=== PATIENT | male | born 1955 | race Caucasian/White ===

== ENCOUNTER 2016-07-03 11:56 | Outpatient (RCR) | payer MEDICARE, OTHER ==
--- OUTSIDE RECORDS SUMMARY | 2016-04-17 13:13 | XMS REPORT | Continuity of Care Document ---
Author Author [facility] Organization [facility] Address Unknown Phone Unavailable Care Team Providers Care Senior Architectural Designer Name Role Phone Tyler Mcdonald PCP [phone] Source Comments Some departments are not documenting in the electronic medical record. If you do not see the information that you expected, contact Release of Information in the Health Information Management department at [phone] for further assistance in locating additional records.[facility] Active Allergies and Adverse Reactions No Known Allergies Current Medications Prescription Sig. Disp. Refills Start End Date Status Date gabapentin (NEURONTIN) Take 800 mg by mouth Active 800 mg tablet twice daily. diazepam (VALIUM) 10 mg Take 10 mg by mouth every Active tablet 12 hours as needed. albuterol (PROVENTIL HFA) Inhale 2 Puffs by mouth Active 90 mcg/actuation inhaler into the lungs every 6 hours as needed for Wheezing or Shortness of Breath. Shake well before use. fluticasone-vilanterol Inhale 1 Puff by mouth Active (BREO ELLIPTA) 100-25 into the lungs daily. mcg/dose dsdv umeclidinium (INCRUSE Inhale 1 Puff by mouth Active ELLIPTA) 62.5 into the lungs daily. mcg/actuation dsdv oxyCODONE (ROXICODONE) 1 Take 5-10 mL by mouth 300 mL 0 04/09/20 Active mg/mL oral solution every 4 hours as needed 16 for Pain Earliest Fill Date: 04/09/16 antiseptic mucus solvent 6-12 mL by Mucous 04/09/20 Active 120 mL Membrane route every 1 16 hour as needed. Ascorbic Acid (VITAMIN C) Take by mouth. 04/02/20 Discontin 500 mg chew [address](+) Take 1 Cap by mouth 30 Cap 5 10/20/19 04/02/20 Discontin (PRILOSEC) 40 mg capsule daily. 15 16 ued levoFLOXacin (LEVAQUIN) Take 30 mL by mouth every 30 mL 0 04/09/20 04/10/20 25 mg/mL oral solution 24 hours for 1 day. 16 16 Active Problems Problem Noted Date Laryngeal mass 04/02/2016 GERD without esophagitis 10/20/2014 Itching 10/20/2014 Tobacco abuse 10/06/2013 Fatty liver 10/06/2013 Hepatitis C 03/16/2013 Anxiety 03/16/2013 Most Recent Encounters Date Type Specialty Providers Description 04/12/2016 Telephone Otolaryngology Francia Babcock MD Appointment - oncology 04/10/2016 Cancer Otolaryngology Francia Babcock MD Conference 04/05/2016 Screening Form 04/03/2016 [facility] Surgery Francia Babcock MD Laryngeal mass Encounter 04/03/2016 Surgery General Surgery Francia Babcock MD DIRECT LARYNGOSCOPY BIOPSY 04/02/2016 [facility] Francia Babcock MD Laryngeal mass - Encounter 04/10/2016 04/02/2016 Office Visit Otolaryngology Francia Babcock MD Laryngeal mass (Primary Dx); Tobacco abuse 04/02/2016 Anesthesia General Surgery Howard White SRNA Event Immunizations Name Dates Previously Given Next Due Flu Vaccine 04/07/2016 Quadrivalent=>3 Yo (Preservative Free) Social History Tobacco Use Types Packs/Day Years Used Date Current Every Day Smoker 0.5 51 Smokeless Tobacco: Never Used Tobacco Cessation: Ready to Quit: Yes Comments: 1 pack every 24hr Alcohol Use Drinks/Week oz/Week Comments No Denies ETOH use. Last Filed Vital Signs Vital Sign Reading Time Taken Blood Pressure 110/56 04/10/2016 9:20 AM CDT Pulse 80 04/10/2016 9:20 AM CDT Temperature 36.6 C (97.9 F) 04/10/2016 9:20 AM CDT Respiratory Rate 20 10/18/2014 2:25 PM CDT Height 1.854 m (6' 1") 04/05/2016 7:05 AM CDT Weight 94.802 kg (209 lb) 04/05/2016 7:05 AM CDT Body Mass Index 27.58 04/05/2016 7:05 AM CDT Oxygen Saturation 92% 04/10/2016 9:20 AM CDT Plan of Care Date Type Specialty Providers Description 04/19/2016 Appointment Otolaryngology Cash Johnson PA-C [address] [place] [address] [phone] (Fax) Health Maintenance Due Date Last Done Comments Physical (Comprehensive) 1962 Exam Pertussis Vaccine 1965 Tetanus Vaccine 11/16/1971 Colorectal Cancer 2004 Screening Shingles Vaccine 2014 Influenza Vaccine 03/08/2017 04/07/2016 Procedures from Last 3 Months Procedure Name Priority Date/Time Associated Diagnosis Comments PROCEDURES-SCAN 04/12/2016 Results for this 3:39 PM CDT procedure are in the results section. TRACHEOSTOMY-AWAKE 04/03/2016 Laryngeal mass 12:10 PM CDT Special Needs 04/02 T/W DR. MONTANEZ, CASE LENGTH 1 HOUR - BP (1020)03/09 6- added to procedure AWAKE TRACH per DR. JOSUE duvall DIRECT LARYNGOSCOPY 04/03/2016 Laryngeal mass BIOPSY 12:10 PM CDT Special Needs 04/02 T/W DR. MONTANEZ, CASE LENGTH 1 HOUR - BP (1020)03/09 6- added to procedure AWAKE TRACH per DR. JOSUE duvall Results from Last 3 Months PATHOLOGY INTEROPERATIVE REPORT SCAN (04/16/2016 10:28 AM) Narrative Ordered by an unspecified provider. PROCEDURES-SCAN (04/12/2016 3:39 PM) Narrative Ordered by an unspecified provider. CHEST SINGLE VIEW (04/10/2016 6:04 AM)Only the most recent of 7 results within the time period is included. Impressions Persistent mild subcutaneous emphysema in the low neck. Approved by Margaret Macdonald M.D. on 04/10/2016 9:01 AM By my electronic signature, I attest that I have personally reviewed the images for this examination and formulated the interpretations and opinions expressed in this report Finalized by uKrt Oglesby M.D. on 04/10/2016 10:48 AM. Dictated by Margaret Macdonald M.D. on 04/10/2016 8:23 AM. Narrative CHEST SINGLE VIEW Clinical Indication: Male, 60 years old. Crepitus Comparison: Chest radiograph from 04/09/2016 Findings: Tracheostomy tube remains in place. The heart size is normal without pulmonary vascular congestion. Calcified granuloma overlies the right lung base. There is mild left basilar atelectasis. No pneumothorax is identified. Subcutaneous emphysema is noted in the low neck. Procedure Note Interface, Radiant Results - Tue Apr 10, 2016 10:51 AM CDT CHEST SINGLE VIEW Clinical Indication: Male, 60 years old. Crepitus Comparison: Chest radiograph from 04/09/2016 Findings: Tracheostomy tube remains in place. The heart size is normal without pulmonary vascular congestion. Calcified granuloma overlies the right lung base. There is mild left basilar atelectasis. No pneumothorax is identified. Subcutaneous emphysema is noted in the low neck. IMPRESSION Persistent mild subcutaneous emphysema in the low neck. Approved by Margaret Macdonald M.D. on 04/10/2016 9:01 AM By my electronic signature, I attest that I have personally reviewed the images for this examination and formulated the interpretations and opinions expressed in this report Finalized by Kurt Oglesby M.D. on 04/10/2016 10:48 AM. Dictated by Margaret Macdonald M.D. on 04/10/2016 8:23 AM. LIVER FUNCTION PANEL (04/05/2016 2:50 PM) Component Value Range Total Bilirubin 0.7 0.3-1.2 MG/DL Bilirubin, Direct 0.2 <0.4 MG/DL Albumin 3.2 (L) 3.5-5.0 G/DL Alk Phosphatase 64 25-110 U/L AST (SGOT) 16 7-40 U/L ALT (SGPT) 10 7-56 U/L Total Protein 6.5 6.0-8.0 G/DL Specimen Blood BASIC METABOLIC PANEL (04/05/2016 2:50 PM)Only the most recent of 2 results within the time period is included. Component Value Range Sodium 138 137-147 MMOL/L Potassium 3.9 3.5-5.1 MMOL/L Chloride 106 98-110 MMOL/L CO2 27 21-30 MMOL/L Anion Gap 5 3-12 Glucose 190 (H) 70-100 MG/DL Blood Urea Nitrogen 17 7-25 MG/DL Creatinine 0.63 0.4-1.24 MG/DL Calcium 8.6 8.5-10.6 MG/DL eGFR Non >60Comment: >60 mL/min The eGFR is not validated for use in drug dosing adjustments. Continue to use estimated creatinine clearance per dosing reference text. Please contact the Clinical Pharmacist for questions. eGFR >60Comment: >60 mL/min The eGFR is not validated for use in drug dosing adjustments. Continue to use estimated creatinine clearance per dosing reference text. Please contact the Clinical Pharmacist for questions. Specimen Blood CBC AND DIFF (04/05/2016 2:50 PM) Component Value Range White Blood Cells 8.2 4.5-11.0 K/UL RBC 4.51 4.4-5.5 M/UL Hemoglobin 14.1 13.5-16.5 GM/DL Hematocrit 41.7 40-50 % MCV 92.4 80-100 FL MCH 31.2 26-34 PG MCHC 33.7 32.0-36.0 G/DL RDW 12.6 11-15 % Platelet Count 90 (L) 150-400 K/UL MPV 8.4 7-11 FL Neutrophils 90 (H) 41-77 % Lymphocytes 6 (L) 24-44 % Monocytes 4 4-12 % Eosinophils 0 0-5 % Basophils 0 0-2 % Absolute Neutrophil Count 7.40 (H) 1.8-7.0 K/UL Absolute Lymph Count 0.50 (L) 1.0-4.8 K/UL Absolute Monocyte Count 0.30 0-0.80 K/UL Absolute Eosinophil Count 0.00 0-0.45 K/UL Absolute Basophil Count 0.00 0-0.20 K/UL Specimen Blood NM PET SCAN TORSO (SKULL-THIGHS) (04/05/2016 8:05 AM) Impressions 1.Metabolically active right supraglottic mass extending inferiorly and superiorly with associated bilateral metabolically active level 2 lymph nodes, right greater left, compatible with samira metastasis. 2.No scintigraphic evidence of distant metastasis. Approved by Mihai Stephens MD on 04/05/2016 9:56 AM By my electronic signature, I attest that I have personally reviewed the images for this examination and formulated the interpretations and opinions expressed in this report Finalized by Nathan Hoang M.D. on 04/05/2016 11:38 AM. Dictated by Mihai Stephens MD on 04/05/2016 8:45 AM. Narrative PET/CT NECK, CHEST, ABDOMEN AND PELVIS HISTORY:Squamous cell carcinoma of the oropharynx RADIOPHARMACEUTICAL:16.5 mCi F-18 Fluorodeoxyglucose (FDG) IV. BLOOD GLUCOSE LEVEL AT THE TIME OF RADIOPHARMACEUTICAL ADMINISTRATION:145 mg /dl TECHNIQUE:Beginning approximately 60 minutes after tracer administration, routine whole body PET/CT imaging was performed from the level of the base of the skull to the upper thighs.PET images were reviewed in standard orthogonal projections.Low dose non-contrast CT imaging was performed for attenuation correction and localization purposes. COMPARISON: CT chest from March [address] neck from March 20, 2016; this is an outside image without report available. FINDINGS: The current mean hepatic SUV is 2.13, maximum 3.59. The current mean mediastinal blood SUV pool is 1.92, maximum 3.24. Physiologic activity is noted with the brain, heart, kidneys, bladder and bowel. Head/Neck: Supraglottic mass with extension superiorly and inferiorly involving the epiglottis, base of tongue, and right vocal cord with a maximum SUV of 11.44 (index 168). There is hypermetabolic bilateral cervical lymphadenopathy. A admitting representative right level 2 lymph node has a maximal SUV of 9.36 (index 168) . A admitting representative left level 2 lymph node has a maximum SUV of 5.51 (index 172) . A tracheostomy tube is visualized with mild increased uptake around the insertion site, likely representing postoperative inflammation with a maximum SUV of 3.73 (index to 234). Chest: A left lower lobe pulmonary opacity is noted with a maximum SUV of 3.05 ( index 436), likely representing pneumonitis. Marked emphysema with scattered scarring and bibasilar atelectasis is noted. There is subcutaneous gas seen in the lower neck and upper chest likely secondary to recent tracheostomy. Abdomen/Pelvis: No suspicious hypermetabolic lesions are identified within the abdomen or pelvis. Vicarious excretion of contrast material in the gallbladder is visualized, likely from recent prior contrast enhanced CT. Osseous Structures: No suspicious hypermetabolic osseous lesions are identified. Additional significant low dose CT findings: There is mild to moderate atherosclerotic calcification of the aortoiliac vessels. Occasional diverticula of the sigmoid colon are seen. Uncorrected PET images:The uncorrected PET images demonstrate no additional abnormality. Procedure Note Interface, Radiant Results - [place] Apr 05, 2016 11:41 AM CDT PET/CT NECK, CHEST, ABDOMEN AND PELVIS HISTORY: Squamous cell carcinoma of the oropharynx RADIOPHARMACEUTICAL: 16.5 mCi F-18 Fluorodeoxyglucose (FDG) IV. BLOOD GLUCOSE LEVEL AT THE TIME OF RADIOPHARMACEUTICAL ADMINISTRATION: 145 mg/ dl TECHNIQUE: Beginning approximately 60 minutes after tracer administration, routine whole body PET/CT imaging was performed from the level of the base of the skull to the upper thighs. PET images were reviewed in standard orthogonal projections. Low dose non-contrast CT imaging was performed for attenuation correction and localization purposes. COMPARISON: CT chest from March [address] neck from March 20, 2016; this is an outside image without report available. FINDINGS: The current mean hepatic SUV is 2.13, maximum 3.59. The current mean mediastinal blood SUV pool is 1.92, maximum 3.24. Physiologic activity is noted with the brain, heart, kidneys, bladder and bowel. Head/Neck: Supraglottic mass with extension superiorly and inferiorly involving the epiglottis, base of tongue, and right vocal cord with a maximum SUV of 11.44 (index 168). There is hypermetabolic bilateral cervical lymphadenopathy. A admitting representative right level 2 lymph node has a maximal SUV of 9.36 (index 168) . A admitting representative left level 2 lymph node has a maximum SUV of 5.51 (index 172) . A tracheostomy tube is visualized with mild increased uptake around the insertion site, likely representing postoperative inflammation with a maximum SUV of 3.73 (index to 234). Chest: A left lower lobe pulmonary opacity is noted with a maximum SUV of 3.05 ( index 436), likely representing pneumonitis. Marked emphysema with scattered scarring and bibasilar atelectasis is noted. There is subcutaneous gas seen in the lower neck and upper chest likely secondary to recent tracheostomy. Abdomen/Pelvis: No suspicious hypermetabolic lesions are identified within the abdomen or pelvis. Vicarious excretion of contrast material in the gallbladder is visualized, likely from recent prior contrast enhanced CT. Osseous Structures: No suspicious hypermetabolic osseous lesions are identified. Additional significant low dose CT findings: There is mild to moderate atherosclerotic calcification of the aortoiliac vessels. Occasional diverticula of the sigmoid colon are seen. Uncorrected PET images: The uncorrected PET images demonstrate no additional abnormality. IMPRESSION 1. Metabolically active right supraglottic mass extending inferiorly and superiorly with associated bilateral metabolically active level 2 lymph nodes, right greater left, compatible with samira metastasis. 2. No scintigraphic evidence of distant metastasis. Approved by Mihai Stephens MD on 04/05/2016 9:56 AM By my electronic signature, I attest that I have personally reviewed the images for this examination and formulated the interpretations and opinions expressed in this report Finalized by Nathan Hoang M.D. on 04/05/2016 11:38 AM. Dictated by Mihai Stephens MD on 04/05/2016 8:45 AM. POC GLUCOSE (04/05/2016 6:08 AM) Component Value Range Glucose, POC 145 (H) 70-100 MG/DL CT CHEST W CONTRAST (04/04/2016 11:59 AM) Impressions 1. Tracheostomy tube placement with extensive subcutaneous, mediastinal, and upper abdominal gas, likely secondary to airleak around the tube. No definitive site of air leak is demonstrated on this CT. 2. No evidence of thoracic lymphadenopathy or suspicious pulmonary nodule. 3. Marked emphysema and scattered areas of scarring with bibasilar atelectasis, left greater than right. 4. Cirrhosis of the liver. Finalized by Curtis Tejeda M.D. on 04/04/2016 12:43 PM. Dictated by Curtis Tejeda M.D. on 04/04/2016 12:[address] Chest Clinical Indication: Head and neck cancer. Staging. Technique: Multiple contiguous axial CT images were obtained through the chest during IV administration of 80 mL Isovue-370 IV contrast.Post processing coronal and sagittal reconstruction images were made from the axial images. Comparison: No comparison CT chest is available. Findings: Tracheostomy tube has been placed with extensive subcutaneous gas seen coursing throughout the subcutaneous tissues of the upper chest, throughout the mediastinum, and into extraperitoneal fat of the upper abdomen. The tracheostomy tube appears well positioned without a definitive air leak around the tube demonstrated. Axilla, Mediastinum and Luz Marina: No lymphadenopathy. Heart and Great Vessels: The heart size is normal. There is no pericardial effusion. There is at least mild coronary artery calcification. Lungs and Pleura: There is no pneumothorax. Extrapleural gas is seen tracking along the mediastinum. Marked emphysema and scattered areas of scarring are seen in both lungs. A calcified granuloma is noted in the right lower lobe. No discrete soft tissue pulmonary nodules are appreciated. There is mild bibasilar atelectasis, left greater than right. No pleural effusion is identified. Chest Wall and Osseous Structures: No destructive osseous lesions. Visualized Upper Abdomen: Mild nodular contour of the liver is noted compatible with cirrhosis. Procedure Note Interface, Radiant Results - SatApr 04, 2016 12:[address] Chest Clinical Indication: Head and neck cancer. Staging. Technique: Multiple contiguous axial CT images were obtained through the chest during IV administration of 80 mL Isovue-370 IV contrast. Post processing coronal and sagittal reconstruction images were made from the axial images. Comparison: No comparison CT chest is available. Findings: Tracheostomy tube has been placed with extensive subcutaneous gas seen coursing throughout the subcutaneous tissues of the upper chest, throughout the mediastinum, and into extraperitoneal fat of the upper abdomen. The tracheostomy tube appears well positioned without a definitive air leak around the tube demonstrated. Axilla, Mediastinum and Luz Marina: No lymphadenopathy. Heart and Great Vessels: The heart size is normal. There is no pericardial effusion. There is at least mild coronary artery calcification. Lungs and Pleura: There is no pneumothorax. Extrapleural gas is seen tracking along the mediastinum. Marked emphysema and scattered areas of scarring are seen in both lungs. A calcified granuloma is noted in the right lower lobe. No discrete soft tissue pulmonary nodules are appreciated. There is mild bibasilar atelectasis, left greater than right. No pleural effusion is identified. Chest Wall and Osseous Structures: No destructive osseous lesions. Visualized Upper Abdomen: Mild nodular contour of the liver is noted compatible with cirrhosis. IMPRESSION 1. Tracheostomy tube placement with extensive subcutaneous, mediastinal, and upper abdominal gas, likely secondary to airleak around the tube. No definitive site of air leak is demonstrated on this CT. 2. No evidence of thoracic lymphadenopathy or suspicious pulmonary nodule. 3. Marked emphysema and scattered areas of scarring with bibasilar atelectasis , left greater than right. 4. Cirrhosis of the liver. Finalized by Curtis Tejeda M.D. on 04/04/2016 12:43 PM. Dictated by Curtis Tejeda M.D. on 04/04/2016 12:34 PM. SURGICAL PATHOLOGY (04/03/2016 2:50 PM) Component Value Range PATHOLOGY REPORT [facility] [email or web address] Goyo Prakash MD, PhD, Director of Anatomic Pathology Department of Pathology and Laboratory Medicine [address] [place] [id number] Surgical Pathology Office: [phone] SURGICAL PATHOLOGY REPORT NAME: OBEY WASHBURN SURG PATH #: [id number] MR #: [id number] SPECIMEN CLASS: SR BILLING #: [id number] ALT ID #: LOCATION: [facility] DATE OF PROCEDURE: 04/03/2016 AGE: 60 SEX: M DATE RECEIVED: 04/03/2016 : 1955 TIME RECEIVED: 14:50 PHYSICIAN: FRANCIA BABCOCK DATE OF REPORT: 04/05/2016 COPY TO: DATE OF PRINTIN04/05/2016 ################################################## ###################### Final Diagnosis: A. Squamous mucosa, "right arytenoid", biopsy: Invasive moderately differentiated squamous cell carcinoma. B. Squamous mucosa, "right true cord", biopsy: Invasive moderately differentiated squamous cell carcinoma. C. Squamous mucosa, "right false cord", biopsy: Invasive moderately differentiated squamous cell carcinoma. D. Squamous mucosa, "midline epiglottis", biopsy:: Invasive moderately differentiated squamous cell carcinoma. E. Squamous mucosa, "additional tissue supraglottis", biopsy: Invasive moderately differentiated squamous cell carcinoma. Comment: Pursuant to the Rn Telephone Triage Program at the [facility] Pathology Department, selected slides from this case have been concurrently reviewed by the following pathologist: Dr. Gabby Pereira, who agrees with the final diagnosis. Attestation: By this signature, I attest that I have personally formulated the final interpretation expressed in this report and that the above diagnosis is based upon my examination of the slides and/or other material indicated in this report. +++Electronically Signed Out By+++ [facility]/04/04/2016 Interpreted by: Keira Xie M.D. David Trujillo M.D. Resident 04/05/2016 ################################################## ###################### Material Received: A: right arytenoid B: right true cord C: right false cord D: midline epiglottis E: additional tissue supraglottis History: 60-year-old male with a history of squamous cell carcinoma. Gross Description: A. Received fresh, labeled with the patient's name and "right arytenoid" are multiple, irregular, hanley-pink portions of soft tissue measuring in aggregate 1.9 x 1.2 x 0.3 cm. The specimen is entirely submitted for frozen and permanent sections as follows: A1FS Frozen section remnant. A2 Remaining specimen. ([facility]) B. Received in formalin labeled "right true cord" is a 0.6 x 0.5 x 0.3 cm aggregate of hanley-brown soft tissue fragments. The specimen is entirely submitted in cassette B1. ([facility]) C. Received in formalin labeled "right false cord" is a 0.9 x 0.4 x 0.3 cm aggregate of hanley-brown soft tissue fragments. The specimen is entirely submitted in cassette C1. ([facility]) D. Received in formalin labeled "midline epiglottis" is a 1.4 x 0.4 x 0.3 cm aggregate of hanley-brown soft tissue fragments. The specimen is entirely submitted in cassette D1. ([facility]) E. Received in formalin labeled "additional tissue supraglottis" is a 1.9 x 1.2 x 0.4 cm aggregate of hanley-brown soft tissue fragments. The specimen is entirely submitted in cassette E1. ([facility]) [facility]/04/03/2016 David Trujillo M.D. Resident Intraoperative Consultation: A1FS, squamous mucosa, "right arytenoid", biopsy: Invasive squamous cell carcinoma. Keira Xie M.D. CBC (04/03/2016 3:20 AM) Component Value Range White Blood Cells 5.0 4.5-11.0 K/UL RBC 4.85 4.4-5.5 M/UL Hemoglobin 15.6 13.5-16.5 GM/DL Hematocrit 44.9 40-50 % MCV 92.5 80-100 FL MCH 32.1 26-34 PG MCHC 34.7 32.0-36.0 G/DL RDW 12.6 11-15 % Platelet Count 81 (L) 150-400 K/UL MPV 8.7 7-11 FL Specimen Blood BLOOD BANK SAMPLE HOLD (04/02/2016 10:20 AM) Component Value Range BB Sample hold IN LAB
[2016-04-17 13:45] LABS: BASOPHILS % (AUTO) 1 % (0-10); EOSINOPHILS # (AUTO) 0.2 10^3/uL (0.0-0.3); EOSINOPHILS % (AUTO) 2 % (0-10); LYMPHOCYTES # (AUTO) 1.9 X 10^3 (1.0-4.0); LYMPHOCYTES % (AUTO) 22 % (12-44); MEAN CORPUSCULAR HEMOGLOBIN 32 PG (25-34); MEAN CORPUSCULAR HGB CONC 35 G/DL (32-36); MEAN CORPUSCULAR VOLUME 91 FL (80-99); MONOCYTES # (AUTO) 0.7 X 10^3 (0.0-1.0); MONOCYTES % (AUTO) 8 % (0-12); NEUTROPHILS # (AUTO) 5.7 X 10^3 (1.8-7.8); NEUTROPHILS % (AUTO) 67 % (42-75); PLATELET COUNT 127 10^3/uL (130-400); RED BLOOD COUNT 4.55 10^6/uL (4.35-5.85); RED CELL DISTRIBUTION WIDTH 13.3 % (10.0-14.5); WHITE BLOOD COUNT 8.5 10^3/uL (4.3-11.0)
[2016-04-17 14:14] LABS: ALANINE AMINOTRANSFERASE 16 U/L (0-55); ALBUMIN 3.4 G/DL (3.2-4.5); ANION GAP 12 MMOL/L (5-14); ASPARTATE AMINO TRANSFERASE 20 U/L (5-34); BILIRUBIN,TOTAL 0.8 MG/DL (0.1-1.0); BLOOD UREA NITROGEN 6 MG/DL (7-18); BUN/CREATININE RATIO 8; CARBON DIOXIDE 21 MMOL/L (21-32); CHLORIDE 108 MMOL/L (98-107); CREATININE SERUM 0.74 MG/DL (0.60-1.30); GFR ESTIMATED > 60; GLUCOSE 138 MG/DL (70-105); POTASSIUM 3.7 MMOL/L (3.6-5.0); SODIUM 141 MMOL/L (135-145)
[2016-05-02 13:05] LABS: BASOPHILS % (AUTO) 1 % (0-10); EOSINOPHILS # (AUTO) 0.2 10^3/uL (0.0-0.3); EOSINOPHILS % (AUTO) 3 % (0-10); LYMPHOCYTES # (AUTO) 1.6 X 10^3 (1.0-4.0); LYMPHOCYTES % (AUTO) 25 % (12-44); MEAN CORPUSCULAR HEMOGLOBIN 32 PG (25-34); MEAN CORPUSCULAR HGB CONC 35 G/DL (32-36); MEAN CORPUSCULAR VOLUME 93 FL (80-99); MEAN PLATELET VOLUME 9.1 FL (7.4-10.4); MONOCYTES # (AUTO) 0.7 X 10^3 (0.0-1.0); MONOCYTES % (AUTO) 12 % (0-12); NEUTROPHILS # (AUTO) 3.8 X 10^3 (1.8-7.8); NEUTROPHILS % (AUTO) 60 % (42-75); PLATELET COUNT 170 10^3/uL (130-400); RED BLOOD COUNT 4.48 10^6/uL (4.35-5.85); RED CELL DISTRIBUTION WIDTH 13.4 % (10.0-14.5); WHITE BLOOD COUNT 6.3 10^3/uL (4.3-11.0)
[2016-05-02 13:55] LABS: ALANINE AMINOTRANSFERASE 11 U/L (0-55); ALBUMIN 3.7 G/DL (3.2-4.5); ANION GAP 9 MMOL/L (5-14); ASPARTATE AMINO TRANSFERASE 15 U/L (5-34); BILIRUBIN,TOTAL 0.6 MG/DL (0.1-1.0); BLOOD UREA NITROGEN 5 MG/DL (7-18); BUN/CREATININE RATIO 7; CALCIUM 9.2 MG/DL (8.5-10.1); CARBON DIOXIDE 28 MMOL/L (21-32); CHLORIDE 107 MMOL/L (98-107); CREATININE SERUM 0.76 MG/DL (0.60-1.30); GFR ESTIMATED > 60; GLUCOSE 83 MG/DL (70-105); SODIUM 144 MMOL/L (135-145); TOTAL PROTEIN 7.4 G/DL (6.4-8.2)
[2016-05-17 13:39] LABS: BASOPHILS % (AUTO) 1 % (0-10); EOSINOPHILS # (AUTO) 0.2 10^3/uL (0.0-0.3); EOSINOPHILS % (AUTO) 3 % (0-10); LYMPHOCYTES # (AUTO) 1.3 X 10^3 (1.0-4.0); LYMPHOCYTES % (AUTO) 20 % (12-44); MEAN CORPUSCULAR HEMOGLOBIN 32 PG (25-34); MEAN CORPUSCULAR HGB CONC 35 G/DL (32-36); MEAN CORPUSCULAR VOLUME 93 FL (80-99); MEAN PLATELET VOLUME 9.5 FL (7.4-10.4); MONOCYTES # (AUTO) 0.6 X 10^3 (0.0-1.0); MONOCYTES % (AUTO) 9 % (0-12); NEUTROPHILS # (AUTO) 4.4 X 10^3 (1.8-7.8); NEUTROPHILS % (AUTO) 67 % (42-75); PLATELET COUNT 129 10^3/uL (130-400); RED BLOOD COUNT 4.38 10^6/uL (4.35-5.85); RED CELL DISTRIBUTION WIDTH 13.1 % (10.0-14.5); WHITE BLOOD COUNT 6.5 10^3/uL (4.3-11.0)
[2016-05-17 14:37] LABS: ALANINE AMINOTRANSFERASE 10 U/L (0-55); ALBUMIN 3.6 G/DL (3.2-4.5); ANION GAP 8 MMOL/L (5-14); ASPARTATE AMINO TRANSFERASE 14 U/L (5-34); BLOOD UREA NITROGEN 6 MG/DL (7-18); BUN/CREATININE RATIO 8; CALCIUM 9.2 MG/DL (8.5-10.1); CARBON DIOXIDE 29 MMOL/L (21-32); CHLORIDE 102 MMOL/L (98-107); CREATININE SERUM 0.72 MG/DL (0.60-1.30); GFR ESTIMATED > 60; GLUCOSE 117 MG/DL (70-105); POTASSIUM 4.1 MMOL/L (3.6-5.0); SODIUM 139 MMOL/L (135-145); TOTAL PROTEIN 7.2 G/DL (6.4-8.2)
[~2016-07-03] VITALS: Ht 185.4 cm; Wt 94.3 kg
[~2016-07-03 11:56] MED LIST: ACETAMINOPHEN 325 MG TAB (TYLENOL) CANCER CTR PO PRN; AZIT500T PO; BUDE90AE2 IH; CEFD300C3 PO; FLUT1AER IH; HYDR473S50 PO; METH4TAB PO; NS (IVPB) CANCER CENTER 250 ML IV SCH; PANITUMUMAB IV SCH; UMEC62.5 IH; [UNRECOGNIZED DRUG - OTHER] IV SCH; diphenhydrAMINE 25 MG TAB (BENADRYL) CANCER CENTER PO SCH
== END 2016-07-16 | disposition home or self-care (01) ==
LOC: ONC 11:56
PROVIDERS: ATTEND Internal Medicine Hematology & Oncology
DX: Z51.0 Encounter for antineoplastic radiation therapy (principal); C32.1 Malignant neoplasm of supraglottis; B18.2 Chronic viral hepatitis C; J44.9 Chronic obstructive pulmonary disease, unspecified; Z87.891 Personal history of nicotine dependence; Z79.899 Other long term (current) drug therapy
CPT/HCPCS: 36415; 77300; 77301; 77332; 77334; 77336; 77338; 77386; 77470; 80053; 85025; 99213; 99214

== ENCOUNTER 2016-07-26 05:49 | Outpatient (CLI) | payer OTHER ==
[~2016-07-26] VITALS: Ht 185.4 cm; Wt 91.2 kg
[~2016-07-26 05:49] MED LIST changes: -ACETAMINOPHEN 325 MG TAB (TYLENOL) CANCER CTR PO PRN; -NS (IVPB) CANCER CENTER 250 ML IV SCH; -PANITUMUMAB IV SCH; -[UNRECOGNIZED DRUG - OTHER] IV SCH; -diphenhydrAMINE 25 MG TAB (BENADRYL) CANCER CENTER PO SCH
--- OUTSIDE RECORDS SUMMARY | 2016-07-26 05:53 | XMS REPORT | Continuity of Care Document ---
Author Author [facility] Organization [facility] Address Unknown Phone Unavailable Care Team Providers Care Material Planning Analyst Name Role Phone Tyler Mcdonald PCP [phone] Source Comments Some departments are not documenting in the electronic medical record. If you do not see the information that you expected, contact Release of Information in the Health Information Management department at [phone] for further assistance in locating additional records.[facility] Active Allergies and Adverse Reactions No [...]
== END 2016-07-26 12:27 ==
LOC: PREOP 05:49
PROVIDERS: ATTEND Surgery
DX: Z01.818 Encounter for other preprocedural examination (principal); C32.1 Malignant neoplasm of supraglottis

== ENCOUNTER 2016-07-30 08:42 | Day surgery (SDC) | payer OTHER ==
[~2016-07-30] VITALS: Ht 185.4 cm; Wt 91.2 kg
[~2016-07-30 08:42] MED LIST changes: +NS IV 500 ML 500 ML ONE
--- OUTSIDE RECORDS SUMMARY | 2016-07-30 08:46 | XMS REPORT | Continuity of Care Document ---
Author Author [facility] Organization [facility] Address Unknown Phone Unavailable Care Team Providers Care Photo Cartographer Name Role Phone Tyler Mcdonald PCP [phone] Source Comments Some departments are not documenting in the electronic medical record. If you do not see the information that you expected, contact Release of Information in the Health Information Management department at [phone] for further assistance in locating additional records.[facility] Active Allergies and Adverse Reactions No [...] Recent Encounters Date Type Specialty Providers Description 07/27/2016 Telephone Otolaryngology Francia Mckeon MD Navigation Follow Up 06/27/2016 Telephone Otolaryngology Kathe Dunlap, Appointment - [...] of Care Date Type Specialty Providers Description 08/28/2016 Appointment Otolaryngology Francia Mckeon MD [address] [facility] [address] [place] [address] [phone] (Fax) Health Maintenance Due Date Last Done Comments Physical (Comprehensive) 1961 Exam Pertussis Vaccine 1965 Tetanus Vaccine 11/16/1971 Colorectal Cancer 2004 Screening Shingles Vaccine 2014 Influenza Vaccine 03/08/2017 04/07/2016 Results from Last 3 Months [facility] REF LAB SCAN (06/10/2016 2:32 PM) Narrative Ordered by an unspecified provider.
--- OUTSIDE RECORDS SUMMARY | 2016-07-30 08:46 | XMS REPORT | Continuity of Care Document ---
Author Author [facility] Organization [facility] Address Unknown Phone Unavailable Care Team Providers Care Hairspring Vibrator Name Role Phone Tyler Mcdonald PCP [phone] Source Comments Some departments are not documenting in the electronic medical record. If you do not see the information that you expected, contact Release of Information in the Health Information Management department at [phone] for further assistance in locating additional records.[facility] Active Allergies and Adverse Reactions No Known [...] 08/28/2016 Appointment Otolaryngology Francia Mckeon MD [address] [facility] [address] [place] [address] [phone] (Fax) Health Maintenance Due Date Last Done Comments Physical (Comprehensive) 1962 Exam Pertussis Vaccine 1965 Tetanus Vaccine 11/16/1971 Colorectal Cancer 2004 Screening Shingles Vaccine 2014 Influenza Vaccine 03/08/2017 04/07/2016 Results from Last 3 Months [facility] REF LAB SCAN (06/10/2016 2:32 PM) Narrative Ordered by an unspecified provider.
[2016-07-30 08:55] VITALS: BP 134/80
[2016-07-30] MEDS ORDERED: NS IV 500 ML 500 ML IV PRN (08:55)
[2016-07-30] MEDS ORDERED: HURRICAINE EXT TUBE (BENZOCAINE) XX PRN (09:00)
[2016-07-30] MEDS ORDERED: NALOXONE 0.4 MG/ML 1 ML (NARCAN) VIAL IVP PRN (09:00)
[2016-07-30] MEDS ORDERED: FLUMAZENIL (ROMAZICON) 0.1 MG/ML 5 ML VIAL INJ PRN (09:00)
--- NOTE | 2016-07-30 10:09 | Pre-Op Note & Conscious Sedat ---
Pre-Operative Progress Note H&P Reviewed The H&P was reviewed, patient examined and no changes noted. Date H&P Reviewed: Jul 30, 2016 Time H&P Reviewed: 10:09 Pre-Op Diagnosis: laryngeal carcinoma. Unused PEG tube Conscious Sedation Pre-Proced ASA Class: 3 Airway Mallampati Classification: ([place] appropriate class) I. II. III, IV Lungs Heart ASA score ASA 1: a normal healthy patient ASA 2: a patient with a mild systemic disease (mid diabetes, controlled hypertension, obesity ASA 3: a patient with a severe systemic disease that limits activity (angina , COPD, prior Myocardial infarction) ASA 4: a patient with an incapacitating disease that is a constant threat to life (CHF, renal failure) ASA 5: a moribund patient not expected to survive 24 hrs. (ruptured aneurysm) ASA 6: a declared brain patient whose organs are being harvested. For emergent operations, add the letter E after the classification Grade 2 Sedation Plan: Discussed options with patient/fam Note The patient is an appropriate candidate to undergo the planned procedure, sedation, and anesthesia. The patient immediately re-assessed prior to indication. CRESENCIO FELDER MD Jul 30, 2016 10:09 am
--- NOTE | 2016-07-30 10:18 | Diagnostic Imaging Report ---
PROCEDURE: CT abdomen without contrast. TECHNIQUE: Multiple contiguous axial images were obtained through the abdomen without the use of intravenous contrast. Oral contrast was administered however. INDICATION: Check PEG tube placement. FINDINGS: In the interval since the previous CT abdomen exam of 06/16/2014, a PEG tube has been inserted. The tube appears to be well-positioned with bulb in the gastric lumen. The stomach itself is partially filled with oral contrast and gas and seems to be generally unremarkable. As suggested on the prior exam, the liver is prominent and has a micronodular contour. The spleen is also slightly enlarged and similar to the prior exam. The gallbladder, pancreas, adrenals, kidneys, aorta and inferior vena cava are unremarkable for an acute abnormality. The small cyst in the inferior pole of the left kidney seen previously is again evident and not significantly changed. There is no mass or free fluid collection identified. The lung bases are generally clear. The calcified 1 cm nodule in the right lower lobe seen previously is again evident. The bone windows show no sign of an acute fracture or of a destructive lesion. There is a 30-40% compression deformity of the superior endplate of L4. This injury seems to be long-standing in nature. IMPRESSION: 1. The newly inserted PEG tube is in good position. 2. There is no acute abnormality of the abdomen. 3. There is persistent hepatosplenomegaly. These results were discussed with Dr. Orozco. Dictated by: Dictated on workstation # [id number]
[2016-07-30] MEDS ORDERED: MIDAZOLAM 2 MG/2 ML (VERSED) VIAL ONE ×3 (10:28)
[2016-07-30] MEDS ORDERED: HURRICAINE EXT TUBE (BENZOCAINE) ONE (10:28)
[2016-07-30] MEDS ORDERED: fentaNYL INJECTION 100 MCG/2 ML AMP ONE (10:28)
[2016-07-30] MEDS: fentaNYL INJECTION 100 MCG/2 ML AMP IVP PRN ×2 (10:35→10:38)
[2016-07-30] MEDS: MIDAZOLAM 2 MG/2 ML (VERSED) VIAL IVP PRN ×2 (10:36→10:39)
--- NOTE | 2016-07-30 10:54 | Progress Note-Post Operative ---
Post-Operative Progess Note Pre-Operative Diagnosis laryngeal carcinoma. Unused PEG tube Post-Operative Diagnosis same Post-Op Procedure Note Date of Procedure: Jul 30, 2016 Name of Procedure: EGD with removal of PEG tube Anesthesia Type sedation CRESENCIO FELDER MD Jul 30, 2016 10:54 am
--- NOTE | 2016-07-30 10:55 | Discharge Inst-Simple/Standard ---
Discharge Inst-Standard Discharge Medications New, Converted or Re-Newed RX: Other Patient Instructions/Follow Up Plan of Care/Instructions/FU: Razia bandage on the anterior abdominal wall until drainage ceases Activity as Tolerated: Yes Discharge Diet: No Restrictions CRESENCIO FELDER MD Jul 30, 2016 10:55 am
[2016-07-30 11:15] VITALS: BP 102/73
[2016-07-30 11:40] VITALS: BP 107/69
[2016-07-30 11:50] VITALS: BP 107/69
--- NOTE | 2016-07-30 13:03 | PROCEDURE REPORT ---
PROCEDURE PHYSICIAN: CRESENCIO FELDER DATE OF PROCEDURE: 07/30/2016 PROCEDURE: Endoscopic removal of PEG tube. SURGEON: Ernesto INDICATION FOR THE PROCEDURE: This gentleman is being treated for laryngeal carcinoma. He has resumed normal eating and therefore the PEG tube has been unused for several days. Due to unexplained pain over the anterior abdominal wall, CT scan was obtained to ensure satisfactory position of the flange of the tube within the stomach. Subsequently, it was felt reasonable to remove it endoscopically. Informed consent was obtained after reviewing the procedure in detail. DESCRIPTION OF PROCEDURE: He was placed in left lateral decubitus position and his vital signs were monitored. Conscious sedation was achieved using Versed and fentanyl. The flexible gastroscope was introduced down the esophagus into the stomach. The flange of the PEG tube was snared and the tube itself excised outside the abdominal wall. The flange was then removed uneventfully. He tolerated the procedure reasonably well. IMPRESSION: Successful endoscopic removal of unused PEG tube Job ID: [id number] Dictated Date: 07/30/2016 10:48:33 Auto Bench Mechanic Date: 07/30/2016 12:59:09 / diogenes QUEVEDO
== END 2016-07-30 11:30 | disposition home or self-care (01) ==
LOC: RAD 08:42
PROVIDERS: ATTEND Surgery
DX: C32.9 Malignant neoplasm of larynx, unspecified (principal)
CPT/HCPCS: 74150

== ENCOUNTER → 2016-08-17 | Outpatient (CLI) | payer OTHER ==
[~2016-08-17] MED LIST changes: +AC160U10 PEG; +ACET160E11 GT; +ALBU2.5V4 IH; +AMOX1TAB12 GT; +CALC200T2 PEG; +CALCITRATE 950 MG GT; +CATHETER FLUSH 10 ML SYR IV PRN; +CHLO473M PO; +CHOL10007 GT; +DIAZ10TA GT; +DOCU50LI GT; +Hydrogen Peroxide MC; +IOHEXOL 350 MG/ML 100 ML (OMNIPAQUE 350) VIAL IV ONE; +LEVO50TA6 GT; +MULT240L3 GT; +NS 100 ML (IVPB) BAG IV ONE; -NS IV 500 ML 500 ML ONE; +OLAN5TAB25 JT; +OMEP40CA36 GT; +ONDA4TAB8 PO; +OXYC5SOL19 GT; +RT-ALBUINH IH; +SULF1TAB35 PO; +TRAZ-28 GT; +[UNRECOGNIZED DRUG - OTHER] MM
--- OUTSIDE RECORDS SUMMARY | 2016-08-17 10:53 | XMS REPORT | Continuity of Care Document ---
Author Author [facility] Organization [facility] Address Unknown Phone Unavailable Care Team Providers Care Property Site Manager Name Role Phone Tyler Mcdonald PCP [phone] Source Comments Some departments are not documenting in the electronic medical record. If you do not see the information that you expected, contact Release of Information in the Health Information Management department at [phone] for further assistance in locating additional records.[facility] Active Allergies and Adverse Reactions No [...] route every 1 16 hour as needed. nystatin (MYCOSTATIN) Take 500,000 Units by Active 100,000 units/mL oral mouth four times daily. 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 Status post radiation therapy 08/14/2016 Laryngeal mass 04/02/2016 GERD without esophagitis 10/20/2014 Itching 10/20/2014 Tobacco abuse 10/06/2013 Fatty liver 10/06/2013 Hepatitis C 03/16/2013 Anxiety 03/16/2013 Most Recent Encounters Date Type Specialty Providers Description 08/15/2016 Telephone Otolaryngology Francia Mckeon MD Navigation Follow Up 08/15/2016 Orders Only Otolaryngology Francia Mckeon MD Pre- procedure lab exam (Primary Dx) 08/14/2016 Office Visit Otolaryngology Francia Mckeon MD Squamous cell carcinoma of larynx (HCC) (Primary Dx); Status post radiation therapy 07/27/2016 Telephone OtolaryngologFrancia Madrid MD Navigation Follow Up 06/27/2016 Telephone Otolaryngology Kathe Dunlap Appointment - Selin CARTY f/u Immunizations Name Dates Previously Given Next [...] Vital Sign Reading Time Taken Blood Pressure 106/78 08/14/2016 1:40 PM COCKTAIL LOUNGE MANAGER Pulse 105 08/14/2016 1:40 PM COCKTAIL LOUNGE MANAGER Temperature 36.6 C (97.9 F) 04/10/2016 9:20 AM CDT Respiratory Rate 20 10/18/2014 2:25 PM CDT Height 1.88 m (6' 2") 08/14/2016 1:40 PM COCKTAIL LOUNGE MANAGER Weight 89.994 kg (198 lb 6.4 oz) 08/14/2016 1:40 PM COCKTAIL LOUNGE MANAGER Body Mass Index 25.46 08/14/2016 1:40 PM COCKTAIL LOUNGE MANAGER Oxygen Saturation 92% 04/10/2016 9:20 AM CDT Plan of Care Date Type Specialty Providers Description 08/21/2016 Appointment Otolaryngology Kathe Dunlap PA-C [address] [place] [address] [phone] (Fax) 10/19/2016 Appointment Otolaryngology Francia Mckeon MD [address] [facility] [address] [place] [address] [phone] (Fax) Health Maintenance Due Date Last Done Comments Physical (Comprehensive) 1961 Exam Pertussis Vaccine 1965 Tetanus Vaccine 11/16/1971 Colorectal Cancer 2004 Screening Shingles Vaccine 2014 Influenza Vaccine 03/08/2017 04/07/2016 Results from Last 3 Months [facility] REF LAB SCAN (06/10/2016 2:32 PM) Narrative Ordered by an unspecified provider.
[2016-08-17 11:19] LABS: BLOOD UREA NITROGEN 8 MG/DL (7-18); BUN/CREATININE RATIO 11; CREATININE SERUM 0.74 MG/DL (0.60-1.30); GFR ESTIMATED > 60
--- NOTE | 2016-08-17 12:40 | Diagnostic Imaging Report ---
EXAMINATION: CT scan of the neck and chest performed with intravenous contrast. INDICATION: Squamous cell carcinoma of the throat. COMPARISON: Comparison CT neck of 03/20/2016, CT abdomen of 06/16/2014 and loaded images from an outside PET of 04/05/2016 were reviewed. FINDINGS: CT NECK: There is heterogeneously enhancing mass seen in the larynx supraglottic region eccentric to the left side with maximum measurements of 3 x 3.2 cm with the involved area extending about 4.3 cm craniocaudally. The area of mass and soft tissue thickening involves the glottis also but does not appear to definitely involve the vocal cords. The false vocal cords are involved. As previously described, there are areas of suspected neoplasm related erosions in the thyroid cartilage. Due to the change in appearance and irregularity of the mass, it is difficult to accurately compare the size with the previous study. However, the overall appearance is suggestive of slight decrease in the tumor size. Previously seen lymphadenopathy in the neck is resolved with subcentimeter level II lymph nodes seen bilaterally. There is interval placement of a tracheostomy tube. The parotid and the submandibular glands appear symmetric. The thyroid gland appears normal. The paranasal sinuses visualized portions appear unremarkable. The osseous structures appear grossly unremarkable. CT CHEST: Prominent emphysema changes are seen predominantly involving the upper lobes. There is no significant consolidation, mass or suspicious nodule. There is a calcified granuloma in the right lung base. The heart size is normal. There is no mediastinal mass or lymphadenopathy. No hilar lymphadenopathy. No axillary lymphadenopathy seen. The contour of the liver is nodular concerning for cirrhosis. The spleen is at the upper limits of normal in size. There are minimal upper abdominal dilated varices seen. The osseous structures demonstrate no destructive mass. IMPRESSION: CT NECK: 1. Persistent irregular mass in the glottic and supraglottic portions of the larynx with question of slight decrease in overall size. 2. Interval resolution or resection of previously seen enlarged cervical lymph nodes. CT CHEST: 1. Emphysema. 2. Liver cirrhosis. 3. No evidence of metastasis. Dictated by: Dictated on workstation # [id number]
== END ==
LOC: RAD 10:48
PROVIDERS: ATTEND Physician Assistant
DX: C32.9 Malignant neoplasm of larynx, unspecified (principal); J43.9 Emphysema, unspecified; K74.60 Unspecified cirrhosis of liver; Z92.3 Personal history of irradiation
CPT/HCPCS: 36415; 70491; 71260; 82565; 84520

== ENCOUNTER 2016-08-20 14:34 | Outpatient (RCR) | payer MEDICARE, OTHER ==
--- OUTSIDE RECORDS SUMMARY | 2016-07-23 14:47 | XMS REPORT | Continuity of Care Document ---
Author [facility] Address Unknown Phone Unavailable Care Team Providers Care Biological Science Aide Name Role Phone Tyler Mcdonald PCP [phone] Source Comments Some departments are not documenting in the electronic medical record. If you do not see the information that you expected, contact Release of Information in the Health Information Management department at [phone] for further assistance in locating additional records.[facility] Active Allergies and Adverse Reactions No [...] route every 1 16 hour as needed. Active Problems Problem Noted Date Laryngeal mass 04/02/2016 GERD without esophagitis 10/20/2014 Itching 10/20/2014 Tobacco abuse 10/06/2013 Fatty liver 10/06/2013 Hepatitis C 03/16/2013 Anxiety 03/16/2013 Most Recent Encounters Date Type Specialty Providers Description 06/27/2016 Telephone Otolaryngology Kathe Dunlap, Appointment - Regarding PA-C f/u Immunizations Name Dates Previously Given Next Due [...] 04/10/2016 9:20 AM CDT Plan of Care Health Maintenance Due Date Last Done Comments Physical (Comprehensive) 1962 Exam Pertussis Vaccine 1965 Tetanus Vaccine 11/16/1971 Colorectal Cancer 2004 Screening Shingles Vaccine 2014 Influenza Vaccine 03/08/2017 04/07/2016 Results from Last 3 Months [facility] REF LAB SCAN (06/10/2016 2:32 PM) Narrative Ordered by an unspecified provider.
[2016-07-23 15:08] LABS: BASOPHILS % (AUTO) 1 % (0-10); EOSINOPHILS # (AUTO) 0.2 10^3/uL (0.0-0.3); EOSINOPHILS % (AUTO) 4 % (0-10); LYMPHOCYTES % (AUTO) 14 % (12-44); MEAN CORPUSCULAR HEMOGLOBIN 32 PG (25-34); MEAN CORPUSCULAR HGB CONC 35 G/DL (32-36); MEAN CORPUSCULAR VOLUME 91 FL (80-99); MEAN PLATELET VOLUME 9.4 FL (7.4-10.4); MONOCYTES # (AUTO) 0.7 X 10^3 (0.0-1.0); MONOCYTES % (AUTO) 10 % (0-12); NEUTROPHILS % (AUTO) 72 % (42-75); PLATELET COUNT 110 10^3/uL (130-400); RED BLOOD COUNT 4.95 10^6/uL (4.35-5.85); RED CELL DISTRIBUTION WIDTH 13.7 % (10.0-14.5)
[2016-07-23 15:33] LABS: ALANINE AMINOTRANSFERASE 22 U/L (0-55); ANION GAP 8 MMOL/L (5-14); ASPARTATE AMINO TRANSFERASE 23 U/L (5-34); BILIRUBIN,TOTAL 0.7 MG/DL (0.1-1.0); BLOOD UREA NITROGEN 15 MG/DL (7-18); BUN/CREATININE RATIO 20; CALCIUM 9.8 MG/DL (8.5-10.1); CARBON DIOXIDE 28 MMOL/L (21-32); CHLORIDE 103 MMOL/L (98-107); CREATININE SERUM 0.76 MG/DL (0.60-1.30); GFR ESTIMATED > 60; GLUCOSE 119 MG/DL (70-105); MAGNESIUM 2.1 MG/DL (1.8-2.4); POTASSIUM 4.6 MMOL/L (3.6-5.0); SODIUM 139 MMOL/L (135-145); TOTAL PROTEIN 7.7 G/DL (6.4-8.2)
[~2016-08-20 14:34] MED LIST changes: -AC160U10 PEG; -ACET160E11 GT; -ALBU2.5V4 IH; -AMOX1TAB12 GT; -CALC200T2 PEG; -CALCITRATE 950 MG GT; -CATHETER FLUSH 10 ML SYR IV PRN; -CHLO473M PO; -CHOL10007 GT; -DIAZ10TA GT; -DOCU50LI GT; -Hydrogen Peroxide MC; -IOHEXOL 350 MG/ML 100 ML (OMNIPAQUE 350) VIAL IV ONE; -LEVO50TA6 GT; -MULT240L3 GT; -NS 100 ML (IVPB) BAG IV ONE; -OLAN5TAB25 JT; -OMEP40CA36 GT; -ONDA4TAB8 PO; -OXYC5SOL19 GT; -RT-ALBUINH IH; -SULF1TAB35 PO; -TRAZ-28 GT; -[UNRECOGNIZED DRUG - OTHER] MM
[2016-08-20 14:48] LABS: BASOPHILS # (AUTO) 0.1 10^3/uL (0.0-0.1); BASOPHILS % (AUTO) 1 % (0-10); EOSINOPHILS # (AUTO) 0.1 10^3/uL (0.0-0.3); EOSINOPHILS % (AUTO) 2 % (0-10); LYMPHOCYTES # (AUTO) 0.7 X 10^3 (1.0-4.0); LYMPHOCYTES % (AUTO) 12 % (12-44); MEAN CORPUSCULAR HEMOGLOBIN 31 PG (25-34); MEAN CORPUSCULAR HGB CONC 35 G/DL (32-36); MEAN CORPUSCULAR VOLUME 90 FL (80-99); MEAN PLATELET VOLUME 9.2 FL (7.4-10.4); MONOCYTES # (AUTO) 0.6 X 10^3 (0.0-1.0); MONOCYTES % (AUTO) 10 % (0-12); NEUTROPHILS # (AUTO) 4.4 X 10^3 (1.8-7.8); NEUTROPHILS % (AUTO) 75 % (42-75); PLATELET COUNT 147 10^3/uL (130-400); RED BLOOD COUNT 4.88 10^6/uL (4.35-5.85); RED CELL DISTRIBUTION WIDTH 13.4 % (10.0-14.5); WHITE BLOOD COUNT 5.9 10^3/uL (4.3-11.0)
[2016-08-20 15:17] LABS: ALANINE AMINOTRANSFERASE 21 U/L (0-55); ALBUMIN 4.2 G/DL (3.2-4.5); ANION GAP 11 MMOL/L (5-14); ASPARTATE AMINO TRANSFERASE 24 U/L (5-34); BILIRUBIN,TOTAL 1.6 MG/DL (0.1-1.0); BLOOD UREA NITROGEN 9 MG/DL (7-18); BUN/CREATININE RATIO 11; CALCIUM 9.8 MG/DL (8.5-10.1); CARBON DIOXIDE 26 MMOL/L (21-32); CHLORIDE 102 MMOL/L (98-107); CREATININE SERUM 0.82 MG/DL (0.60-1.30); GFR ESTIMATED > 60; GLUCOSE 133 MG/DL (70-105); SODIUM 139 MMOL/L (135-145)
[2016-09-04] MEDS ORDERED: RT-ALBUINH IH (14:30)
== END 2016-10-21 | disposition home or self-care (01) ==
LOC: ONC 14:34
PROVIDERS: ATTEND Internal Medicine Hematology & Oncology
DX: C32.1 Malignant neoplasm of supraglottis (principal); B18.2 Chronic viral hepatitis C; J44.9 Chronic obstructive pulmonary disease, unspecified; Z87.891 Personal history of nicotine dependence; Z79.899 Other long term (current) drug therapy
CPT/HCPCS: 36415; 80053; 83735; 85025; 99213

== ENCOUNTER 2016-08-24 10:00 | Emergency (ER) | payer OTHER ==
[~2016-08-24] VITALS: Ht 185.4 cm; Wt 89.8 kg
--- OUTSIDE RECORDS SUMMARY | 2016-08-24 10:08 | XMS REPORT | Continuity of Care Document ---
Author Author [facility] Organization [facility] Address Unknown Phone Unavailable Care Team Providers Care Marsh Buggy Operator Name Role Phone Tyler Mcdonald PCP [phone] Source Comments Some departments are not documenting in the electronic medical record. If you do not see the information that you expected, contact Release of Information in the Health Information Management department at [phone] for further assistance in locating additional records.[facility] Active Allergies and Adverse Reactions No [...] Recent Encounters Date Type Specialty Providers Description 08/21/2016 Office Visit Otolaryngology Kathe Dunlap, Squamous cell carcinoma PA-C of larynx (HCC) (Primary Dx); Status post radiation therapy 08/15/2016 Telephone Otolaryngology Francia Mckeon MD Navigation Follow Up 08/15/2016 Orders Only Otolaryngology Francia Mckeon MD Pre- procedure lab exam (Primary Dx) 08/14/2016 Office Visit OtolaryngologFrancia Madrid MD Squamous cell carcinoma of larynx (HCC) (Primary Dx); Status post radiation therapy 07/27/2016 Telephone Otolaryngology Francia Mckeon MD Navigation Follow Up 06/27/2016 Telephone Otolaryngology Kathe Dunlap, Appointment - Regarding PA-C f/u Immunizations Name Dates Previously Given Next Due Flu Vaccine 04/07/2016 Quadrivalent=>3 Yo (Preservative Free) Social History Tobacco Use Types Packs/Day Years Used Date Former Smoker 0.5 51 Smokeless Tobacco: Never Used Tobacco Cessation: Ready to Quit: Yes Comments: 1 pack every 24hr Alcohol Use Drinks/Week oz/Week Comments No 0 Standard 0.0 Denies ETOH use. drinks or equivalent Last Filed Vital Signs Vital Sign Reading Time Taken Blood Pressure 111/69 08/21/2016 1:26 PM CLIENT OPERATIONS MANAGER Pulse 84 08/21/2016 1:26 PM CLIENT OPERATIONS MANAGER Temperature 36.6 C (97.9 F) 04/10/2016 9:20 AM CDT Respiratory Rate 20 10/18/2014 2:25 PM CDT Height 1.88 m (6' 2") 08/21/2016 1:26 PM CLIENT OPERATIONS MANAGER Weight 87.091 kg (192 lb) 08/21/2016 1:26 PM CLIENT OPERATIONS MANAGER Body Mass Index 24.64 08/21/2016 1:26 PM CLIENT OPERATIONS MANAGER Oxygen Saturation 92% 04/10/2016 9:20 AM CDT Plan of Care Date Type Specialty Providers Description 10/19/2016 Appointment Otolaryngology Francia Mckeon MD [address] [facility] [address] [place] [address] [phone] (Fax) Health Maintenance Due Date Last Done Comments Physical (Comprehensive) 1962 Exam Pertussis Vaccine 1965 Tetanus Vaccine 11/16/1971 Colorectal Cancer 2004 Screening Shingles Vaccine 2014 Influenza Vaccine 03/08/2017 04/07/2016 Results from Last 3 Months [facility] REF LAB SCAN (06/10/2016 2:32 PM) Narrative Ordered by an unspecified provider.
--- NOTE | 2016-08-24 10:54 | ED EENT ---
History of Present Illness General Chief Complaint: Oral/Throat Problems Stated Complaint: POST OP TRACH REMOVDIFF SWALLOWING/THROAT SWOLLEN Nursing Triage Note: AMBUATED TO ROOM 08 WITH COMPLAINTS THAT HE FEELS LIKE HIS THROAT IS SWELLING AND HAVING TROUBLE SWALLOWING. STATES HIS TRACH TUBE WAS REMOVED ON SATURDAY AND IS CANCER FREE. Source: patient Exam Limitations: no limitations History of Present Illness Time seen by provider: 10:51 Initial Comments To ER with difficulty swallowing. He has been treated for laryngeal cancer and had a tracheostomy tube placed. He completed radiation in June and had a gastric tube removed at [facility] on Saturday of this week. Starting yesterday () he noted difficulty with swallowing. He reports a persistent cough that is unchanged in nature since for the trach was removed. Denies fevers or chills. States that his neck appears swollen Timing/Duration: gradual Severity: moderate Location: throat Prearrival Treatment: no prearrival treatment Associated Symptoms: denies symptoms Allergies and Home Medications Allergies Coded Allergies: No Known Drug Allergies (Unverified , 07/26/16) Home Medications No Active Prescriptions or Reported Meds Review of Systems Constitutional: see HPINo chills, No fever Eyes: No Symptoms Reported Ears: No Symptoms Reported Nose: no symptoms reported Mouth: no symptoms reported Throat: see HPI pain Respiratory: no symptoms reported Cardiovascular: no symptoms reported Musculoskeletal: no symptoms reported Past Kpqalvp-Pzduwi-Klntsx Hx Patient Social History Alcohol Use: Denies Use Recreational Drug Use: No Smoking Status: Former Smoker Type Used: Cigarettes Recent Foreign Travel: No Contact w/Someone Who Travel: No Recent Infectious Disease Expo: No Recent Hopitalizations: Yes (laryngeal cancer at in 04/03/16) Immunizations Up To Date Date of Pneumonia Vaccine: Apr 25, 2013 Date of Influenza Vaccine: Apr 10, 2016 Seasonal Allergies Seasonal Allergies: No Surgeries HX Surgeries: Yes (back sx, PEG, TEETH PULLED) Surgeries: Tracheostomy Respiratory Hx Respiratory Disorders: Yes Respiratory Disorders: COPD Cardiovascular Hx Cardiac Disorders: No Neurological Hx Neurological Disorders: No Reproductive System Hx Reproductive Disorders: No Genitourinary Hx Genitourinary Disorders: No Gastrointestinal Hx Gastrointestinal Disorders: No Gastrointestinal Disorders: Hepatitis Musculoskeletal Hx Musculoskeletal Disorders: No Musculoskeletal Disorders: Chronic Back Pain Endocrine Hx Endocrine Disorders: No HEENT HX ENT Disorders: Yes (READING GLASSES) Loss of Vision: Bilateral Hearing Impairment: Denies Cancer Hx Cancer: Yes (laryngeal) Psychosocial Hx Psychiatric Problems: No Integumentary HX Skin/Integumentary Disorder: No Blood Transfusions Hx Blood Disorders: No Adverse Reaction to a Blood Tr: No (N/A) Physical Exam Vital Signs Vital Sign - Last 12Hours 08/24/16 10:10 Temp 99.1 Pulse 72 Resp 18 B/P 143/76 Pulse Ox 93 O2 Delivery Room Air General Appearance: WD/WN no apparent distress Eyes: bilateral eye EOMI, bilateral eye PERRL, bilateral eye normal inspection Ears: bilateral ear TM normal, bilateral ear auricle normal, bilateral ear canal normal Mouth/Throat: normal mouth inspection pharynx normal Neck: non-tender full range of motionNo lymphadenopathy (R), No lymphadenopathy (L) Respiratory: normal breath sounds no respiratory distress no accessory muscle use Gastrointestinal: normal bowel sounds non tender soft Neurologic/Psychiatric: alert normal mood/affect oriented x 3 Skin: normal color warm/dry Progress/Results/Core Measures Results/Orders Lab Results Laboratory Tests Test 08/24/16 11:05 Range/Units Anion Gap 10 5-14 MMOL/L BUN/Creatinine Ratio 10 Basophils # (Auto) 0.0 0.0-0.1 10^3/uL Basophils (%) (Auto) 1 0-10 % Blood Urea Nitrogen 7 7-18 MG/DL Calcium Level 9.3 8.5-10.1 MG/DL Carbon Dioxide Level 25 21-32 MMOL/L Chloride Level 102 98-107 MMOL/L Creatinine 0.71 0.60-1.30 MG/DL Eosinophils # (Auto) 0.1 0.0-0.3 10^3/uL Eosinophils (%) (Auto) 2 0-10 % Estimat Glomerular Filtration Rate > 60 Glucose Level 107 H 70-105 MG/DL Hematocrit 42 40-54 % Hemoglobin 14.7 13.3-17.7 G/DL Lymphocytes # (Auto) 0.9 L 1.0-4.0 X 10^3 Lymphocytes (%) (Auto) 15 12-44 % Mean Corpuscular Hemoglobin 32 25-34 PG Mean Corpuscular Hemoglobin Concent 35 32-36 G/DL Mean Corpuscular Volume 90 80-99 FL Mean Platelet Volume 9.6 7.4-10.4 FL Monocytes # (Auto) 0.6 0.0-1.0 X 10^3 Monocytes (%) (Auto) 11 0-12 % Neutrophils # (Auto) 4.0 1.8-7.8 X 10^3 Neutrophils (%) (Auto) 72 42-75 % Platelet Count 122 L 130-400 10^3/uL Potassium Level 4.0 3.6-5.0 MMOL/L Red Blood Count 4.62 4.35-5.85 10^6/uL Red Cell Distribution Width 13.0 10.0-14.5 % Sodium Level 137 135-145 MMOL/L White Blood Count 5.7 4.3-11.0 10^3/uL My Orders Orders-MANJINDER RAMIREZ APRN Cbc With Automated Diff (08/24/16 10:50) Ct Neck (Soft Tissue) W (08/24/16 10:50) Saline Lock/Iv-Start (08/24/16 10:50) Iohexol Injection (Omnipaque 350 Mg/Ml 1 (08/24/16 11:00) Sodium Chloride Flush (Catheter Flush Sy (08/24/16 11:00) Ns (Ivpb) (Sodium Chloride 0.9% Ivpb Bag (08/24/16 11:00) Basic Metabolic Panel (08/24/16 11:16) Medications Given in ED Current Medications Medications Dose Ordered Sig/Edna Route Start Time Stop Time Status Last Admin Dose Admin Iohexol 100 ml ONCE ONCE IV 08/24/16 11:00 08/24/16 11:07 DC 08/24/16 11:44 75 ML Sodium Chloride 100 ml ONCE ONCE IV 08/24/16 11:00 08/24/16 11:07 DC 08/24/16 11:44 80 ML Vital Signs/I&O Vital Sign - Last 12Hours 08/24/16 10:10 Temp 99.1 Pulse 72 Resp 18 B/P 143/76 Pulse Ox 93 O2 Delivery Room Air Blood Pressure Mean: 98 Diagnostic Imaging Diagonstic Imaging: CT Comments NAME: [facility] REC#: [id number] PT STATUS: REG ER : 1955 PHYSICIAN: MANJINDER RAMIREZ APRN ADMIT DATE: 08/24/16/ER Draft Date of Exam:08/24/16 CT NECK (SOFT TISSUE) W PROCEDURE: CT neck soft tissue with contrast. TECHNIQUE: Multiple contiguous axial images were obtained through the neck after the administration of contrast. INDICATION: Red skin and swelling. History of squamous cell carcinoma of the throat 75 mL of Omnipaque 350 administered intravenously. COMPARISON: 08/17/2016. FINDINGS: This study is correlated with recent restaging CT scan of the neck, 08/17/2016. An irregular supraglottic and glottic laryngeal mass is again noted. For tumor measurements and comparison with prior exams, please refer to the recent restaging CT scan. There is removal of previously seen tracheostomy tube. There is no developing abscess or fluid collection seen in the neck. No significantly enlarged cervical chain lymph node is seen. The parotid and submandibular glands appear symmetric. Vascular enhancement in the jugular veins and carotid arteries appear grossly unremarkable. The lung apices demonstrate significant emphysema changes. IMPRESSION: 1. No fluid collection or abscess is seen. 2. Emphysema. 3. The previously seen tracheostomy tube has been removed. 4. Please refer to restaging CT scan of the neck performed one week earlier for detailed description and tumor measurements in the larynx. Dictated on workstation # [id number] Dict: 08/24/16 1156 Trans: 08/24/16 1209 DIANNA [id number] Interpreted by: KNAG FERRER MD Electronically signed by: Departure Impression Impression: Primary Impression: Dysphagia Disposition: 01 HOME, SELF-CARE Condition: Stable Departure-Patient Inst. Decision time for Depature: 12:14 Referrals: MALACHI STEPHENS MD (PCP/Family) Primary Care Physician Patient Instructions: NO INSTRUCTIONS GIVEN Add. Discharge Instructions: 1. Return to ER for any concerns 2. Follow-up with your doctor next week 3. ll discharge instructions reviewed with patient and/or family. Voiced understanding. Scripts No Active Prescriptions or Reported Meds MANJINDER RAMIREZ APRN Aug 24, 2016 10:54 MANJINDER RAMIREZ APRN Aug 24, 2016 10:54
[2016-08-24] MEDS ORDERED: CATHETER FLUSH 10 ML SYR IV PRN (11:00)
[2016-08-24] MEDS ORDERED: IOHEXOL 350 MG/ML 100 ML (OMNIPAQUE 350) VIAL IV ONE (11:00)
[2016-08-24] MEDS ORDERED: NS 100 ML (IVPB) BAG IV ONE (11:00)
[2016-08-24 11:14] LABS: BASOPHILS % (AUTO) 1 % (0-10); EOSINOPHILS # (AUTO) 0.1 10^3/uL (0.0-0.3); EOSINOPHILS % (AUTO) 2 % (0-10); LYMPHOCYTES # (AUTO) 0.9 X 10^3 (1.0-4.0); LYMPHOCYTES % (AUTO) 15 % (12-44); MEAN CORPUSCULAR HEMOGLOBIN 32 PG (25-34); MEAN CORPUSCULAR HGB CONC 35 G/DL (32-36); MEAN CORPUSCULAR VOLUME 90 FL (80-99); MEAN PLATELET VOLUME 9.6 FL (7.4-10.4); MONOCYTES # (AUTO) 0.6 X 10^3 (0.0-1.0); MONOCYTES % (AUTO) 11 % (0-12); NEUTROPHILS % (AUTO) 72 % (42-75); PLATELET COUNT 122 10^3/uL (130-400); RED BLOOD COUNT 4.62 10^6/uL (4.35-5.85); WHITE BLOOD COUNT 5.7 10^3/uL (4.3-11.0)
[2016-08-24 11:35] LABS: ANION GAP 10 MMOL/L (5-14); BLOOD UREA NITROGEN 7 MG/DL (7-18); BUN/CREATININE RATIO 10; CALCIUM 9.3 MG/DL (8.5-10.1); CARBON DIOXIDE 25 MMOL/L (21-32); CHLORIDE 102 MMOL/L (98-107); CREATININE SERUM 0.71 MG/DL (0.60-1.30); GFR ESTIMATED > 60; GLUCOSE 107 MG/DL (70-105); SODIUM 137 MMOL/L (135-145)
--- NOTE | 2016-08-24 12:10 | Diagnostic Imaging Report ---
PROCEDURE: CT neck soft tissue with contrast. TECHNIQUE: Multiple contiguous axial images were obtained through the neck after the administration of contrast. INDICATION: Red skin and swelling. History of squamous cell carcinoma of the throat 75 mL of Omnipaque 350 administered intravenously. COMPARISON: 08/17/2016. FINDINGS: This study is correlated with recent restaging CT scan of the neck, 08/17/2016. An irregular supraglottic and glottic laryngeal mass is again noted. For tumor measurements and comparison with prior exams, please refer to the recent restaging CT scan. There is removal of previously seen tracheostomy tube. There is no developing abscess or fluid collection seen in the neck. No significantly enlarged cervical chain lymph node is seen. The parotid and submandibular glands appear symmetric. Vascular enhancement in the jugular veins and carotid arteries appear grossly unremarkable. The lung apices demonstrate significant emphysema changes. IMPRESSION: 1. No fluid collection or abscess is seen. 2. Emphysema. 3. The previously seen tracheostomy tube has been removed. 4. Please refer to restaging CT scan of the neck performed one week earlier for detailed description and tumor measurements in the larynx. Dictated by: Dictated on workstation # [id number]
[2016-08-24 12:28] VITALS: BP 110/71
== END 2016-08-24 12:28 | disposition home or self-care (01) ==
LOC: EDUNIT# 10:00 → ER 10:04
DX: R13.10 Dysphagia, unspecified (principal); J43.9 Emphysema, unspecified; C32.9 Malignant neoplasm of larynx, unspecified
CPT/HCPCS: 36415; 70491; 80048; 85025

== ENCOUNTER 2016-09-04 13:10 | Emergency (ER) | payer MEDICARE, OTHER ==
[~2016-09-04] VITALS: Ht 185.4 cm; Wt 83.5 kg
[2016-09-04] MEDS ORDERED: ALPRAZolam 0.25 MG (XANAX) TAB PO ONE (13:30)
--- NOTE | 2016-09-04 13:33 | ED Cough/URI ---
General Chief Complaint: Foreign Body Stated Complaint: FB IN THROAT Nursing Triage Note: PT REPORTS EATING PANCAKES THIS AM AND NOW FEELS LIKE HE HAS SOME STUCK IN HIS THROAT. Source: patient Exam Limitations: no limitations History of Present Illness Time seen by provider: 13:31 Initial Comments To ER with concerns that he may have aspirated a pancake this morning. He was eating breakfast when he felt as though pancake may have gotten stuck in his trachea. 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 He was seen here 2 weeks ago for concerns of throat swelling. He currently denies fevers chills or cough. Timing/Duration: this morning Severity/Quality: no cough Allergies and Home Medications Allergies Coded Allergies: No Known Drug Allergies (Unverified , 07/26/16) Constitutional: see HPI EENTM: see HPI Respiratory: no symptoms reported Cardiovascular: no symptoms reported Genitourinary: no symptoms reported Musculoskeletal: no symptoms reported Skin: no symptoms reported Psychiatric/Neurological: No Symptoms Reported Hematologic/Lymphatic: No Symptoms Reported Past Ccxgath-Vvamqv-Xyrfzy Hx Patient Social History Alcohol Use: Denies Use Recreational Drug Use: No Smoking Status: Former Smoker Type Used: Cigarettes 2nd Hand Smoke Exposure: No Recent Foreign Travel: No Contact w/Someone Who Travel: No Recent Infectious Disease Expo: No Recent Hopitalizations: Yes (laryngeal cancer at [facility] in 04/03/16) Immunizations Up To Date Date of Pneumonia Vaccine: Apr 25, 2013 Date of Influenza Vaccine: Apr 10, 2016 Seasonal Allergies Seasonal Allergies: No Surgeries HX Surgeries: Yes (back sx, PEG, TEETH PULLED) Surgeries: Tracheostomy Respiratory Hx Respiratory Disorders: Yes Respiratory Disorders: COPD Cardiovascular Hx Cardiac Disorders: No Neurological Hx Neurological Disorders: No Reproductive System Hx Reproductive Disorders: No Genitourinary Hx Genitourinary Disorders: No Gastrointestinal Hx Gastrointestinal Disorders: No Gastrointestinal Disorders: Hepatitis Musculoskeletal Hx Musculoskeletal Disorders: No Musculoskeletal Disorders: Chronic Back Pain Endocrine Hx Endocrine Disorders: No HEENT HX ENT Disorders: Yes (READING GLASSES) Loss of Vision: Bilateral Hearing Impairment: Denies Cancer Hx Cancer: Yes (laryngeal) Psychosocial Hx Psychiatric Problems: No Integumentary HX Skin/Integumentary Disorder: No Blood Transfusions Hx Blood Disorders: No Adverse Reaction to a Blood Tr: No (N/A) Physical Exam Vital Signs Vital Sign - Last 12Hours 09/04/16 13:20 Temp 98.1 Pulse 67 Resp 25 B/P 120/70 Pulse Ox 93 O2 Delivery Room Air Capillary Refill : Less Than 3 Seconds General Appearance: WD/WN no apparent distress other (anxious, slightly agitated) Eyes: Bilateral Eye EOMI, Bilateral Eye Normal Inspection, Bilateral Eye PERRL HEENT: PERRL/EOMI normal ENT inspection Neck: non-tender full range of motion other (no obvious swelling of the neck. There is no crepitus to palpation. There is a midline tracheostomy stoma that is healing but still open with active airflow. No secretions from this.) Respiratory: normal breath sounds no respiratory distress no accessory muscle use Gastrointestinal: normal bowel sounds non tender soft Neurologic/Psychiatric: alert normal mood/affect oriented x 3 Skin: normal color warm/dry Progress/Results/Core Measures Results/Orders My Orders Orders-MANJINDER RAMIREZ APRN Alprazolam Tablet (Xanax Tablet) (09/04/16 13:30) Chest Pa/Lat (2 View) (09/04/16 13:30) Vital Signs/I&O Vital Sign - Last 12Hours 09/04/16 13:20 Temp 98.1 Pulse 67 Resp 25 B/P 120/70 Pulse Ox 93 O2 Delivery Room Air Blood Pressure Mean: 87 Departure Communication Progress Notes Patient remained stable without respiratory distress at 1429. He was able to cough up some secretions. Impression Impression: Primary Impression: Dysphagia Disposition: 01 HOME, SELF-CARE Condition: Stable Departure-Patient Inst. Decision time for Depature: 14:29 Referrals: MALACHI STEPHENS MD (PCP/Family) Primary Care Physician Patient Instructions: Dysphagia (DC) Add. Discharge Instructions: 1. Follow-up with your regular doctor this week 2. Return to ER for any concerns All discharge instructions reviewed with patient and/or family. Voiced understanding. Scripts Albuterol Sulfate (Proair Hfa)1 Puff Puff2 Puff IH Q4H PRN DYSPNEA #1 EACH 1 PUFF = 90 MCG Prov:MANJINDER RAMIREZ APRN 09/04/16 MANJINDER RAMIREZ APRN Sep 04, 2016 13:32
--- NOTE | 2016-09-04 14:24 | Diagnostic Imaging Report ---
EXAMINATION: PA and lateral views of the chest. INDICATION: Globus sensation in the throat and productive cough. FINDINGS: A rounded density along the lower right chest, only seen on the PA view, is favored to be related to a nipple shadow or skin lesion. Overlapping soft tissue of the arms over the lateral aspect of the chest is also seen. No consolidation in the lungs is noted. The heart size is normal. No effusion or pneumothorax. The mediastinum and bailey appear unremarkable. IMPRESSION: No focal infiltrate. Dictated by: Dictated on workstation # [id number]
[2016-09-04] MEDS ORDERED: RT-ALBUINH IH (14:30)
[2016-09-04 14:42] VITALS: BP 120/70
--- OUTSIDE RECORDS SUMMARY | 2016-09-04 16:13 | XMS REPORT | Continuity of Care Document ---
Author Author [facility] Organization [facility] Address Unknown Phone Unavailable Care Team Providers Care Group Teacher Name Role Phone Tyler Mcdonald PCP [phone] Source Comments Some departments are not documenting in the electronic medical record. If you do not see the information that you expected, contact Release of Information in the Health Information Management department at [phone] for further assistance in locating additional records.[facility] Active Allergies and Adverse Reactions [...] Recent Encounters Date Type Specialty Providers Description 08/29/2016 Ancillary Radiology Outpatient, Radiologist Diagnosis unknown Orders (Primary Dx) 08/24/2016 Hospital Radiology Encounter 08/21/2016 Office Visit Otolaryngology Kathe Dunlap, Squamous cell carcinoma PA-C of larynx (HCC) (Primary Dx); Status post radiation therapy 08/17/2016 Hospital Radiology Encounter 08/15/2016 Telephone OtolaryngologFrancia Madrid MD Navigation Follow Up 08/15/2016 Orders Only OtolaryngoFrancia Flores MD Pre- procedure lab exam (Primary Dx) [...] Taken Blood Pressure 111/69 08/21/2016 1:26 PM ACCOUNTS RECEIVABLE CLERK Pulse 84 08/21/2016 1:26 PM ACCOUNTS RECEIVABLE CLERK Temperature 36.6 C (97.9 F) 04/10/2016 9:20 AM CDT Respiratory Rate 20 10/18/2014 2:25 PM CDT Height 1.88 m (6' 2") 08/21/2016 1:26 PM ACCOUNTS RECEIVABLE CLERK Weight 87.091 kg (192 lb) 08/21/2016 1:26 PM ACCOUNTS RECEIVABLE CLERK Body Mass Index 24.64 08/21/2016 1:26 PM ACCOUNTS RECEIVABLE CLERK Oxygen Saturation 92% 04/10/2016 9:20 AM CDT Plan of Care Date Type Specialty Providers Description 10/19/2016 Appointment Otolaryngology Francia Mckeon MD [address] [place] [address] [phone] (Fax) Health Maintenance Due Date Last Done Comments Physical (Comprehensive) 1962 Exam Pertussis Vaccine 1965 Tetanus Vaccine 11/16/1971 Colorectal Cancer 2004 Screening Shingles Vaccine 2014 Influenza Vaccine 03/08/2017 04/07/2016 Results from Last [address] NECK EXTERNAL IMAGING (08/24/2016)Only the most recent of 2 results within the time period is included. Narrative This order has been auto finalized and does not contain a result. [facility] REF LAB SCAN (06/10/2016 2:32 PM) Narrative Ordered by an unspecified provider.
== END 2016-09-04 14:42 | disposition home or self-care (01) ==
LOC: EDUNIT# 13:10 → ER 13:11
DX: R13.10 Dysphagia, unspecified (principal); Z85.21 Personal history of malignant neoplasm of larynx; Z87.891 Personal history of nicotine dependence
CPT/HCPCS: 71020; 99282

== ENCOUNTER 2016-10-31 23:57 | Emergency (ER) | payer MEDICARE, OTHER ==
[~2016-10-31] VITALS: Ht 185.4 cm; Wt 78.9 kg
[~2016-10-31 23:57] MED LIST changes: +RT-ALBUINH IH
[2016-11-01] MEDS ORDERED: ONDANSETRON 4 MG/2 ML (SDV) Z0FRAN IVP ONE (00:15)
[2016-11-01] MEDS ORDERED: FAMOTIDINE 20MG/2ML IV (PEPCID) IVP ONE (00:15)
[2016-11-01 00:20] LABS: BASOPHILS # (AUTO) 0.1 10^3/uL (0.0-0.1); BASOPHILS % (AUTO) 0 % (0-10); EOSINOPHILS # (AUTO) 0.1 10^3/uL (0.0-0.3); EOSINOPHILS % (AUTO) 0 % (0-10); LYMPHOCYTES % (AUTO) 5 % (12-44); MEAN CORPUSCULAR HEMOGLOBIN 31 PG (25-34); MEAN CORPUSCULAR HGB CONC 33 G/DL (32-36); MEAN CORPUSCULAR VOLUME 96 FL (80-99); MEAN PLATELET VOLUME 8.7 FL (7.4-10.4); MONOCYTES # (AUTO) 1.6 X 10^3 (0.0-1.0); MONOCYTES % (AUTO) 7 % (0-12); NEUTROPHILS # (AUTO) 18.8 X 10^3 (1.8-7.8); NEUTROPHILS % (AUTO) 87 % (42-75); PLATELET COUNT 419 10^3/uL (130-400); RED BLOOD COUNT 3.34 10^6/uL (4.35-5.85); RED CELL DISTRIBUTION WIDTH 15.5 % (10.0-14.5); WHITE BLOOD COUNT 21.5 10^3/uL (4.3-11.0)
[2016-11-01 00:24] LABS: INR 1.3 (0.8-1.4); PROTHROMBIN TIME PATIENT 15.7 SEC (12.2-14.7)
[2016-11-01] MEDS ORDERED: PIPERACILLIN SODIUM/TAZOBACTAM 4.5 GM in NS (IVPB) 100 ML IV ONE (00:45)
[2016-11-01 00:46] LABS: BAND NEUTROPHILS 12 %; BASOPHILS % (MANUAL) 1 %; EOSINOPHILS % (MANUAL) 0 %; LYMPHOCYTES % (MANUAL) 3 %; NEUTROPHILS % (MANUAL) 78 %
[2016-11-01 00:49] LABS: ANION GAP 12 MMOL/L (5-14); BLOOD UREA NITROGEN 12 MG/DL (7-18); BUN/CREATININE RATIO 17; CARBON DIOXIDE 22 MMOL/L (21-32); CHLORIDE 100 MMOL/L (98-107); CREATININE SERUM 0.71 MG/DL (0.60-1.30); GFR ESTIMATED > 60; GLUCOSE 186 MG/DL (70-105); POTASSIUM 4.5 MMOL/L (3.6-5.0); SODIUM 134 MMOL/L (135-145)
[2016-11-01 01:02] LABS: ALANINE AMINOTRANSFERASE 19 U/L (0-55); ASPARTATE AMINO TRANSFERASE 33 U/L (5-34); BILIRUBIN,TOTAL 0.7 MG/DL (0.1-1.0); MAGNESIUM 1.7 MG/DL (1.8-2.4); TOTAL PROTEIN 6.1 G/DL (6.4-8.2)
[2016-11-01 01:03] LABS: ALBUMIN 2.6 G/DL (3.2-4.5)
[2016-11-01] MEDS ORDERED: NS IV 1000 ML 1,000 ML IV ONE ×2 (01:10→03:58)
[2016-11-01 02:31] VITALS: BP 105/72
--- NOTE | 2016-11-01 02:33 | ED General ---
General Chief Complaint: Coughing up blood Stated Complaint: POST OP THROAT BLEEDING Source of Information: Patient, EMS, Family Exam Limitations: Physical Impairments History of Present Illness Time Seen by Provider: 23:53 Initial Comments This 60-year-old gentleman presents to the emergency room via EMS with complaints of coughing up large quantities of bright red blood. He has a history of laryngectomy with laryngectomy tube placement at [facility] on October 03. He was dismissed from on October 23. He was doing fairly well until he began coughing up blood in the afternoon. EMS was called to the home but bleeding resolved. Patient declined transfer at that time. Bleeding resumed this evening. Upon arrival he was witnessed to cough up an estimated 200 mL of bright red blood and clots. He denies use of any blood thinning medications. Blood was noted coming from the nose, mouth, and laryngotomy tube. He received a proximally 400 mL of normal saline by EMS. He is still hypotensive despite IV fluids and appears rather pale. Laryngectomy was performed because of throat cancer. He had received radiation therapy by Dr. Trujillo at [facility]. He had a recurrence of the cancer requiring the surgery. He appears to have had bilateral neck dissection with muscle and skin flaps. Patient is afebrile but hypertensive and tachycardic. His primary care provider is Carmen Monge in [place]. His ENT doctors are Dr. Dominique jordan and Dr. Marques and Dr. Chowdhury at [facility]. Allergies and Home Medications Allergies Coded Allergies: No Known Drug Allergies (Unverified , 07/26/16) Home Medications Albuterol Sulfate 1 Puff Puff, 2 PUFF IH Q4H PRN for DYSPNEA, #1 1 PUFF = 90 MCG Prescribed by: MANJINDER RAMIREZ on 09/04/16 1430 Constitutional: no symptoms reported EENTM: no symptoms reported Respiratory: see HPI Cardiovascular: see HPI Gastrointestinal: see HPI Genitourinary: no symptoms reported Musculoskeletal: no symptoms reported Skin: no symptoms reported Psychiatric/Neurological: No Symptoms Reported Hematologic/Lymphatic: No Symptoms Reported Past Aiuujfc-Gvkgbc-Iercmh Hx Patient Social History Type Used: Cigarettes 2nd Hand Smoke Exposure: No Recent Foreign Travel: No Contact w/Someone Who Travel: No Recent Hopitalizations: Yes (laryngeal cancer at in 04/03/16) Immunizations Up To Date Date of Pneumonia Vaccine: Apr 25, 2013 Date of Influenza Vaccine: Apr 10, 2016 Seasonal Allergies Seasonal Allergies: No Surgeries HX Surgeries: Yes (back sx, PEG, TEETH PULLED, laryngectomy, radical neck dissection) Surgeries: Tracheostomy (laryngectomy tube) Respiratory Hx Respiratory Disorders: Yes Respiratory Disorders: COPD Cardiovascular Hx Cardiac Disorders: No Neurological Hx Neurological Disorders: No Reproductive System Hx Reproductive Disorders: No Genitourinary Hx Genitourinary Disorders: No Gastrointestinal Hx Gastrointestinal Disorders: Yes Gastrointestinal Disorders: Hepatitis Musculoskeletal Hx Musculoskeletal Disorders: Yes Musculoskeletal Disorders: Chronic Back Pain Endocrine Hx Endocrine Disorders: No HEENT HX ENT Disorders: Yes (READING GLASSES) Loss of Vision: Bilateral Hearing Impairment: Denies Cancer Hx Cancer: Yes (laryngeal) Psychosocial Hx Psychiatric Problems: No Integumentary HX Skin/Integumentary Disorder: No Blood Transfusions Hx Blood Disorders: No Adverse Reaction to a Blood Tr: No (N/A) Physical Exam Vital Signs Vital Sign - Last 12Hours 11/01/16 11/01/16 00:00 00:45 Temp 99.3 Pulse 174 Resp 22 B/P (MAP) 44/32 Pulse Ox 100 O2 Delivery Room Air O2 Flow Rate 8.00 FiO2 35 Capillary Refill : General Appearance: WD/WN, Mild Distress HEENT: PERRL/EOMI, Other (laryngectomy tube in place. Postsurgical changes to the neck, chest, and shoulder. Bright red blood in the laryngectomy tube, oropharynx, and nose.) Neck: Other (postsurgical changes. 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 Norm as Tested (unable to speak due to laryngectomy) Skin: Normal Color, Warm/Dry Focused Exam Lactic Acid Level Progress/Results/Core Measures Results/Orders Lab Results Laboratory Tests Test 11/01/16 00:02 11/01/16 01:00 Range/Units White Blood Count 21.5 H 4.3-11.0 10^3/uL Red Blood Count 3.34 L 4.35-5.85 10^6/uL Hemoglobin 10.5 L 13.3-17.7 G/DL Hematocrit 32 L 40-54 % Mean Corpuscular Volume 96 80-99 FL Mean Corpuscular Hemoglobin 31 25-34 PG Mean Corpuscular Hemoglobin Concent 33 32-36 G/DL Red Cell Distribution Width 15.5 H 10.0-14.5 % Platelet Count 419 H 130-400 10^3/uL Mean Platelet Volume 8.7 7.4-10.4 FL Neutrophils (%) (Auto) 87 H 42-75 % Lymphocytes (%) (Auto) 5 L 12-44 % Monocytes (%) (Auto) 7 0-12 % Eosinophils (%) (Auto) 0 0-10 % Basophils (%) (Auto) 0 0-10 % Neutrophils # (Auto) 18.8 H 1.8-7.8 X 10^3 Lymphocytes # (Auto) 1.0 1.0-4.0 X 10^3 Monocytes # (Auto) 1.6 H 0.0-1.0 X 10^3 Eosinophils # (Auto) 0.1 0.0-0.3 10^3/uL Basophils # (Auto) 0.1 0.0-0.1 10^3/uL Neutrophils % (Manual) 78 % Lymphocytes % (Manual) 3 % Monocytes % (Manual) 6 % Eosinophils % (Manual) 0 % Basophils % (Manual) 1 % Band Neutrophils 12 % Blood Morphology Comment NORMAL Prothrombin Time 15.7 H 12.2-14.7 SEC INR Comment 1.3 0.8-1.4 Activated Partial Thromboplast Time 31 24-35 SEC Sodium Level 134 L 135-145 MMOL/L Potassium Level 4.5 3.6-5.0 MMOL/L Chloride Level 100 98-107 MMOL/L Carbon Dioxide Level 22 21-32 MMOL/L Anion Gap 12 5-14 MMOL/L Blood Urea Nitrogen 12 7-18 MG/DL Creatinine 0.71 0.60-1.30 MG/DL Estimat Glomerular Filtration Rate > 60 BUN/Creatinine Ratio 17 Glucose Level 186 H 70-105 MG/DL Calcium Level 8.0 L 8.5-10.1 MG/DL Magnesium Level 1.7 L 1.8-2.4 MG/DL Total Bilirubin 0.7 0.1-1.0 MG/DL Aspartate Amino Transf (AST/SGOT) 33 5-34 U/L Alanine Aminotransferase (ALT/SGPT) 19 0-55 U/L Alkaline Phosphatase 114 40-136 U/L Total Protein 6.1 L 6.4-8.2 G/DL Albumin 2.6 L 3.2-4.5 G/DL Lactic Acid Level 2.83 *H 0.50-2.00 MMOL/L My Orders Orders - OSMAR NUÑEZ MD Cbc With Automated Diff (11/01/16 00:02) Comprehensive Metabolic Panel (11/01/16 00:02) Magnesium (11/01/16 00:02) Protime With Inr (11/01/16 00:02) Partial Thromboplastin Time (11/01/16 00:02) Saline Lock/Iv-Start (11/01/16 00:02) O2 (11/01/16 00:02) Monitor-Rhythm Ecg Trace Only (11/01/16 00:02) Red Cells Leukocytes Reduced (11/01/16 00:02) Type And Screen (11/01/16 00:02) Chest 1 View, Ap/Pa Only (11/01/16 00:05) Ondansetron Injection (Zofran Injectio (11/01/16 00:15) Famotidine Injection (Pepcid Injection) (11/01/16 00:15) Manual Differential (11/01/16 00:02) Lactic Acid Analyzer (11/01/16 00:42) Blood Culture (11/01/16 00:42) Piperacillin Sodium/Tazobactam (Zosyn Vi (11/01/16 00:45) Saline Lock/Iv-Start (11/01/16 01:10) Ns Iv 1000 Ml (Sodium Chloride 0.9%) (11/01/16 01:10) Fresh Frozen Plasma (11/01/16 01:19) Ekg Tracing (11/01/16 03:55) Ns Iv 1000 Ml (Sodium Chloride 0.9%) (11/01/16 03:58) Medications Given in ED Current Medications Medications Dose Ordered Sig/Edna Route Start Time Stop Time Status Last Admin Dose Admin Famotidine 20 mg ONCE ONCE IVP 11/01/16 00:15 11/01/16 00:16 DC 11/01/16 01:09 20 MG Ondansetron HCl 8 mg ONCE ONCE IVP 11/01/16 00:15 11/01/16 00:16 DC 11/01/16 01:08 8 MG Piperacillin Sod/ Tazobactam Sod 4.5 gm/Sodium Chloride 100 ml @ 200 mls/hr ONCE ONCE IV 11/01/16 00:45 11/01/16 01:14 DC 11/01/16 01:13 200 MLS/HR Sodium Chloride 1,000 ml @ 0 mls/hr Q0M ONCE IV 11/01/16 01:10 11/01/16 01:11 DC 11/01/16 00:15 100 MLS/HR Sodium Chloride 1,000 ml @ 0 mls/hr Q0M ONCE IV 11/01/16 03:58 11/01/16 04:00 DC 11/01/16 02:05 100 MLS/HR Vital Signs/I&O Vital Sign - Last 12Hours 11/01/16 11/01/16 11/01/16 00:00 00:10 00:45 Temp 99.3 Pulse 174 Resp 22 B/P (MAP) 44/32 Pulse Ox 100 95 97 O2 Delivery Room Air O2 Flow Rate 8.00 FiO2 35 ECG Initial ECG Impression Date: Nov 01, 2016 Initial ECG Impression Time: 01:04 Initial ECG Rate: 141 Initial ECG Rhythm: S.Tach Comment Sinus tachycardia with no ST elevation or depression. No abnormal intervals. Left axis deviation. Diagnostic Imaging Diagonstic Imaging: Xray Plain Films/CT/US/NM/MRI: chest Comments Chest x-ray viewed by me. Report not available. Basilar atelectasis with stable right lower lung nodular lesion. Compared with prior. Critical Care Note Critical Care Start Time: 23:58 Stop Time: 02:32 Total Time (minutes) 154 Progress Patient began coughing up significant amounts of bright red blood immediately upon arrival. Source of bleed was uncertain. Blood was found in the laryngectomy tube, oropharynx, and nose. Patient was pale, hypotensive, and tachycardic. 2 units of unmatched blood were immediately ordered. Fluid resuscitation was initiated by EMS. Blood transfusion was initiated with the rapid infuser. An additional 6 units of cross matched blood were ordered. Case was reviewed with Dr. Burt who agreed transfer is necessary for definitive evaluation and treatment. Transfer to [facility] was not possible as the hospital was on diversion and weather prevented helicopter travel. I contacted [facility] who was also on diversion. Dr. Fox was contacted and graciously agreed to evaluate the patient in the emergency room. In the meantime, acceptance was received for transfer to Dr. Hernandez at [facility] in [place]. Dr. Fox was able to scope the patient and found no bleeding below the laryngectomy tube. The trachea and mainstem bronchi were free of blood. There was a large clot in the pharynx. A conference call amongst myself, Dr. Hernandez, Dr. Suarez, and Dr. Fox was arranged to ensure appropriate communication and transfer. Dr. Fox was concerned that vascular surgery may be required to stop this patient's bleeding. Patient received a total of approximately 1 L of IV fluids. He received 2 units of uncrossed blood and one unit of cross matched blood. A fourth unit of blood was sent with EMS. One unit of FFP was also infused. Blood pressure was resuscitated but patient remained tachycardic. There is concern for possible sepsis as well because patient had significant tachycardia and leukocytosis. A dose of Zosyn was administered after obtaining blood cultures. Zofran and Pepcid were administered for GI prophylaxis. Patient stated he wished to remain a full code. He was ultimately transferred to [facility] in [place]. Departure Impression Impression: Primary Impression: Acute blood loss anemia Additional Impressions: Pharyngeal hemorrhage Tachycardia Leukocytosis Qualified Codes: D72.829 - Elevated white blood cell count, unspecified Disposition: XFER SHT-TRM HOSP Condition: Improved Transfer Transfer Time: 02:32 Transfer Facility: [facility] Method of Transfer: EMS Departure-Patient Inst. Referrals: SUNITA SIMEON MD (PCP) Primary Care Physician OSMAR NUÑEZ MD Nov 01, 2016 02:33
--- NOTE | 2016-11-01 07:13 | Diagnostic Imaging Report ---
CLINICAL INDICATION: Postop through a bleed. EXAM: Portable chest x-ray upright view. COMPARISON: Chest x-ray dated 08/27/2016. CT scan of the neck and chest dated 08/17/2016. FINDINGS: Stable 10 mm calcified nodule in the lateral right lung base. Otherwise, lungs are clear. There is no pleural effusion or pneumothorax. Pulmonary vasculature and cardiac silhouette is within normal limits. Tracheostomy tube is noted which has been placed in the interim. Bone shows no significant interval abnormality. There are surgical clips overlying the left upper chest and left lower neck region. IMPRESSION: 1: Interval placement of tracheostomy tube and postop changes to the left neck and chest region. 2: There is no interval lung infiltrate. 3: Stable calcified nodule in the right lung base. Dictated by: Dictated on workstation # [id number]
[2016-11-01] MEDS ORDERED: NS IV 1000 ML 2,000 ML ONE (07:45)
== END 2016-11-01 02:31 | disposition short-term general hospital (02) ==
LOC: EDUNIT# 23:57 → ER 23:58
DX: J95.830 Postprocedural hemorrhage of a respiratory system organ or structure following a respiratory system procedure (principal); D62 Acute posthemorrhagic anemia; R00.0 Tachycardia, unspecified; D72.829 Elevated white blood cell count, unspecified; J44.9 Chronic obstructive pulmonary disease, unspecified; C14.0 Malignant neoplasm of pharynx, unspecified; Z90.02 Acquired absence of larynx
CPT/HCPCS: 36415; 71010; 80053; 83605; 83735; 85007; 85027; 85610; 85730; 86850; 86900; 86901; 86920; 87040; 93005; 93041; 96365; 96375

== ENCOUNTER 2016-11-06 16:42 | Inpatient (IN) | payer MEDICARE ==
[~2016-11-06] VITALS: Ht 185.4 cm; Wt 75.3 kg
[2016-11-06] MEDS ORDERED: ONDANSETRON 4 MG (ZOFRAN) ORAL DISSOLVE TAB PO PRN (17:30)
[2016-11-06 17:50] VITALS: BP 115/63
[2016-11-06] MEDS ORDERED: PANTOPRAZOLE 40 MG (PROTONIX) TAB PO SCH (17:52)
[2016-11-06] MEDS ORDERED: CHLORHEXIDINE 0.12% SOLN 15 ML (PERIDEX) UDC PO SCH (18:15)
[2016-11-06] MEDS: oxyCODONE 5 MG/5 ML ORAL SOLN (roxiCODONE) 5 ML UDC PEG PRN (18:23)
[2016-11-06] MEDS ORDERED: CHLORHEXIDINE 0.12% SOLN 15 ML (PERIDEX) UDC PO PRN (20:15)
[2016-11-06] MEDS: traZODone 50 MG (DESYREL) TAB PEG SCH (22:08)
[2016-11-06] MEDS: DOCUSATE SODIUM 10 MG/ML 10 ML UDC (COLACE) PEG SCH (22:08)
[2016-11-06] MEDS: DIAZEPAM 5 MG (VALIUM) TABLET PEG SCH (22:08)
[2016-11-06] MEDS: APAP 325 MG/10.15 ML LIQ (TYLENOL) UDC PEG PRN (22:09)
[2016-11-06] MEDS: HYDROGEN PEROXIDE 473 ML SOLUTION MC SCH (23:05)
[2016-11-06] MEDS: PETROLATUM JELLY(VASELINE) 2.5 OZ TUBE TP SCH (23:06)
[2016-11-07] MEDS: oxyCODONE 5 MG/5 ML ORAL SOLN (roxiCODONE) 5 ML UDC PEG PRN ×2 (01:46→10:59)
[2016-11-07] MEDS: RT-ALBUTEROL SULF 2.5 MG/3 ML PRE-MIX VIAL IH PRN (01:48)
[2016-11-07] MEDS: APAP 325 MG/10.15 ML LIQ (TYLENOL) UDC PEG PRN ×3 (04:16→21:02)
[2016-11-07 05:38] VITALS: BP 124/73
[2016-11-07 05:59] LABS: BASOPHILS % (AUTO) 1 % (0-10); EOSINOPHILS % (AUTO) 1 % (0-10); LYMPHOCYTES # (AUTO) 0.6 X 10^3 (1.0-4.0); LYMPHOCYTES % (AUTO) 10 % (12-44); MEAN CORPUSCULAR HEMOGLOBIN 30 PG (25-34); MEAN CORPUSCULAR HGB CONC 32 G/DL (32-36); MEAN CORPUSCULAR VOLUME 93 FL (80-99); MONOCYTES # (AUTO) 0.5 X 10^3 (0.0-1.0); MONOCYTES % (AUTO) 8 % (0-12); NEUTROPHILS # (AUTO) 4.7 X 10^3 (1.8-7.8); NEUTROPHILS % (AUTO) 81 % (42-75); PLATELET COUNT 192 10^3/uL (130-400); RED BLOOD COUNT 2.81 10^6/uL (4.35-5.85); RED CELL DISTRIBUTION WIDTH 16.8 % (10.0-14.5); WHITE BLOOD COUNT 5.9 10^3/uL (4.3-11.0)
[2016-11-07 06:17] LABS: ALANINE AMINOTRANSFERASE 15 U/L (0-55); ALBUMIN 2.8 G/DL (3.2-4.5); ANION GAP 9 MMOL/L (5-14); ASPARTATE AMINO TRANSFERASE 18 U/L (5-34); BILIRUBIN,TOTAL 0.6 MG/DL (0.1-1.0); BLOOD UREA NITROGEN 2 MG/DL (7-18); BUN/CREATININE RATIO 4; CALCIUM 8.1 MG/DL (8.5-10.1); CARBON DIOXIDE 26 MMOL/L (21-32); CHLORIDE 102 MMOL/L (98-107); CREATININE SERUM 0.57 MG/DL (0.60-1.30); GFR ESTIMATED > 60; GLUCOSE 95 MG/DL (70-105); POTASSIUM 3.6 MMOL/L (3.6-5.0); SODIUM 137 MMOL/L (135-145); TOTAL PROTEIN 5.7 G/DL (6.4-8.2)
[2016-11-07] MEDS ORDERED: LEVOTHYROXINE 50 MCG (LEVOTHROID) TAB PEG ONE (06:30)
[2016-11-07] MEDS: AUGMENTIN 875 MG TAB (AMOXICILLIN/CLAVULANATE) PEG SCH ×2 (06:38→16:59)
[2016-11-07] MEDS: PANTOPRAZOLE 2 MG/ML LIQUID 200 ML (PROTONIX) PO SCH ×3 (06:39)
--- NOTE | 2016-11-07 07:01 | HISTORY AND PHYSICAL ---
DATE OF SERVICE: 11/06/2016 CHIEF COMPLAINT: Difficulty with walking. HISTORY OF PRESENT ILLNESS: The patient is a 60-year-old male with history of laryngectomy and radical neck dissection on 10/03/16 for squamous cell carcinoma of the larynx who was transferred to [facility] on 11/01 after going home from an initial procedure when developed a bleed. The patient went on to have further evaluation and treatment including transfusion of packed red blood cells. He has difficulty verbalizing. He is unable to verbalize and communicates with written messages on a clip-board. He had had a laryngectomy tube placement. 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 Currently, he still has a ANGELO wound drain in place rt ant neck and has a PEG tube for tube feedings. He is n.p.o. He had neck exploration and the evacuation of hematoma and treatment of an infection and closure of right pharyngocutaneous fistula with a ANGELO drain placed. He lives in [place], [place]. He has supportive family. He is referred to inpatient rehabilitation at [facility] for ongoing care of his general debilitation prior to discharge to home with family. Currently, he is dependent from tube feedings. He is n.p.o. He requires assistance for his ADLs and mobility skills See PT/OT/ST eav for details of current functional status. PAST MEDICAL HISTORY: Squamous cell carcinoma of the larynx, hepatitis C, alcoholic liver disease, chronic lung disease, tobacco abuse, essential tremor. PAST SURGICAL HISTORY: Tracheostomy 04/03/2016, laryngectomy with radical neck dissection 10/03/2016, myocutaneous fasciocutaneous flap trunk 10/03/2016, split thickness skin graft 10/03/2016, from skin split thickness donor site lower extremity 10/03/2016. ALLERGIES: Noted on medication allergies. FAMILY HISTORY: Diabetes and cancer. SOCIAL HISTORY: , former smoker half a pack a day for 51 years. REVIEW OF SYSTEMS: A 10-point review of systems significant for incisional throat and neck pain.Essential tremor MEDICATIONS: Vitamin D 3000 units per PEG every day, multivitamin liquid 15 mL per PEG every day, Augmentin 875 mg per PEG b.i.d., Synthroid 50 mcg per PEG every day, Peridex swish oral rinse q. 1 hour p.r.n., Colace 100 mg per PEG b.i.d., diazepam 10 mg per PEG b.i.d., Desyrel 50 mg per PEG at bedtime, Vaseline for wound care topically b.i.d., albuterol treatments q.4 hours p.r.n. dyspnea, Zofran 4 mg per PEG sublingual q.6 hours PEG nausea and vomiting, oxycodone 10 mg per PEG q.6 hours p.r.n. severe pain, Tylenol 325 mg per PEG q.4 hours p.r.n. mild pain. PHYSICAL EXAMINATION: GENERAL: Significant for male appearing his stated age, appearing alert and oriented, no acute distress. He is mute, but able to communicate by written message. He is afebrile. VITAL SIGNS: Pulse 74, respiration 14, blood pressure 115/63, O2 sat 94% on 28% FiO2. HEENT: Vision and hearing are grossly intact. No oral lesions are noted. He is not able to speak. NECK: Incision site healing well with ANGELO drain in place rt anterior neck. Laryngectomy tube in place. CHEST: Clear. HEART: Regular rhythm. ABDOMEN: PEG tube in place. No drainage noted. Soft, nontender. Bowel sounds are present. EXTREMITIES: No limb edema. No calf tenderness. MUSCULOSKELETAL: He has functional active range of motion in all four extremities with some guarding at shoulders due to recent radical neck surgery. NEUROLOGIC: Sensation is grossly intact to touch. Strength: He has generalized weakness. Cognition appears grossly intact.He is aphonic due to recent laryngectomy IMPRESSION: 1. General debilitation secondary to postop hematoma rt ant neck s/p I&D [facility] with ANGELO drain placed and placed on antibiotics. 2. Status post neck exploration and evacuation of hematoma and infection and closure of right pharyngocutaneous fistula 11/02/2016. 3. Squamous cell carcinoma of the larynx status post laryngectomy and radical neck dissection 10/03/2016. ENT [facility]. 4. Postop bleed status post transfusions, outside facility. 5. Alcoholic liver disease. 6. Hepatitis C. 7. Chronic obstructive pulmonary disease. 8. History of tobacco abuse. 9. Essential tremor. PLAN: The patient will have a comprehensive program of inpatient rehabilitation with a goal of maximizing level of functional independence prior to discharge home with spouse. The patient will have PT, OT, 90 minutes per day 5 days a week for gait strengthening and conditioning, energy conservation, ADLs, any patient or family caregiver training,any necessary adaptive equipment and training necessary. Speech therapy to do cognitive, speech language screening and treat as indicated, see if the patient might be a candidate for alternative communication aid. Currently, he is writing on a clipboard for communication purposes. Rehabilitation nursing to assist with bowel, bladder, skin wound care, stoma care, medication administration, pain management tube feed administration. Respiratory therapy to assist with O2 sats and respiratory treatments and O2 administration as needed as well as stoma care. student services coordinator to assist with discharge planning, community reentry. Routine admission labs. Will ask Dr. Herrera to see this patient for medical management while on unit for this out of town patient.Nutritional consult re tube feeds ESTIMATED LENGTH OF STAY: 2 weeks. PROGNOSIS: Rehab prognosis appears good for goal of discharging home with family and home health care modified independent to supervision of ADLs and mobility skills as well as communication skills. I believe family education has already been provided for tube feeds during prior discharge with home health. DIET: N.p.o. on tube feeds. CODE STATUS: Full code. Job ID: [id number] DocumentID: [id number] Dictated Date: 11/06/2016 22:42:01 Stationary Engineer Supervisor Date: 11/07/2016 04:39:35 Dictated By: ANDREW CHATMAN MD MTDD
--- NOTE | 2016-11-07 08:45 | Physical Therapy Progress Note ---
Therapy Progress Note Chart reviewed and evaluation attempted. Patient apparently has a drain out and is refusing PT until it gets put back in. Patient is non-verbal but can write and on a notepad he writes "later gator" to PT and he is very angry and agitated. His explains that without the drain he has trouble breathing. This therapist explained to the about the required minutes of therapy and start orientation to how rehab works. Will attempt eval again when he is able to do it. SHEREE BRAUN PT November 07, 2016 08:45
[2016-11-07 08:47] VITALS: BP 110/64
[2016-11-07] MEDS: DIAZEPAM 5 MG (VALIUM) TABLET PEG SCH ×2 (08:47→21:01)
--- NOTE | 2016-11-07 08:59 | Consultation ---
History of Present Illness History of Present Illness Patient Consulted On(lacey/time) 11/07/16 08:54 Date of Admission History of Present Illness laryngeal cancer. Patient had surgery at [facility]. Patient had a l laryngectomy. Patient has problems with dysphagia. Hypokalemia. Hypomagnesemia. Acute respiratory failure. Shortness of breath at rest. Squamous cell carcinoma of larynx. Status post radiation therapy. Laryngeal mass. GERD without esophagitis. Tobacco abuse. Hepatitis C. Fatty liver. Anxiety. Allergies and Home Medications Allergies Coded Allergies: No Known Drug Allergies (Unverified , 11/06/16) Home Medications Albuterol Sulfate 1 Puff Puff, 2 PUFF IH Q4H PRN for DYSPNEA, #1 1 PUFF = 90 MCG Prescribed by: MANJINDER RAMIREZ on 09/04/16 1430 Past Yxwylqv-Kyikox-Gldjdu Hx Patient Social History Smoking Status: Never a Smoker Type Used: Cigarettes 2nd Hand Smoke Exposure: No Recent Foreign Travel: No Contact w/Someone Who Travel: No Recent Infectious Disease Expo: No Recent Hopitalizations: Yes (total laryngectomy on 10/03 at [facility] ) Immunizations Up To Date Date of Pneumonia Vaccine: Mar 08, 2016 Date of Influenza Vaccine: Apr 10, 2016 Seasonal Allergies Seasonal Allergies: No Surgeries HX Surgeries: Yes (back sx, PEG, TEETH PULLED, laryngectomy, radical neck dissection) Surgeries: Tracheostomy Respiratory Hx Respiratory Disorders: Yes Respiratory Disorders: COPD Cardiovascular Hx Cardiac Disorders: No Neurological Hx Neurological Disorders: No Reproductive System Hx Reproductive Disorders: No Genitourinary Hx Genitourinary Disorders: No Gastrointestinal Hx Gastrointestinal Disorders: Yes Gastrointestinal Disorders: Hepatitis Musculoskeletal Hx Musculoskeletal Disorders: Yes Musculoskeletal Disorders: Chronic Back Pain Endocrine Hx Endocrine Disorders: No HEENT HX ENT Disorders: Yes (READING GLASSES) HEENT Disorders: Cataract Loss of Vision: Bilateral Hearing Impairment: Denies Cancer Hx Cancer: Yes (laryngeal) Psychosocial Hx Psychiatric Problems: No Integumentary HX Skin/Integumentary Disorder: No Blood Transfusions Hx Blood Disorders: No Adverse Reaction to a Blood Tr: No Review of Systems-General Constitutional: weakness EENTM: other (cervical larynx) Respiratory: short of breath, other Cardiovascular: no symptoms reported Gastrointestinal: no symptoms reported Genitourinary: no symptoms reported Physical Exam-General Problems Physical Exam Vital Signs Vital Sign - Last 12Hours 11/06/16 11/06/16 11/07/16 17:30 17:50 05:38 Temp 97.3 Pulse 74 Resp 14 B/P (MAP) 115/63 Pulse Ox 92 O2 Delivery Trach Collar O2 Flow Rate 8.00 FiO2 28 Capillary Refill : General Appearance: WD/WN, no apparent distress Eyes: Bilateral Eye Normal Inspection Neck: other (surgery) Respiratory: chest non-tender, no respiratory distress, no accessory muscle use , decreased breath sounds Cardiovascular: regular rate, rhythm, no murmur Gastrointestinal: non tender, soft, other (PEG tube) Assessment/Plan Assessment/Plan Admission Diagnosis/Plan laryngeal cancer. Debility. Hepatitis C. COPD. Laryngeal mass. Tobacco use Clinical Quality Measures DVT/VTE Risk/Contraindication: Risk Factor Score Per Nursin RFS Level Per Nursing on Admit: 4+=Very High FAVIOLA MINA DO November 07, 2016 08:59
--- NOTE | 2016-11-07 09:07 | PM & R (SOAP) Progress Note ---
Subjective Subjective/Events-last exam Patient was seen in his room last night and this AM ANGELO drain from rt ant neck came out last Night ENT here unavailable Spoke with DR Orozco-He will see patient later today re reinsertion Small amount of drainage noted from drain tube site Patient is on Antibiotics Patient declining therapies today until ANGELO drain replaced See orders Discussed case with DR Orozco and RN and DR Sharon VÁSQUEZ and Patients spouse. Review of Systems HEENT: Other (surgical site pain) Objective Exam Last Set of Vital Signs Vital Signs Date Time Temp Pulse Resp B/P (MAP) Pulse Ox O2 Delivery O2 Flow Rate FiO2 11/07/16 08:47 98.6 74 20 110/64 96 Trach Collar 7.00 11/07/16 07:15 30 Capillary Refill : I&O Bad tableGeneral: Alert, Oriented X3, Cooperative, No Acute Distress HEENT: PERRLA, EOMI, Mucous Memb Moist/Tornado, Other (uses wtitten notes to communicate but difficult to read at times due to patients essential tremor) Neck: Other (Laryngoscopy tube in place s/p trach and laryngectomy S/P I&D rt ant neck heeematoma with some drainage noted on PO antibiotic) Heart: Regular Rate Abdomen: Normal Bowel Sounds, Soft, Other (Peg in place) Extremities: No Edema Neuro: Other (Generalized weakness essential tremor) Psych/Mental Status: Other (Angyr at times irritable) Results Lab Laboratory Tests 11/07/16 05:27: White Blood Count 5.9, Red Blood Count 2.81L, Hemoglobin 8.5L, Hematocrit 26L, Mean Corpuscular Volume 93, Mean Corpuscular Hemoglobin 30, Mean Corpuscular Hemoglobin Concent 32, Red Cell Distribution Width 16.8H, Platelet Count 192, Mean Platelet Volume 9.0, Neutrophils (%) (Auto) 81H, Lymphocytes (%) (Auto) 10L , Monocytes (%) (Auto) 8, Eosinophils (%) (Auto) 1, Basophils (%) (Auto) 1, Neutrophils # (Auto) 4.7, Lymphocytes # (Auto) 0.6L, Monocytes # (Auto) 0.5, Eosinophils # (Auto) 0.0, Basophils # (Auto) 0.0, Sodium Level 137, Potassium Level 3.6, Chloride Level 102, Carbon Dioxide Level 26, Anion Gap 9, Blood Urea Nitrogen 2L, Creatinine 0.57L, Estimat Glomerular Filtration Rate > 60, BUN/ Creatinine Ratio 4, Glucose Level 95, Calcium Level 8.1L, Total Bilirubin 0.6, Aspartate Amino Transf (AST/SGOT) 18, Alanine Aminotransferase (ALT/SGPT) 15, Alkaline Phosphatase 84, Total Protein 5.7L, Albumin 2.8L Assessment/Plan Assessment s/p Laryngectomy for [facility] Postop hematoma s/p I&D [facility] rt anterior neck with ANGELO drain out last Night with small amt of Drainage noted on antibiotic with DR Orozco Gen Surgery to see Essential tremor on meds HX Hepatitis C Plan Therapies on hold today due to ANGELO drain out and patients irritabilty until DR Orozco has seen later today Then PT/OT/ST evlas and treatment to [facility] ST to see if alternative communication device can be used-This should help with patients frustration [facility] consult for various above issues. Consult DR Cabrales client delivery specialist See orders I will be away from 10/09/16 til 10/16/16-DR Herrera covering my service during that time ANDREW CHATMAN MD November 07, 2016 09:07
--- NOTE | 2016-11-07 09:26 | PM&R Post Admission Assessment ---
Post Admission Physician Asses The preadmission screen agrees with the post admission assessment that the patient is a good candidate for inpatient rehabilitation.Unfortunately the patients ANGELO drain came out on the evening of admission and Therapy evals being postponed til ANGELO drain replaced by surgery later today.Patient placed on 01/19 therapy schedule due to above The patient will have a comprehensive program of inpatient rehabilitation with a goal of maximizing level of functional independence prior to discharge home with spouse. The patient will have PT/OT ninety minutes per day, each discipline, five days a week for gait strengthening, conditioning, balance, ADLs , any patient/family/caregiver training necessary. Speech therapy to do cognitive assessment and treat as indicated. as well as assist patient with alternative Communication device Presently the patient is writing on a clipboard for communication purposes but this is not adeal for patient as he carries a diagnosis of essential temor.Patient is aphonic s/p Laryngectomy for [facility] of the larynx at [facility] earlier this year. Rehabilitation nursing to assist with bowel, bladder, skin, wound care, medication administration, pain management as well as Tube feed administration Nutritional consult re Tube feeds [facility] for anxiety. Resp therapy to assist with trach site and care and monitoring [address] [place] [address] Rn Mds Coordinator to assist with discharge planning, community reentry. SCD's for DVT prophylaxis. He appears to be well motivated otherwise to participate in three hours of therapy a day. He should be able to tolerate three hours of therapy a day from a medical and surgical standpoint in a reasonable amount of time. He should benefit from the three hours of therapy a day. He has a reasonable discharge plan, reasonable discharge rehabilitation goals and a supportive family. He has various comorbidities that need to be closely monitored with medications and treatments adjusted on a daily basis as needed. These include: Ongoing wound and drain care Essential tremor Airway protection Reactive anxiety Ongoing antibiotic treatemnt Barriers to discharge for this patient who had been independent prior to this are for him to be modified independent to supervision for ADLs and mobility skills prior to discharge home with [family], so as to lessen the burden of the caregivers. Risks for this patient include: 1. Fall 2. Fracture 3. DVT 4. Pulmonary embolism 5. Wound infection 6. Skin breakdown 7. Contractures 8. Poorly controlled pain 9. Urinary retention 10. UTI 11. Respiratory infection 12. Aspiration 13 Worsening anxiety and agitation Estimated Length of Stay: 14 days Prognosis: Rehab prognosis appears good for goal of discharge home with spouse modified independent to supervision for ADLs and mobility skills. as well as communication using augmentive devices and ongoing Tube feeds for nutritional support as patient is currently NPO,Discussed case with DR Orozco today by [facility] General Surgery -He will se re reinserting ANGELO drain rt ant neck ANDREW CHATMAN MD November 07, 2016 09:26
--- NOTE | 2016-11-07 09:27 | Occ Therapy Progress Note ---
Therapy Progress Note OT evaluation on hold at this time secondary to physician order to hold therapy until drain replaced by surgery. Will monitor and initiate evaluation when appropriate. INDERJIT GAYTAN OT November 07, 2016 09:27
--- NOTE | 2016-11-07 09:29 | Physical Therapy Progress Note ---
Therapy Progress Note Physician order in to hold therapy on this patient today. SHEREE BRAUN PT November 07, 2016 09:28
--- NOTE | 2016-11-07 09:57 | Speech Therapy Progress Note ---
Therapy Progress Note The speech pathologist received a consultation for voice rehabilitation and treatment. The patient's chart was reviewed. The clinician attempted to initiate therapy at 08:00 on this date. The patient refused therapy at this time due to a dislodged pharyngeal drain tube. The clinician offered additional services to aid with communication (electrolarynx, white board, etc.), however, the patient deferred at this time, writing "good luck, sorry to waste your time. " Per physician, the patient is on hold on this date pending re-placement of drain tube. The clinician will re-attempt evaluation, as able. Per request, Speech Pathology contacted respiratory therapy. Respiratory therapy denied any concerns or questions at this time. The clinician encouraged RT to contact her with any questions throughout the patient's care. OSMAR CUEVAS November 07, 2016 09:57
[2016-11-07] MEDS: THERAPEUTIC MULTIVITAMINS LIQUID 5 ML UDC PO SCH (09:59)
[2016-11-07] MEDS: PETROLATUM JELLY(VASELINE) 2.5 OZ TUBE TP SCH ×2 (10:00→21:02)
[2016-11-07] MEDS ORDERED: DOCU50LI GT (10:51)
[2016-11-07] MEDS ORDERED: OMEP40CA36 GT (10:51)
[2016-11-07] MEDS ORDERED: DIAZ10TA GT (10:58)
[2016-11-07] MEDS ORDERED: OXYC5SOL19 GT (10:58)
[2016-11-07] MEDS ORDERED: CALCITRATE 950 MG GT (10:58)
[2016-11-07] MEDS ORDERED: ONDA4TAB8 PO (10:58)
[2016-11-07] MEDS: DOCUSATE SODIUM 10 MG/ML 10 ML UDC (COLACE) PEG SCH ×2 (10:59→21:01)
[2016-11-07] MEDS: VITAMIN D3 1,000 UNITS (CHOLECALCIFEROL) TABLET PEG SCH (10:59)
[2016-11-07] MEDS ORDERED: [UNRECOGNIZED DRUG - OTHER] MM (11:03)
[2016-11-07] MEDS ORDERED: TRAZ-28 GT (11:03)
[2016-11-07] MEDS ORDERED: RT-ALBUINH IH (11:03)
[2016-11-07] MEDS ORDERED: MULT240L3 GT (11:03)
[2016-11-07] MEDS ORDERED: CHOL10007 GT (11:03)
[2016-11-07] MEDS ORDERED: LEVO50TA6 GT (11:03)
[2016-11-07] MEDS ORDERED: ACET160E11 GT (11:03)
[2016-11-07] MEDS ORDERED: AMOX1TAB12 GT (11:04)
--- NOTE | 2016-11-07 11:50 | Progress Note-Standard ---
Standard Progress Note Progress Notes/Assess & Plan Progress/Assessment & Plan 11/07/16:asked to see this gentleman recoveringFrom laryngectomy with flap advancement. ANGELO drain from the right side of the neck found extruded this morning. On examination, there is no swelling on the right side of neck. Purulent drainage from the drain site. Reasonable to avoid replacing the tube and managed by placing a stoma bag to minimize skin changes. I have recommended this to the nurse and the patient. Final Diagnosis laryngeal carcinoma CRESENCIO FELDER MD November 07, 2016 11:50 am
[2016-11-07] MEDS: OLANZapine 5 MG (ZyPREXA) TAB JT SCH (13:41)
[2016-11-07] MEDS: HYDROGEN PEROXIDE 473 ML SOLUTION MC SCH ×2 (13:42→21:01)
--- NOTE | 2016-11-07 13:45 | Speech Therapy Progress Note ---
Therapy Progress Note The speech pathologist reattempted evaluation on this date. Per patient, he recently received pain medication and would like to rest. Patient stated, "I will get started tomorrow." The clinician requested the patient's bring his electrolarynx from home, to which she agreed. The patient denied any questions or concerns for the clinician at this time. Call light was in reach upon exit. The clinician will re-attempt evaluation tomorrow, 11/08/2016. OSMAR CUEVAS November 07, 2016 13:45
[2016-11-07 17:29] VITALS: BP 102/56
[2016-11-07] MEDS: traZODone 50 MG (DESYREL) TAB PEG SCH (21:01)
[2016-11-08] MEDS: RT-ALBUTEROL SULF 2.5 MG/3 ML PRE-MIX VIAL IH PRN ×2 (01:34→23:05)
[2016-11-08] MEDS: oxyCODONE 5 MG/5 ML ORAL SOLN (roxiCODONE) 5 ML UDC PEG PRN ×4 (01:38→22:44)
[2016-11-08] MEDS: LEVOTHYROXINE 50 MCG (LEVOTHROID) TAB PEG SCH (05:03)
[2016-11-08 05:04] VITALS: BP 110/68
[2016-11-08] MEDS: AUGMENTIN 875 MG TAB (AMOXICILLIN/CLAVULANATE) PEG SCH ×2 (06:12→16:51)
[2016-11-08] MEDS: PANTOPRAZOLE 2 MG/ML LIQUID 200 ML (PROTONIX) PO SCH ×3 (06:13)
--- NOTE | 2016-11-08 08:24 | Progress Note (SOAP) ---
Subjective Subjective/Events-last exam laryngeal cancer. Patient positive today. Patient ready for physical therapy. And occupational therapy. Debility Objective Exam Vital Signs Date Time Temp Pulse Resp B/P (MAP) Pulse Ox O2 Delivery O2 Flow Rate FiO2 11/08/16 05:04 98.0 87 18 110/68 94 Trach Collar 6.00 11/08/16 01:35 96 8.00 35 11/07/16 22:07 8.00 30 11/07/16 21:00 93 11/07/16 19:10 8.00 30 11/07/16 17:29 98.1 69 16 102/56 94 Trach Collar 7.00 11/07/16 14:59 92 8.00 30 11/07/16 10:27 95 8.00 30 11/07/16 08:47 98.6 74 20 110/64 96 Trach Collar 7.00 I & O 11/08/16 07:00 Intake Total 1694 ml Output Total 1650 ml Balance 44 ml Capillary Refill : General Appearance: No Apparent Distress, WD/WN Results Lab Microbiology 11/07/16 Gram Stain - Final, Resulted 11/07/16 Body Fluid Culture - Preliminary, Resulted Gram Negative Rigo Assessment/Plan Assessment/Plan Assess & Plan/Chief Complaint laryngeal cancer. Debility. Hepatitis C. COPD. Laryngeal mass. Tobacco use. . 11/08/16. Laryngeal cancer. Debility Hepatitis. COPD. Tobacco usage. Patient positive today Clinical Quality Measures DVT/VTE Risk/Contraindication: Risk Factor Score Per Nursin RFS Level Per Nursing on Admit: 4+=Very High FAVIOLA MINA DO November 08, 2016 08:24
--- NOTE | 2016-11-08 08:58 | Physical Therapy Evaluation ---
PT Evaluation-General Medical Diagnosis Admission Date November 06, 2016 at 16:42 Medical Diagnosis: Laryngeal Cancer Onset Date: Nov 03, 2016 Therapy Diagnosis Therapy Diagnosis: impaired mobility, strength, endurance Height/Weight Height (Feet): 6 Height (Inches): 1.00 Weight (Pounds): 189 Weight (Ounces): 5.0 Precautions Precautions/Isolations: Fall Prevention, Standard Precautions Referral Physician: Delon Reason for Referral: Evaluation/Treatment Medical History Additional Medical History Hep C, alcoholic liver disease, chronic lung disease, tobacco use, essential tremor, surg (tracheostomy 04/03/16, laryngectomy with radical neck dissection , myocutaneous fasciocutaneous flap trunk 10/03/16, split thickness skin graft 10/03/16) Current History patient had a laryngectomy and radial neck dissection on 10/03/16 for squamous cell carcinoma of the larynx Reviewed History: Yes Social History Home: Single Level Current Living Status: Spouse Entry Into Home: Ramp Prior/Core FIM Prior Level of Function Functional [place] Measure 0=Not Assessed/NA 4=Minimal Assistance 1=Total Assistance 5=Supervision or Setup 2=Maximal Assistance 6=Modified [place] 3=Moderate Assistance 7=Complete [place] Bed Mobility: 7 Transfers (B,C,W/C) (FIM): 7 Gait: 7 PT Evaluation-Current Subjective Patient in bed pre tx, agrees to PT, indicates that he has 6/10 pain in his neck on the right side. Patient cannot speak and the words he tries to say are unclear. He does have a whiteboard but his writing is hard to read due to his tremors. Pt/Family Goals unable to state Objective Patient Orientation: Unable to Assess Attachments: Oxygen ROM/Strength ROM Lower Extremities WNL Strenght Lower Extremities 4/5 gross bilateral lower extremities Integumentary/Posture Bowel Incontinence: No Neuromuscular (Tone, Coordination, Reflexes) WNL Sensory Vision: Functional Hearing: Functional Sensation Right Lower Extremit: Intact Sensation Left Lower Extremity: Intact Transfers Functional [place] Measure 0=Not Assessed/NA 4=Minimal Assistance 1=Total Assistance 5=Supervision or Setup 2=Maximal Assistance 6=Modified [place] 3=Moderate Assistance 7=Complete IndependenceIRFPAI Quality Coding Scale 6 Independent with activity with or without an assistive device 5 Patient requires set up or clean up by helper. Patient completes activity by themselves 4 Supervision or touching assist (CGA). [place] provide cues , steadying assist 3 The helper provides less than half the effort to complete the activity 2 The helper provides more than half the effort to complete the activity 1 Dependent. The helper does all the effort to complete an activity 7 Patient refused to complete or attempt activity 9 The patient did not perform the activity before the current illness or injury 88 Not attempted due to Medical conditions or safety concerns Transfers (B, C, W/C) (FIM): 4 Scootin Rollin Roll Left to Right (QC): 4 Supine to/from Sit: 5 Sit to/from Stand: 4 Sit to Lying (QC): 4 Lying to Sitting/Side of Bed(Q: 4 Sit to Stand (QC): 4 Car Transfer (QC): 88 bed mobility SBA, transfers CGA Gait Does the Patient Walk?: Yes Mode of Locomotion: Walk Anticipated Mode of Locomotion: Walk Gait (FIM): 4 Walk 10 feet (QC): 4 Walk 50 ft with 2 Turns(QC): 4 Walk 150 ft (QC): 4 Walking 10ft/uneven surface-QC: 4 Distance: 400' Gait Level of Assist: 4 Gait Persons Needed: 1 Gait Assistive Device: FWW Comments/Gait Description very slow ambulation, needs many standing rest breaks, his left toes have a tendency to catch on the floor when turning either way. Patient can ambulate 400' with a rolling walker with CGA including 50' with at least 2 turns of 90 degrees and 10' over an uneven surface. Wheelchair Training Does the Pt Use a Wheelchair?: No Stairs Stairs (FIM): 1 #of Steps: 1 Level of Assist: 4 1 Step (curb) (QC): 4 4 Steps (QC): 88 Assistive Device: Walker 12 Steps (QC): 88 CGA Balance Sitting Static: Normal Sitting Dynamic: Normal Standing Static: Good Standing Dynamic: Good Assessment/Needs Patient has impaired mobility, strength, endurance post neck surgery and debility. Rehab Potential: Fair PT Short Term Goals Short Term Goals Time Frame: November 15, 2016 Transfers (B,C,W/C) (FIM): 5 Gait (FIM): 5 Gait Distance Comment: 500' Gait Level of Assist: 5 Gait Assistive Device: FWW PT Longterm Goals Longterm Goals PT Longterm Goals Time Frame: November 29, 2016 Transfers (B,C,W/C) (FIM): 6 Sit to Lying (QC): 6 Lying-Sitting on Side/Bed(QC): 6 Sit to Stand (QC): 6 Rollin Roll Left to Right (QC): 6 Car Transfer (QC): 4 Gait (FIM): 6 Distance: 800' Walk 10 feet (QC): 6 Walk 10ft-Uneven Surface(QC): 6 Walk 50ft with 2 Turns (QC): 6 Walk 150 ft (QC): 6 Gait Assistive Device: FWW Stairs (FIM): 5 # of Steps: 12 1 Step (curb) (QC): 4 4 Steps (QC): 4 12 Steps (QC): 4 Stairs Level Of Assist: 5 Picking up an Object (QC): 5 PT Plan Problem List Problem List: Activity Tolerance, Functional Strength, Safety, Balance, Gait, Transfer, Bed Mobility Treatment/Plan Treatment Plan: Continue Plan of Care Treatment Plan: Bed Mobility, Education, Functional Activity Romie, Functional Strength, Group Therapy, Gait, Safety, Therapeutic Exercise, Transfers Treatment Duration: November 29, 2016 # of days/week 5-6 Visits Per Week: 10-11 Minutes/Day (M-F): 60-90 Minutes/Day (Sat/[place]): 15-30 Pt/Family Agrees w/Plan: Yes Safety Risks/Education Patient Education: Gait Training, Transfer Techniques, Steps, Correct Positioning, Safety Issues Teaching Recipient: Patient Teaching Methods: Demonstration, Discussion Response to Teaching: Reinforcement Needed Discharge Recommendations Plan Patient will perform bed mobility and transfer training, balance and endurance training, functional strengthening, stair training, gait training, and education to improve functional mobility and independence at home. Therapy D/C Recommendations: Home w/ Family Support Time/GCodes Time In: 800 Time Out: 900 Total Billed Treatment Time: 60 Total Billed Treatment 1 visit GT 30 min EVM 15 min FA 15 min SHEREE BRAUN PT November 08, 2016 08:58
[2016-11-08] MEDS ORDERED: diphenhydrAMINE 25 MG TAB (BENADRYL) PO NR (09:00)
--- NOTE | 2016-11-08 10:05 | ST Cognitive Linguistic Eval ---
Speech Evaluation-General Medical Diagnosis Laryngeal Cancer (s/p Total Laryngectomy) Onset Date: Nov 03, 2016 Therapy Diagnosis Therapy Diagnosis: Aphonia Precautions Precautions/Isolations: Fall Prevention, Standard Precautions Referral Referring Physician: Dr. Kasi Jernigan Reason for Referral: Evaluation/Treatment Speech, Language, Voice, and Cognition Evaluation Medical History Pertinent Medical History: COPD, GERD Hypokalemia, Hepatitis C, Liver Disease, Chronic Lung Disease, Squamous Cell Carcinoma of Larynx, Anemia Reviewed History: Yes Social History Current Living Status: Spouse Speech PLF-Current Status Prior Level of Function Prior to the patient's total laryngectomy, the patient was able to communicate clearly with others. Additionally, the patient denied baseline cognitive impairments. Subjective The patient was recently admitted to [facility] following the repair of a pharyngocutaneous fistula (11/01/2016) secondary to a total laryngectomy procedure (10/03/2016). The patient is currently NPO, receiving total nutrition, hydration, and medication via PEG tube. Additionally, the patient has a laryngectomy tube in place with a heat-moisture exchange cassette. The patient is currently communicating via writing (white board and paper). Per patient's , he has an electrolarynx at home. Language Eval: Auditory Comprehends Simple Yes/No Ques: Functional Indent/Objects Multiple Prakash: Functional Ident/Pics in Multiple Prakash: Functional Follows 1-Step Commands: Functional Language Eval: Verbal Language Completes Spontaneous Greeting: Functional Produces Auto, Serial Info: Functional Imitates Simple Words/Phrases: Functional Word Finding: Functional Requests Basic Needs: Functional States Basic Personal Info: Functional Language Evaluation: Reading Comprehends Single Nouns: Functional Follows Simple Written Direct: Functional Comprehends Multiple Sentences: Functional Language Evaluation: Writing Writes to Simple Dictation: Functional (The patient's writing is legible, however, reduced due to the presence of an essential tremor.) Writes Personal Information: Functional Writes Short Phrases: Functional Cognitive Patient Orientation The patient is oriented to name, date of , location, month, day of week, and year (independently). Objective Cognitive Domain Attention: Mild Memory: Mild Problem Solving: Mild Objective Oral Motor/Speech Production At this time, the patient is aphonic secondary to a total laryngectomy. While the patient is currently implementing writing to communicate, his writing has reduced legibility due to the presence of an essential tremor. An electrolarynx was introduced by the clinician on this date. Due to the patient recent pharyngeal procedure (and reduced healing), the tissue will not be used as a vibratory source. An intra-oral adaptor will be used to place vibrations in the oral cavity for voicing. Per patient's , the patient has an electrolarynx at home. The patient's agreed to bring the electrolarynx in for practice/ use. The parts of the electrolarynx were discussed and explained, as well as, the intra-oral adaptor. Continued practice will take place throughout sessions. Impression At this time, the patient demonstrates a mild cognitive impairment in the areas of attention and problem solving. The patient is aphonic secondary to a total laryngectomy. An electrolarynx was introduced on this date, as well as, demonstrated for the patient. During the session, the clinician provided suctioning and cleaning of the stoma. The Larytube was cleaned and returned, as well as, the heat and moisture exchange cassette. The trach-shield was placed over the stoma prior to leaving the session. Communication/Social Cognition Comprehension: 4 Expression: 1 Social Interaction: 2 Problem Solvin Memory: 4 Speech Patient Assess Expression of Ideas/Wants: Frequently (2) Understanding [place] Content: Usually Understands (3) Brief Interview-Mental Status: Yes Repetition of Three Words: Three (3) Temporal Orientation: Year: Correct (3) Temporal Orientation: Month: Accurate within 5 days(2) Temporal Orientation: Day: Correct (1) Recall : Wear to say "Sock": Yes, no cue required (2) Recall : Color: Yes, no cue required (2) Recall : Bed: Yes, no cue required (2) Speech Short Term Goals Short Term Goals Short Term Goals 1. The patient will demonstrate understanding of electrolarynx parts/supplies. 2. The patient will demonstrate 60% intelligibility with use of the electrolarynx. Time Frame-STG: Two Weeks Speech Botanical Technical Officer Goals Botanical Technical Officer Goals 1. The patient will demonstrate increased intelligibility (75%) with use of electrolarynx for improved expressive communication. Time Frame: Three Weeks Comprehension: 5 Expression: 3 Social Interaction: 3 Problem Solvin Memory: 5 Speech-Plan Treatment Plan Speech Therapy Treatment Plan: Continue Plan of Care Continue skilled speech pathology intervention for improved expressive communication via electrolarynx use. Treatment Duration: November 29, 2016 # of days/week Four to five. Visits Per Week: Four to five. Minutes/Day (M-F): 30 Rehab Potential: Guarded Safety Risks/Education Teaching Recipient: Patient Teaching Methods: Discussion Response to Teaching: Verbalize Understanding Education Topics Provided: Results, Recommendations, Plan of Care Time Speech Therapy Time In: 09:00 Speech Therapy Time Out: 09:30 Total Billed Time: 30 Billed Treatment Time 1, OSMAR ONOFRE November 08, 2016 10:05
[2016-11-08] MEDS: DIAZEPAM 5 MG (VALIUM) TABLET PEG SCH ×2 (10:07→21:09)
[2016-11-08] MEDS: THERAPEUTIC MULTIVITAMINS LIQUID 5 ML UDC PO SCH (10:07)
[2016-11-08] MEDS: VITAMIN D3 1,000 UNITS (CHOLECALCIFEROL) TABLET PEG SCH (10:07)
[2016-11-08] MEDS: OLANZapine 5 MG (ZyPREXA) TAB JT SCH (10:07)
[2016-11-08] MEDS: DOCUSATE SODIUM 10 MG/ML 10 ML UDC (COLACE) PEG SCH ×2 (10:11→21:09)
[2016-11-08] MEDS: HYDROGEN PEROXIDE 473 ML SOLUTION MC SCH ×2 (10:22→21:08)
[2016-11-08] MEDS: PETROLATUM JELLY(VASELINE) 2.5 OZ TUBE TP SCH ×2 (10:22→21:08)
--- NOTE | 2016-11-08 13:20 | Physical Therapy Daily Note ---
PT Daily Note-Current Subjective Patient agrees to PT. No c/o at this time. Pain Numeric Pain Scale: 0-No Pain Location: No Pain Reported Mental Status Patient Orientation: Normal For Age Attachments: PEG Tube trach/humidified air Transfers Functional [place] Measure 0=Not Assessed/NA 4=Minimal Assistance 1=Total Assistance 5=Supervision or Setup 2=Maximal Assistance 6=Modified [place] 3=Moderate Assistance 7=Complete IndependenceIRFPAI Quality Coding Scale 6 Independent with activity with or without an assistive device 5 Patient requires set up or clean up by helper. Patient completes activity by themselves 4 Supervision or touching assist (CGA). [place] provide cues , steadying assist 3 The helper provides less than half the effort to complete the activity 2 The helper provides more than half the effort to complete the activity 1 Dependent. The helper does all the effort to complete an activity 7 Patient refused to complete or attempt activity 9 The patient did not perform the activity before the current illness or injury 88 Not attempted due to Medical conditions or safety concerns Transfers (B, C, W/C) (FIM): 5 Scootin Rollin Roll Left to Right (QC): 5 Supine to/from Sit: 5 Sit to/from Stand: 5 Sit to Lying (QC): 5 Sit to Stand (QC): 5 SBA safely with all Gait Training Does the Patient Walk?: Yes Gait (FIM): 5 Distance (FIM): 3=150 ft Distance: 150' x 4 Walk 10 feet (QC): 5 Walk 50 ft with 2 Turns(QC): 5 Walk 150 ft (QC): 5 Gait Level of Assist: 5 Gait Assistive Device: FWW slow, shuffle gait sequence with 2 sitting recovery periods due to increase SOA ; Education with patient on importance of increasing mobility to improve pulmonary function with patient responding with good knowledge of this. Assessment Patient returned to bed with needs met. Patient apologized for not participating more today. PT encouraged patient that he is progressing and how important it is to continue to participate to regain his strength to return to home with spouse. PT Short Term Goals Short Term Goals Time Frame: November 15, 2016 Transfers (B,C,W/C) (FIM): 5 Gait (FIM): 5 Gait Distance Comment: 500' Gait Level of Assist: 5 Gait Assistive Device: FWW PT Retirement Goals Retirement Goals PT Keyboard Instrument Repairer Goals Time Frame: November 29, 2016 Transfers (B,C,W/C) (FIM): 6 Sit to Lying (QC): 6 Lying-Sitting on Side/Bed(QC): 6 Sit to Stand (QC): 6 Rollin Roll Left to Right (QC): 6 Car Transfer (QC): 4 Gait (FIM): 6 Distance: 800' Walk 10 feet (QC): 6 Walk 10ft-Uneven Surface(QC): 6 Walk 50ft with 2 Turns (QC): 6 Walk 150 ft (QC): 6 Gait Assistive Device: FWW Stairs (FIM): 5 # of Steps: 12 1 Step (curb) (QC): 4 4 Steps (QC): 4 12 Steps (QC): 4 Stairs Level Of Assist: 5 Picking up an Object (QC): 5 PT Plan Treatment/Plan Treatment Plan: Continue Plan of Care Treatment Plan: Bed Mobility, Education, Functional Activity Romie, Functional Strength, Group Therapy, Gait, Safety, Therapeutic Exercise, Transfers Treatment Duration: November 29, 2016 Visits Per Week: 10-11 Minutes/Day (M-F): 60-90 Minutes/Day (Sat/[place]): 15-30 Time/GCodes Time In: 1245 Time Out: 1315 Total Billed Treatment Time: 30 Total Billed Treatment 1 visit GT x 2 30 min GALO ENCARNACION PT November 08, 2016 13:19
[2016-11-08] MEDS: CALCIUM CITRATE 950 MG PEG SCH ×2 (13:24→16:51)
--- NOTE | 2016-11-08 15:55 | Occupational Therapy Eval ---
OT Evaluation-General/PLF Medical Diagnosis Admission Date November 06, 2016 at 16:42 Medical Diagnosis: Laryngeal Cancer (s/p Total Laryngectomy) Onset Date: Nov 01, 2016 Therapy Diagnosis Therapy Diagnosis: decr self care, weakness, decr funct mobility, decr activity tolerance Height/Weight Height (Feet): 6 Height (Inches): 1.00 Weight (Pounds): 189 Weight (Ounces): 5.0 Precautions Precautions/Isolations: Fall Prevention, Standard Precautions Safety Interventions: Bed Exit Alarm Referral Physician: Delon Referral Reason: Evaluation/Treatment Medical History Pertinent Medical History: COPD, GERD Additional Medical History Hep C, alcoholic liver disease, chronic lung disease, tobacco use, essential tremor, surg (tracheostomy 04/03/16, laryngectomy with radical neck dissection , myocutaneous fasciocutaneous flap trunk 10/03/16, split thickness skin graft 10/03/16). Anxiety Current History Patient had a laryngectomy and radial neck dissection on 10/03/16 for squamous cell carcinoma of the larynx. Surgery again on 11-01-16 for hematoma Reviewed History: Yes Social History Home: Single Level Current Living Status: Spouse Entry Into Home: Ramp ADL-Prior Level of Function ADL PLOF Comments Pt indicated that he was independent with basic self care needs prior to recent surgery. 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 DME/Equipment: Grab Bars, Tub/Shower, Toilet/Riser OT Current Status Subjective Pt seen in room, up in bed, reluctantly agreeable to OT. Pain rated 6/10 but not described (in neck) Nursing notified. Appearance Alert, cooperative at times but also threw dirty clothes on floor, threw his comb in his bed, took O2 off and refused to put it on until after upper body dressing. Mental Status/Objective Attachments: Central Line, IV, Oxygen, PEG Tube, Other-See Comments (trach, multiple dressings around neck) Current Glasses/Contacts: Yes Hearing Aids: No Dentures/Partials: No (no teeth) Hand Dominance: Right Upper Extremity ROM grossly 80-90 degrees flex at bilat shoulders. Rest of UEs grossly WFL. Unknown if shoulder limitation is passive as well as active Upper Extremity Strength Grossly 4/5 throughout bilat UEs but shoulder strength not tested due to pt protecting movement ADL-Treatment ADL-Current Pt indicated that he could do all of his ADLs and seemed resistant to doing them for OT. Explained goals are for him to be indep or mod indep in order to go home. Functional [place] Measure 0=Not Assessed/NA 4=Minimal Assistance 1=Total Assistance 5=Supervision or Setup 2=Maximal Assistance 6=Modified [place] 3=Moderate Assistance 7=Complete IndependenceIRFPAI Quality Coding Scale 6 Independent with activity with or without an assistive device 5 Patient requires set up or clean up by helper. Patient completes activity by themselves 4 Supervision or touching assist (CGA). [place] provide cues , steadying assist 3 The helper provides less than half the effort to complete the activity 2 The helper provides more than half the effort to complete the activity 1 Dependent. The helper does all the effort to complete an activity 7 Patient refused to complete or attempt activity 9 The patient did not perform the activity before the current illness or injury 88 Not attempted due to Medical conditions or safety concerns Eating (FIM): 1 (Pt has PEG for feeding tube and is unable to manage it himself. He is NPO) Eating (QC): 88 (NPO) Grooming (FIM): 5 (Pt was able to wash his face and hands and comb his hair ( with encouragement). Does not have teeth and indicated they were pulled due to radiation. Does not use mouthwash. Does not shave at this time) Oral Hygiene (QC): 9 (No teeth. Does not rinse with mouthwash) Bathing (FIM): 5 (Sponge bath, setup and supervision. Pt was able to wash and dry all parts except back. Stood without use of FWW for balance) Shower/Bathe Self (QC): 4 (supervision) Upper Body Dressing (FIM): 5 (Setup. Managed buttons) Upper Body Dressing (QC): 5 Lower Body Dressing (FIM): 5 (Supervision. Stood without help from EOB. Doffed and donned socks with setup.) Lower Body Dressing (QC): 4 On/Off Footwear (QC): 5 Toileting (FIM): 3 (Per nursing report. ) Toileting Hygiene (QC): 3 (Per nursing report) Toilet/Commode Transfer (FIM): 4 (Per nursing report) Toilet Transfer (QC): 4 (Per nursing report) Shower Transfer (FIM): 0 (Showering will be difficult due to multiple tubings, dressings and stitches. Pt was reluctant to shower. ) Other Treatments Pt left up in bed, present, all needs met. Education OT Patient Education: Modified ADL techniques, Purpose of tx/functional activities, Rehab process, Safety issues, Transfer techniques Teaching Recipient: Patient Teaching Methods: Discussion Response to Teaching: Verbalize Understanding, Return Demonstration, Reinforcement Needed OT Short Term Goals Short Term Goals Transfers (B,C,W/C) (FIM): 5 OT [facility] Goals Checking Department Supervisor Goals Time Frame: November 29, 2016 Eating (FIM): 1 Eating (QC): 88 Groomin Oral Hygiene (QC): 9 Bathing(FIM): 6 Shower/Bathe Self (QC): 6 Upper Body Dressing(FIM): 6 Upper Body Dressing (QC): 6 Lower Body Dressing(FIM): 6 Lower Body Dressing (QC): 6 On/Off Footwear (QC): 6 Toileting(FIM): 6 Toileting Hygiene (QC): 6 Toilet/Commode Transfer(FIM): 6 Toilet/Commode Transfer (QC): 6 Shower Transfer(FIM): 6 Comprehension(FIM): 5 Expression (FIM): 3 Social Interaction(FIM): 3 Problem Solving(FIM): 4 Memory(FIM): 5 Additional Goals: 1-Demonstrate ADL Tasks, 2-Verbalize Understanding, 3- ImproveStrength/Romie 1=Demonstrate adherence to instructed precautions during ADL tasks. 2=Patient will verbalize/demonstrate understanding of assistive devices/ modifications for ADL. 3=Patient will improve strength/tolerance for activity to enable patient to perform ADL's. OT Education/Plan Problem List/Assessment Assessment: Decreased Activ Tolerance, Decreased Safety Aware, Decreased UE Strength, Dependent Transfers, Impaired Funct Balance, Impaired Self-Care Skills Pt would benefit from skilled OT to increase his independence in basic self care to allow him to safely return home to live with his . Discharge Recommendations Plan/Recommendations: Continue POC Barriers to Progress behaviors Target Placement home Treatment Plan/Plan of Care Treatment,Training & Education: Yes Patient would benefit from OT for education, treatment and training to promote independence in ADL's, mobility, safety and/or upper extremity function for ADL' s. Plan of Care: ADL Retraining, Functional Mobility, Group Exercise/Act as Ind ( education, exercise, activity tolerance, mobility, memory), UE Funct Exercise/ Act, UE Neuromus Re-Ed/Coord Treatment Duration: November 29, 2016 # of days/week 5-6 Visits Per Week: 10-11 Minutes/Day (M-F): 75-90 Minutes/Day (Sat/[place]): PRN Agreement: Yes (reluctantly) Rehab Potential: Fair Time/GCodes Start Time: 09:30 Stop Time: 10:45 Total Time Billed (hr/min): 75 Billed Treatment Time visit, evaluation moderate intensity 15 minutes, ADL 60 minutes BAKARI PUCKETT OT November 08, 2016 15:55
[2016-11-08 18:08] VITALS: BP 109/66
[2016-11-08] MEDS: traZODone 50 MG (DESYREL) TAB PEG SCH (21:09)
[2016-11-09] MEDS: oxyCODONE 5 MG/5 ML ORAL SOLN (roxiCODONE) 5 ML UDC PEG PRN (04:51)
[2016-11-09 05:00] VITALS: BP 102/66
[2016-11-09 05:48] LABS: BASOPHILS % (AUTO) 0 % (0-10); EOSINOPHILS # (AUTO) 0.1 10^3/uL (0.0-0.3); EOSINOPHILS % (AUTO) 1 % (0-10); LYMPHOCYTES # (AUTO) 0.6 X 10^3 (1.0-4.0); LYMPHOCYTES % (AUTO) 8 % (12-44); MEAN CORPUSCULAR HEMOGLOBIN 30 PG (25-34); MEAN CORPUSCULAR HGB CONC 32 G/DL (32-36); MEAN CORPUSCULAR VOLUME 96 FL (80-99); MEAN PLATELET VOLUME 8.8 FL (7.4-10.4); MONOCYTES # (AUTO) 0.6 X 10^3 (0.0-1.0); MONOCYTES % (AUTO) 8 % (0-12); NEUTROPHILS # (AUTO) 5.9 X 10^3 (1.8-7.8); NEUTROPHILS % (AUTO) 83 % (42-75); PLATELET COUNT 214 10^3/uL (130-400); RED BLOOD COUNT 2.78 10^6/uL (4.35-5.85); RED CELL DISTRIBUTION WIDTH 16.9 % (10.0-14.5); WHITE BLOOD COUNT 7.2 10^3/uL (4.3-11.0)
[2016-11-09 05:59] LABS: ANION GAP 8 MMOL/L (5-14); BLOOD UREA NITROGEN 9 MG/DL (7-18); BUN/CREATININE RATIO 16; CALCIUM 7.7 MG/DL (8.5-10.1); CARBON DIOXIDE 27 MMOL/L (21-32); CHLORIDE 101 MMOL/L (98-107); CREATININE SERUM 0.57 MG/DL (0.60-1.30); GFR ESTIMATED > 60; GLUCOSE 106 MG/DL (70-105); SODIUM 136 MMOL/L (135-145)
[2016-11-09] MEDS: LEVOTHYROXINE 50 MCG (LEVOTHROID) TAB PEG SCH (06:31)
[2016-11-09] MEDS: CALCIUM CITRATE 950 MG PEG SCH ×3 (06:33→17:17)
[2016-11-09] MEDS: AUGMENTIN 875 MG TAB (AMOXICILLIN/CLAVULANATE) PEG SCH ×2 (06:33→17:17)
[2016-11-09] MEDS: PANTOPRAZOLE 2 MG/ML LIQUID 200 ML (PROTONIX) PO SCH ×3 (06:33)
--- NOTE | 2016-11-09 08:36 | Progress Note (SOAP) ---
Subjective Subjective/Events-last exam Laryngeal cancer. Patient sleepy this morning. Patient found to have Valium in his possession. To monitor Objective Exam Vital Signs Date Time Temp Pulse Resp B/P (MAP) Pulse Ox O2 Delivery O2 Flow Rate FiO2 11/09/16 06:25 6.00 21 11/09/16 05:00 99.6 71 24 102/66 91 Trach Collar 11/08/16 23:06 92 8.00 21 11/08/16 21:00 93 11/08/16 18:48 90 8.00 30 11/08/16 18:08 99.7 87 14 109/66 92 Trach Collar I & O 11/09/16 07:00 Intake Total 4410 ml Output Total 1400 ml Balance 3010 ml Capillary Refill : General Appearance: No Apparent Distress, WD/WN Respiratory: Chest Non Tender, No Accessory Muscle Use, No Respiratory Distress Cardiovascular: Regular Rate, Rhythm, No Murmur Results Lab Laboratory Tests 11/09/16 05:27 Laboratory Tests 11/09/16 05:27: White Blood Count 7.2, Red Blood Count 2.78L, Hemoglobin 8.4L, Hematocrit 27L, Mean Corpuscular Volume 96, Mean Corpuscular Hemoglobin 30, Mean Corpuscular Hemoglobin Concent 32, Red Cell Distribution Width 16.9H, Platelet Count 214, Mean Platelet Volume 8.8, Neutrophils (%) (Auto) 83H, Lymphocytes (%) (Auto) 8L , Monocytes (%) (Auto) 8, Eosinophils (%) (Auto) 1, Basophils (%) (Auto) 0, Neutrophils # (Auto) 5.9, Lymphocytes # (Auto) 0.6L, Monocytes # (Auto) 0.6, Eosinophils # (Auto) 0.1, Basophils # (Auto) 0.0, Sodium Level 136, Potassium Level 4.0, Chloride Level 101, Carbon Dioxide Level 27, Anion Gap 8, Blood Urea Nitrogen 9, Creatinine 0.57L, Estimat Glomerular Filtration Rate > 60, BUN/ Creatinine Ratio 16, Glucose Level 106H, Calcium Level 7.7L Microbiology 11/07/16 Gram Stain - Final, Resulted 11/07/16 Body Fluid Culture - Preliminary, Resulted Gram Negative [place] Strep Or Related Genus Yeast Species Assessment/Plan Assessment/Plan Assess & Plan/Chief Complaint laryngeal cancer. Debility. Hepatitis C. COPD. Laryngeal mass. Tobacco use. . 5/4/17. Laryngeal cancer. Debility Hepatitis. COPD. Tobacco usage. Patient positive today. . 11/09/16. Laryngeal cancer. Debility. Hepatitis C. COPD. Tobacco usage. Patient sleepy this morning. Bottle of Valium was found in patients bed to monitor Clinical Quality Measures DVT/VTE Risk/Contraindication: Risk Factor Score Per Nursin RFS Level Per Nursing on Admit: 4+=Very High FAVIOLA MINA DO November 09, 2016 08:36
[2016-11-09] MEDS: VITAMIN D3 1,000 UNITS (CHOLECALCIFEROL) TABLET PEG SCH (09:00)
[2016-11-09] MEDS: HYDROGEN PEROXIDE 473 ML SOLUTION MC SCH ×2 (09:00→21:42)
[2016-11-09] MEDS: THERAPEUTIC MULTIVITAMINS LIQUID 5 ML UDC PO SCH (09:00)
[2016-11-09] MEDS: PETROLATUM JELLY(VASELINE) 2.5 OZ TUBE TP SCH ×2 (09:00→21:42)
[2016-11-09] MEDS: OLANZapine 5 MG (ZyPREXA) TAB JT SCH (09:00)
[2016-11-09] MEDS: DIAZEPAM 5 MG (VALIUM) TABLET PEG SCH ×2 (09:01→21:41)
[2016-11-09] MEDS: DOCUSATE SODIUM 10 MG/ML 10 ML UDC (COLACE) PEG SCH ×2 (09:02→21:41)
--- NOTE | 2016-11-09 09:28 | Speech Therapy Daily Note ---
Speech Daily Progress Note Subjective The patient was sleeping upon entrance. The patient was easily roused with gentle verbal prompts. The patient communicated (via writing) he was extremely tired and "only slept two hours" the previous night. The physician was present and agreed to provide a sleeping aid this evening. The patient requested the clinician contact his for him. The patient wanted to clinician to tell his he "wasn't feeling too good" today. The clinician reached the patient's and shared the message with her. Per , she is currently taking hydrocodone and is unable to drive. The patient was often tearful through the treatment session, apologizing to the clinician and requesting "prayers." Objective Prior to the onset of treatment, the patient requested his stoma be cleaned and suction provided. The clinician cleaned the patient's Larytube and stoma and provided suctioning. Thick, copious secretions were removed. The cleaned Larytube was replaced with a heat-moisture exchange cassette. The patient's trach shield was placed to provide humidification and supplemental oxygen. The patient reported increased comfort and satisfaction following the procedure. The patient's brought the patient's electrolarynx in for instruction and use. The patient has a TruTone electrolarynx with intra-oral adaptor. The patient is right-handed and required maximum assistance with holding the device. Due to the patient's recent pharyngeal reconstruction, the neck tissue will not be used as a vibratory source. The patient was able to count to three while using the electrolarynx with intra-oral adaptor. Maximum verbal prompting and direct modeling was provided. The patient was encouraged to continue practice with the electrolarynx to reduce frustration of impaired communication. The patient was agreeable with the plan of care. Assessment Assessment Current Status: Fair Progress Treatment Plan Continue Plan of Care Communication Comprehension: 5 Expression: 3 Social Cognition Social Interaction: 3 Problem Solvin Memory: 5 Speech Short Term Goals Short Term Goals Short Term Goals 1. The patient will demonstrate understanding of electrolarynx parts/supplies. 2. The patient will demonstrate 60% intelligibility with use of the electrolarynx. 3. The patient will demonstrate good placement of the electrolarynx, independently, with greater than 80% accuracy. Time Frame-STG: Two Weeks Speech Care Home Goals Occupational Therapist Rehab Manager Goals 1. The patient will demonstrate increased intelligibility (75%) with use of electrolarynx for improved expressive communication. Time Frame: Three Weeks Comprehension: 5 Expression: 3 Social Interaction: 3 Problem Solvin Memory: 5 Speech-Plan Treatment Plan Speech Therapy Treatment Plan: Continue Plan of Care Continue skilled speech pathology intervention for improved expressive communication via electrolarynx. Treatment Duration: November 29, 2016 # of days/week Four to five. Visits Per Week: Four to five. Minutes/Day (M-F): 30 Rehab Potential: Fair Safety Risks/Education Teaching Recipient: Patient Teaching Methods: Demonstration, Discussion Response to Teaching: Return Demonstration Education Topics Provided: Electrolarynx use. Time Speech Therapy Time In: 08:30 Speech Therapy Time Out: 09:00 Total Billed Time: 30 Billed Treatment Time 1DIDI [address] ST November 09, 2016 09:28
--- NOTE | 2016-11-09 09:30 | Physical Therapy Daily Note ---
PT Daily Note-Current Subjective Patient in bed pre tx, agrees to PT but he is very fatigued because he did not sleep very much last night. Patient would rather not get out of bed at this time. He agrees to get dressed and do bed exercises. Patient states he has pain of 7/10 in his neck. Appearance Patient in bed post tx with nurse call, phone, tray, all needs met. Mental Status Attachments: Oxygen, PEG Tube Transfers Functional [place] Measure 0=Not Assessed/NA 4=Minimal Assistance 1=Total Assistance 5=Supervision or Setup 2=Maximal Assistance 6=Modified [place] 3=Moderate Assistance 7=Complete IndependenceIRFPAI Quality Coding Scale 6 Independent with activity with or without an assistive device 5 Patient requires set up or clean up by helper. Patient completes activity by themselves 4 Supervision or touching assist (CGA). [place] provide cues , steadying assist 3 The helper provides less than half the effort to complete the activity 2 The helper provides more than half the effort to complete the activity 1 Dependent. The helper does all the effort to complete an activity 7 Patient refused to complete or attempt activity 9 The patient did not perform the activity before the current illness or injury 88 Not attempted due to Medical conditions or safety concerns Scootin Rollin Supine to/from Sit: 5 Exercises Supine Ex: Ankle pumps, Quad Set, Glut sets, Straight leg raise Supine Reps: 20 Treatments patient sat at the edge of the bed and dressed his upper and lower extremities with min assist and performed the exercises above Assessment Current Status: Fair Progress PT Short Term Goals Short Term Goals Time Frame: November 15, 2016 Transfers (B,C,W/C) (FIM): 5 Gait (FIM): 5 Gait Distance Comment: 500' Gait Level of Assist: 5 Gait Assistive Device: FWW PT Medical Reviewer Goals Medical Reviewer Goals PT Residential Goals Time Frame: November 29, 2016 Transfers (B,C,W/C) (FIM): 6 Sit to Lying (QC): 6 Lying-Sitting on Side/Bed(QC): 6 Sit to Stand (QC): 6 Rollin Roll Left to Right (QC): 6 Car Transfer (QC): 4 Gait (FIM): 6 Distance: 800' Walk 10 feet (QC): 6 Walk 10ft-Uneven Surface(QC): 6 Walk 50ft with 2 Turns (QC): 6 Walk 150 ft (QC): 6 Gait Assistive Device: FWW Stairs (FIM): 5 # of Steps: 12 1 Step (curb) (QC): 4 4 Steps (QC): 4 12 Steps (QC): 4 Stairs Level Of Assist: 5 Picking up an Object (QC): 5 PT Plan Problem List Problem List: Activity Tolerance, Functional Strength, Safety, Balance, Gait, Transfer, Bed Mobility Treatment/Plan Treatment Plan: Continue Plan of Care Treatment Plan: Bed Mobility, Education, Functional Activity Romie, Functional Strength, Group Therapy, Gait, Safety, Therapeutic Exercise, Transfers Treatment Duration: November 29, 2016 Visits Per Week: 10-11 Minutes/Day (M-F): 60-90 Minutes/Day (Sat/[place]): 15-30 Safety Risks/Education Patient Education: Transfer Techniques, Correct Positioning, Safety Issues Teaching Recipient: Patient Teaching Methods: Demonstration, Discussion Response to Teaching: Reinforcement Needed Time/GCodes Time In: 900 Time Out: 930 Total Billed Treatment Time: 30 Total Billed Treatment 1 visit FA 15' EX 15' SHEREE BRAUN PT November 09, 2016 09:30
--- NOTE | 2016-11-09 10:13 | Occupational Ther Daily Note ---
OT Current Status-Daily Note Subjective Pt seen in room, asleep in bed. Reluctantly agreeable to OT, writing, "We'll see." Pt indicated that he only got 2 hours of sleep last night and kept his eyes closed during most of the tx. Appearance Eyes closed most of tx. Mental Status/Objective Functional [place] Measure 0=Not Assessed/NA 4=Minimal Assistance 1=Total Assistance 5=Supervision or Setup 2=Maximal Assistance 6=Modified [place] 3=Moderate Assistance 7=Complete [place] ADL-Treatment Functional [place] Measure 0=Not Assessed/NA 4=Minimal Assistance 1=Total Assistance 5=Supervision or Setup 2=Maximal Assistance 6=Modified [place] 3=Moderate Assistance 7=Complete IndependenceIRFPAI Quality Coding Scale 6 Independent with activity with or without an assistive device 5 Patient requires set up or clean up by helper. Patient completes activity by themselves 4 Supervision or touching assist (CGA). [place] provide cues , steadying assist 3 The helper provides less than half the effort to complete the activity 2 The helper provides more than half the effort to complete the activity 1 Dependent. The helper does all the effort to complete an activity 7 Patient refused to complete or attempt activity 9 The patient did not perform the activity before the current illness or injury 88 Not attempted due to Medical conditions or safety concerns Other Treatment Extra time needed to communicate with pt. He does not speak and has essential tremors which affect his writing coordination. Pt was given yellow theraband ( mild resistance) and rolled his eyes several times during exercises. He did not wait for instructions and stretched band very quickly. When asked to go slower for safety, he then stretched band extremely slow. He attempted to hand band back after each exercise. He was given foam hand supply chain manager and squeezed very rapidly, not tracking reps. He was given about a 1# weight and started exercising quickly before instruction. He continued to roll his eyes several times and tried to hand weight back after each exercise. When OT ended session, stating she would come back later, he shook his head for No. Pt left up in bed, all needs met. Pt shows decreased motivation to participate. Education OT Patient Education: Exercise program, Purpose of tx/functional activities Teaching Recipient: Patient OT Short Term Goals Short Term Goals Transfers (B,C,W/C) (FIM): 5 1=Demonstrate adherence to instructed precautions during ADL tasks. 2=Patient will verbalize/demonstrate understanding of assistive devices/ modifications for ADL. 3=Patient will improve strength/tolerance for activity to enable patient to perform ADL's. OT Rn Home Health Goals Rn Home Health Goals Time Frame: November 29, 2016 Eating (FIM): 1 Eating (QC): 88 Groomin Oral Hygiene (QC): 9 Bathing(FIM): 6 Shower/Bathe Self (QC): 6 Upper Body Dressing(FIM): 6 Upper Body Dressing (QC): 6 Lower Body Dressing(FIM): 6 Lower Body Dressing (QC): 6 On/Off Footwear (QC): 6 Toileting(FIM): 6 Toileting Hygiene (QC): 6 Toilet/Commode Transfer(FIM): 6 Toilet/Commode Transfer (QC): 6 Shower Transfer(FIM): 6 Comprehension(FIM): 5 Expression (FIM): 3 Social Interaction(FIM): 3 Problem Solving(FIM): 4 Memory(FIM): 5 Additional Goals: 1-Demonstrate ADL Tasks, 2-Verbalize Understanding, 3- ImproveStrength/Romie 1=Demonstrate adherence to instructed precautions during ADL tasks. 2=Patient will verbalize/demonstrate understanding of assistive devices/ modifications for ADL. 3=Patient will improve strength/tolerance for activity to enable patient to perform ADL's. OT Education/Plan Problem List/Assessment Pt would benefit from skilled OT to increase his independence in basic self care to allow him to safely return home to live with his . Discharge Recommendations Plan/Recommendations: Continue POC Treatment Plan/Plan of Care Patient would benefit from OT for education, treatment and training to promote independence in ADL's, mobility, safety and/or upper extremity function for ADL' s. Plan of Care: ADL Retraining, Functional Mobility, Group Exercise/Act as Ind ( education, exercise, activity tolerance, mobility, memory), UE Funct Exercise/ Act, UE Neuromus Re-Ed/Coord Treatment Duration: November 29, 2016 Visits Per Week: 10-11 Minutes/Day (M-F): 75-90 Minutes/Day (Sat/[place]): PRN Agreement: Yes (reluctantly) Rehab Potential: Fair Time/GCodes Start Time: 09:30 Stop Time: 10:00 Total Time Billed (hr/min): 30 Billed Treatment Time visit, 30 minutes exercise BAKARI PUCKETT OT November 09, 2016 10:13
--- NOTE | 2016-11-09 10:59 | Physical Therapy Progress Note ---
Therapy Progress Note Patient refused therapy this morning at 1055. He indicated that he is too tired and does not want to participate. He also indicates that he needs suctioned. Nurse notified. Patient has respiratory therapy in just a few minutes, will try back after that and maybe he will feel better. SHEREE BRAUN PT November 09, 2016 10:59
--- NOTE | 2016-11-09 11:28 | Physical Therapy Progress Note ---
Therapy Progress Note PT attempted again but patient still refuses. He indicates that he may try in the afternoon. Will try back later on this afternoon. SHEREE BRAUN PT November 09, 2016 11:28
--- NOTE | 2016-11-09 14:33 | Occupational Ther Daily Note ---
OT Current Status-Daily Note Subjective Pt alert, lying in bed. Nrsg present in room. Pt required encouragement to complete therapy. Mental Status/Objective Patient Orientation: Person, Place, Non-Verbal/Aphasic, Time, Situation Functional [place] Measure 0=Not Assessed/NA 4=Minimal Assistance 1=Total Assistance 5=Supervision or Setup 2=Maximal Assistance 6=Modified [place] 3=Moderate Assistance 7=Complete [place] Attachments: Other-See Comments (trach) ADL-Treatment Functional [place] Measure 0=Not Assessed/NA 4=Minimal Assistance 1=Total Assistance 5=Supervision or Setup 2=Maximal Assistance 6=Modified [place] 3=Moderate Assistance 7=Complete IndependenceIRFPAI Quality Coding Scale 6 Independent with activity with or without an assistive device 5 Patient requires set up or clean up by helper. Patient completes activity by themselves 4 Supervision or touching assist (CGA). [place] provide cues , steadying assist 3 The helper provides less than half the effort to complete the activity 2 The helper provides more than half the effort to complete the activity 1 Dependent. The helper does all the effort to complete an activity 7 Patient refused to complete or attempt activity 9 The patient did not perform the activity before the current illness or injury 88 Not attempted due to Medical conditions or safety concerns Other Treatment Pt demonstrated ability to complete bed mobility using bed rails. Pt was able to apply cream to lips when given lip balm. Pt demonstrated tremors when writing. Lined paper given to pt for writing and pt was able to use effectively though handwriting is illegible at time. Attempted built up handle on writing utensil, no change with tremors. Pt acknowledged with head gestures that he had tried weight to decrease tremors with writing and did not help. After therapy, pt lying in bed with call light/phone in reach. All needs met in room. OT Short Term Goals Short Term Goals Transfers (B,C,W/C) (FIM): 5 1=Demonstrate adherence to instructed precautions during ADL tasks. 2=Patient will verbalize/demonstrate understanding of assistive devices/ modifications for ADL. 3=Patient will improve strength/tolerance for activity to enable patient to perform ADL's. OT Tomb Maker Helper Goals [facility]iary Goals Time Frame: November 29, 2016 Eating (FIM): 1 Eating (QC): 88 Groomin Oral Hygiene (QC): 9 Bathing(FIM): 6 Shower/Bathe Self (QC): 6 Upper Body Dressing(FIM): 6 Upper Body Dressing (QC): 6 Lower Body Dressing(FIM): 6 Lower Body Dressing (QC): 6 On/Off Footwear (QC): 6 Toileting(FIM): 6 Toileting Hygiene (QC): 6 Toilet/Commode Transfer(FIM): 6 Toilet/Commode Transfer (QC): 6 Shower Transfer(FIM): 6 Comprehension(FIM): 5 Expression (FIM): 3 Social Interaction(FIM): 3 Problem Solving(FIM): 4 Memory(FIM): 5 Additional Goals: 1-Demonstrate ADL Tasks, 2-Verbalize Understanding, 3- ImproveStrength/Romie 1=Demonstrate adherence to instructed precautions during ADL tasks. 2=Patient will verbalize/demonstrate understanding of assistive devices/ modifications for ADL. 3=Patient will improve strength/tolerance for activity to enable patient to perform ADL's. OT Education/Plan Problem List/Assessment Pt would benefit from skilled OT to increase his independence in basic self care to allow him to safely return home to live with his . Discharge Recommendations Plan/Recommendations: Continue POC Treatment Plan/Plan of Care Patient would benefit from OT for education, treatment and training to promote independence in ADL's, mobility, safety and/or upper extremity function for ADL' s. Plan of Care: ADL Retraining, Functional Mobility, Group Exercise/Act as Ind ( education, exercise, activity tolerance, mobility, memory), UE Funct Exercise/ Act, UE Neuromus Re-Ed/Coord Treatment Duration: November 29, 2016 Visits Per Week: 10-11 Minutes/Day (M-F): 75-90 Minutes/Day (Sat/[place]): PRN Agreement: Yes (reluctantly) Rehab Potential: Fair Time/GCodes Start Time: 11:15 Stop Time: 11:45 Total Time Billed (hr/min): 30 Billed Treatment Time 1 visit-FA 2 (30 min) VICTOR HUGO CHONG November 09, 2016 14:33
--- NOTE | 2016-11-09 14:39 | Occupational Ther Daily Note ---
OT Current Status-Daily Note Subjective Nrsg present in room. Pt stated that his trach or oxygen was to tight. Reported to nrsg. Mental Status/Objective Functional [place] Measure 0=Not Assessed/NA 4=Minimal Assistance 1=Total Assistance 5=Supervision or Setup 2=Maximal Assistance 6=Modified [place] 3=Moderate Assistance 7=Complete [place] ADL-Treatment Functional [place] Measure 0=Not Assessed/NA 4=Minimal Assistance 1=Total Assistance 5=Supervision or Setup 2=Maximal Assistance 6=Modified [place] 3=Moderate Assistance 7=Complete IndependenceIRFPAI Quality Coding Scale 6 Independent with activity with or without an assistive device 5 Patient requires set up or clean up by helper. Patient completes activity by themselves 4 Supervision or touching assist (CGA). [place] provide cues , steadying assist 3 The helper provides less than half the effort to complete the activity 2 The helper provides more than half the effort to complete the activity 1 Dependent. The helper does all the effort to complete an activity 7 Patient refused to complete or attempt activity 9 The patient did not perform the activity before the current illness or injury 88 Not attempted due to Medical conditions or safety concerns Other Treatment Pt demonstrated ability to sit EOB by self then go from sitting EOB to supine by self. Then pt attempted to communicate needs and wants with mouthing words. Pt wanted his trach collar to be loosen that it was too tight. BARRAGAN told pt that wouldn't be able to do it and he mouthed 'go find some one who could'. BARRAGAN reported to nrsg and nrsg stated she had already discussed with pt. Pt stated that he wanted to talk to a doctor. BARRAGAN reported this to nrsg. After therapy, pt lying in bed with call light/phone in reach. All needs met in room. OT Short Term Goals Short Term Goals Transfers (B,C,W/C) (FIM): 5 1=Demonstrate adherence to instructed precautions during ADL tasks. 2=Patient will verbalize/demonstrate understanding of assistive devices/ modifications for ADL. 3=Patient will improve strength/tolerance for activity to enable patient to perform ADL's. OT Correction Goals Correction Goals Time Frame: November 29, 2016 Eating (FIM): 1 Eating (QC): 88 Groomin Oral Hygiene (QC): 9 Bathing(FIM): 6 Shower/Bathe Self (QC): 6 Upper Body Dressing(FIM): 6 Upper Body Dressing (QC): 6 Lower Body Dressing(FIM): 6 Lower Body Dressing (QC): 6 On/Off Footwear (QC): 6 Toileting(FIM): 6 Toileting Hygiene (QC): 6 Toilet/Commode Transfer(FIM): 6 Toilet/Commode Transfer (QC): 6 Shower Transfer(FIM): 6 Comprehension(FIM): 5 Expression (FIM): 3 Social Interaction(FIM): 3 Problem Solving(FIM): 4 Memory(FIM): 5 Additional Goals: 1-Demonstrate ADL Tasks, 2-Verbalize Understanding, 3- ImproveStrength/Romie 1=Demonstrate adherence to instructed precautions during ADL tasks. 2=Patient will verbalize/demonstrate understanding of assistive devices/ modifications for ADL. 3=Patient will improve strength/tolerance for activity to enable patient to perform ADL's. OT Education/Plan Problem List/Assessment Pt would benefit from skilled OT to increase his independence in basic self care to allow him to safely return home to live with his . Discharge Recommendations Plan/Recommendations: Continue POC Treatment Plan/Plan of Care Patient would benefit from OT for education, treatment and training to promote independence in ADL's, mobility, safety and/or upper extremity function for ADL' s. Plan of Care: ADL Retraining, Functional Mobility, Group Exercise/Act as Ind ( education, exercise, activity tolerance, mobility, memory), UE Funct Exercise/ Act, UE Neuromus Re-Ed/Coord Treatment Duration: November 29, 2016 Visits Per Week: 10-11 Minutes/Day (M-F): 75-90 Minutes/Day (Sat/[place]): PRN Agreement: Yes (reluctantly) Rehab Potential: Fair Time/GCodes Start Time: 13:45 Stop Time: 14:00 Total Time Billed (hr/min): 15 Billed Treatment Time 1 visit-FA 1 (15 min) VICTOR HUGO CHONG November 09, 2016 14:39
--- NOTE | 2016-11-09 15:44 | Physical Therapy Progress Note ---
Therapy Progress Note Patient refused therapy twice this afternoon. Patient indicated that he is having trouble breathing, O2 is over 90%, nurse notified. Patient refused to get out of bed or participate this afternoon. Will try again in the morning. SHEREE BRAUN PT November 09, 2016 15:44
[2016-11-09] MEDS: APAP 325 MG/10.15 ML LIQ (TYLENOL) UDC PEG PRN (18:00)
[2016-11-09 18:08] VITALS: BP 112/68
--- NOTE | 2016-11-09 19:18 | Individualized Plan of Care ---
Individualized Plan of Care Rehab Nursing IPOC Order Admission Date November 06, 2016 at 16:42 Current Orders Orders Patient Visit (11/09/16 ) Treat. Speech/Lang/Voice (11/09/16 ) Rehab Nursing Orders: Diseage Management, Edu in Press Rel Techn, Hydration Management, Nutrition Management, Pain Management Toilet every (bladder): (hrs): 2 hours prn while awake PT IPOC Problem List: Activity Tolerance, Functional Strength, Safety, Balance, Gait, Transfer, Bed Mobility Treatment Plan: Continue Plan of Care Bed Mobility, Education, Functional Activity Romie, Functional Strength, Group Therapy, Gait, Safety, Therapeutic Exercise, Transfers Treatment Duration: November 29, 2016 Visits Per Week: 10-11 Minutes/Day (M-F): 60-90 Minutes/Day (Sat/[place]): 15-30 OT IPOC Problems: Decreased Activ Tolerance, Decreased Safety Aware, Decreased UE Strength, Dependent Transfers, Impaired Funct Balance, Impaired Self-Care Skills OT Problems Pt would benefit from skilled OT to increase his independence in basic self care to allow him to safely return home to live with his . Plan of Care: ADL Retraining, Functional Mobility, Group Exercise/Act as Ind ( education, exercise, activity tolerance, mobility, memory), UE Funct Exercise/ Act, UE Neuromus Re-Ed/Coord Treatment Duration: November 29, 2016 Visits Per Week: 10-11 Minutes/Day (M-F): 75-90 Minutes/Day (Sat/[place]): PRN ST IPOC Speech Therapy Treatment Plan: Continue Plan of Care Treatment Duration: November 29, 2016 Visits Per Week: Four to five. Minutes/Day (M-F): 30 Physician IPOC Medical Issues being managed closely and that require the 24 hour availability of a physician:wound care treatment of anxiety and ongoing nutritional care,copd Medical Issues: DVT Prophylaxis, Falls Precautions, Fluid/Electrolyte/ Nutrition Balance, Infection Protection, Pain Management, Swallowing Precautions , Voice Protection, Wound Care, Other (List) (as per above) Brief Synthesis of Preadmission Screen, Post-Admission Evaluation, and Therapy Evaluations:60 yo male s/p layrgectomy for SCCA of Larynx at [facility] who had postop complications of Hematoma and bleed requiribg I&D now referred to [facility] her for ongoing rehab and nutritional support with tube feedings Anxious at times and declines therapy at times,needs encouragement Medical Prognosis: Good short term Anticipated Length of Stay: 2 weeks Rehab Goals Modified Independent for adls and mobility skills with improved communication skills Has Essential tremor which makes it difficult for him to communicate by writing on clipboard Anticipated discharge destinat: home with spouse and [facility] ANDREW CHATMAN MD November 09, 2016 19:18
[2016-11-09] MEDS: RT-ALBUTEROL SULF 2.5 MG/3 ML PRE-MIX VIAL IH PRN ×2 (19:32→22:39)
[2016-11-09] MEDS: traZODone 50 MG (DESYREL) TAB PEG SCH (21:41)
[2016-11-10] MEDS: oxyCODONE 5 MG/5 ML ORAL SOLN (roxiCODONE) 5 ML UDC PEG PRN ×3 (01:24→17:22)
[2016-11-10 05:00] VITALS: BP 110/69
[2016-11-10] MEDS: LEVOTHYROXINE 50 MCG (LEVOTHROID) TAB PEG SCH (06:12)
[2016-11-10] MEDS: CALCIUM CITRATE 950 MG PEG SCH ×3 (06:12→17:21)
[2016-11-10] MEDS: AUGMENTIN 875 MG TAB (AMOXICILLIN/CLAVULANATE) PEG SCH ×2 (06:12→17:21)
[2016-11-10] MEDS: PANTOPRAZOLE 2 MG/ML LIQUID 200 ML (PROTONIX) PO SCH ×3 (06:13)
[2016-11-10] MEDS: DOCUSATE SODIUM 10 MG/ML 10 ML UDC (COLACE) PEG SCH ×2 (09:11→21:20)
[2016-11-10] MEDS: THERAPEUTIC MULTIVITAMINS LIQUID 5 ML UDC PO SCH (09:14)
[2016-11-10] MEDS: OLANZapine 5 MG (ZyPREXA) TAB JT SCH (09:16)
[2016-11-10] MEDS: VITAMIN D3 1,000 UNITS (CHOLECALCIFEROL) TABLET PEG SCH (09:18)
[2016-11-10] MEDS: DIAZEPAM 5 MG (VALIUM) TABLET PEG SCH ×2 (09:18→21:20)
[2016-11-10] MEDS: PETROLATUM JELLY(VASELINE) 2.5 OZ TUBE TP SCH ×2 (09:19→21:21)
[2016-11-10] MEDS: HYDROGEN PEROXIDE 473 ML SOLUTION MC SCH ×2 (09:20→21:21)
--- NOTE | 2016-11-10 11:39 | Physical Therapy Daily Note ---
PT Daily Note-Current Subjective Pt. with much difficulty communicating this morning. Whispers but difficult to understand, writes but handwriting is very poor. Indicates he absolutely will not walk without pants on. Tech finds them in laundry. Pt. also indicates he would like to stay out in dining commons area and perhaps play dominoes. [employer] also brought pt. some dominoes and pt. was told her could play them with his . Pain Location: No Pain Reported Appearance much sputum from trach, this IT TECHNICIAN assisting pt. with clearing it out with kleenex. Mental Status Patient Orientation: Normal For Age Transfers Functional [place] Measure 0=Not Assessed/NA 4=Minimal Assistance 1=Total Assistance 5=Supervision or Setup 2=Maximal Assistance 6=Modified [place] 3=Moderate Assistance 7=Complete IndependenceIRFPAI Quality Coding Scale 6 Independent with activity with or without an assistive device 5 Patient requires set up or clean up by helper. Patient completes activity by themselves 4 Supervision or touching assist (CGA). [place] provide cues , steadying assist 3 The helper provides less than half the effort to complete the activity 2 The helper provides more than half the effort to complete the activity 1 Dependent. The helper does all the effort to complete an activity 7 Patient refused to complete or attempt activity 9 The patient did not perform the activity before the current illness or injury 88 Not attempted due to Medical conditions or safety concerns Transfers (B, C, W/C) (FIM): 5 Scootin Rollin Supine to/from Sit: 5 Sit to/from Stand: 5 Bed to/from Chair: 5 Gait Training Does the Patient Walk?: Yes Gait (FIM): 4 Distance (FIM): 3=150 ft (150,100) Gait Level of Assist: 4 Gait Persons Needed: 1 Gait Assistive Device: FWW Exercises Supine Ex: Ankle pumps, Rolling, Heel Slides, Short Arc Quads, Scooting, Straight leg raise, Hip abd/add Supine Reps: 12 Treatments pt. able to bk pants and socks and shoes all SBA Assessment Current Status: Good Progress PT Short Term Goals Short Term Goals Time Frame: November 15, 2016 Transfers (B,C,W/C) (FIM): 5 Gait (FIM): 5 Gait Distance Comment: 500' Gait Level of Assist: 5 Gait Assistive Device: FWW PT Terrazzo Polisher Helper Goals Terrazzo Polisher Helper Goals PT [place]razzo Polisher Helper Goals Time Frame: November 29, 2016 Transfers (B,C,W/C) (FIM): 6 Sit to Lying (QC): 6 Lying-Sitting on Side/Bed(QC): 6 Sit to Stand (QC): 6 Rollin Roll Left to Right (QC): 6 Car Transfer (QC): 4 Gait (FIM): 6 Distance: 800' Walk 10 feet (QC): 6 Walk 10ft-Uneven Surface(QC): 6 Walk 50ft with 2 Turns (QC): 6 Walk 150 ft (QC): 6 Gait Assistive Device: FWW Stairs (FIM): 5 # of Steps: 12 1 Step (curb) (QC): 4 4 Steps (QC): 4 12 Steps (QC): 4 Stairs Level Of Assist: 5 Picking up an Object (QC): 5 PT Plan Treatment/Plan Treatment Plan: Continue Plan of Care Treatment Plan: Bed Mobility, Education, Functional Activity Romie, Functional Strength, Group Therapy, Gait, Safety, Therapeutic Exercise, Transfers Treatment Duration: November 29, 2016 Visits Per Week: 10-11 Minutes/Day (M-F): 60-90 Minutes/Day (Sat/[place]): 15-30 Safety Risks/Education Patient Education: Gait Training, Transfer Techniques Teaching Recipient: Patient Teaching Methods: Demonstration, Discussion Response to Teaching: Verbalize Understanding, Return Demonstration, Reinforcement Needed Time/GCodes Time In: 945 Time Out: 1015 Total Billed Treatment Time: 30 Total Billed Treatment 1,GT15m,FA15m G Codes Necessary: NKECHI Mayberry IT TECHNICIAN November 10, 2016 11:39
[2016-11-10] MEDS: RT-ALBUTEROL SULF 2.5 MG/3 ML PRE-MIX VIAL IH PRN ×3 (17:00→21:47)
[2016-11-10 18:23] VITALS: BP 104/64
[2016-11-10] MEDS: traZODone 50 MG (DESYREL) TAB PEG SCH (21:20)
[2016-11-11] MEDS: oxyCODONE 5 MG/5 ML ORAL SOLN (roxiCODONE) 5 ML UDC PEG PRN ×4 (01:56→23:57)
[2016-11-11] MEDS: RT-ALBUTEROL SULF 2.5 MG/3 ML PRE-MIX VIAL IH PRN ×4 (03:48→20:25)
[2016-11-11 05:00] VITALS: BP 104/65
[2016-11-11] MEDS: AUGMENTIN 875 MG TAB (AMOXICILLIN/CLAVULANATE) PEG SCH ×2 (06:12→17:05)
[2016-11-11] MEDS: CALCIUM CITRATE 950 MG PEG SCH ×3 (06:13→17:05)
[2016-11-11] MEDS: LEVOTHYROXINE 50 MCG (LEVOTHROID) TAB PEG SCH (06:13)
[2016-11-11] MEDS: PANTOPRAZOLE 2 MG/ML LIQUID 200 ML (PROTONIX) PO SCH ×3 (06:14)
[2016-11-11] MEDS: THERAPEUTIC MULTIVITAMINS LIQUID 5 ML UDC PO SCH (08:57)
[2016-11-11] MEDS: VITAMIN D3 1,000 UNITS (CHOLECALCIFEROL) TABLET PEG SCH (08:57)
[2016-11-11] MEDS: OLANZapine 5 MG (ZyPREXA) TAB JT SCH (08:57)
[2016-11-11] MEDS: DIAZEPAM 5 MG (VALIUM) TABLET PEG SCH ×2 (08:57→21:23)
[2016-11-11] MEDS: DOCUSATE SODIUM 10 MG/ML 10 ML UDC (COLACE) PEG SCH ×2 (09:19→21:23)
[2016-11-11] MEDS: HYDROGEN PEROXIDE 473 ML SOLUTION MC SCH ×2 (09:20→21:22)
[2016-11-11] MEDS: PETROLATUM JELLY(VASELINE) 2.5 OZ TUBE TP SCH ×2 (09:20→21:22)
[2016-11-11] MEDS: APAP 325 MG/10.15 ML LIQ (TYLENOL) UDC PEG PRN (15:51)
[2016-11-11 18:27] VITALS: BP 93/56
[2016-11-11] MEDS: traZODone 50 MG (DESYREL) TAB PEG SCH (21:23)
[2016-11-12] MEDS: RT-ALBUTEROL SULF 2.5 MG/3 ML PRE-MIX VIAL IH PRN ×3 (02:30→19:08)
[2016-11-12 05:11] VITALS: BP 96/56
[2016-11-12] MEDS: LEVOTHYROXINE 50 MCG (LEVOTHROID) TAB PEG SCH (06:11)
[2016-11-12] MEDS: PANTOPRAZOLE 2 MG/ML LIQUID 200 ML (PROTONIX) PO SCH ×3 (06:11)
[2016-11-12] MEDS: AUGMENTIN 875 MG TAB (AMOXICILLIN/CLAVULANATE) PEG SCH (06:11)
[2016-11-12] MEDS: CALCIUM CITRATE 950 MG PEG SCH ×3 (06:11→17:13)
--- NOTE | 2016-11-12 08:38 | Progress Note (SOAP) ---
Subjective Subjective/Events-last exam laryngeal cancer. Patient has no complaints. Patient looking better and stronger. Patient working progress Objective Exam Vital Signs Date Time Temp Pulse Resp B/P (MAP) Pulse Ox O2 Delivery O2 Flow Rate FiO2 11/12/16 07:28 98 10.00 30 11/12/16 05:11 99.6 85 16 96/56 96 Trach Collar 10.00 11/12/16 02:30 94 10.00 30 11/11/16 20:25 98 10.00 30 11/11/16 18:30 93 10.00 30 11/11/16 18:27 98.6 89 16 93/56 90 Trach Collar 10.00 11/11/16 14:26 94 10.00 30 11/11/16 09:53 95 10.00 30 I & O 11/12/16 07:00 Intake Total 2460 ml Output Total 4000 ml Balance -1540 ml Capillary Refill : General Appearance: No Apparent Distress, WD/WN Respiratory: Chest Non Tender, No Accessory Muscle Use, No Respiratory Distress Cardiovascular: Regular Rate, Rhythm, No Murmur Gastrointestinal: non tender, soft Results Lab Microbiology 11/07/16 Gram Stain - Final, Complete 11/07/16 Body Fluid Culture - Final, Complete Enterobacter Cloacae Strep Species, Alpha Hemolytic Yeast Species Assessment/Plan Assessment/Plan Assess & Plan/Chief Complaint laryngeal cancer. Debility. Hepatitis C. COPD. Laryngeal mass. Tobacco use. . 11/08/16. Laryngeal cancer. Debility Hepatitis. COPD. Tobacco usage. Patient positive today. . 11/09/16. Laryngeal cancer. Debility. Hepatitis C. COPD. Tobacco usage. Patient sleepy this morning. Bottle of Valium was found in patients bed to monitor. . 11/12/16. Laryngeal cancer.. Debility. Hepatitis C. COPD.. Patient doing better since admission Clinical Quality Measures DVT/VTE Risk/Contraindication: Risk Factor Score Per Nursin RFS Level Per Nursing on Admit: 4+=Very High FAVIOLA MINA DO November 12, 2016 08:38
[2016-11-12] MEDS: DIAZEPAM 5 MG (VALIUM) TABLET PEG SCH ×2 (09:04→21:13)
[2016-11-12] MEDS: DOCUSATE SODIUM 10 MG/ML 10 ML UDC (COLACE) PEG SCH ×2 (09:04→21:13)
[2016-11-12] MEDS: THERAPEUTIC MULTIVITAMINS LIQUID 5 ML UDC PO SCH (09:04)
[2016-11-12] MEDS: HYDROGEN PEROXIDE 473 ML SOLUTION MC SCH ×2 (09:05→21:00)
[2016-11-12] MEDS: PETROLATUM JELLY(VASELINE) 2.5 OZ TUBE TP SCH (09:05)
[2016-11-12] MEDS: OLANZapine 5 MG (ZyPREXA) TAB JT SCH (09:05)
[2016-11-12] MEDS: VITAMIN D3 1,000 UNITS (CHOLECALCIFEROL) TABLET PEG SCH (09:05)
[2016-11-12 09:08] LABS: BASOPHILS # (AUTO) 0.1 10^3/uL (0.0-0.1); BASOPHILS % (AUTO) 1 % (0-10); EOSINOPHILS # (AUTO) 0.1 10^3/uL (0.0-0.3); EOSINOPHILS % (AUTO) 1 % (0-10); LYMPHOCYTES # (AUTO) 0.5 X 10^3 (1.0-4.0); LYMPHOCYTES % (AUTO) 8 % (12-44); MEAN CORPUSCULAR HEMOGLOBIN 30 PG (25-34); MEAN CORPUSCULAR HGB CONC 31 G/DL (32-36); MEAN CORPUSCULAR VOLUME 97 FL (80-99); MEAN PLATELET VOLUME 8.9 FL (7.4-10.4); MONOCYTES # (AUTO) 0.6 X 10^3 (0.0-1.0); MONOCYTES % (AUTO) 10 % (0-12); NEUTROPHILS # (AUTO) 5.1 X 10^3 (1.8-7.8); NEUTROPHILS % (AUTO) 80 % (42-75); PLATELET COUNT 222 10^3/uL (130-400); RED CELL DISTRIBUTION WIDTH 16.9 % (10.0-14.5); WHITE BLOOD COUNT 6.4 10^3/uL (4.3-11.0)
[2016-11-12] MEDS: TRIM/SULFAMETH 160/800 (SEPTRA DS) TAB PO SCH ×2 (09:09→17:12)
[2016-11-12 09:23] LABS: ANION GAP 7 MMOL/L (5-14); BLOOD UREA NITROGEN 7 MG/DL (7-18); BUN/CREATININE RATIO 12; CALCIUM 8.6 MG/DL (8.5-10.1); CARBON DIOXIDE 29 MMOL/L (21-32); CHLORIDE 100 MMOL/L (98-107); GFR ESTIMATED > 60; GLUCOSE 111 MG/DL (70-105); POTASSIUM 3.8 MMOL/L (3.6-5.0); SODIUM 136 MMOL/L (135-145)
[2016-11-12 09:49] LABS: BAND NEUTROPHILS 0 %; BASOPHILS % (MANUAL) 1 %; EOSINOPHILS % (MANUAL) 0 %; LYMPHOCYTES % (MANUAL) 7 %; NEUTROPHILS % (MANUAL) 83 %
[2016-11-12 09:50] LABS: ANISOCYTOSIS SLIGHT
--- NOTE | 2016-11-12 11:03 | Physical Therapy Daily Note ---
PT Daily Note-Current Subjective Pt. agitated this morning from get go. Writes and whispers that he is upset b/c he cant find his O2 sat monitor. Pt. with clipboard frantically writing, very difficult to read. Pt. throws/tosses wildly the clipboard onto the table after writing "This is so stupid"! This EMPLOYMENT SUPERVISOR attempted to educate pt. and explain that PT OT are trying to help pt. with indep and mobility while BURR SANDER works on speaking etc. Pt. expresses several times this Rx that he is frustrated and angry Pain Numeric Pain Scale: 0-No Pain Mental Status pt. angry and lashes out many times during Rx, even pushing FWW away from himself toward this EMPLOYMENT SUPERVISOR and throwing clip board etc. Transfers Functional [place] Measure 0=Not Assessed/NA 4=Minimal Assistance 1=Total Assistance 5=Supervision or Setup 2=Maximal Assistance 6=Modified [place] 3=Moderate Assistance 7=Complete IndependenceIRFPAI Quality Coding Scale 6 Independent with activity with or without an assistive device 5 Patient requires set up or clean up by helper. Patient completes activity by themselves 4 Supervision or touching assist (CGA). [place] provide cues , steadying assist 3 The helper provides less than half the effort to complete the activity 2 The helper provides more than half the effort to complete the activity 1 Dependent. The helper does all the effort to complete an activity 7 Patient refused to complete or attempt activity 9 The patient did not perform the activity before the current illness or injury 88 Not attempted due to Medical conditions or safety concerns Transfers (B, C, W/C) (FIM): 6 Scootin Rollin Supine to/from Sit: 6 Sit to/from Stand: 6 Bed to/from Chair: 6 Gait Training Does the Patient Walk?: Yes Gait (FIM): 4 Distance (FIM): 3=150 ft (200x2) Gait Level of Assist: 4 Gait Persons Needed: 1 Gait Assistive Device: FWW Pt. thrashes around, walking much too fast for safety , turning corners with walker not even in front of him. Stair Training pt. refuses to attempt stairs this date Exercises NuStep Minutes: 8 NuStep Workload: 2 Assessment Current Status: Fair Progress Pts emotional outburst of anger and physical thrashing and threatening behaviour limit Rx. This EMPLOYMENT SUPERVISOR feeling pt. may strike at any time physically PT Short Term Goals Short Term Goals Time Frame: November 15, 2016 Transfers (B,C,W/C) (FIM): 5 Gait (FIM): 5 Gait Distance Comment: 500' Gait Level of Assist: 5 Gait Assistive Device: FWW PT Import Export Agent Goals Longterm Goals PT Longterm Goals Time Frame: November 29, 2016 Transfers (B,C,W/C) (FIM): 6 Sit to Lying (QC): 6 Lying-Sitting on Side/Bed(QC): 6 Sit to Stand (QC): 6 Rollin Roll Left to Right (QC): 6 Car Transfer (QC): 4 Gait (FIM): 6 Distance: 800' Walk 10 feet (QC): 6 Walk 10ft-Uneven Surface(QC): 6 Walk 50ft with 2 Turns (QC): 6 Walk 150 ft (QC): 6 Gait Assistive Device: FWW Stairs (FIM): 5 # of Steps: 12 1 Step (curb) (QC): 4 4 Steps (QC): 4 12 Steps (QC): 4 Stairs Level Of Assist: 5 Picking up an Object (QC): 5 PT Plan Treatment/Plan Treatment Plan: Continue Plan of Care Treatment Plan: Bed Mobility, Education, Functional Activity Romie, Functional Strength, Group Therapy, Gait, Safety, Therapeutic Exercise, Transfers Treatment Duration: November 29, 2016 Visits Per Week: 10-11 Minutes/Day (M-F): 60-90 Minutes/Day (Sat/[place]): 15-30 Safety Risks/Education Patient Education: Gait Training, Transfer Techniques Teaching Recipient: Patient Teaching Methods: Demonstration, Discussion Response to Teaching: Verbalize Understanding, Return Demonstration, Reinforcement Needed Time/GCodes Time In: 1000 Time Out: 1050 Total Billed Treatment Time: 50 Total Billed Treatment 1,FA35,EX15 G Codes Necessary: NKECHI [place] EMPLOYMENT SUPERVISOR November 12, 2016 11:02
[2016-11-12] MEDS: oxyCODONE 5 MG/5 ML ORAL SOLN (roxiCODONE) 5 ML UDC PEG PRN ×2 (11:04→21:13)
--- NOTE | 2016-11-12 13:03 | Occupational Ther Daily Note ---
OT Current Status-Daily Note Subjective Pt seen in room, in bed, reluctantly agreeable to OT. No pain mentioned Mental Status/Objective Functional [place] Measure 0=Not Assessed/NA 4=Minimal Assistance 1=Total Assistance 5=Supervision or Setup 2=Maximal Assistance 6=Modified [place] 3=Moderate Assistance 7=Complete [place] ADL-Treatment Pt declined all ADLs and indicated that he doesn't like to shower. Functional [place] Measure 0=Not Assessed/NA 4=Minimal Assistance 1=Total Assistance 5=Supervision or Setup 2=Maximal Assistance 6=Modified [place] 3=Moderate Assistance 7=Complete IndependenceIRFPAI Quality Coding Scale 6 Independent with activity with or without an assistive device 5 Patient requires set up or clean up by helper. Patient completes activity by themselves 4 Supervision or touching assist (CGA). [place] provide cues , steadying assist 3 The helper provides less than half the effort to complete the activity 2 The helper provides more than half the effort to complete the activity 1 Dependent. The helper does all the effort to complete an activity 7 Patient refused to complete or attempt activity 9 The patient did not perform the activity before the current illness or injury 88 Not attempted due to Medical conditions or safety concerns Other Treatment All communication takes longer than usual since he is non verbal. He tries to mouth the words but usually therapist can't understand. When he writes, his handwriting is shaky due to essential tremors and it's more understandable if his movements are watched closely. He has humidified oxygen in bed but doesn't need it when out of his room if sats stay above 90%. Pt was able to move from supine to sit EOB without help and took oxygen off. He jumped up out of bed before gait belt could be applied. Walked to gym with SBA for safety, FWW. He did 12 minutes bilat UE ex with arm bike set at 15W resistance. He initially started pedalling very fast and was urged to slow down. Then he went very slow for a few repetitions. He took a couple of brief breaks during exercise. O2 sats at 95% after walking to gym, them periodically checked during exercise. After time was up, sats were 89% and HR over 100. He did pursed lip breathing and oxygen went up. He walked back to his room, with 95% sat sitting EOB. He also did 15 reps bilat UE ex with yellow theraband in room, with pt educ for each different exercise (he also started by doing exercises very fast, then extremely slow before assuming more normal rate). At one point, pt write that he was stopping all medicine today - shared with nursing (he did not stop them) . Pt left up in bed, all needs met. OT Short Term Goals Short Term Goals Transfers (B,C,W/C) (FIM): 5 1=Demonstrate adherence to instructed precautions during ADL tasks. 2=Patient will verbalize/demonstrate understanding of assistive devices/ modifications for ADL. 3=Patient will improve strength/tolerance for activity to enable patient to perform ADL's. OT Frozen [employer] Manager Goals Detention Goals Time Frame: November 29, 2016 Eating (FIM): 1 Eating (QC): 88 Groomin Oral Hygiene (QC): 9 Bathing(FIM): 6 Shower/Bathe Self (QC): 6 Upper Body Dressing(FIM): 6 Upper Body Dressing (QC): 6 Lower Body Dressing(FIM): 6 Lower Body Dressing (QC): 6 On/Off Footwear (QC): 6 Toileting(FIM): 6 Toileting Hygiene (QC): 6 Toilet/Commode Transfer(FIM): 6 Toilet/Commode Transfer (QC): 6 Shower Transfer(FIM): 6 Comprehension(FIM): 5 Expression (FIM): 3 Social Interaction(FIM): 3 Problem Solving(FIM): 4 Memory(FIM): 5 Additional Goals: 1-Demonstrate ADL Tasks, 2-Verbalize Understanding, 3- ImproveStrength/Romie 1=Demonstrate adherence to instructed precautions during ADL tasks. 2=Patient will verbalize/demonstrate understanding of assistive devices/ modifications for ADL. 3=Patient will improve strength/tolerance for activity to enable patient to perform ADL's. OT Education/Plan Problem List/Assessment Pt would benefit from skilled OT to increase his independence in basic self care to allow him to safely return home to live with his . Discharge Recommendations Plan/Recommendations: Continue POC Treatment Plan/Plan of Care Patient would benefit from OT for education, treatment and training to promote independence in ADL's, mobility, safety and/or upper extremity function for ADL' s. Plan of Care: ADL Retraining, Functional Mobility, Group Exercise/Act as Ind ( education, exercise, activity tolerance, mobility, memory), UE Funct Exercise/ Act, UE Neuromus Re-Ed/Coord Treatment Duration: November 29, 2016 Visits Per Week: 10-11 Minutes/Day (M-F): 75-90 Minutes/Day (Sat/[place]): PRN Agreement: Yes (reluctantly) Rehab Potential: Fair Time/GCodes Start Time: 08:40 Stop Time: 09:30 Total Time Billed (hr/min): 50 Billed Treatment Time visit, 50 minutes exercise BAKARI PUCKETT OT November 12, 2016 13:03
--- NOTE | 2016-11-12 13:15 | Occupational Ther Daily Note ---
OT Current Status-Daily Note Subjective Pt seen in room, up in bed, calm and agreeable to OT. No pain mentioned. Appearance Alert, cooperative Mental Status/Objective Functional [place] Measure 0=Not Assessed/NA 4=Minimal Assistance 1=Total Assistance 5=Supervision or Setup 2=Maximal Assistance 6=Modified [place] 3=Moderate Assistance 7=Complete [place] ADL-Treatment Functional [place] Measure 0=Not Assessed/NA 4=Minimal Assistance 1=Total Assistance 5=Supervision or Setup 2=Maximal Assistance 6=Modified [place] 3=Moderate Assistance 7=Complete IndependenceIRFPAI Quality Coding Scale 6 Independent with activity with or without an assistive device 5 Patient requires set up or clean up by helper. Patient completes activity by themselves 4 Supervision or touching assist (CGA). [place] provide cues , steadying assist 3 The helper provides less than half the effort to complete the activity 2 The helper provides more than half the effort to complete the activity 1 Dependent. The helper does all the effort to complete an activity 7 Patient refused to complete or attempt activity 9 The patient did not perform the activity before the current illness or injury 88 Not attempted due to Medical conditions or safety concerns Other Treatment Pt requested a calendar so OT printed one off for him. he indicated that he was leaving by Saturday. He also stated that his birthday is . Pt also requested paper with lines on it to help with his handwriting (incoordinated due to essential tremors) and paper was found for him. He sat EOB and completed table top activity (dominoes) - which worked on coordination, UE strength and activity tolerance. He had no trouble following instructions for specific salbador game. Pt left up in bed, looking fatigued, extra blankets on (yet he did not want room temperature increased). All needs met. Education OT Patient Education: Purpose of tx/functional activities Teaching Recipient: Patient Response to Teaching: Verbalize Understanding OT Short Term Goals Short Term Goals Transfers (B,C,W/C) (FIM): 5 1=Demonstrate adherence to instructed precautions during ADL tasks. 2=Patient will verbalize/demonstrate understanding of assistive devices/ modifications for ADL. 3=Patient will improve strength/tolerance for activity to enable patient to perform ADL's. OT Half-Way Goals Half-Way Goals Time Frame: November 29, 2016 Eating (FIM): 1 Eating (QC): 88 Groomin Oral Hygiene (QC): 9 Bathing(FIM): 6 Shower/Bathe Self (QC): 6 Upper Body Dressing(FIM): 6 Upper Body Dressing (QC): 6 Lower Body Dressing(FIM): 6 Lower Body Dressing (QC): 6 On/Off Footwear (QC): 6 Toileting(FIM): 6 Toileting Hygiene (QC): 6 Toilet/Commode Transfer(FIM): 6 Toilet/Commode Transfer (QC): 6 Shower Transfer(FIM): 6 Comprehension(FIM): 5 Expression (FIM): 3 Social Interaction(FIM): 3 Problem Solving(FIM): 4 Memory(FIM): 5 Additional Goals: 1-Demonstrate ADL Tasks, 2-Verbalize Understanding, 3- ImproveStrength/Romie 1=Demonstrate adherence to instructed precautions during ADL tasks. 2=Patient will verbalize/demonstrate understanding of assistive devices/ modifications for ADL. 3=Patient will improve strength/tolerance for activity to enable patient to perform ADL's. OT Education/Plan Problem List/Assessment Pt would benefit from skilled OT to increase his independence in basic self care to allow him to safely return home to live with his . Discharge Recommendations Plan/Recommendations: Continue POC Treatment Plan/Plan of Care Patient would benefit from OT for education, treatment and training to promote independence in ADL's, mobility, safety and/or upper extremity function for ADL' s. Plan of Care: ADL Retraining, Functional Mobility, Group Exercise/Act as Ind ( education, exercise, activity tolerance, mobility, memory), UE Funct Exercise/ Act, UE Neuromus Re-Ed/Coord Treatment Duration: November 29, 2016 Visits Per Week: 10-11 Minutes/Day (M-F): 75-90 Minutes/Day (Sat/[place]): PRN Agreement: Yes (reluctantly) Rehab Potential: Fair Time/GCodes Start Time: 11:05 Stop Time: 11:55 Total Time Billed (hr/min): 50 Billed Treatment Time visit, 50 minutes functional activity BAKARI PUCKETT OT November 12, 2016 13:15
--- NOTE | 2016-11-12 15:01 | Physical Therapy Daily Note ---
PT Daily Note-Current Subjective Pt. in bed asleep. Slightly opens eyes, much more relaxed than pervious AM Rx visit. This SENIOR CARE SPECIALIST inviting pt. to participate in therapy and explaining the importance of moving and activity. Pt. shakes head 'NO' but does agree to try scooting up in bed but then stops in middle and back to sleep. Transfers Functional [place] Measure 0=Not Assessed/NA 4=Minimal Assistance 1=Total Assistance 5=Supervision or Setup 2=Maximal Assistance 6=Modified [place] 3=Moderate Assistance 7=Complete IndependenceIRFPAI Quality Coding Scale 6 Independent with activity with or without an assistive device 5 Patient requires set up or clean up by helper. Patient completes activity by themselves 4 Supervision or touching assist (CGA). [place] provide cues , steadying assist 3 The helper provides less than half the effort to complete the activity 2 The helper provides more than half the effort to complete the activity 1 Dependent. The helper does all the effort to complete an activity 7 Patient refused to complete or attempt activity 9 The patient did not perform the activity before the current illness or injury 88 Not attempted due to Medical conditions or safety concerns initiated scooting then stopped Exercises Supine Ex: Ankle pumps, Quad Set, Heel Slides, Scooting (partial), Hip abd/add Supine Reps: 10 Assessment very groggy , non compliant PT Short Term Goals Short Term Goals Time Frame: November 15, 2016 Transfers (B,C,W/C) (FIM): 5 Gait (FIM): 5 Gait Distance Comment: 500' Gait Level of Assist: 5 Gait Assistive Device: FWW PT Alf Goals Alf Goals PT Alf Goals Time Frame: November 29, 2016 Transfers (B,C,W/C) (FIM): 6 Sit to Lying (QC): 6 Lying-Sitting on Side/Bed(QC): 6 Sit to Stand (QC): 6 Rollin Roll Left to Right (QC): 6 Car Transfer (QC): 4 Gait (FIM): 6 Distance: 800' Walk 10 feet (QC): 6 Walk 10ft-Uneven Surface(QC): 6 Walk 50ft with 2 Turns (QC): 6 Walk 150 ft (QC): 6 Gait Assistive Device: FWW Stairs (FIM): 5 # of Steps: 12 1 Step (curb) (QC): 4 4 Steps (QC): 4 12 Steps (QC): 4 Stairs Level Of Assist: 5 Picking up an Object (QC): 5 PT Plan Treatment/Plan Treatment Plan: Continue Plan of Care Treatment Plan: Bed Mobility, Education, Functional Activity Romie, Functional Strength, Group Therapy, Gait, Safety, Therapeutic Exercise, Transfers Treatment Duration: November 29, 2016 Visits Per Week: 10-11 Minutes/Day (M-F): 60-90 Minutes/Day (Sat/[place]): 15-30 Time/GCodes Time In: 1435 Time Out: 1445 Total Billed Treatment Time: 10 Total Billed Treatment 1,FA10m G Codes Necessary: NKECHI Mayberry SENIOR CARE SPECIALIST November 12, 2016 15:01
[2016-11-12 18:00] VITALS: BP 110/69
[2016-11-12] MEDS: traZODone 50 MG (DESYREL) TAB PEG SCH (21:13)
[2016-11-13] MEDS: oxyCODONE 5 MG/5 ML ORAL SOLN (roxiCODONE) 5 ML UDC PEG PRN ×3 (03:57→20:38)
[2016-11-13] MEDS: PANTOPRAZOLE 2 MG/ML LIQUID 200 ML (PROTONIX) PO SCH ×3 (06:05)
[2016-11-13] MEDS: TRIM/SULFAMETH 160/800 (SEPTRA DS) TAB PO SCH ×2 (06:05→16:43)
[2016-11-13] MEDS: CALCIUM CITRATE 950 MG PEG SCH ×3 (06:05→16:43)
[2016-11-13] MEDS: LEVOTHYROXINE 50 MCG (LEVOTHROID) TAB PEG SCH (06:05)
[2016-11-13 06:17] VITALS: BP 102/55
--- NOTE | 2016-11-13 08:02 | Progress Note (SOAP) ---
Subjective Subjective/Events-last exam patient is getting stronger and doing more. Patient short of breath. Laryngeal cancer Objective Exam Vital Signs Date Time Temp Pulse Resp B/P (MAP) Pulse Ox O2 Delivery O2 Flow Rate FiO2 11/13/16 06:51 92 8.00 30 11/13/16 06:17 98.7 88 20 102/55 95 Trach Collar 11/12/16 19:08 93 10.00 30 11/12/16 18:00 98.7 90 16 110/69 92 Trach Collar 10.00 I & O 11/13/16 07:00 Intake Total 1920 ml Output Total 2051 ml Balance -131 ml Capillary Refill : General Appearance: No Apparent Distress, WD/WN Results Lab Laboratory Tests 11/12/16 08:39 Laboratory Tests 11/12/16 08:39: White Blood Count 6.4, Red Blood Count 3.10L, Hemoglobin 9.2L, Hematocrit 30L, Mean Corpuscular Volume 97, Mean Corpuscular Hemoglobin 30, Mean Corpuscular Hemoglobin Concent 31L, Red Cell Distribution Width 16.9H, Platelet Count 222, Mean Platelet Volume 8.9, Neutrophils (%) (Auto) 80H, Lymphocytes (%) (Auto) 8L , Monocytes (%) (Auto) 10, Eosinophils (%) (Auto) 1, Basophils (%) (Auto) 1, Neutrophils # (Auto) 5.1, Lymphocytes # (Auto) 0.5L, Monocytes # (Auto) 0.6, Eosinophils # (Auto) 0.1, Basophils # (Auto) 0.1, Neutrophils % (Manual) 83, Lymphocytes % (Manual) 7, Monocytes % (Manual) 9, Eosinophils % (Manual) 0, Basophils % (Manual) 1, Band Neutrophils 0, Anisocytosis SLIGHT, Sodium Level 136, Potassium Level 3.8, Chloride Level 100, Carbon Dioxide Level 29, Anion Gap 7, Blood Urea Nitrogen 7, Creatinine 0.60, Estimat Glomerular Filtration Rate > 60, BUN/Creatinine Ratio 12, Glucose Level 111H, Calcium Level 8.6 Microbiology 11/07/16 Gram Stain - Final, Complete 11/07/16 Body Fluid Culture - Final, Complete Enterobacter Cloacae Strep Species, Alpha Hemolytic Yeast Species Assessment/Plan Assessment/Plan Assess & Plan/Chief Complaint laryngeal cancer. Debility. Hepatitis C. COPD. Laryngeal mass. Tobacco use. . 11/08/16. Laryngeal cancer. Debility Hepatitis. COPD. Tobacco usage. Patient positive today. . 11/09/16. Laryngeal cancer. Debility. Hepatitis C. COPD. Tobacco usage. Patient sleepy this morning. Bottle of Valium was found in patients bed to monitor. . 11/12/16. Laryngeal cancer.. Debility. Hepatitis C. COPD.. Patient doing better since admission. . 11/13/16. Laryngeal cancer. Debility. Hep c. Patient continues to improve Clinical Quality Measures DVT/VTE Risk/Contraindication: Risk Factor Score Per Nursin RFS Level Per Nursing on Admit: 4+=Very High FAVIOLA MINA DO November 13, 2016 08:02
[2016-11-13] MEDS: VITAMIN D3 1,000 UNITS (CHOLECALCIFEROL) TABLET PEG SCH (09:58)
[2016-11-13] MEDS: OLANZapine 5 MG (ZyPREXA) TAB JT SCH (09:58)
[2016-11-13] MEDS: THERAPEUTIC MULTIVITAMINS LIQUID 5 ML UDC PO SCH (09:58)
[2016-11-13] MEDS: DIAZEPAM 5 MG (VALIUM) TABLET PEG SCH ×2 (09:58→20:38)
[2016-11-13] MEDS: HYDROGEN PEROXIDE 473 ML SOLUTION MC SCH ×2 (09:59→20:39)
[2016-11-13] MEDS: DOCUSATE SODIUM 10 MG/ML 10 ML UDC (COLACE) PEG SCH ×2 (10:09→20:38)
[2016-11-13] MEDS: RT-ALBUTEROL SULF 2.5 MG/3 ML PRE-MIX VIAL IH PRN ×3 (10:20→18:41)
--- NOTE | 2016-11-13 10:23 | Physical Therapy Daily Note ---
PT Daily Note-Current Subjective Pt is laying supine in bed upon arrival. Pt reports feeling tired and sore after seeing OT for tx this morning. Pt is very agitated during tx as pt was yesterday. Pt gets very frustrated with trying to communicate with PT both verbal and written. Pt will just shut down and close eyes when frustrated. Mental Status Patient Orientation: Person, Place, Situation Attachments: PEG Tube, Other-See Comments Trach. Transfers Functional [place] Measure 0=Not Assessed/NA 4=Minimal Assistance 1=Total Assistance 5=Supervision or Setup 2=Maximal Assistance 6=Modified [place] 3=Moderate Assistance 7=Complete IndependenceIRFPAI Quality Coding Scale 6 Independent with activity with or without an assistive device 5 Patient requires set up or clean up by helper. Patient completes activity by themselves 4 Supervision or touching assist (CGA). [place] provide cues , steadying assist 3 The helper provides less than half the effort to complete the activity 2 The helper provides more than half the effort to complete the activity 1 Dependent. The helper does all the effort to complete an activity 7 Patient refused to complete or attempt activity 9 The patient did not perform the activity before the current illness or injury 88 Not attempted due to Medical conditions or safety concerns Transfers (B, C, W/C) (FIM): 6 Scootin Rollin Roll Left to Right (QC): 6 Supine to/from Sit: 6 Sit to/from Stand: 6 Sit to Lying (QC): 6 Sit to Stand (QC): 6 Weight Bearing Weight Bearing Restriction: Full Weight Bearing Location Restriction: LE Bilateral Gait Training Does the Patient Walk?: Yes Distance (FIM): 3=150 ft Distance: 150' Walk 10 feet (QC): 6 Walk 50 ft with 2 Turns(QC): 6 Walk 150 ft (QC): 6 Gait Level of Assist: 6 Gait Persons Needed: 1 Gait Assistive Device: FWW Pt walks with steady hyacinth and no LOB although pt doesn't use FWW properly. Pt walks with FWW too far in front of him and tosses it aside when transferring to bed. Wheelchair Training Does the Pt Use a Wheelchair?: No Exercises Supine Ex: Ankle pumps, Quad Set, Glut sets, Heel Slides, Straight leg raise, Hip abd/add Supine Reps: 15 Treatments Pt is very agitated and tries to communicate both verbally and written although writing is hard to read. Pt completes Supine Ex with ease although is very agitated and doesn't see the benefit Therapy is making. Pt didn't want to participate but wants to go home. Pt then walked using FWW in [facility] and was steady and no LOB although not safe with FWW. Pt throws FWW aside with transfers and lets it get too far in front of pt while walking. Pt doesn't listen to VC given by PT. Pt returns to room to have Trach suctioned. Pt doesn 't want anymore tx now because pt is tired. Assessment Current Status: Fair Progress Pt is able to complete activities although not always safely but won't listen to VC from PT. When pt is suctioned, thick drainage is removed. Pt is very agitated throughout tx. PT Short Term Goals Short Term Goals Time Frame: November 15, 2016 Transfers (B,C,W/C) (FIM): 5 Gait (FIM): 5 Gait Distance Comment: 500' Gait Level of Assist: 5 Gait Assistive Device: FWW PT [place] Mounter Goals Jail Goals PT Jail Goals Time Frame: November 29, 2016 Transfers (B,C,W/C) (FIM): 6 Sit to Lying (QC): 6 Lying-Sitting on Side/Bed(QC): 6 Sit to Stand (QC): 6 Rollin Roll Left to Right (QC): 6 Car Transfer (QC): 4 Gait (FIM): 6 Distance: 800' Walk 10 feet (QC): 6 Walk 10ft-Uneven Surface(QC): 6 Walk 50ft with 2 Turns (QC): 6 Walk 150 ft (QC): 6 Gait Assistive Device: FWW Stairs (FIM): 5 # of Steps: 12 1 Step (curb) (QC): 4 4 Steps (QC): 4 12 Steps (QC): 4 Stairs Level Of Assist: 5 Picking up an Object (QC): 5 PT Plan Problem List Problem List: Activity Tolerance, Safety, Gait Treatment/Plan Treatment Plan: Continue Plan of Care Treatment Plan: Bed Mobility, Education, Functional Activity Romie, Functional Strength, Group Therapy, Gait, Safety, Therapeutic Exercise, Transfers Treatment Duration: November 29, 2016 Visits Per Week: 10-11 Minutes/Day (M-F): 60-90 Minutes/Day (Sat/[place]): 15-30 Safety Risks/Education Patient Education: Gait Training, Transfer Techniques, Correct Positioning, Safety Issues Teaching Recipient: Patient Teaching Methods: Discussion Response to Teaching: Verbalize Understanding Time/GCodes Time In: 915 Time Out: 945 Total Billed Treatment Time: 30 Total Billed Treatment visit, GT (10m) & EX (20m) MARY MOHAMUD SWITCHBOARD OPERATOR RECEPTIONIST November 13, 2016 10:23
--- NOTE | 2016-11-13 10:28 | Speech Therapy Daily Note ---
Speech Daily Progress Note Subjective The patient was laying in bed upon entrance. The patient was agreeable to additional education regarding the electrolarynx, however, stated he did not wish to participate in electrolarynx use on this date. Objective - Electrolarynx: The specific components and use of the electrolarynx were discussed on this date. The patient was instructed on how to charge the batteries, use of the pitch glides, and use of the intra-oral adaptor. The clinician demonstrated proper placement of the intra-oral adaptor, as well as, strategies to improve intelligibility. - Text to Speech Applications (phone): The clinician attempted to review and provide the patient with [id number] applications for his phone. The patient stated his dexterity is too reduced to complete texts on his phone. The clinician requested the patient attempt typing on his phone, however, the patient politely refused. The patient continues to demonstrate poor motivation and participation throughout therapy sessions. Assessment Assessment Current Status: Fair Progress Treatment Plan Continue Plan of Care Communication Comprehension: 4 Expression: 3 Social Cognition Social Interaction: 2 Problem Solvin Memory: 3 Speech Short Term Goals Short Term Goals Short Term Goals 1. The patient will demonstrate understanding of electrolarynx parts/supplies. 2. The patient will demonstrate 60% intelligibility with use of the electrolarynx. 3. The patient will demonstrate good placement of the electrolarynx, independently, with greater than 80% accuracy. Time Frame-STG: Two Weeks Speech Jail Goals Forwarder Operator Goals 1. The patient will demonstrate increased intelligibility (75%) with use of electrolarynx for improved expressive communication. Time Frame: Three Weeks Comprehension: 5 Expression: 3 Social Interaction: 3 Problem Solvin Memory: 5 Speech-Plan Treatment Plan Speech Therapy Treatment Plan: Continue Plan of Care Continue skilled speech pathology intervention to improve functional communication via electrolarynx. Treatment Duration: November 29, 2016 # of days/week Four to Five. Visits Per Week: Four to five. Minutes/Day (M-F): 30 Rehab Potential: Fair Safety Risks/Education Teaching Recipient: Patient Teaching Methods: Demonstration, Handout Response to Teaching: Unable to Return Demonstration, Reinforcement Needed Education Topics Provided: Electrolarynx Use Time Speech Therapy Time In: 08:30 Speech Therapy Time Out: 09:00 Total Billed Time: 30 Billed Treatment Time DIDI Baeza [facility] November 13, 2016 10:28
--- NOTE | 2016-11-13 12:48 | Occupational Ther Daily Note ---
OT Current Status-Daily Note Subjective Pt alert, lying in bed. Pt given a choice of bathing or going to gym for therapy. Pt chose gym. No c/o pain at this time. Mental Status/Objective Patient Orientation: Person, Place, Time, Situation Functional [place] Measure 0=Not Assessed/NA 4=Minimal Assistance 1=Total Assistance 5=Supervision or Setup 2=Maximal Assistance 6=Modified [place] 3=Moderate Assistance 7=Complete [place] trach ADL-Treatment Pt stated that he had washed up earlier. Pt able to go from supine to sitting EOB by self with HOB raised. Pt had voided on self and needed to change pants. Pt ambulated to closet, retrieved clothes and took to bathroom using FWW with supervision. Pt doffed/donned clothing by self in bathroom. Pt was able to don /doff slippers by self. Pt takes increased time to complete tasks due to decreased communication of needs. Pt able to pick items up off floor with no LOB. Pt continues to work on handwriting though tremors continue to make handwriting somewhat illegible. Functional [place] Measure 0=Not Assessed/NA 4=Minimal Assistance 1=Total Assistance 5=Supervision or Setup 2=Maximal Assistance 6=Modified [place] 3=Moderate Assistance 7=Complete IndependenceIRFPAI Quality Coding Scale 6 Independent with activity with or without an assistive device 5 Patient requires set up or clean up by helper. Patient completes activity by themselves 4 Supervision or touching assist (CGA). [place] provide cues , steadying assist 3 The helper provides less than half the effort to complete the activity 2 The helper provides more than half the effort to complete the activity 1 Dependent. The helper does all the effort to complete an activity 7 Patient refused to complete or attempt activity 9 The patient did not perform the activity before the current illness or injury 88 Not attempted due to Medical conditions or safety concerns Lower Body Dressing (FIM): 5 Other Treatment Pt completed arm bike duration 6 min at 20 saul resistance to increase strength and activity tolerance for daily functional tasks. Pt started off fast then was unable to reach intended 10 min duration. Pt requested to ambulate back to room for oxygen. Pt then complete UE dowel chrissy exercises with 2# wt. Pt initially started off exercises fast then fatigued quickly. Pt hthen worked on fine motor skills with UE reaching/grasping against gravity. After therapy, pt lying in bed with call light in reach. All needs met in room. OT Short Term Goals Short Term Goals Transfers (B,C,W/C) (FIM): 5 1=Demonstrate adherence to instructed precautions during ADL tasks. 2=Patient will verbalize/demonstrate understanding of assistive devices/ modifications for ADL. 3=Patient will improve strength/tolerance for activity to enable patient to perform ADL's. OT Diving Supervisor Goals Diving Supervisor Goals Time Frame: November 29, 2016 Eating (FIM): 1 Eating (QC): 88 Groomin Oral Hygiene (QC): 9 Bathing(FIM): 6 Shower/Bathe Self (QC): 6 Upper Body Dressing(FIM): 6 Upper Body Dressing (QC): 6 Lower Body Dressing(FIM): 6 Lower Body Dressing (QC): 6 On/Off Footwear (QC): 6 Toileting(FIM): 6 Toileting Hygiene (QC): 6 Toilet/Commode Transfer(FIM): 6 Toilet/Commode Transfer (QC): 6 Shower Transfer(FIM): 6 Comprehension(FIM): 5 Expression (FIM): 3 Social Interaction(FIM): 3 Problem Solving(FIM): 4 Memory(FIM): 5 Additional Goals: 1-Demonstrate ADL Tasks, 2-Verbalize Understanding, 3- ImproveStrength/Romie 1=Demonstrate adherence to instructed precautions during ADL tasks. 2=Patient will verbalize/demonstrate understanding of assistive devices/ modifications for ADL. 3=Patient will improve strength/tolerance for activity to enable patient to perform ADL's. OT Education/Plan Problem List/Assessment Pt would benefit from skilled OT to increase his independence in basic self care to allow him to safely return home to live with his . Discharge Recommendations Plan/Recommendations: Continue POC Treatment Plan/Plan of Care Patient would benefit from OT for education, treatment and training to promote independence in ADL's, mobility, safety and/or upper extremity function for ADL' s. Plan of Care: ADL Retraining, Functional Mobility, Group Exercise/Act as Ind ( education, exercise, activity tolerance, mobility, memory), UE Funct Exercise/ Act, UE Neuromus Re-Ed/Coord Treatment Duration: November 29, 2016 Visits Per Week: 10-11 Minutes/Day (M-F): 75-90 Minutes/Day (Sat/[place]): PRN Agreement: Yes (reluctantly) Rehab Potential: Fair Time/GCodes Start Time: 07:00 Stop Time: 08:30 Total Time Billed (hr/min): 90 Billed Treatment Time 1 visit-ADL 2 (30 min) EX 3 (40 min) FA 1 (20 min) VICTOR HUGO CHONG November 13, 2016 12:48
--- NOTE | 2016-11-13 15:03 | Physical Therapy Daily Note ---
PT Daily Note-Current Subjective Pt laying Supine in bed upon arrival. Pt still agitated this afternoon. Pt agrees to PT. Mental Status Patient Orientation: Person, Place, Situation Attachments: Other-See Comments (Trach.) Transfers Functional [place] Measure 0=Not Assessed/NA 4=Minimal Assistance 1=Total Assistance 5=Supervision or Setup 2=Maximal Assistance 6=Modified [place] 3=Moderate Assistance 7=Complete IndependenceIRFPAI Quality Coding Scale 6 Independent with activity with or without an assistive device 5 Patient requires set up or clean up by helper. Patient completes activity by themselves 4 Supervision or touching assist (CGA). [place] provide cues , steadying assist 3 The helper provides less than half the effort to complete the activity 2 The helper provides more than half the effort to complete the activity 1 Dependent. The helper does all the effort to complete an activity 7 Patient refused to complete or attempt activity 9 The patient did not perform the activity before the current illness or injury 88 Not attempted due to Medical conditions or safety concerns Transfers (B, C, W/C) (FIM): 6 Scootin Rollin Roll Left to Right (QC): 6 Supine to/from Sit: 6 Sit to/from Stand: 6 Sit to Lying (QC): 6 Sit to Stand (QC): 6 Weight Bearing Weight Bearing Restriction: Full Weight Bearing Location Restriction: LE Bilateral Gait Training Does the Patient Walk?: Yes Distance (FIM): 3=150 ft Distance: 250' Walk 10 feet (QC): 6 Walk 50 ft with 2 Turns(QC): 6 Walk 150 ft (QC): 6 Gait Assistive Device: FWW Pt walks with steady hyacinth and no LOB. Pt walks with better safety this afternoon. Wheelchair Training Does the Pt Use a Wheelchair?: No Treatments Pt transfers from Supine to EOB to Standing using FWW at SBA. Pt ambulates on [facility] using FWW at Mod I. Pt educated on benefit of Therapy and why pt is on ARU. Pt left supine in bed with all needs met at end of tx. Nurse was suctioning pt's trach. Assessment Current Status: Good Progress Pt's attitude toward participation in Therapy was better this afternoon but pt is still very frustrated with communication. Pt asked for 2# ankle wt on BLE for continued work after tx. PT reminded pt & nursing staff that call light can be pushed to remove ankle wt when finished. PT Short Term Goals Short Term Goals Time Frame: November 15, 2016 Transfers (B,C,W/C) (FIM): 5 Gait (FIM): 5 Gait Distance Comment: 500' Gait Level of Assist: 5 Gait Assistive Device: FWW PT [employer] Helper Goals [employer] Helper Goals PT [employer] Helper Goals Time Frame: November 29, 2016 Transfers (B,C,W/C) (FIM): 6 Sit to Lying (QC): 6 Lying-Sitting on Side/Bed(QC): 6 Sit to Stand (QC): 6 Rollin Roll Left to Right (QC): 6 Car Transfer (QC): 4 Gait (FIM): 6 Distance: 800' Walk 10 feet (QC): 6 Walk 10ft-Uneven Surface(QC): 6 Walk 50ft with 2 Turns (QC): 6 Walk 150 ft (QC): 6 Gait Assistive Device: FWW Stairs (FIM): 5 # of Steps: 12 1 Step (curb) (QC): 4 4 Steps (QC): 4 12 Steps (QC): 4 Stairs Level Of Assist: 5 Picking up an Object (QC): 5 PT Plan Problem List Problem List: Activity Tolerance, Safety, Balance, Gait Treatment/Plan Treatment Plan: Continue Plan of Care Treatment Plan: Bed Mobility, Education, Functional Activity Romie, Functional Strength, Group Therapy, Gait, Safety, Therapeutic Exercise, Transfers Treatment Duration: November 29, 2016 Visits Per Week: 10-11 Minutes/Day (M-F): 60-90 Minutes/Day (Sat/[place]): 15-30 Safety Risks/Education Patient Education: Gait Training, Correct Positioning, Safety Issues Teaching Recipient: Patient Teaching Methods: Discussion Response to Teaching: Verbalize Understanding Time/GCodes Time In: 1335 Time Out: 1410 Total Billed Treatment Time: 35 Total Billed Treatment visit, GT (20m) & FA (15m) MARY MOHAMUD PTA November 13, 2016 15:03
[2016-11-13 18:24] VITALS: BP 97/64
[2016-11-13] MEDS: traZODone 50 MG (DESYREL) TAB PEG SCH (20:38)
[2016-11-14] MEDS: APAP 325 MG/10.15 ML LIQ (TYLENOL) UDC PEG PRN (02:04)
[2016-11-14] MEDS: LEVOTHYROXINE 50 MCG (LEVOTHROID) TAB PEG SCH (04:55)
[2016-11-14] MEDS: oxyCODONE 5 MG/5 ML ORAL SOLN (roxiCODONE) 5 ML UDC PEG PRN ×3 (04:55→20:06)
[2016-11-14] MEDS: TRIM/SULFAMETH 160/800 (SEPTRA DS) TAB PO SCH ×2 (04:56→17:55)
[2016-11-14] MEDS: CALCIUM CITRATE 950 MG PEG SCH ×3 (04:58→17:55)
[2016-11-14] MEDS: PANTOPRAZOLE 2 MG/ML LIQUID 200 ML (PROTONIX) PO SCH ×3 (04:58)
[2016-11-14 05:12] VITALS: BP 97/59
--- NOTE | 2016-11-14 08:53 | Progress Note (SOAP) ---
Subjective Subjective/Events-last exam laryngeal cancer. Patient not completely compliant. Objective Exam Vital Signs Date Time Temp Pulse Resp B/P (MAP) Pulse Ox O2 Delivery O2 Flow Rate FiO2 11/14/16 05:12 97.8 86 18 97/59 95 Trach Collar 11/14/16 02:20 8.00 30 11/13/16 23:34 8.00 30 11/13/16 18:42 92 8.00 30 11/13/16 18:24 98.1 81 14 97/64 94 11/13/16 14:21 93 8.00 30 11/13/16 10:20 92 8.00 30 I & O 11/14/16 07:00 Intake Total 2480 ml Balance 2480 ml Capillary Refill : General Appearance: No Apparent Distress Results Lab Microbiology 11/07/16 Gram Stain - Final, Complete 11/07/16 Body Fluid Culture - Final, Complete Enterobacter Cloacae Strep Species, Alpha Hemolytic Yeast Species Assessment/Plan Assessment/Plan Assess & Plan/Chief Complaint laryngeal cancer. Debility. Hepatitis C. COPD. Laryngeal mass. Tobacco use. . 11/08/16. Laryngeal cancer. Debility Hepatitis. COPD. Tobacco usage. Patient positive today. . 11/09/16. Laryngeal cancer. Debility. Hepatitis C. COPD. Tobacco usage. Patient sleepy this morning. Bottle of Valium was found in patients bed to monitor. . 11/12/16. Laryngeal cancer.. Debility. Hepatitis C. COPD.. Patient doing better since admission. . 11/13/16. Laryngeal cancer. Debility. Hep c. Patient continues to improve. . 11/14/16. Laryngeal cancer. Debility. Hepatitis C. Clinical Quality Measures DVT/VTE Risk/Contraindication: Risk Factor Score Per Nursin RFS Level Per Nursing on Admit: 4+=Very High FAVIOLA MINA DO November 14, 2016 08:53
--- NOTE | 2016-11-14 09:26 | Physical Therapy Daily Note ---
PT Daily Note-Current Subjective Pt laying Supine in bed upon arrival. Pt requesting to test for Ad marip[place] in room during tx. Pt agrees to PT. Pt will test for Ad mariposa and FIM for possible discharge today. Pain Numeric Pain Scale: 7 Location Body Site: Throat Pain Description: Stabbing, Sharp Comment: Pt reports pain in face below nose down to incision in shoulders Mental Status Patient Orientation: Person, Place, Situation Attachments: Other-See Comments (Trach.) Transfers Functional [place] Measure 0=Not Assessed/NA 4=Minimal Assistance 1=Total Assistance 5=Supervision or Setup 2=Maximal Assistance 6=Modified [place] 3=Moderate Assistance 7=Complete IndependenceIRFPAI Quality Coding Scale 6 Independent with activity with or without an assistive device 5 Patient requires set up or clean up by helper. Patient completes activity by themselves 4 Supervision or touching assist (CGA). [place] provide cues , steadying assist 3 The helper provides less than half the effort to complete the activity 2 The helper provides more than half the effort to complete the activity 1 Dependent. The helper does all the effort to complete an activity 7 Patient refused to complete or attempt activity 9 The patient did not perform the activity before the current illness or injury 88 Not attempted due to Medical conditions or safety concerns Weight Bearing Weight Bearing Restriction: Full Weight Bearing Location Restriction: LE Bilateral Wheelchair Training Does the Pt Use a Wheelchair?: No Treatments Pt reports needing suctioned so PT notifies nurse and assists as nurse might need. Nurse also replaces wound dressing at start of tx. Both Nurse and PT notice color and amount of drainage as well as wound looks worse than yesterday. Nurse notifies Dr Orozco and will see pt in pm. PT gives pt education on what pt is saying in ARU for. Pt is wanting to be released but still dealing with incision and wound area. PT communicates with pt over what Therapy expectation is and pt is wanting to be up Ad marip[place]. PT will try to test in pm depending on wound status and what Dr Orozco thinks. Pt is left with nurse giving pain meds and all needs met at end of tx. Assessment Current Status: Fair Progress Pt has made improves with mobility and transfers at Mod I. Pt's wound seems to be getting worse so Dr Orozco will address in pm. PT Short Term Goals Short Term Goals Time Frame: November 15, 2016 Transfers (B,C,W/C) (FIM): 5 Gait (FIM): 5 Gait Distance Comment: 500' Gait Level of Assist: 5 Gait Assistive Device: FWW PT Snf Goals Snf Goals PT Snf Goals Time Frame: November 29, 2016 Transfers (B,C,W/C) (FIM): 6 Sit to Lying (QC): 6 Lying-Sitting on Side/Bed(QC): 6 Sit to Stand (QC): 6 Rollin Roll Left to Right (QC): 6 Car Transfer (QC): 4 Gait (FIM): 6 Distance: 800' Walk 10 feet (QC): 6 Walk 10ft-Uneven Surface(QC): 6 Walk 50ft with 2 Turns (QC): 6 Walk 150 ft (QC): 6 Gait Assistive Device: FWW Stairs (FIM): 5 # of Steps: 12 1 Step (curb) (QC): 4 4 Steps (QC): 4 12 Steps (QC): 4 Stairs Level Of Assist: 5 Picking up an Object (QC): 5 PT Plan Problem List Problem List: Activity Tolerance, Safety Treatment/Plan Treatment Plan: Continue Plan of Care Treatment Plan: Bed Mobility, Education, Functional Activity Romie, Functional Strength, Group Therapy, Gait, Safety, Therapeutic Exercise, Transfers Treatment Duration: November 29, 2016 Visits Per Week: 10-11 Minutes/Day (M-F): 60-90 Minutes/Day (Sat/[place]): 15-30 Safety Risks/Education Patient Education: Reviewed Precautions, Disease Process, Safety Issues Teaching Recipient: Patient Teaching Methods: Discussion Response to Teaching: Verbalize Understanding Time/GCodes Time In: 915 Time Out: 1000 Total Billed Treatment Time: 45 Total Billed Treatment visit, FA X3 (45m) MARY MOHAMUD PTA November 14, 2016 09:25
[2016-11-14] MEDS: THERAPEUTIC MULTIVITAMINS LIQUID 5 ML UDC PO SCH (09:58)
[2016-11-14] MEDS: DOCUSATE SODIUM 10 MG/ML 10 ML UDC (COLACE) PEG SCH ×2 (09:58→20:08)
[2016-11-14] MEDS: OLANZapine 5 MG (ZyPREXA) TAB JT SCH (09:59)
[2016-11-14] MEDS: VITAMIN D3 1,000 UNITS (CHOLECALCIFEROL) TABLET PEG SCH (09:59)
[2016-11-14] MEDS: DIAZEPAM 5 MG (VALIUM) TABLET PEG SCH ×2 (09:59→20:06)
[2016-11-14] MEDS: HYDROGEN PEROXIDE 473 ML SOLUTION MC SCH ×2 (10:00→22:49)
--- NOTE | 2016-11-14 11:04 | Speech Therapy Daily Note ---
Speech Daily Progress Note Subjective The patient was laying in bed upon entrance. The patient made eye contact with clinician and was agreeable to the treatment session, however, wrote "it won't matter any ways." The patient frequently wrote messages to the clinician throughout the session regarding his current prognosis. Objective - Electrolarynx: The specific components and use of the electrolarynx were discussed and reviewed on this date for a second time. The patient was instructed on how to charge the batteries, use of the pitch glides, and use of the intra-oral adaptor. The clinician demonstrated proper placement of the intra -oral adaptor, as well as, strategies to improve intelligibility. The patient politely refused attempts at the electrolarynx. The patient continues to demonstrate poor motivation and participation throughout therapy sessions. Assessment Assessment Current Status: Poor Progress Treatment Plan Continue Plan of Care Communication Comprehension: 5 Expression: 3 Social Cognition Social Interaction: 1 Problem Solvin Memory: 3 Speech Short Term Goals Short Term Goals Short Term Goals 1. The patient will demonstrate understanding of electrolarynx parts/supplies. 2. The patient will demonstrate 60% intelligibility with use of the electrolarynx. 3. The patient will demonstrate good placement of the electrolarynx, independently, with greater than 80% accuracy. Time Frame-STG: Two Weeks Speech Text Transcriber Goals Text Transcriber Goals 1. The patient will demonstrate increased intelligibility (75%) with use of electrolarynx for improved expressive communication. Time Frame: Three Weeks Comprehension: 5 Expression: 3 Social Interaction: 3 Problem Solvin Memory: 5 Speech-Plan Treatment Plan Speech Therapy Treatment Plan: Continue Plan of Care Continue skilled speech pathology to target improved expressive communication via electrolarynx. Treatment Duration: November 29, 2016 # of days/week Four to five. Visits Per Week: Four to five. Minutes/Day (M-F): 30 Rehab Potential: Fair Safety Risks/Education Teaching Recipient: Patient Teaching Methods: Demonstration, Discussion Response to Teaching: Reinforcement Needed Education Topics Provided: Electrolarynx Use Time Speech Therapy Time In: 10:15 Speech Therapy Time Out: 10:45 Total Billed Time: 30 Billed Treatment Time DIDI Baeza [facility] November 14, 2016 11:04
--- NOTE | 2016-11-14 12:29 | Occupational Ther Daily Note ---
OT Current Status-Daily Note Subjective Pt sleeping in bed, woke to name. Pt agreed to therapy after encouragement. Discussed with pt about the Team Meeting that occurs today and aked pt what he wanted me to tell them. He wrote that "He does not need a microbiology lab technician and when he does anything for himself that the arm comes in." Nrsg was in room and pt did not c/o pain. Mental Status/Objective Patient Orientation: Person, Place, Non-Verbal/Aphasic, Time, Situation Functional [place] Measure 0=Not Assessed/NA 4=Minimal Assistance 1=Total Assistance 5=Supervision or Setup 2=Maximal Assistance 6=Modified [place] 3=Moderate Assistance 7=Complete [place] Attachments: PEG Tube trach ADL-Treatment Pt has demonstrated from previous therapy sessions that he is able to retrieve clothing from closet and don/doff lower body clothing by self. Nrsg stated that pt asks for wash clothes and towels prior to therapy in the morning (7am). Pt then communicates to BARRAGAN that he has already washed up for the day. Pt will not complete task again for therapy. Pt has demonstrated ability to cleanse mouth with oral swab, comb/brush hair and shave self after given tools. Pt has demonstrated ability to use urinal by self though does need assist to dump urinal. Pt used shaving tools and was able to complete shaving lying in bed. Pt fatigued easily and needed rest breaks during task. Pt was able to wash face and head when handed a washcloth. Pt washed upper body after set up. Pt was able to manipulate socks and don/doff shoes by self. Pt demonstrated ability to ambulated using FWW to bathroom, close door and use bathroom and come back into room by self. No LOB noted. After therapy, pt lying in bed with call light/phone in reach. All needs met in room. Functional [place] Measure 0=Not Assessed/NA 4=Minimal Assistance 1=Total Assistance 5=Supervision or Setup 2=Maximal Assistance 6=Modified [place] 3=Moderate Assistance 7=Complete IndependenceIRFPAI Quality Coding Scale 6 Independent with activity with or without an assistive device 5 Patient requires set up or clean up by helper. Patient completes activity by themselves 4 Supervision or touching assist (CGA). [place] provide cues , steadying assist 3 The helper provides less than half the effort to complete the activity 2 The helper provides more than half the effort to complete the activity 1 Dependent. The helper does all the effort to complete an activity 7 Patient refused to complete or attempt activity 9 The patient did not perform the activity before the current illness or injury 88 Not attempted due to Medical conditions or safety concerns Eating (FIM): 1 Eating (QC): 1 Grooming (FIM): 5 Oral Hygiene (QC): 5 Bathing (FIM): 6 (per report from pt) Shower/Bathe Self (QC): 6 (per report from pt) Upper Body (FIM): 6 (per report from pt) Upper Body Dressing (QC): 6 (per report from pt) Lower Body Dressing (FIM): 6 Lower Body Dressing (QC): 6 On/Off Footwear (QC): 6 (Pt is able to don/doff socks and shoes by self.) Toileting (FIM): 6 Toileting Hygiene (QC): 6 Transfers (B, C, W/C) (FIM): 6 Toilet/Commode Transfer (FIM): 6 Toilet Transfer (QC): 6 Pt does take increased time to complete tasks due to increased time to communicate needs and wants then encouragement to complete tasks. OT Short Term Goals Short Term Goals Transfers (B,C,W/C) (FIM): 5 1=Demonstrate adherence to instructed precautions during ADL tasks. 2=Patient will verbalize/demonstrate understanding of assistive devices/ modifications for ADL. 3=Patient will improve strength/tolerance for activity to enable patient to perform ADL's. OT Residential Goals Residential Goals Time Frame: November 29, 2016 Eating (FIM): 1 Eating (QC): 88 Groomin Oral Hygiene (QC): 9 Bathing(FIM): 6 Shower/Bathe Self (QC): 6 Upper Body Dressing(FIM): 6 Upper Body Dressing (QC): 6 Lower Body Dressing(FIM): 6 Lower Body Dressing (QC): 6 On/Off Footwear (QC): 6 Toileting(FIM): 6 Toileting Hygiene (QC): 6 Toilet/Commode Transfer(FIM): 6 Toilet/Commode Transfer (QC): 6 Shower Transfer(FIM): 6 Comprehension(FIM): 5 Expression (FIM): 3 Social Interaction(FIM): 3 Problem Solving(FIM): 4 Memory(FIM): 5 Additional Goals: 1-Demonstrate ADL Tasks, 2-Verbalize Understanding, 3- ImproveStrength/Romie 1=Demonstrate adherence to instructed precautions during ADL tasks. 2=Patient will verbalize/demonstrate understanding of assistive devices/ modifications for ADL. 3=Patient will improve strength/tolerance for activity to enable patient to perform ADL's. OT Education/Plan Problem List/Assessment Pt would benefit from skilled OT to increase his independence in basic self care to allow him to safely return home to live with his . Discharge Recommendations Plan/Recommendations: Continue POC Treatment Plan/Plan of Care Patient would benefit from OT for education, treatment and training to promote independence in ADL's, mobility, safety and/or upper extremity function for ADL' s. Plan of Care: ADL Retraining, Functional Mobility, Group Exercise/Act as Ind ( education, exercise, activity tolerance, mobility, memory), UE Funct Exercise/ Act, UE Neuromus Re-Ed/Coord Treatment Duration: November 29, 2016 Visits Per Week: 10-11 Minutes/Day (M-F): 75-90 Minutes/Day (Sat/[place]): PRN Agreement: Yes (reluctantly) Rehab Potential: Fair Time/GCodes Start Time: 07:00 Stop Time: 08:30 Total Time Billed (hr/min): 90 Billed Treatment Time 1 visit-FA 4 (60 min) ADL 2 (30 min) VICTOR HUGO CHONG November 14, 2016 12:29
[2016-11-14] MEDS: RT-ALBUTEROL SULF 2.5 MG/3 ML PRE-MIX VIAL IH PRN ×2 (15:58→19:30)
--- NOTE | 2016-11-14 15:58 | Physical Therapy Daily Note ---
PT Daily Note-Current Subjective Pt laying Supine in bed upon arrival. Pt agrees to PT to attempt FIM items in case of discharge. Pain Numeric Pain Scale: 7 Location Body Site: Throat Mental Status Patient Orientation: Person, Place, Situation Attachments: PEG Tube, Other-See Comments (Trach.) Transfers Functional [place] Measure 0=Not Assessed/NA 4=Minimal Assistance 1=Total Assistance 5=Supervision or Setup 2=Maximal Assistance 6=Modified [place] 3=Moderate Assistance 7=Complete IndependenceIRFPAI Quality Coding Scale 6 Independent with activity with or without an assistive device 5 Patient requires set up or clean up by helper. Patient completes activity by themselves 4 Supervision or touching assist (CGA). [place] provide cues , steadying assist 3 The helper provides less than half the effort to complete the activity 2 The helper provides more than half the effort to complete the activity 1 Dependent. The helper does all the effort to complete an activity 7 Patient refused to complete or attempt activity 9 The patient did not perform the activity before the current illness or injury 88 Not attempted due to Medical conditions or safety concerns Transfers (B, C, W/C) (FIM): 6 Scootin Rollin Roll Left to Right (QC): 6 Supine to/from Sit: 6 Sit to/from Stand: 6 Sit to Lying (QC): 6 Sit to Stand (QC): 6 Chair/Dvv-mo-Nrhqt Xfer(QC): 6 Bed to/from Chair: 6 Car Transfer (QC): 6 Pt completed simulated car transfer in Therapy Gym. Weight Bearing Weight Bearing Restriction: Full Weight Bearing Location Restriction: LE Bilateral Gait Training Does the Patient Walk?: Yes Gait (FIM): 5 Distance (FIM): 3=150 ft Distance: 300' Walk 10 feet (QC): 6 Walk 50 ft with 2 Turns(QC): 6 Walk 150 ft (QC): 6 Walking 10ft/uneven surface-QC: 6 Gait Level of Assist: 6 Gait Persons Needed: 1 Gait Assistive Device: FWW Pt completes tasks although not always safely. Pt has tendency to toss FWW aside when transferring to another surface. Wheelchair Training Does the Pt Use a Wheelchair?: No Stair Training Stair Training: Handrails/: 2 handrails Stairs (FIM): 5 #of Steps: 12 1 Step (curb) (QC): 6 4 Steps (QC): 5 12 Steps (QC): 5 Stairs: Pattern: Step to Level of Assist: 5 Pt has tendency to not get foot completely on stair when ascending stairs even with VC. Pt is not unsteady though. Balance Picking up an Object (QC): 6 Treatments Pt able to complete tasks such as transfers, ambulation including turns and over varying surface, picking up object from floor and stairs using FWW as needed and at SBA-Mod I. Pt cannot consistently remain safe to be up [place] at this time but will continue to retest. Pt continues to have concern over wound and incision area. Dr Orozco to address upon examination. Assessment Current Status: Good Progress Pt has made improvement and is Mod I with most tasks although still need to focus on safety at this point. PT Short Term Goals Short Term Goals Time Frame: November 15, 2016 Transfers (B,C,W/C) (FIM): 5 Gait (FIM): 5 Gait Distance Comment: 500' Gait Level of Assist: 5 Gait Assistive Device: FWW PT Tourist Information Officer Goals Fpc Goals PT Fpc Goals Time Frame: November 29, 2016 Transfers (B,C,W/C) (FIM): 6 Sit to Lying (QC): 6 Lying-Sitting on Side/Bed(QC): 6 Sit to Stand (QC): 6 Rollin Roll Left to Right (QC): 6 Car Transfer (QC): 4 Gait (FIM): 6 Distance: 800' Walk 10 feet (QC): 6 Walk 10ft-Uneven Surface(QC): 6 Walk 50ft with 2 Turns (QC): 6 Walk 150 ft (QC): 6 Gait Assistive Device: FWW Stairs (FIM): 5 # of Steps: 12 1 Step (curb) (QC): 4 4 Steps (QC): 4 12 Steps (QC): 4 Stairs Level Of Assist: 5 Picking up an Object (QC): 5 PT Plan Problem List Problem List: Activity Tolerance, Safety Treatment/Plan Treatment Plan: Continue Plan of Care Treatment Plan: Bed Mobility, Education, Functional Activity Romie, Functional Strength, Group Therapy, Gait, Safety, Therapeutic Exercise, Transfers Treatment Duration: November 29, 2016 Visits Per Week: 10-11 Minutes/Day (M-F): 60-90 Minutes/Day (Sat/[place]): 15-30 Safety Risks/Education Patient Education: Gait Training, Correct Positioning, Safety Issues Teaching Recipient: Patient Teaching Methods: Discussion Response to Teaching: Verbalize Understanding Time/GCodes Time In: 1330 Time Out: 1400 Total Billed Treatment Time: 30 Total Billed Treatment visit, GT (15m) & FA (20m) MARY MOHAMUD COAL BAGGER November 14, 2016 15:58
--- NOTE | 2016-11-14 16:18 | Wound Care Progress Note ---
Subjective Subjective Subjective/Events-last exam 60-year-old male status post bilateral radical neck dissection in an irradiated field with superficial dehiscence of the proximal portion of his right neck incision. Patient is having a lot of drainage from his tracheostomy and the neck incision. This is being controlled with frequent changes of Telfa and cleansed with peroxide and saline per the surgeon's request. Recommend continuing these dressing changes. This time the dehiscence of the upper incision appears to be superficial. Further wound care orders should come from the operating surgeon. Past medical history: History of neck cancer with recent operation and radiation therapy. Review of Systems Pulmonary: Dyspnea Musculoskeletal: neck pain Objective Exam Last Set of Vital Signs Vital Signs Date Time Temp Pulse Resp B/P (MAP) Pulse Ox O2 Delivery O2 Flow Rate FiO2 11/14/16 05:12 97.8 86 18 97/59 95 Trach Collar 11/14/16 02:20 8.00 30 Capillary Refill : I&O Intake and Output 11/14/16 00:00 Intake Total 2070 ml Output Total 775 ml Balance 1295 ml Tube Feeding 1070 ml Other 1000 ml Output Urine Total 775 ml # Voids 2 General: Alert, Mild Distress Lungs: Normal Air Movement Skin: Other Neuro: Cranial Nerves 3-12 NL Results Lab Microbiology 11/07/16 Gram Stain - Final, Complete 11/07/16 Body Fluid Culture - Final, Complete Enterobacter Cloacae Strep Species, Alpha Hemolytic Yeast Species Assessment/Plan Assessment/Plan Assessment/Plan 1. Partial dehiscence of right neck incision following complex head and neck surgery in a radiated field. Time the wound does not appear to be deep. Further wound care instruction should come from the operating surgeon. Plan: We'll see again as needed.` MARK RICE MD November 14, 2016 16:18
[2016-11-14 18:43] VITALS: BP 102/62
[2016-11-14] MEDS: traZODone 50 MG (DESYREL) TAB PEG SCH (20:06)
[2016-11-15] MEDS: oxyCODONE 5 MG/5 ML ORAL SOLN (roxiCODONE) 5 ML UDC PEG PRN (02:11)
[2016-11-15 05:00] VITALS: BP 91/54
[2016-11-15] MEDS: LEVOTHYROXINE 50 MCG (LEVOTHROID) TAB PEG SCH (06:35)
[2016-11-15] MEDS: TRIM/SULFAMETH 160/800 (SEPTRA DS) TAB PO SCH (06:35)
[2016-11-15] MEDS: CALCIUM CITRATE 950 MG PEG SCH (06:35)
[2016-11-15] MEDS: PANTOPRAZOLE 2 MG/ML LIQUID 200 ML (PROTONIX) PO SCH ×3 (06:41)
[2016-11-15] MEDS: THERAPEUTIC MULTIVITAMINS LIQUID 5 ML UDC PO SCH (07:52)
[2016-11-15] MEDS: DIAZEPAM 5 MG (VALIUM) TABLET PEG SCH (07:52)
[2016-11-15] MEDS: VITAMIN D3 1,000 UNITS (CHOLECALCIFEROL) TABLET PEG SCH (07:52)
[2016-11-15] MEDS: OLANZapine 5 MG (ZyPREXA) TAB JT SCH (07:52)
[2016-11-15] MEDS: DOCUSATE SODIUM 10 MG/ML 10 ML UDC (COLACE) PEG SCH (07:52)
[2016-11-15] MEDS: HYDROGEN PEROXIDE 473 ML SOLUTION MC SCH (07:53)
--- NOTE | 2016-11-15 08:38 | Progress Note (SOAP) ---
Subjective Subjective/Events-last exam laryngeal cancer. Patient has improved. Patient has drainage on right side of neck Objective Exam Vital Signs Date Time Temp Pulse Resp B/P (MAP) Pulse Ox O2 Delivery O2 Flow Rate FiO2 11/15/16 07:00 96 8.00 30 11/15/16 05:00 97.8 82 16 91/54 95 Trach Collar 10.00 11/15/16 02:30 95 8.00 30 11/14/16 22:03 93 8.00 30 11/14/16 19:30 8.00 30 11/14/16 18:43 98.9 88 16 102/62 90 Trach Collar 10.00 11/14/16 15:58 95 8.00 30 I & O 11/15/16 07:00 Intake Total 910 ml Balance 910 ml Capillary Refill : General Appearance: No Apparent Distress, WD/WN Results Lab Microbiology 11/07/16 Gram Stain - Final, Complete 11/07/16 Body Fluid Culture - Final, Complete Enterobacter Cloacae Strep Species, Alpha Hemolytic Yeast Species Assessment/Plan Assessment/Plan Assess & Plan/Chief Complaint laryngeal cancer. Debility. Hepatitis C. COPD. Laryngeal mass. Tobacco use. . 11/08/16. Laryngeal cancer. Debility Hepatitis. COPD. Tobacco usage. Patient positive today. . 11/09/16. Laryngeal cancer. Debility. Hepatitis C. COPD. Tobacco usage. Patient sleepy this morning. Bottle of Valium was found in patients bed to monitor. . 11/12/16. Laryngeal cancer.. Debility. Hepatitis C. COPD.. Patient doing better since admission. . 11/13/16. Laryngeal cancer. Debility. Hep c. Patient continues to improve. . 11/14/16. Laryngeal cancer. Debility. Hepatitis C.. . 11/15/16 laryngeal cancer. Debility. patient has improved since being in rehab Clinical Quality Measures DVT/VTE Risk/Contraindication: Risk Factor Score Per Nursin RFS Level Per Nursing on Admit: 4+=Very High FAVIOLA MINA DO November 15, 2016 08:38
--- NOTE | 2016-11-15 09:00 | Occupational Ther Daily Note ---
OT Current Status-Daily Note Subjective Pt alert, standing beside bed. Pt agreed to therapy. Pt was asked if he wanted to wash up, he gestured to himself and communicated that he was already done. Mental Status/Objective Patient Orientation: Person, Place, Non-Verbal/Aphasic, Time, Situation Functional [place] Measure 0=Not Assessed/NA 4=Minimal Assistance 1=Total Assistance 5=Supervision or Setup 2=Maximal Assistance 6=Modified [place] 3=Moderate Assistance 7=Complete [place] Attachments: PEG Tube trach ADL-Treatment Functional [place] Measure 0=Not Assessed/NA 4=Minimal Assistance 1=Total Assistance 5=Supervision or Setup 2=Maximal Assistance 6=Modified [place] 3=Moderate Assistance 7=Complete IndependenceIRFPAI Quality Coding Scale 6 Independent with activity with or without an assistive device 5 Patient requires set up or clean up by helper. Patient completes activity by themselves 4 Supervision or touching assist (CGA). [place] provide cues , steadying assist 3 The helper provides less than half the effort to complete the activity 2 The helper provides more than half the effort to complete the activity 1 Dependent. The helper does all the effort to complete an activity 7 Patient refused to complete or attempt activity 9 The patient did not perform the activity before the current illness or injury 88 Not attempted due to Medical conditions or safety concerns Other Treatment Pt stood and made own bed with no LOB. Pt then was able to brush own hair. Pt ambulated to therapy gym with FWW. Pt completed 7 min on arm bike at 15 saul resistance without breaks to increase activity tolerance and strength for daily functional tasks. Then complete UE and fine motor strengthening exercises with 2 # wt attached to wrists. Pt was able to complete though demonstrated fatigue. Pt then ambulated back to room and straightened bed to lay down. When given items to complete tube feeding, pt was able to complete by self, nrsg notified. After therapy, pt lying in bed with call light in reach. All needs met in room. OT Short Term Goals Short Term Goals Transfers (B,C,W/C) (FIM): 5 1=Demonstrate adherence to instructed precautions during ADL tasks. 2=Patient will verbalize/demonstrate understanding of assistive devices/ modifications for ADL. 3=Patient will improve strength/tolerance for activity to enable patient to perform ADL's. OT Bone Char Kiln Tender Goals Bone Char Kiln Tender Goals Time Frame: November 29, 2016 Eating (FIM): 1 Eating (QC): 88 Groomin Oral Hygiene (QC): 9 Bathing(FIM): 6 Shower/Bathe Self (QC): 6 Upper Body Dressing(FIM): 6 Upper Body Dressing (QC): 6 Lower Body Dressing(FIM): 6 Lower Body Dressing (QC): 6 On/Off Footwear (QC): 6 Toileting(FIM): 6 Toileting Hygiene (QC): 6 Toilet/Commode Transfer(FIM): 6 Toilet/Commode Transfer (QC): 6 Shower Transfer(FIM): 6 Comprehension(FIM): 5 Expression (FIM): 3 Social Interaction(FIM): 3 Problem Solving(FIM): 4 Memory(FIM): 5 Additional Goals: 1-Demonstrate ADL Tasks, 2-Verbalize Understanding, 3- ImproveStrength/Romie 1=Demonstrate adherence to instructed precautions during ADL tasks. 2=Patient will verbalize/demonstrate understanding of assistive devices/ modifications for ADL. 3=Patient will improve strength/tolerance for activity to enable patient to perform ADL's. OT Education/Plan Problem List/Assessment Pt would benefit from skilled OT to increase his independence in basic self care to allow him to safely return home to live with his . Discharge Recommendations Plan/Recommendations: Continue POC Treatment Plan/Plan of Care Patient would benefit from OT for education, treatment and training to promote independence in ADL's, mobility, safety and/or upper extremity function for ADL' s. Plan of Care: ADL Retraining, Functional Mobility, Group Exercise/Act as Ind ( education, exercise, activity tolerance, mobility, memory), UE Funct Exercise/ Act, UE Neuromus Re-Ed/Coord Treatment Duration: November 29, 2016 Visits Per Week: 10-11 Minutes/Day (M-F): 75-90 Minutes/Day (Sat/[place]): PRN Agreement: Yes (reluctantly) Rehab Potential: Fair Time/GCodes Start Time: 07:00 Stop Time: 08:00 Total Time Billed (hr/min): 60 Billed Treatment Time 1 visit-FA 2 (30 min) EX 2 (30 min) VICTOR HUGO CHONG November 15, 2016 09:00
--- NOTE | 2016-11-15 09:33 | Physical Therapy Daily Note ---
PT Daily Note-Current Subjective Patient in bed pre tx, agrees to ambulate, indicates that he has just a little pain. Appearance Patient in bed post tx with nurse call, veronica, all needs met. Patient ambulated and then wanted to get back into bed. He refused further treatment. Patient would like to be independent in his room, which he should be able to do, he is mod I with all mobility, will notify nursing. Mental Status Patient Orientation: Person, Place, Situation Attachments: Oxygen Transfers Functional [place] Measure 0=Not Assessed/NA 4=Minimal Assistance 1=Total Assistance 5=Supervision or Setup 2=Maximal Assistance 6=Modified [place] 3=Moderate Assistance 7=Complete IndependenceIRFPAI Quality Coding Scale 6 Independent with activity with or without an assistive device 5 Patient requires set up or clean up by helper. Patient completes activity by themselves 4 Supervision or touching assist (CGA). [place] provide cues , steadying assist 3 The helper provides less than half the effort to complete the activity 2 The helper provides more than half the effort to complete the activity 1 Dependent. The helper does all the effort to complete an activity 7 Patient refused to complete or attempt activity 9 The patient did not perform the activity before the current illness or injury 88 Not attempted due to Medical conditions or safety concerns Transfers (B, C, W/C) (FIM): 6 Scootin Rollin Supine to/from Sit: 6 Sit to/from Stand: 6 Gait Training Gait (FIM): 6 Distance: 500' Gait Assistive Device: FWW Patient ambulates very slowly, but he is steady, no LOB. Treatments bed mobiltiy and transfers, ambulation Assessment Current Status: Fair Progress patient is mod I with bed mobility, transfers, and ambulation PT Short Term Goals Short Term Goals Time Frame: November 15, 2016 Transfers (B,C,W/C) (FIM): 5 Gait (FIM): 5 Gait Distance Comment: 500' Gait Level of Assist: 5 Gait Assistive Device: FWW PT Creative Lead Goals Fdc Goals PT Creative Lead Goals Time Frame: November 29, 2016 Transfers (B,C,W/C) (FIM): 6 (met) Sit to Lying (QC): 6 (met) Lying-Sitting on Side/Bed(QC): 6 (met) Sit to Stand (QC): 6 (met) Rollin (met) Roll Left to Right (QC): 6 (met) Car Transfer (QC): 4 Gait (FIM): 6 (mt) Distance: 800' Walk 10 feet (QC): 6 (met) Walk 10ft-Uneven Surface(QC): 6 (met) Walk 50ft with 2 Turns (QC): 6 (met) Walk 150 ft (QC): 6 (met) Gait Assistive Device: FWW Stairs (FIM): 5 # of Steps: 12 1 Step (curb) (QC): 4 4 Steps (QC): 4 12 Steps (QC): 4 Stairs Level Of Assist: 5 Picking up an Object (QC): 5 PT Plan Problem List Problem List: Activity Tolerance, Functional Strength, Safety, Balance, Gait, Transfer Treatment/Plan Treatment Plan: Continue Plan of Care Treatment Plan: Bed Mobility, Education, Functional Activity Romie, Functional Strength, Group Therapy, Gait, Safety, Therapeutic Exercise, Transfers Treatment Duration: November 29, 2016 Visits Per Week: 10-11 Minutes/Day (M-F): 60-90 Minutes/Day (Sat/[place]): 15-30 Safety Risks/Education Patient Education: Gait Training, Transfer Techniques, Correct Positioning, Safety Issues Teaching Recipient: Patient Teaching Methods: Demonstration, Discussion Response to Teaching: Reinforcement Needed Time/GCodes Time In: 900 Time Out: 925 Total Billed Treatment Time: 25 Total Billed Treatment 1 visit GT 25' SHEREE BRAUN PT November 15, 2016 09:33
[2016-11-15] MEDS: APAP 325 MG/10.15 ML LIQ (TYLENOL) UDC PEG PRN (13:10)
--- NOTE | 2016-11-15 13:32 | Speech Therapy Daily Note ---
Speech Daily Progress Note Subjective The patient was laying in bed upon entrance. The patient made limited eye contact, however, agreed to participate in limited speech pathology treatment ( patient shrugged shoulders and mouthed, "Sure."). Objective At initiation of the session, the patient requested the clinician contact his (communicated via writing). The patient's was contacted and the patient requested her presence at the hospital. Additionally, the patient requested the clinician provide updates to his regarding his upcoming care. Following the phone conversation, the electrolarynx was approached for a third time. The patient agreed to listen to a review, however, continued to refuse consistent practice. Limited review was completed prior to the entrance of RT. RT and the clinician visited with the patient via handwriting. The patient became agitated when asked to re-write message. At this time, the clinician ended her session and allowed RT to perform requested care. The clinician will follow up and complete session as appropriate and able. Assessment Assessment Current Status: Poor Progress Treatment Plan Continue Plan of Care Communication Comprehension: 4 Expression: 2 Social Cognition Social Interaction: 1 Problem Solvin Memory: 3 Speech Short Term Goals Short Term Goals Short Term Goals 1. The patient will demonstrate understanding of electrolarynx parts/supplies. 2. The patient will demonstrate 60% intelligibility with use of the electrolarynx. 3. The patient will demonstrate good placement of the electrolarynx, independently, with greater than 80% accuracy. Time Frame-STG: Two Weeks Speech Detention Goals Review Trainer Goals 1. The patient will demonstrate increased intelligibility (75%) with use of electrolarynx for improved expressive communication. Time Frame: Three Weeks Comprehension: 5 Expression: 3 Social Interaction: 3 Problem Solvin Memory: 5 Speech-Plan Treatment Plan Speech Therapy Treatment Plan: Continue Plan of Care Continue skilled speech therapy to target improved expressive communication via electrolarynx and additional augmentative devices. Treatment Duration: November 29, 2016 # of days/week Four to five. Visits Per Week: Four to five. Minutes/Day (M-F): 30 Rehab Potential: Fair Safety Risks/Education Teaching Recipient: Patient Teaching Methods: Demonstration, Discussion Response to Teaching: Reinforcement Needed Education Topics Provided: Electrolarynx Use and Care Time Speech Therapy Time In: 09:45 Speech Therapy Time Out: 10:05 Total Billed Time: 20 Billed Treatment Time 1, OSMAR SULLIVAN November 15, 2016 13:32
[2016-11-15] MEDS ORDERED: CHLO473M PO (13:51)
[2016-11-15] MEDS ORDERED: AC160U10 PEG (13:51)
[2016-11-15] MEDS ORDERED: ALBU2.5V4 IH (13:51)
[2016-11-15] MEDS ORDERED: OLAN5TAB25 JT (13:51)
[2016-11-15] MEDS ORDERED: Hydrogen Peroxide MC (13:51)
[2016-11-15] MEDS ORDERED: CALC200T2 PEG (13:51)
[2016-11-15] MEDS ORDERED: SULF1TAB35 PO (13:51)
--- NOTE | 2016-11-15 14:48 | Therapy Team Discharge Summary ---
Therapy Discharge Summary Discharge Recommendations Date of Discharge Therapy D/C Recommendations: Home w/ Family Support Speech-Language Pathology The patient was recently admitted to [facility] following a total laryngectomy and pharyngeal fistula repair. Upon admission, the patient demonstrated aphonia secondary to the laryngectomy procedure. Skilled speech pathology intervention focused on augmentative options for expressive, verbal communication (electrolarynx, phone applications) and increased intelligibility of written language. The patient demonstrated minimal participation and motivation throughout treatment stay. The patient did not meet expressive communication goals placed by the clinician. The clinician continues to recommend skilled speech pathology following discharge in attempts to improve communication options. The patient will be discharged from skilled speech pathology services at this time. PT Stratigrapher Goals [facility] Goals PT Stratigrapher Goals Time Frame: November 29, 2016 Transfers (B,C,W/C) (FIM): 6 (met) Roll Left to Right (QC): 6 (met) Sit to Lying (QC): 6 (met) Lying-Sitting on Side/Bed(QC): 6 (met) Sit to Stand (QC): 6 (met) Car Transfer (QC): 4 Gait (FIM): 6 (mt) Distance: 800' Walk 10 feet (QC): 6 (met) Walk 10ft-Uneven Surface(QC): 6 (met) Walk 50ft with 2 Turns (QC): 6 (met) Walk 150 ft (QC): 6 (met) Gait Assistive Device: FWW Stairs (FIM): 5 # of Steps: 12 1 Step (curb) (QC): 4 4 Steps (QC): 4 12 Steps (QC): 4 Stairs Level Of Assist: 5 Picking up an Object (QC): 5 OT [facility] Goals Stratigrapher Goals Time Frame: November 29, 2016 Eating (FIM): 1 Eating (QC): 88 Oral Hygiene (QC): 9 Grooming(FIM): 6 Bathing(FIM): 6 Shower/Bathe Self (QC): 6 Upper Body Dressing(FIM): 6 Upper Body Dressing (QC): 6 Lower Body Dressing(FIM): 6 Lower Body Dressing (QC): 6 On/Off Footwear (QC): 6 Toileting(FIM): 6 Toileting Hygiene (QC): 6 Toilet/Commode Transfer(FIM): 6 Toilet/Commode Transfer (QC): 6 Shower Transfer(FIM): 6 Comprehension(FIM): 5 Expression (FIM): 3 Social Interaction(FIM): 3 Problem Solving(FIM): 4 Memory(FIM): 5 Additional Goals: 1-Demonstrate ADL Tasks, 2-Verbalize Understanding, 3- ImproveStrength/Romie 1=Demonstrate adherence to instructed precautions during ADL tasks. 2=Patient will verbalize/demonstrate understanding of assistive devices/ modifications for ADL. 3=Patient will improve strength/tolerance for activity to enable patient to perform ADL's. Speech [facility] Goals [facility] Goals 1. The patient will demonstrate increased intelligibility (75%) with use of electrolarynx for improved expressive communication. Time Frame: Three Weeks Comprehension: 5 (NOT MET) Expression: 3 (NOT MET) Social Interaction: 3 (NOT MET) Problem Solvin (NOT MET) Memory: 5 (NOT MET) OSMAR CUEVAS November 15, 2016 14:48
[2016-11-15 15:31] VITALS: BP 91/54
--- NOTE | 2016-11-15 16:15 | Therapy Team Discharge Summary ---
Therapy Discharge Summary Discharge Recommendations Date of Discharge Therapy D/C Recommendations: Home w/ Family Support, Jail (TCU/NH) Occupational Therapy Pt was seen for skilled OT to increase his independence in basic self care to allow him to safely return home to live with his . Pt did make progress toward goals and met many of them but at times he limited his participation in therapy. On admission he needed setup or supervision with grooming, bathing, dressing. Min assist toilet transfers and mod assist toileting. He was NPO and had tube feedings. By discharge he was still setup with grooming but mod I with dressing, toileting, bathing. He would not shower. He was able to manage his own tub feeding on one occasion. See tx plan for goals met. Pt was discharged to skilled facility for continued therapy so that he can go home. No specific equipment recommended. DC OT. PT Podiatrist Assistant Goals [facility] Goals PT Podiatrist Assistant Goals Time Frame: November 29, 2016 Transfers (B,C,W/C) (FIM): 6 (met) Roll Left to Right (QC): 6 (met) Sit to Lying (QC): 6 (met) Lying-Sitting on Side/Bed(QC): 6 (met) Sit to Stand (QC): 6 (met) Car Transfer (QC): 4 Gait (FIM): 6 (mt) Distance: 800' Walk 10 feet (QC): 6 (met) Walk 10ft-Uneven Surface(QC): 6 (met) Walk 50ft with 2 Turns (QC): 6 (met) Walk 150 ft (QC): 6 (met) Gait Assistive Device: FWW Stairs (FIM): 5 # of Steps: 12 1 Step (curb) (QC): 4 4 Steps (QC): 4 12 Steps (QC): 4 Stairs Level Of Assist: 5 Picking up an Object (QC): 5 OT Podiatrist Assistant Goals Podiatrist Assistant Goals Time Frame: November 29, 2016 Eating (FIM): 1 (met 5-10-17) Eating (QC): 88 (met 5-10-17) Oral Hygiene (QC): 9 (met 5-10-17) Grooming(FIM): 6 (not met) Bathing(FIM): 6 (met 5-10-17) Shower/Bathe Self (QC): 6 (met 5-10-17) Upper Body Dressing(FIM): 6 (met 17) Upper Body Dressing (QC): 6 (met 11-14-16) Lower Body Dressing(FIM): 6 (met 11-14-16) Lower Body Dressing (QC): 6 (met 11-14-16) On/Off Footwear (QC): 6 (met 11-14-16) Toileting(FIM): 6 (met 11-14-16) Toileting Hygiene (QC): 6 (met 11-14-16) Toilet/Commode Transfer(FIM): 6 (met 11-14-16) Toilet/Commode Transfer (QC): 6 (met 11-14-16) Shower Transfer(FIM): 6 (not met) Comprehension(FIM): 5 (NOT MET) Expression (FIM): 3 (NOT MET) Social Interaction(FIM): 3 (NOT MET) Problem Solving(FIM): 4 (NOT MET) Memory(FIM): 5 (NOT MET) Additional Goals: 1-Demonstrate ADL Tasks, 2-Verbalize Understanding, 3- ImproveStrength/Romie 1=Demonstrate adherence to instructed precautions during ADL tasks. 2=Patient will verbalize/demonstrate understanding of assistive devices/ modifications for ADL. 3=Patient will improve strength/tolerance for activity to enable patient to perform ADL's. Speech Podiatrist Assistant Goals Podiatrist Assistant Goals 1. The patient will demonstrate increased intelligibility (75%) with use of electrolarynx for improved expressive communication. Time Frame: Three Weeks Comprehension: 5 (NOT MET) Expression: 3 (NOT MET) Social Interaction: 3 (NOT MET) Problem Solvin (NOT MET) Memory: 5 (NOT MET) BAKARI PUCKETT OT November 15, 2016 16:15
--- NOTE | 2016-11-15 21:13 | PM & R (SOAP) Progress Note ---
Subjective Subjective/Events-last exam Patient discharged today to Local [facility]U for ongoing care.Case discussed with SW and RN earlier today,Appreciate ST/OT and PT notes as well as Dr Redding notes and current Meds Objective Exam Last Set of Vital Signs Vital Signs Date Time Temp Pulse Resp B/P (MAP) Pulse Ox O2 Delivery O2 Flow Rate FiO2 11/15/16 15:31 82 16 91/54 96 8.00 11/15/16 07:00 30 11/15/16 05:00 97.8 Trach Collar Capillary Refill : I&O Intake and Output 11/15/16 00:00 Intake Total 1410 ml Balance 1410 ml Tube Feeding 250 ml Other 1160 ml # Voids 5 # Bowel Movements 1 General: Alert, Mild Distress HEENT: PERRLA, EOMI, Mucous Memb Moist/[place], Other (uses wtitten notes to communicate but difficult to read at times due to patients essential tremor) Neck: Other (Laryngoscopy tube in place s/p trach and laryngectomy S/P I&D rt ant neck heeematoma with some drainage noted on PO antibiotic) Lungs: Normal Air Movement Heart: Regular Rate Abdomen: Normal Bowel Sounds, Soft, Other (Peg in place) Extremities: No Edema Skin: Other Neuro: Cranial Nerves 3-12 NL Psych/Mental Status: Other (Angyr at times irritable) Results Lab Microbiology 11/07/16 Gram Stain - Final, Complete 11/07/16 Body Fluid Culture - Final, Complete Enterobacter Cloacae Strep Species, Alpha Hemolytic Yeast Species Assessment/Plan Assessment s/p Laryngectomy for [facility] Postop hematoma s/p I&D [facility] rt anterior neck with ANGELO drain out last Night with small amt of Drainage noted on antibiotic with DR Orozco Gen Surgery to see Essential tremor on meds HX Hepatitis C Plan Disharge today to local SNU F/U with Physician there See orders ANDREW CHATMAN MD November 15, 2016 21:13
--- NOTE | 2016-11-16 14:49 | Therapy Team Discharge Summary ---
Therapy Discharge Summary Discharge Recommendations Date of Discharge November 15, 2016 at 14:50 Therapy D/C Recommendations: Home w/ Family Support, Custodial (TCU/NH) Physical Therapy Patient was admitted to rehab following debility from laryngeal cancer. Upon admission patient performed bed mobility with SBA and transfers with CGA, ambulated 400' with a rolling walker with CGA, and go up and down 1 step using a rolling walker with CGA. Patient has been performing bed mobility and transfer training, balance and endurance training, functional strengthening, gait training, stair training, and education. Patient has made fair progress and has met all of his shelter goals. Now, patient performs bed mobility and transfers with mod I, ambulates 500' with a rolling walker with mod I ( including 50' with at least 2 turns of 90 degrees and 10' over an uneven surface ), and can go up and down 12 steps using 2 handrails with SBA. Patient was discharged from this facility and will be discharged from PT at this time. PT Digital Associate Media Director Goals Digital Associate Media Director Goals PT [facility] Goals Time Frame: November 29, 2016 Transfers (B,C,W/C) (FIM): 6 (met) Roll Left to Right (QC): 6 (met) Sit to Lying (QC): 6 (met) Lying-Sitting on Side/Bed(QC): 6 (met) Sit to Stand (QC): 6 (met) Car Transfer (QC): 4 Gait (FIM): 6 (mt) Distance: 800' Walk 10 feet (QC): 6 (met) Walk 10ft-Uneven Surface(QC): 6 (met) Walk 50ft with 2 Turns (QC): 6 (met) Walk 150 ft (QC): 6 (met) Gait Assistive Device: FWW Stairs (FIM): 5 # of Steps: 12 1 Step (curb) (QC): 4 4 Steps (QC): 4 12 Steps (QC): 4 Stairs Level Of Assist: 5 Picking up an Object (QC): 5 OT [facility] Goals Digital Associate Media Director Goals Time Frame: November 29, 2016 Eating (FIM): 1 (met 5-10-17) Eating (QC): 88 (met 5-10-17) Oral Hygiene (QC): 9 (met 5-10-17) Grooming(FIM): 6 (not met) Bathing(FIM): 6 (met 5-10-17) Shower/Bathe Self (QC): 6 (met 11-14-16) Upper Body Dressing(FIM): 6 (met 11-14-16) Upper Body Dressing (QC): 6 (met 11-14-16) Lower Body Dressing(FIM): 6 (met 11-14-16) Lower Body Dressing (QC): 6 (met 11-14-16) On/Off Footwear (QC): 6 (met 11-14-16) Toileting(FIM): 6 (met 11-14-16) Toileting Hygiene (QC): 6 (met 11-14-16) Toilet/Commode Transfer(FIM): 6 (met 11-14-16) Toilet/Commode Transfer (QC): 6 (met 11-14-16) Shower Transfer(FIM): 6 (not met) Comprehension(FIM): 5 (NOT MET) Expression (FIM): 3 (NOT MET) Social Interaction(FIM): 3 (NOT MET) Problem Solving(FIM): 4 (NOT MET) Memory(FIM): 5 (NOT MET) Additional Goals: 1-Demonstrate ADL Tasks, 2-Verbalize Understanding, 3- ImproveStrength/Romie 1=Demonstrate adherence to instructed precautions during ADL tasks. 2=Patient will verbalize/demonstrate understanding of assistive devices/ modifications for ADL. 3=Patient will improve strength/tolerance for activity to enable patient to perform ADL's. Speech Digital Associate Media Director Goals Digital Associate Media Director Goals 1. The patient will demonstrate increased intelligibility (75%) with use of electrolarynx for improved expressive communication. Time Frame: Three Weeks Comprehension: 5 (NOT MET) Expression: 3 (NOT MET) Social Interaction: 3 (NOT MET) Problem Solvin (NOT MET) Memory: 5 (NOT MET) SHEREE BRAUN PT November 16, 2016 14:49
== END 2016-11-15 14:50 | DRG 949 ==
PROVIDERS: ADMIT Physical Medicine & Rehabilitation; ATTEND Physical Medicine & Rehabilitation
DX: Z48.3 Aftercare following surgery for neoplasm (principal); Z85.21 Personal history of malignant neoplasm of larynx; T81.31XA Disruption of external operation (surgical) wound, not elsewhere classified, initial encounter; K70.9 Alcoholic liver disease, unspecified; B19.20 Unspecified viral hepatitis C without hepatic coma; J44.9 Chronic obstructive pulmonary disease, unspecified; G25.0 Essential tremor; Z87.891 Personal history of nicotine dependence
CPT/HCPCS: 36415; 80048; 80053; 85007; 85025; 85027; 87070; 87077; 87186; 87205; 94640; 94760; 94799

== ENCOUNTER → 2016-12-17 | Outpatient (CLI) | payer MEDICARE, OTHER ==
[~2016-12-17] MED LIST changes: +AC160U10 PEG; +ACET160E11 GT; +ALBU2.5V4 IH; +AMOX1TAB12 GT; +BARIUM SUSPENSION 105% (LIQUID POLIBAR PLUS) 240 ML/DOSE PO ONE; +BARIUM SUSPENSION 60% (LIQUID EZ PAQUE) 240 ML DOSE PO ONE; +CALC200T2 PEG; +CALCITRATE 950 MG GT; +CHLO473M PO; +CHOL10007 GT; +DIAZ10TA GT; +DOCU50LI GT; +Hydrogen Peroxide MC; +LEVO50TA6 GT; +MULT240L3 GT; +OLAN5TAB25 JT; +OMEP40CA36 GT; +ONDA4TAB8 PO; +OXYC5SOL19 GT; +SULF1TAB35 PO; +TRAZ-28 GT; +[UNRECOGNIZED DRUG - OTHER] MM
--- NOTE | 2016-12-17 11:57 | Diagnostic Imaging Report ---
EXAMINATION: Barium swallow single contrast. INDICATION: Dysphagia FLUOROSCOPY TIME: One minute and 10 seconds TECHNIQUE: Division Operations Specialist image of the chest was performed. Subsequently, the patient was given thin barium to drink. Swallowing through the esophagus was observed with fluoroscopy and overhead images, as well as multiple spot images in the upright and supine positions, were taken. FINDINGS: Division Operations Specialist image of the chest demonstrate hyperinflation of the lungs and nodular density in the right lung base similar to prior chest radiographs suggestive nipple shadow. Surgical changes and surgical clips in the neck with a tracheostomy tube are seen.. The esophagus is normal in caliber and contour. There is no mucosal abnormality, diverticulum or filling defect to suggest a mass. There is no hiatal hernia demonstrated. IMPRESSION: Unremarkable barium swallow. Dictated by: Dictated on workstation # [id number]
== END | disposition home or self-care (01) ==
LOC: RAD 10:36
PROVIDERS: ATTEND Physician Assistant
DX: C32.9 Malignant neoplasm of larynx, unspecified (principal); R13.10 Dysphagia, unspecified; Z90.02 Acquired absence of larynx
CPT/HCPCS: 74220

== ENCOUNTER 2017-02-07 05:45 | Outpatient (CLI) | payer MEDICARE ==
[~2017-02-07] VITALS: Ht 185.4 cm; Wt 85.3 kg
[~2017-02-07 05:45] MED LIST changes: -ACET160E11 GT; +ACET160E28 GT; -BARIUM SUSPENSION 105% (LIQUID POLIBAR PLUS) 240 ML/DOSE PO ONE; -BARIUM SUSPENSION 60% (LIQUID EZ PAQUE) 240 ML DOSE PO ONE
[2017-02-07] MEDS ORDERED: LEVO100T PO (12:37)
[2017-02-07] MEDS ORDERED: GABA250S5 PO (12:37)
[2017-02-07] MEDS ORDERED: DIAZ10TA3 PO (12:37)
== END 2017-02-07 12:49 ==
LOC: PREOP 05:45
PROVIDERS: ATTEND Surgery
DX: Z01.818 Encounter for other preprocedural examination (principal); C32.9 Malignant neoplasm of larynx, unspecified

== ENCOUNTER 2017-02-11 10:09 | Day surgery (SDC) | payer MEDICARE, OTHER ==
[~2017-02-11] VITALS: Ht 185.4 cm; Wt 85.3 kg
[~2017-02-11 10:09] MED LIST changes: +DIAZ10TA3 PO; +GABA250S5 PO; +LEVO100T PO
[2017-02-11 10:15] VITALS: BP 108/70
[2017-02-11] MEDS ORDERED: NS IV 500 ML 500 ML IV ONE (10:15)
--- NOTE | 2017-02-11 11:35 | History & Physicial ---
History of Present Illness History of Present Illness Reason for visit/HPI for endoscopic removal of an existing PEG tube due to resumption of normal for intake. Date of Admission Date Seen by Provider: Feb 11, 2017 Time Seen by Provider: 11:34 I consulted on this patient on 02/11/17 11:34 Attending Physician Cresencio Felder MD Admitting Physician Tyler Mcdonald MD Consult Allergies and Home Medications Allergies Coded Allergies: No Known Drug Allergies (Unverified , 02/07/17) Home Medications Diazepam 10 Mg Tablet, 10 MG GT BID, (Reported) Diazepam 10 Mg Tablet, 10 MG PO BID, (Reported) Gabapentin 250 Mg/5 Ml Solution, 15 ML PO PRN, (Reported) Levothyroxine Sodium 100 Mcg Tablet, 100 MCG PO DAILY, (Reported) Oxycodone HCl 5 Mg/5 Ml Solution, 5-10 ML GT Q4H PRN for PAIN-SEVERE, (Reported) Past Fienyur-Bbaiqp-Cunrua Hx Patient Social History Marrital Status: Employed/Student: retired Alcohol Use: Denies Use Recreational Drug Use: No Smoking Status: Current Everyday Smoker Type Used: Electronic/Vapor 2nd Hand Smoke Exposure: No Recent Foreign Travel: No Contact w/other who traveled: No Recent Hopitalizations: No Recent Infectious Disease Expo: No Immunizations Up To Date Date of Pneumonia Vaccine: Mar 08, 2016 Date of Influenza Vaccine: Apr 10, 2016 Seasonal Allergies Seasonal Allergies: No Surgeries HX Surgeries: Yes (Back surgery, PEG, TEETH PULLED, laryngectomy, radical neck dissection) Surgeries: Tracheostomy Respiratory Hx Respiratory Disorders: No Cardiovascular Hx Cardiovascular Disorders: No Neurological Hx Neurological Disorders: No Reproductive System Hx Reproductive Disorders: No Sexually Transmitted Disease: No HIV/AIDS: No Genitourinary Hx Genitourinary Disorders: No Gastrointestinal Hx Gastrointestinal Disorders: Yes Gastrointestinal Disorders: Hepatitis Musculoskeletal Hx Musculoskeletal Disorders: Yes Musculoskeletal Disorders: Chronic Back Pain Endocrine Hx Endocrine Disorders: Yes HEENT HX ENT Disorders: Yes (READING GLASSES) HEENT Disorders: Cataract Loss of Vision: Bilateral Hearing Impairment: Denies Cancer Hx Cancer: Yes (Laryngeal) Psychosocial Hx Psychiatric Problems: No Integumentary HX Skin/Integumentary Disorder: No Blood Transfusions Hx Blood Disorders: No Adverse Reaction to a Blood Tr: No (N/AN) Constitutional: malaise EENTM: no symptoms reported Respiratory: cough Cardiovascular: no symptoms reported Genitourinary: no symptoms reported Musculoskeletal: no symptoms reported Skin: no symptoms reported Psychiatric/Neurological: Anxiety Physical Exam Vital Signs Vital Sign - Last 12Hours 02/11/17 10:15 Temp 97.8 Pulse 59 Resp 18 B/P (MAP) 108/70 Pulse Ox 95 Capillary Refill : General Appearance: No Apparent Distress HEENT: Normal ENT Inspection Neck: Normal Inspection Respiratory: Lungs Clear Cardiovascular: Regular Rate, Rhythm Gastrointestinal: Soft Neurologic/Psychiatric: Alert, Oriented x3 Skin: Warm/Dry Assessment/Plan Assessment and Plan gentleman with resected laryngeal carcinoma. Oral intake satisfactory and therefore PEG tube to be removed endoscopically. Problems: CRESENCIO FELDER MD Feb 11, 2017 11:35 am
--- NOTE | 2017-02-11 11:36 | Conscious Sedation/ASA ---
Conscious Sedation Pre-Proced Time Reviewed: 11:36 ASA Class: 3 Airway Mallampati Classification: ([place] appropriate class) I. II. III, IV Lungs Heart ASA score ASA 1: a normal healthy patient ASA 2: a patient with a mild systemic disease (mid diabetes, controlled hypertension, obesity ASA 3: a patient with a severe systemic disease that limits activity (angina , COPD, prior Myocardial infarction) ASA 4: a patient with an incapacitating disease that is a constant threat to life (CHF, renal failure) ASA 5: a moribund patient not expected to survive 24 hrs. (ruptured aneurysm) ASA 6: a declared brain patient whose organs are being harvested. For emergent operations, add the letter E after the classification Grade 2 Sedation Plan: Discussed options with patient/fam Note The patient is an appropriate candidate to undergo the planned procedure, sedation, and anesthesia. The patient immediately re-assessed prior to indication. CRESENCIO FELDER MD Feb 11, 2017 11:36 am
[2017-02-11] MEDS ORDERED: MIDAZOLAM 2 MG/2 ML (VERSED) VIAL ONE ×4 (11:51)
[2017-02-11] MEDS ORDERED: fentaNYL INJECTION 100 MCG/2 ML AMP ONE (11:51)
[2017-02-11] MEDS ORDERED: HURRICAINE EXT TUBE (BENZOCAINE) ONE (11:52)
[2017-02-11] MEDS: fentaNYL INJECTION 100 MCG/2 ML AMP IVP PRN ×2 (12:07→12:09)
[2017-02-11] MEDS: MIDAZOLAM 2 MG/2 ML (VERSED) VIAL IVP PRN ×3 (12:08→12:12)
[2017-02-11 12:40] VITALS: BP 102/76
[2017-02-11 13:00] VITALS: BP 115/76
[2017-02-11] MEDS ORDERED: HURRICAINE EXT TUBE (BENZOCAINE) XX ONE (13:00)
--- NOTE | 2017-02-11 13:04 | Endo Procedure Record ---
Endo Procedure Report Date of Procedure Feb 11, 2017 Surgeon (s) CRESENCIO FELDER MD Post Procedure/Op Diagnosis same Procedure Performed EGD with removal of PEG tube Description of Procedure Anesthesia Type: Conscious Sedation Specimen(s) collected/removed none Description of the Procedure Indication for procedure: This gentleman has undergone laryngectomy and is currently able to eat normally. Once his nutritional status was confirmed to be stable, it was elected to remove his PEG tube under endoscopic guidance. Informed consent was obtained after reviewing the procedure in detail. Description of the procedure: He was placed supine on the gurney and conscious sedation achieved using Versed and fentanyl. The flexible gastroscope was introduced down the esophagus into the stomach. The balloon of the PEG tube was deflated and the tube removed under direct endoscopic visualization. He tolerated the procedure well and was taken back to the nursing area in a stable condition. CRESENCIO FELDER MD Feb 11, 2017 1:03 pm
[2017-02-11 13:10] VITALS: BP 115/76
== END 2017-02-11 13:10 | disposition home or self-care (01) ==
LOC: ENDO 10:09
PROVIDERS: ATTEND Surgery
DX: Z08 Encounter for follow-up examination after completed treatment for malignant neoplasm (principal); Z85.21 Personal history of malignant neoplasm of larynx; Z90.02 Acquired absence of larynx; F41.9 Anxiety disorder, unspecified; F17.210 Nicotine dependence, cigarettes, uncomplicated

== ENCOUNTER 2017-03-01 09:49 | Day surgery (SDC) | payer OTHER ==
[~2017-03-01] VITALS: Ht 185.4 cm; Wt 85.3 kg
--- OUTSIDE RECORDS SUMMARY | 2017-03-01 09:59 | XMS REPORT | Encounter Summary ---
Author Author [facility] Organization [facility] Address Unknown Phone Unavailable Care Team Providers Care Rug Cleaner Hand Name Role Phone PCP Unavailable Encounter Details Date Type Department Care Team Description 12/18/2016 Ancillary Rad Outpatient, Radiologist Diagnosis unknown Orders [address] (Primary Dx) [place], [place] [id number] Social History Tobacco Use Types Packs/Day Years Used Date Former Smoker 0.5 51 Smokeless Tobacco: Never Used Comments: 1 pack every 24hr Alcohol Use Drinks/Week oz/Week Comments No 0 Standard 0.0 Denies ETOH use. drinks or equivalent Sex Assigned at Date Recorded Not on file as of this encounter Functional Status Functional Status Response Date of Assessment Does the patient have a hearing impairment: No 11/03/2016 as of this encounter Plan of Treatment Not on fileas of this encounter Results * GENERAL RAD [facility] EXTERNAL IMAGING (12/17/2016) Narrative This order has been auto finalized and does not contain a result. in this encounter Visit Diagnoses Diagnosis Diagnosis unknown - Primary Other unknown and unspecified cause of morbidity or mortality in this encounter
--- OUTSIDE RECORDS SUMMARY | 2017-03-01 09:59 | XMS REPORT | Encounter Summary ---
Author Author [facility] Organization [facility] Address Unknown Phone Unavailable Care Team Providers Care Student Services Advisor Name Role Phone PCP Unavailable Reason for Visit * Reason Comments Results Encounter Details Date Type Department Care Team Description 12/17/2016 Telephone [facility] Kathe Dunlap, Results Physicians - E[facility] PA-C [address] [place] [address] [address] FLO[address] POD [address] [phone] [place] [address] Social History Tobacco Use Types Packs/Day Years [...] Treatment Not on fileas of this encounter Visit Diagnoses Not on filein this encounter
--- OUTSIDE RECORDS SUMMARY | 2017-03-01 09:59 | XMS REPORT | Encounter Summary ---
Author Author [facility] Organization [facility] Address Unknown Phone Unavailable Care Team Providers Care Powdered Sugar Supervisor Name Role Phone PCP Unavailable Encounter Details Date Type Department Care Team Description 12/17/2016 Hospital [facility] Encounter Hospital Radiology [address]LO[address] [place], [place] [id number] Social History Tobacco Use Types Packs/Day Years [...] impairment: No 11/03/2016 as of this encounter Medications at Time of Discharge Medication Sig. Disp. Refills Start Date End Date acetaminophen (TYLENOL) 20.3 mL every 6 hours as 240 mL 0 09/18/2016 160 mg/5 mL oral solution needed. Max of 4,000 mg of acetaminophen in 24 hours.Per Gtube antiseptic mucus solvent 6-12 mL by Mucous 09/18/2016 120 mL Membrane route every 1 hour as needed. calcium citrate 2 Tabs by PEG Tube route 90 Tab 0 11/06/2016 (CALCITRATE) 950 mg tab three times daily with meals. Please take the follow calcium taper2 tab PO TID x 1 week THEN2 TAB PO BID x 1 week THEN2 tab PO Qday x 1 week THEN OFF cholecalciferol (VITAMIN Take 1 Tab by mouth 90 Tab 0 10/22/2016 D-3) 1,000 units tablet daily. Per Gtube diazePAM (VALIUM) 10 mg Take 1 Tab by mouth twice 11/06/2016 tablet daily. Per Gtube levothyroxine (SYNTHROID) Take 1 Tab via feeding 30 Tab 2 12/10/2016 50 mcg tablet tube daily. Hold tube feeds 1hr before and 1hr after dose oxyCODONE (ROXICODONE) 1 Take 5-10 mL by mouth 400 mL 0 12/10/2016 mg/mL oral solution every 4 hours as needed Per Gtube traZODone (DESYREL) 50 mg Take 1 Tab by mouth at 30 Tab 0 10/22/2016 tablet bedtime daily. Per PEG vitamins, multi w/iron Take 15 mL by mouth 450 mL 1 10/22/2016 (CERTAVITE) oral solution daily. Per PEG as of this encounter Plan of Treatment Not on fileas of this encounter Results * [facility] [place] [facility] [place] (12/17/2016) Narrative This order has been auto finalized and does not contain a result. in this encounter Visit Diagnoses Diagnosis Diagnosis unknown Other unknown and unspecified cause of morbidity or mortality in this encounter
--- OUTSIDE RECORDS SUMMARY | 2017-03-01 09:59 | XMS REPORT | Clinical Summary ---
Author Author [facility] Organization [facility] Address Unknown Phone Unavailable Care Team Providers Care Miller Head Name Role Phone PCP Unavailable Source Comments Some departments are not documenting in the electronic medical record. If you do not see the information that you expected, contact Release of Information in the Health Information Management department at [phone] for further assistance in locating additional records.[facility] Allergies No Known Allergies Current Medications Prescription Sig. Disp. Refills Start End Date Status Date antiseptic mucus solvent 6-12 mL by Mucous 09/19/19 Active 120 mL Membrane route every 1 17 hour as needed. acetaminophen (TYLENOL) 20.3 mL every 6 hours as 240 mL 0 09/19/19 Active 160 mg/5 mL oral solution needed. Max of 4,000 mg 17 of acetaminophen in 24 hours.Per Gtube vitamins, multi w/iron Take 15 mL by mouth 450 mL 1 10/23/19 Active (CERTAVITE) oral solution daily. Per PEG 17 traZODone (DESYREL) 50 mg Take 1 Tab by mouth at 30 Tab 0 10/23/19 Active tablet bedtime daily. Per PEG 17 cholecalciferol (VITAMIN Take 1 Tab by mouth 90 Tab 0 10/23/19 Active D-3) 1,000 units tablet daily. Per Gtube 17 diazePAM (VALIUM) 10 mg Take 1 Tab by mouth twice 11/07/19 Active tablet daily. Per Gtube 17 calcium citrate 2 Tabs by PEG Tube route 90 Tab 0 11/07/19 Active (CALCITRATE) 950 mg tab three times daily with 17 meals. Please take the follow calcium taper2 tab PO TID x 1 week THEN2 TAB PO BID x 1 week THEN2 tab PO Qday x 1 week THEN OFF oxyCODONE (ROXICODONE) 1 Take 5-10 mL by mouth 400 mL 0 12/11/19 Active mg/mL oral solution every 4 hours as needed 17 Per Gtube levothyroxine (SYNTHROID) Take 1 Tab via feeding 30 Tab 2 12/11/19 Active 50 mcg tablet tube daily. Hold tube 17 feeds 1hr before and 1hr after dose Active Problems Problem Noted Date Normocytic anemia 11/02/2016 S/P laryngectomy 11/01/2016 Oropharyngeal bleeding 11/01/2016 Dysphagia 09/12/2016 Hypokalemia 09/12/2016 Hypomagnesemia 09/12/2016 Acute respiratory failure (HCC) 09/11/2016 Shortness of breath at rest 09/11/2016 Squamous cell carcinoma of larynx (HCC) 08/14/2016 Status post radiation therapy 08/14/2016 Laryngeal mass 04/02/2016 GERD without esophagitis 10/20/2014 Itching 10/20/2014 Tobacco abuse 10/06/2013 Fatty liver 10/06/2013 Hepatitis C 03/16/2013 Anxiety 03/16/2013 Chronic lung disease Essential tremor Encounters Date Type Specialty Care Team Description 02/28/2017 Orders Only Otolaryngology Chelo Wilson LPN Squamous cell carcinoma of larynx (HCC);Dysphagia, unspecified type;S/P laryngectomy 02/26/2017 Orders Only Otolaryngology Chelo Wilson LPN Squamous cell carcinoma of larynx (HCC);S/P laryngectomy;S/P percutaneous endoscopic gastrostomy (PEG) tube placement (HCC);Status post radiation therapy 01/16/2017 Telephone Oncology Francia Mckeon MD Navigation Follow Up 01/15/2017 Office Visit Otolaryngology Francia Mckeon MD Squamous cell carcinoma of larynx (HCC) (Primary Dx);Oropharyngeal dysphagia;S/P laryngectomy;Severe shoulder pain, right;Status post radiation therapy;S/P percutaneous endoscopic gastrostomy (PEG) tube placement (HCC) 12/18/2016 Ancillary Radiology Outpatient, Radiologist Diagnosis unknown Orders (Primary Dx) 12/17/2016 Hospital Radiology Encounter 12/17/2016 Telephone Otolaryngology Kathe Dunlap, Casi PA-C 12/11/2016 Telephone Otolaryngology Francia Mckeon MD Navigation Follow Up 12/10/2016 Hospital Radiology Kathe Dunlap, Encounter PA-C 12/10/2016 Office Visit Otolaryngology Kathe Dunalp, Squamous cell carcinoma PALashanda of larynx (HCC) (Primary Dx);Dysphagia, unspecified type;S/P laryngectomy from Last 3 Months Immunizations Name Dates Previously Given Next Due Flu Vaccine 04/07/2016 Quadrivalent=>3 Yo (Preservative Free) Family History Medical History Relation Name Comments Cancer Father Diabetes Mother Relation Name Status Comments Father Mother Social History Tobacco Use Types Packs/Day Years Used Date Former Smoker 0.5 51 Smokeless Tobacco: Never Used Tobacco Cessation: Ready to Quit: Yes Comments: 1 pack every 24hr Alcohol Use Drinks/Week oz/Week Comments No 0 Standard 0.0 Denies ETOH use. drinks or equivalent Sex Assigned at Date Recorded Not on file Last Filed Vital Signs Vital Sign Reading Time Taken Blood Pressure 129/76 01/15/2017 11:52 AM CDT Pulse 67 01/15/2017 11:52 AM CDT Temperature 37 C (98.6 F) 11/06/2016 10:15 AM CDT Respiratory Rate 20 10/18/2014 2:25 PM CDT Oxygen Saturation 94% 11/06/2016 10:15 AM CDT Inhaled Oxygen - - Concentration Weight 84.5 kg (186 lb 3.2 oz) 01/15/2017 11:52 AM CDT Height 188 cm (6' 2") 01/15/2017 11:52 AM CDT Body Mass Index 23.91 01/15/2017 11:52 AM CDT Plan of Treatment Health Maintenance Due Date Last Done Comments PHYSICAL (COMPREHENSIVE) 1961 EXAM PERTUSSIS VACCINE 1965 TETANUS VACCINE 11/16/1971 COLORECTAL CANCER 2004 SCREENING SHINGLES VACCINE 2014 INFLUENZA VACCINE 03/08/2017 04/07/2016 Implants Implanted Type Area Disaster Or Damage Control Specialist Device Expiration Model / Identifier Date Serial / Lot Device Closure 70cm 6fr Angio-Seal Right: [employer] [id number] / Vip .035in Vascular - S. Femoral [id number] . / Implanted: Qty: 1 on 11/01/2016 by Artery [id number] Parminder Jordan MD Particles Embolization Kit Liquid Tongue JandJ: JOSEFINA [id number] / System Trufill Nbca 1gm - S. NEUROVASCULAR [id number] . / Implanted: Qty: 1 on 11/01/2016 by [id number] Parminder Jordan MD Results * GENERAL RAD MISC EXTERNAL IMAGING (12/17/2016) Narrative This order has been auto finalized and does not contain a result. * IR GASTROSTOMY (12/10/2016 2:49 PM) Specimen Performing Laboratory [facility] Narrative This IR procedure does not require a dictated result. from Last 3 Months
--- OUTSIDE RECORDS SUMMARY | 2017-03-01 09:59 | XMS REPORT | Encounter Summary ---
Author Author [facility] Organization [facility] Address Unknown Phone Unavailable Care Team Providers Care Plug Drill Operator Name Role Phone PCP Unavailable Encounter Details Date Type Department Care Team Description 02/28/2017 Orders Only [facility] Chelo Wilson LPN Squamous cell carcinoma [facility] of larynx [address] ([facility]);Dysphagia, OFFICE BLDG unspecified type;S/P 3RD [place]OR [place] [address] Social History Tobacco Use Types [...] on fileas of this encounter Visit Diagnoses Diagnosis Squamous cell carcinoma of larynx (HCC) Malignant neoplasm of larynx, unspecified site Dysphagia, unspecified type S/P laryngectomy Other postprocedural status in this encounter
--- OUTSIDE RECORDS SUMMARY | 2017-03-01 09:59 | XMS REPORT | Continuity of Care Document ---
Author Author [facility] Organization [facility] Address Unknown Phone Unavailable Care Team Providers Care Filter Cloth Maker Name Role Phone [employer] Unavailable Unavailable Problems Medications Allergies, Adverse Reactions, Alerts Immunizations Results Vital Signs Encounters Location Location Details Encounter Type Encounter Number Reason For Visit Attending Provider ADM Date DC Date Status Source O Active [facility] Procedures Plan of Care Social History Assessment and Plan Family History Value Date Source Advance Directives Order Name Results Value Date Source
--- OUTSIDE RECORDS SUMMARY | 2017-03-01 09:59 | XMS REPORT | Encounter Summary ---
Author Author [facility] Organization [facility] Address Unknown Phone Unavailable Care Team Providers Care Supervisor Cook Room Name Role Phone PCP Unavailable Reason for Visit * Reason Comments Navigation Follow Up Encounter Details Date Type Department Care Team Description 01/16/2017 Telephone [facility] Francia Mckeon MD Navigation Follow Up [facility] - OP Exam [address] [address] [place] [address] [phone] Social History Tobacco Use Types Packs/Day Years [...]
--- OUTSIDE RECORDS SUMMARY | 2017-03-01 09:59 | XMS REPORT | Encounter Summary ---
Author Author [facility] Organization [facility] Address Unknown Phone Unavailable Care Team Providers Care Physician Recruiter Name Role Phone PCP Unavailable Reason for Referral * Radiology Services Status Reason Specialty Diagnoses / Referred By Referred To Procedures Contact Contact New Request Radiology Diagnoses Schmittgens, Squamous cell Kathe, PA-C carcinoma of [address]arynx ([address]CC) [address]vd [place] radiation [address] therapy Phone: P [phone] rocedures Fax: CT CHEST W [phone] CONTRAST * Radiology Services Status Reason Specialty Diagnoses / Referred By Referred To Procedures Contact Contact New Request Radiology Diagnoses Schmittgens, Squamous cell Kathe, PA-C carcinoma of [address]arynx ([address]CC) [address] [place] radiation [address] therapy Phone: P [phone] rocedures Fax: CT NECK [phone] W/CONTRAST * Radiology Services Status Reason Specialty Diagnoses / Referred By Referred To Procedures Contact Contact New Request Radiology Diagnoses Francia Mckeon, Squamous cell carcinoma of [address] ([address]CC[address] S/P laryngectomy [address] S/P percutaneous [place] endoscopic [address] gastrostomy Phone: (PEG) tube [phone] placement (HCC) Fax: P [phone] rocedures IR GASTROSTOMY Encounter Details Date Type Department Care Team Description 02/26/2017 Orders Only [facility] Chelo Wilson LPN Squamous cell carcinoma [facility] of larynx ([facility]);S/P [address] laryngectomy;S/P OFFICE BLDG percutaneous endoscopic 3RD FLOOR POD C gastrostomy (PEG) tube [place], [place] placement (HCC);Status [id number] post radiation therapy [phone] Social History Tobacco Use Types Packs/Day Years [...] as of this encounter Plan of Treatment Name Priority Associated Diagnoses Date/Time CT CHEST W CONTRAST Routine Squamous cell carcinoma 02/26/2017 12:00 AM CDT of larynx (HCC) Status post radiation therapy as of this encounter Visit Diagnoses Diagnosis Squamous cell carcinoma of larynx (HCC) Malignant neoplasm of larynx, unspecified site S/P laryngectomy Other postprocedural status S/P percutaneous endoscopic gastrostomy (PEG) tube placement (HCC) Status post radiation therapy Convalescence following radiotherapy in this encounter
--- OUTSIDE RECORDS SUMMARY | 2017-03-01 09:59 | XMS REPORT | Encounter Summary ---
Author Author [facility] Organization [facility] Address Unknown Phone Unavailable Care Team Providers Care Patient Transport Orderly Name Role Phone PCP Unavailable Reason for Visit * Reason Comments Navigation Follow Up Encounter Details Date Type Department Care Team Description 12/11/2016 Telephone [facility] Francia Mckeon MD Navigation Follow Up [facility] [address] [place] [address] 3RD FLOOR POD C [phone] [place] [address] Social History Tobacco Use Types [...]
--- OUTSIDE RECORDS SUMMARY | 2017-03-01 09:59 | XMS REPORT | Encounter Summary ---
Author Author [facility] Organization [facility] Address Unknown Phone Unavailable Care Team Providers Care Truck Driving Name Role Phone PCP Unavailable Reason for Referral * Radiology Services Status Reason Specialty Diagnoses / Referred By Referred To Procedures Contact Contact New Request Radiology Diagnoses Francia Mckeon, Squamous cell carcinoma of [address] ([address]CC) [address] S/P laryngectomy [address] S/P percutaneous [place] endoscopic [address] gastrostomy Phone: (PEG) tube [phone] placement (HCC) Fax: P [phone] rocedures IR GASTROSTOMY * Consult, Test & Treat Status Reason Specialty Diagnoses / Referred By Referred To Procedures Contact Contact Denied Specialty Anesthesia Pain Diagnoses Francia Mckeon, Spn Anesthesia Services Squamous cell Pain Cl Required carcinoma of [address] larynx (HCC) Blvd KELSI A JOSEPH Oropharyngeal [address] COMPREHENSIVE SPN dysphagia [place], [place] CNTR S/P laryngectomy [address] [place], [place] Severe shoulder Phone: [phone] pain, right [phone] Phone: * Consult, Test & Treat Status Reason Specialty Diagnoses / Referred By Referred To Procedures Contact Contact New Request Specialty Speech Therapy Diagnoses Francia Mckeon, Services Squamous cell MD Required carcinoma of [address] ([address]CC) [address] Oropharyngeal [address] dysphagia [place] S/P laryngectomy [address] * Radiology Services Status Reason Specialty Diagnoses / Referred By Referred To Procedures Contact Contact New Request Radiology Diagnoses Francia Mckeon Squamous cell MD carcinoma of [address]arynx (HCC) [address] Oropharyngeal [address] dysphagia [place], [place] S/P laryngectomy [address] P Phone: [employer] [phone] CT CHEST W Fax: CONTRAST [phone] * Radiology Services Status Reason Specialty Diagnoses / Referred By Referred To Procedures Contact Contact New Request Radiology Diagnoses Francia Mckeon Squamous cell MD carcinoma of [address]arynx (HCC) [address] Oropharyngeal [address] dysphagia [place] S/P laryngectomy [address] P Phone: rocedures [phone] CT NECK Fax: W/CONTRAST [phone] Reason for Visit * Reason Comments Follow Up Encounter Details Date Type Department Care Team Description 01/15/2017 Office Visit [facility] Francia Mckeon MD Squamous cell carcinoma [facility] [address] of larynx (HCC) (Primary [address] [place] [address] Dx);Oropharyngeal [place] [address] dysphagia;S/P 3RD FLOOR POD C [phone] laryngectomy;Severe [place] shoulder pain, [phone] right;Status post [phone] radiation therapy;S/P percutaneous endoscopic gastrostomy (PEG) tube placement ([facility]) Social History Tobacco Use Types Packs/Day Years Used Date Former Smoker 0.5 51 Smokeless Tobacco: Never Used Comments: 1 pack every 24hr Alcohol Use Drinks/Week oz/Week Comments No 0 Standard 0.0 Denies ETOH use. drinks or equivalent Sex Assigned at Date Recorded Not on file as of this encounter Last Filed Vital Signs Vital Sign Reading Time Taken Blood Pressure 129/76 01/15/2017 11:52 AM CDT Pulse 67 01/15/2017 11:52 AM CDT Temperature - - Respiratory Rate - - Oxygen Saturation - - Inhaled Oxygen - - Concentration Weight 84.5 kg (186 lb 3.2 oz) 01/15/2017 11:52 AM CDT Height 188 cm (6' 2") 01/15/2017 11:52 AM CDT Body Mass Index 23.91 01/15/2017 11:52 AM CDT in this encounter Functional Status Functional Status Response Date of Assessment Does the patient have a hearing impairment: No 11/03/2016 as of this encounter Progress Notes * Francia Mckeon MD - 01/15/2017 11:53 AM CDT Formatting of this note may be different from the original. Date of Service: 01/15/2017 Subjective: Olayinka Garrison Sr. is a 61 y.o. male. 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 Patient's last swallowing study shows no fistula. Patient today says that he is swallowing normally with no diet restrictions. Patient only complains of burning pain over the right shoulder and numbness in the left little finger. History of Present Illness Review of Systems Constitutional: Negative. HENT: Negative. Eyes: Negative. Respiratory: Negative. Cardiovascular: Negative. Gastrointestinal: Negative. Endocrine: Negative. Genitourinary: Negative. Musculoskeletal: Positive for neck pain. Skin: Negative. Allergic/Immunologic: Negative. Neurological: Positive for numbness (PINKY FINGER ON LEFT). Hematological: Negative. Psychiatric/Behavioral: Negative. Objective: acetaminophen (TYLENOL) 160 mg/5 mL oral solution 20.3 mL every 6 hours as needed. Max of 4,000 mg of acetaminophen in 24 hours. Per Gtube antiseptic mucus solvent 120 mL 6-12 mL by Mucous Membrane route every 1 hour as needed. calcium citrate (CALCITRATE) 950 mg tab 2 Tabs by PEG Tube route three times daily with meals. Please take the follow calcium taper 2 tab PO TID x 1 week THEN 2 TAB PO BID x 1 week THEN 2 tab PO Qday x 1 week THEN OFF cholecalciferol (VITAMIN D-3) 1,000 units tablet Take 1 Tab by mouth daily. Per Gtube diazePAM (VALIUM) 10 mg tablet Take 1 Tab by mouth twice daily. Per Gtube levothyroxine (SYNTHROID) 50 mcg tablet Take 1 Tab via feeding tube daily. Hold tube feeds 1hr before and 1hr after dose oxyCODONE (ROXICODONE) 1 mg/mL oral solution Take 5-10 mL by mouth every 4 hours as needed Per Gtube traZODone (DESYREL) 50 mg tablet Take 1 Tab by mouth at bedtime daily. Per PEG vitamins, multi w/iron (CERTAVITE) oral solution Take 15 mL by mouth daily. Per PEG Filed Vitals: 01/15/17 1152 BP: 129/76 Pulse: 67 Height: 188 cm (74") Weight: 84.46 kg (186 lb 3.2 oz) Body mass index is 23.9 kg/(m^2). Physical Exam Constitutional: He is oriented to person, place, and time. He appears well- developed and well-nourished. HENT: Head: Normocephalic and atraumatic. Right Ear: External ear normal. Left Ear: External ear normal. Nose: Nose normal. Mouth/Throat: Oropharynx is clear and moist. Neck: Normal range of motion. Neck supple. No masses felt. Tracheostomy stoma looks patent with no masses or crusts. Pulmonary/Chest: Effort normal. Musculoskeletal: Normal range of motion. Neurological: He is alert and oriented to person, place, and time. Skin: Skin is warm and dry. Psychiatric: He has a normal mood and affect. His behavior is normal. Judgment and thought content normal. Laryngeal Endoscopic Examination: After obtaining verbal consent, a flexible fiberoptic laryngoscope was inserted into the right nasal cavity. The nasal anatomy is normal without mass or mucosal lesion. The laryngoscope was then passed into the nasopharynx, which showed normal eustachian tube openings. The fossae of Rosenmller were clear with normal elevation of the soft palate and were without any evidence of masses or lesions. Passing the flexible scope into the oropharynx and hypopharynx revealed that the base of tongue and vallecula were without lesions. The pectoralis major flap appeared viable with no masses or abnormalities in the neopharynx. The fiberoptic endoscopy was done through the tracheostomy stoma and the trachea appeared normal with no masses detected up the willard. The patient tolerated the procedure well without complications. Assessment and Plan: appears to be doing well in his follow up. I would recommend following up after 3 months and doing a new CT H&N with contrast just prior to that. Meanwhile we will consult speech service for managing his speech using electrolarynx and for pain management for his right shoulder pain. ATTESTATION I personally performed the shah portions of the E/M visit, discussed case with resident and concur with resident documentation of history, physical exam, assessment, and treatment plan unless otherwise noted. MELITA Garrison Sr. is a 61 y.o. male. 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 Patient's last swallowing study shows no fistula. Exam: Well healed surgical flaps, patent stoma. Flexible laryngoscopy reveals clear neopharynx and no suspicious lesions. Trachea clear to willard. Assessment: CHUNG Plan: restaging CT neck and Chest prior to next visit OK to remove PEG Pain management referral Staff name: Francia Mckeon MD Date: 01/15/2017 in this encounter Plan of Treatment Name Priority Associated Diagnoses Order Schedule CT NECK W/CONTRAST Routine Squamous cell carcinoma Expected: 01/15/2017 of larynx (HCC) (Approximate), Expires: Oropharyngeal dysphagia 01/15/2018 S/P laryngectomy CT CHEST W CONTRAST Routine Squamous cell carcinoma Expected: 01/15/2017 of larynx (HCC) (Approximate), Expires: Oropharyngeal dysphagia 01/15/2018 S/P laryngectomy IR GASTROSTOMY Routine Squamous cell carcinoma Expected: 01/15/2017 of larynx (HCC) (Approximate), Expires: S/P laryngectomy 01/15/2018 S/P percutaneous endoscopic gastrostomy (PEG) tube placement ([facility]) Name Priority Associated Diagnoses Order Schedule AMB REFERRAL TO SPEECH THERAPY Routine Squamous cell carcinoma Ordered: 01/15/2017 of larynx (HCC) Oropharyngeal dysphagia S/P laryngectomy AMB REFERRAL FOR ANESTHESIA PAIN Routine Squamous cell carcinoma Ordered : 01/15/2017 MANAGEMENT of larynx (HCC) Oropharyngeal dysphagia S/P laryngectomy Severe shoulder pain, right as of this encounter Visit Diagnoses Diagnosis Squamous cell carcinoma of larynx (HCC) - Primary Malignant neoplasm of larynx, unspecified site Oropharyngeal dysphagia Dysphagia, oropharyngeal phase S/P laryngectomy Other postprocedural status Severe shoulder pain, right Status post radiation therapy Convalescence following radiotherapy S/P percutaneous endoscopic gastrostomy (PEG) tube placement (HCC) in this encounter
--- OUTSIDE RECORDS SUMMARY | 2017-03-01 10:00 | XMS REPORT | Encounter Summary ---
Author Author [facility] Organization [facility] Address Unknown Phone Unavailable Care Team Providers Care Pole Inspector Name Role Phone PCP Unavailable Reason for Referral * Radiology Services Status Reason Specialty Diagnoses / Referred By Referred To Procedures Contact Contact No Auth Needed Radiology Diagnoses Arsh Dunlap Ir Squamous cell CARLOZ Archuleta [address] carcinoma of [address] larynx (HCC) Blvd [place], [place] Dysphagia, [place] [address] unspecified type [id number] Phone: S/P laryngectomy P [phone] rocedures Fax: IR GASTROSTOMY [phone] [place] INSERT GASTROSTOMY TUBE PERCUTANEOUS * Radiology Services Status Reason Specialty Diagnoses / Referred By Referred To Procedures Contact Contact New Request Radiology Diagnoses Fabi Squamous cell CARLOZ Archuleta carcinoma of [address]arynx ([address]CC) [address]vd Dysphagia, [place], [place] unspecified type [id number] S/P laryngectomy Phone: P [phone] rocedures Fax: ESOPHAGRAM [phone] Reason for Visit * Reason Comments Post Operative Visit Encounter Details Date Type Department Care Team Description 12/10/2016 Office Visit [facility] Kathe Dunlap Squamous cell carcinoma Physicians - [facility] CARLOZ of larynx (HCC) (Primary [address] Dx);Dysphagia, [place] [address] unspecified type;S/P 3RD FLOOR POD C [phone] [place] [address] Social History Tobacco Use Types Packs/Day Years Used Date Former Smoker 0.5 51 Smokeless Tobacco: Never Used Comments: 1 pack every 24hr Alcohol Use Drinks/Week oz/Week Comments No 0 Standard 0.0 Denies ETOH use. drinks or equivalent Sex Assigned at Date Recorded Not on file as of this encounter Last Filed Vital Signs Vital Sign Reading Time Taken Blood Pressure 115/68 12/10/2016 1:32 PM CDT Pulse 65 12/10/2016 1:32 PM CDT Temperature - - Respiratory Rate - - Oxygen Saturation - - Inhaled Oxygen - - Concentration Weight 81.8 kg (180 lb 6.4 oz) 12/10/2016 1:32 PM CDT Height 182.9 cm (6') 12/10/2016 1:32 PM CDT Body Mass Index 24.47 12/10/2016 1:32 PM CDT in this encounter Functional Status Functional Status Response Date of Assessment Does the patient have a hearing impairment: No 11/03/2016 as of this encounter Progress Notes * Kathe Dunlap PA-C - 12/10/2016 1:36 PM CDT Formatting of this note may be different from the original. Date of Service: 12/10/2016 Subjective: Olayinka Garrison is a 61 y.o. male. History of Present Illness Olayinka Garrison is s/p neck exploration with exac of hematoma and infection and closure of right pharyngocutaneous fistula on 11/02/[address] Marques. Presents today with his . Pain has been minimal. Decrease in secretions from his lungs, this has improved with continued use of the HME. Still taking everything via PEG, gets 7+ cans of PEG nutrition in addition to gatorade and milk per day. He has gained about 20 lbs. He was discharged from the rehab facility after his last appt in clinic and he is doing well at home. They have home health coming in. Abx were finished. No fevers, chills, night sweats. Has been ambulating well. They have been packing the "fistula" area BID with iodoform gauze. Continues to take zinc, levothyroxine and oxycodone. Requesting refill of oxycodone, using at night and usually 2-3 doses in the daytime. The pathology revealed: No pathology for this operation. The patient has a h/o laryngeal cancer. Review of Systems Constitutional: Positive for appetite change, fatigue and unexpected weight change. HENT: Negative. Eyes: Negative. Respiratory: Negative. Cardiovascular: Negative. Gastrointestinal: Negative. Endocrine: Negative. Genitourinary: Negative. Musculoskeletal: Negative. Skin: Negative. Allergic/Immunologic: Negative. Neurological: Negative. Hematological: Negative. Psychiatric/Behavioral: Negative. Objective: acetaminophen (TYLENOL) [...] by mouth every 4 hours as needed Earliest Fill Date: 11/06/16 Per Gtube oxyCODONE (ROXICODONE) 1 mg/mL oral solution Take 5-10 mL by mouth every 4 hours as needed for Pain Earliest Fill Date: 11/06/16 Per PEG traZODone (DESYREL) 50 mg tablet Take 1 Tab by mouth at bedtime daily. Per PEG vitamins, multi w/iron (CERTAVITE) oral solution Take 15 mL by mouth daily. Per PEG Filed Vitals: 12/10/16 1332 BP: 115/68 Pulse: 65 Height: 182.9 cm (72") Weight: 81.829 kg (180 lb 6.4 oz) Body mass index is 24.46 kg/(m^2). Physical Exam All incisions are clean and dry without signs of infection or discharge. There are no fluid collections or fluctuant areas. There is no mass or adenopathy appreciated. Fistula site/Dehiscent area was probed and did not have any depth, the packing was sitting atop the closed area. Soft gaviota tube was removed, cleaned and replaced. Decrease in thick secretions. Patient has some belching. Overall, the patient is better conditioned than when previously seen. Ambulating with a cane, more steady than in previous visits. The plugs that fit into the PEG tube, the attachment has broken off and the patient's would prefer a new tube. Dr. Marques scoped the patient for internal evidence of dehiscence or remaining fistula and did not find any. Also completed an indirect mirror exam that was negative. Assessment and Plan: Mr. Garrison is recovering well from his neck exploration with exac of hematoma and infection and closure of right pharyngocutaneous fistula on 11/02/[address] Marques. Olayinka should continue their local wound care to the area which at this point should include vaseline and a bandaid replaced daily. Patient/ were instructed to call if they noted increased redness, swelling or purulence from the fistula site. Esophagram to be arranged closer to home by Victoria Lemons RN. Patient and family were instructed that the patient could have nothing PO until after getting an OK from ENT. We will have the images clouded and review. F/U in [address] Mckeon IR was contacted for PEG replacement, but patient didn't want to wait that long , so Dr. Orozco, who placed the tube was contacted and will be working the patient in later this week. Oxycodone refilled, see MAR. in this encounter Plan of Treatment Not on fileas of this encounter Results * IR GASTROSTOMY (12/10/2016 2:49 PM) Specimen Performing Laboratory [facility] Narrative This IR procedure does not require a dictated result. in this encounter Visit Diagnoses Diagnosis Squamous cell carcinoma of larynx (HCC) - Primary Malignant neoplasm of larynx, unspecified site Dysphagia, unspecified type S/P laryngectomy Other postprocedural status in this encounter
--- OUTSIDE RECORDS SUMMARY | 2017-03-01 10:00 | XMS REPORT | Encounter Summary ---
Author Author [facility] Organization [facility] Address Unknown Phone Unavailable Care Team Providers Care Drill Runner Name Role Phone PCP Unavailable Reason for Referral * Radiology Services Status Reason Specialty Diagnoses / Referred By Referred To Procedures Contact Contact No Auth Needed Radiology Diagnoses Arsh Dunlap Ir Squamous cell CARLOZ Archuleta [address] carcinoma of [address] larynx (HCC) [place], [place] Dysphagia, [place] [address] unspecified type [id number] Phone: S/P laryngectomy P [phone] rocedures Fax: IR GASTROSTOMY [phone] [place] INSERT GASTROSTOMY TUBE PERCUTANEOUS * Radiology Services Status Reason Specialty Diagnoses / Referred By Referred To Procedures Contact Contact No Auth Needed Radiology Diagnoses Arsh Dunlap Ir Squamous cell CARLOZ Archuleta [address] carcinoma of [address] larynx (HCC) [place], [place] Dysphagia, [place] [address] unspecified type [id number] Phone: S/P laryngectomy P [phone] rocedures Fax: IR GASTROSTOMY [phone] [place] INSERT GASTROSTOMY TUBE PERCUTANEOUS Reason for Visit * Radiology Services Status Reason Specialty Diagnoses / Referred By Referred To Procedures Contact Contact No Auth Needed Radiology Diagnoses Arsh Dunlap Ir Squamous cell CARLOZ Archuleta [address] carcinoma of [address] larynx (HCC) [place], [place] Dysphagia, [place] [address] unspecified type [id number] Phone: S/P laryngectomy P [phone] rocedures Fax: IR GASTROSTOMY [phone] [place] INSERT GASTROSTOMY TUBE PERCUTANEOUS Encounter Details Date Type Department Care Team Description 12/10/2016 Hospital [facility] Kathe Dunlap, Encounter Hospital Radiology PA-C [address] [facility] [address] [facility] [address] [place] [address] [place] [address] [phone] Social History Tobacco Use Types Packs/Day Years [...] GASTROSTOMY (12/10/2016 2:49 PM) Specimen Performing Laboratory [facility] Narrative This IR procedure does not require a dictated result. in this encounter Visit Diagnoses Diagnosis Squamous cell carcinoma of larynx (HCC) Malignant neoplasm of larynx, unspecified site Dysphagia, unspecified type S/P laryngectomy Other postprocedural status in this encounter
--- NOTE | 2017-03-01 11:30 | ED GI ---
General Chief Complaint: Oral/Throat Problems Stated Complaint: FOOD NOT GOING DOWN/STOMA Nursing Triage Note: PT HAS A STOMA, STATES BEING UNABLE TO SWALLOW FOOD SINCE LAST NIGHT. FEELS LIKE THERE IS SOMETHING STUCK IN HIS THROAT AND HE VOMITS WHEN TRYING TO SWALOW. NO SOB OR DIFFICULTY BREATHING AT TRIAGE. PT HAD A FEEDING TUBE BUT IT WAS REMOVED 2 WEEKS AGO. PT HAD STEAK TO EAT PRIOR TO THIS ISSUE. Sepsis Screen: No Definite Risk Source of Information: Patient Exam Limitations: No Limitations History of Present Illness Time Seen By Provider: 11:15 Initial Comments 61 yo male patient presents to the ED with c/o a piece of steak getting stuck in his throat. Patient is able to swallow saliva and a very small amount of liquids. Unable to swallow solids or thick liquids. patient had a PEG tube removed [address] Orozco. Patient does have a stoma that was placed at after a radical neck dissection. States he was tolerating solids until last night. Timing/Duration: Constant, Other (yesterday evening.) Severity/Quality: Moderate Activities at Onset: Other (eating) Modifying Factors: Worsens With Other (worse with eating and drinking) Allergies and Home Medications Allergies Coded Allergies: No Known Drug Allergies (Unverified , 02/07/17) Home Medications Diazepam 10 Mg Tablet, 10 MG GT BID, (Reported) Diazepam 10 Mg Tablet, 10 MG PO BID, (Reported) Gabapentin 250 Mg/5 Ml Solution, 15 ML PO PRN, (Reported) Levothyroxine Sodium 100 Mcg Tablet, 100 MCG PO DAILY, (Reported) Oxycodone HCl 5 Mg/5 Ml Solution, 5-10 ML GT Q4H PRN for PAIN-SEVERE, (Reported) Review of Systems Constitutional: No chills, No fever, No malaise EENTM: See HPI, No Throat Pain, No Throat Swelling Respiratory: Denies Cough, Denies Orthopnea, Denies Shortness of Air, Denies Stridor Cardiovascular: Denies Chest Pain, Denies Lightheadedness Gastrointestinal: Denies Abdominal Pain, Denies Constipated, Denies Diarrhea, Difficulty Swallowing, Denies Nausea, Denies Vomiting Genitourinary: No Symptoms Reported Skin: no symptoms reported Psychiatric/Neurological: No Symptoms Reported All Other Systems Reviewed Negative Unless Noted: Yes (Negative excepted noted.) Past Rvtoxay-Mhfllp-Xwjvqn Hx Patient Social History Alcohol Use: Denies Use Recreational Drug Use: No Smoking Status: Current Someday Smoker Type Used: Cigarettes Former Smoker, Quit: Apr 03, 2016 2nd Hand Smoke Exposure: No Recent Foreign Travel: No Contact w/Someone Who Travel: No Recent Infectious Disease Expo: No Recent Hopitalizations: No Immunizations Up To Date Date of Pneumonia Vaccine: Mar 08, 2016 Date of Influenza Vaccine: Apr 10, 2016 Seasonal Allergies Seasonal Allergies: No Surgeries History of Surgeries: Yes (Back surgery, PEG, TEETH PULLED, laryngectomy, radical neck dissection) Surgeries: Tracheostomy Respiratory History of Respiratory Disorde: No Respiratory Disorders: COPD Cardiovascular History of Cardiac Disorders: No Neurological History of Neurological Disord: No Reproductive System Hx Reproductive Disorders: No Sexually Transmitted Disease: No HIV/AIDS: No Genitourinary History of Genitourinary Disor: No Gastrointestinal History of Gastrointestinal Di: Yes Gastrointestinal Disorders: Hepatitis Musculoskeletal History of Musculoskeletal Dis: Yes Musculoskeletal Disorders: Chronic Back Pain Endocrine History of Endocrine Disorders: Yes Endocrine Disorders: Hypothyroidsim HEENT History of HEENT Disorders: Yes HEENT Disorders: Cataract Loss of Vision: Bilateral Hearing Impairment: Denies Cancer History of Cancer: Yes (Laryngeal) Psychosocial History of Psychiatric Problem: No Integumentary History of Skin or Integumenta: No Blood Transfusions History of Blood Disorders: No Adverse Reaction to a Blood Tr: No (N/AN) Reviewed Nursing Assessment Reviewed/Agree w Nursing PMH: Yes Family Medical History Significant Family History: No Pertinent Family Hx Physical Exam Vital Signs VS - Last 72 Hours, by Label 03/01/17 09:59 Temp 97.5 Pulse 66 Resp 20 B/P (MAP) 126/75 Pulse Ox 96 O2 Delivery Room Air Capillary Refill : Less Than 3 Seconds General Appearance: WD/WN, no apparent distress HEENT: PERRL/EOMI, pharynx normal Neck: non-tender, other (trachea midline with stoma intact. well healed surgical scars of the rt neck consistent with PSH.) Respiratory: lungs clear, normal breath sounds, no respiratory distress, no accessory muscle use Cardiovascular: regular rate, rhythm, no murmur Gastrointestinal: normal bowel sounds, non tender, soft, no organomegaly, No distended Extremities: no pedal edema, normal capillary refill Back: normal inspection Neurologic/Psychiatric: alert, normal mood/affect, oriented x 3 Skin: normal color, warm/dry Progress/Results/Core Measures Results/Orders Lab Results Laboratory Tests Test 03/01/17 11:20 Range/Units White Blood Count 4.1 L 4.3-11.0 10^3/uL Red Blood Count 5.14 4.35-5.85 10^6/uL Hemoglobin 13.5 13.3-17.7 G/DL Hematocrit 43 40-54 % Mean Corpuscular Volume 83 80-99 FL Mean Corpuscular Hemoglobin 26 25-34 PG Mean Corpuscular Hemoglobin Concent 32 32-36 G/DL Red Cell Distribution Width 16.5 H 10.0-14.5 % Platelet Count 134 130-400 10^3/uL Mean Platelet Volume 9.6 7.4-10.4 FL Neutrophils (%) (Auto) 70 42-75 % Lymphocytes (%) (Auto) 19 12-44 % Monocytes (%) (Auto) 8 0-12 % Eosinophils (%) (Auto) 3 0-10 % Basophils (%) (Auto) 1 0-10 % Neutrophils # (Auto) 2.8 1.8-7.8 X 10^3 Lymphocytes # (Auto) 0.8 L 1.0-4.0 X 10^3 Monocytes # (Auto) 0.3 0.0-1.0 X 10^3 Eosinophils # (Auto) 0.1 0.0-0.3 10^3/uL Basophils # (Auto) 0.1 0.0-0.1 10^3/uL Sodium Level 142 135-145 MMOL/L Potassium Level 4.2 3.6-5.0 MMOL/L Chloride Level 105 98-107 MMOL/L Carbon Dioxide Level 30 21-32 MMOL/L Anion Gap 7 5-14 MMOL/L Blood Urea Nitrogen 11 7-18 MG/DL Creatinine 0.93 0.60-1.30 MG/DL Estimat Glomerular Filtration Rate > 60 BUN/Creatinine Ratio 12 Glucose Level 106 H 70-105 MG/DL Calcium Level 9.7 8.5-10.1 MG/DL Total Bilirubin 1.0 0.1-1.0 MG/DL Aspartate Amino Transf (AST/SGOT) 19 5-34 U/L Alanine Aminotransferase (ALT/SGPT) 11 0-55 U/L Alkaline Phosphatase 102 40-136 U/L Total Protein 8.5 H 6.4-8.2 GM/DL Albumin 4.5 3.2-4.5 GM/DL Lipase 25 8-78 U/L My Orders Orders - MACARIO RODRIGUEZ Saline Lock/Iv-Start (03/01/17 11:16) Cbc With Automated Diff (03/01/17 11:16) Comprehensive Metabolic Panel (03/01/17 11:16) Lipase (03/01/17 11:16) Hydromorphone Injection (Dilaudid Inject (03/01/17 11:56) Saline Lock/Iv-Start (03/01/17 11:56) Ns Iv 1000 Ml (Sodium Chloride 0.9%) (03/01/17 11:56) Medications Given in ED Current Medications Medications Dose Ordered Sig/Edna Route Start Time Stop Time Status Last Admin Dose Admin Sodium Chloride 1,000 ml @ 0 mls/hr Q0M ONCE IV 03/01/17 11:56 03/01/17 11:57 DC 03/01/17 12:07 1,000 MLS/HR Vital Signs/I&O Vital Sign - Last 12Hours 03/01/17 09:59 Temp 97.5 Pulse 66 Resp 20 B/P (MAP) 126/75 Pulse Ox 96 O2 Delivery Room Air Blood Pressure Mean: 92 Departure Communication Progress Notes 1140 Dr. Carter in ED to evaluate the patient. Requests endoscopy for EGD with FB removal.patient voices understanding and agrees with the treatment plan. Patient case discussed with Dr. Maravilla, he agrees with the plan of care. Impression Impression: Primary Impression: Foreign body in esophagus Qualified Codes: T18.108A - Unspecified foreign body in esophagus causing other injury, initial encounter Disposition: (admitted to ambulatory) Condition: Stable Admissions Decision to Admit Reason: Admit from ER (General) Decision to Admit/Date: Mar 01, 2017 Time/Decision to Admit Time: 11:40 Departure-Patient Inst. Referrals: MALACHI STEPHENS MD (PCP/Family) Primary Care Physician MACARIO RODRIGUEZ Mar 01, 2017 11:30
[2017-03-01 11:35] LABS: BASOPHILS # (AUTO) 0.1 10^3/uL (0.0-0.1); BASOPHILS % (AUTO) 1 % (0-10); EOSINOPHILS # (AUTO) 0.1 10^3/uL (0.0-0.3); EOSINOPHILS % (AUTO) 3 % (0-10); LYMPHOCYTES # (AUTO) 0.8 X 10^3 (1.0-4.0); LYMPHOCYTES % (AUTO) 19 % (12-44); MEAN CORPUSCULAR HEMOGLOBIN 26 PG (25-34); MEAN CORPUSCULAR HGB CONC 32 G/DL (32-36); MEAN CORPUSCULAR VOLUME 83 FL (80-99); MEAN PLATELET VOLUME 9.6 FL (7.4-10.4); MONOCYTES # (AUTO) 0.3 X 10^3 (0.0-1.0); MONOCYTES % (AUTO) 8 % (0-12); NEUTROPHILS # (AUTO) 2.8 X 10^3 (1.8-7.8); NEUTROPHILS % (AUTO) 70 % (42-75); PLATELET COUNT 134 10^3/uL (130-400); RED BLOOD COUNT 5.14 10^6/uL (4.35-5.85); RED CELL DISTRIBUTION WIDTH 16.5 % (10.0-14.5); WHITE BLOOD COUNT 4.1 10^3/uL (4.3-11.0)
[2017-03-01] MEDS ORDERED: NS IV 1000 ML 1,000 ML IV ONE (11:56)
[2017-03-01] MEDS ORDERED: HYDROmorphone (DILAUDID) 2 MG/ML VIAL IVP STA (11:56)
[2017-03-01 12:03] LABS: ALANINE AMINOTRANSFERASE 11 U/L (0-55); ALBUMIN 4.5 GM/DL (3.2-4.5); ANION GAP 7 MMOL/L (5-14); ASPARTATE AMINO TRANSFERASE 19 U/L (5-34); BLOOD UREA NITROGEN 11 MG/DL (7-18); BUN/CREATININE RATIO 12; CALCIUM 9.7 MG/DL (8.5-10.1); CARBON DIOXIDE 30 MMOL/L (21-32); CHLORIDE 105 MMOL/L (98-107); CREATININE SERUM 0.93 MG/DL (0.60-1.30); GFR ESTIMATED > 60; GLUCOSE 106 MG/DL (70-105); LIPASE 25 U/L (8-78); POTASSIUM 4.2 MMOL/L (3.6-5.0); SODIUM 142 MMOL/L (135-145); TOTAL PROTEIN 8.5 GM/DL (6.4-8.2)
--- NOTE | 2017-03-01 12:20 | History & Physical-Surgical ---
History of Present Illness History of Present Illness Reason for visit/HPI Surgery asked to consult regarding dysphagia and possible food bolus. HPI: Pt is a 61 yo male who had a radical neck dissection in October for esophageal CA. He is being seen up at . They state he had an EGD last month and has one scheduled for April. He recently had his PEG tube removed (EGD actually done during that time as well ) and has been eating food past 5-6 weeks. He unfortunately does not have any teeth and his dentures are not done; but he really wanted steak last night. Since he ate he has not been able to take even liquids and saliva barely goes down. He denies SOB. He does have tracheostomy and speaks with speaking device. said he had to have "voice box" rebuilt. Pt denies pain. Date of Admission Time Seen by Provider: 11:42 I consulted on this patient on 03/01/17 12:15 Attending Physician Admitting Physician Tyler Mcdonald MD Consult Allergies and Home Medications Allergies Coded Allergies: No Known Drug Allergies (Unverified , 02/07/17) Home Medications Diazepam 10 Mg Tablet, 10 MG GT BID, (Reported) Diazepam 10 Mg Tablet, 10 MG PO BID, (Reported) Gabapentin 250 Mg/5 Ml Solution, 15 ML PO PRN, (Reported) Levothyroxine Sodium 100 Mcg Tablet, 100 MCG PO DAILY, (Reported) Oxycodone HCl 5 Mg/5 Ml Solution, 5-10 ML GT Q4H PRN for PAIN-SEVERE, (Reported) Past Fkpygdl-Wwytyg-Gwtspg Hx Patient Social History Alcohol Use: Denies Use Recreational Drug Use: No Smoking Status: Current Someday Smoker Former Smoker, Quit: Apr 03, 2016 Type Used: Cigarettes 2nd Hand Smoke Exposure: No Recent Foreign Travel: No Contact w/Someone Who Travel: No Recent Infectious Disease Expo: No Recent Hopitalizations: No Immunizations Up To Date Date of Pneumonia Vaccine: Mar 08, 2016 Date of Influenza Vaccine: Apr 10, 2016 Seasonal Allergies Seasonal Allergies: No Surgeries History of Surgeries: Yes (Back surgery, PEG, TEETH PULLED, laryngectomy, radical neck dissection) Surgeries: Tracheostomy Respiratory History of Respiratory Disorde: Yes Respiratory Disorders: COPD Cardiovascular History of Cardiac Disorders: No Neurological History of Neurological Disord: No Reproductive System Hx Reproductive Disorders: No Sexually Transmitted Disease: No HIV/AIDS: No Genitourinary History of Genitourinary Disor: No Gastrointestinal History of Gastrointestinal Di: Yes Gastrointestinal Disorders: Hepatitis Musculoskeletal History of Musculoskeletal Dis: Yes Musculoskeletal Disorders: Chronic Back Pain Endocrine History of Endocrine Disorders: Yes Endocrine Disorders: Hypothyroidsim HEENT History of HEENT Disorders: Yes HEENT Disorders: Cataract Loss of Vision: Bilateral Hearing Impairment: Denies Cancer History of Cancer: Yes (Laryngeal) Psychosocial History of Psychiatric Problem: No Integumentary History of Skin or Integumenta: No Blood Transfusions History of Blood Disorders: No Adverse Reaction to a Blood Tr: No (N/AN) Family Medical History Significant Family History: Diabetes (mother), Lung Disease (Father has Mesothelioma) Constitutional: No chills, No dizziness, No fever, weakness, weight loss EENTM: No hearing loss, No blurred vision, No epistaxis Respiratory: No short of breath, No stridor, No wheezing Cardiovascular: No chest pain, No edema Gastrointestinal: dysphagia, No nausea, No vomiting Genitourinary: No dysuria, No frequency, No hematuria Musculoskeletal: back pain, joint pain, muscle stiffness Skin: No hx of skin cancer, No lesions, No lumps Psychiatric/Neurological: Denies Anxiety, Denies Depressed, Denies Pre- Existing Deficit, Denies Seizure, Denies Tingling Other Pt does have hx of hypothyroidism, no abnormal bruising or bleeding Physical Exam Vital Signs Vital Sign - Last 12Hours 03/01/17 09:59 Temp 97.5 Pulse 66 Resp 20 B/P (MAP) 126/75 Pulse Ox 96 O2 Delivery Room Air Capillary Refill : Less Than 3 Seconds General Appearance: No Apparent Distress, WD/WN Eyes: Bilateral Eye PERRL, Bilateral Eye EOMI HEENT: Pharynx Normal, No Pale Conjunctivae (L), No Pale Conjunctivae (R), No Scleral Icterus (L), No Scleral Icterus (R) Neck: Other (tracheostomy, recent neck dissection, large incision on right side ) Respiratory: Lungs Clear, Normal Breath Sounds, No Accessory Muscle Use, No Respiratory Distress Cardiovascular: Regular Rate, Rhythm, No Edema, No Murmur Gastrointestinal: Normal Bowel Sounds, No Organomegaly, Non Tender Rectal: Deferred Back: No CVA Tenderness, No Vertebral Tenderness Extremity: Normal Capillary Refill, Normal Inspection, Normal Range of Motion, Non Tender, No Calf Tenderness Neurologic/Psychiatric: Alert, Oriented x3, No Motor/Sensory Deficits, Normal Mood/Affect, water valve mechanic II-XII Norm as Tested Skin: Normal Color, Warm/Dry Lymphatic: No Adenopathy (axilla or groin) Data Review Labs Laboratory Tests 03/01/17 11:20: White Blood Count 4.1L, Red Blood Count 5.14, Hemoglobin 13.5, Hematocrit 43, Mean Corpuscular Volume 83, Mean Corpuscular Hemoglobin 26, Mean Corpuscular Hemoglobin Concent 32, Red Cell Distribution Width 16.5H, Platelet Count 134, Mean Platelet Volume 9.6, Neutrophils (%) (Auto) 70, Lymphocytes (%) (Auto) 19, Monocytes (%) (Auto) 8, Eosinophils (%) (Auto) 3, Basophils (%) (Auto) 1, Neutrophils # (Auto) 2.8, Lymphocytes # (Auto) 0.8L, Monocytes # (Auto) 0.3, Eosinophils # (Auto) 0.1, Basophils # (Auto) 0.1, Sodium Level 142, Potassium Level 4.2, Chloride Level 105, Carbon Dioxide Level 30, Anion Gap 7, Blood Urea Nitrogen 11, Creatinine 0.93, Estimat Glomerular Filtration Rate > 60, BUN/ Creatinine Ratio 12, Glucose Level 106H, Calcium Level 9.7, Total Bilirubin 1.0 , Aspartate Amino Transf (AST/SGOT) 19, Alanine Aminotransferase (ALT/SGPT) 11, Alkaline Phosphatase 102, Total Protein 8.5H, Albumin 4.5, Lipase 25 Assessment/Plan Assessment/Plan Assessment/Plan Dysphagia probably secondary to food bolus Esophageal CA COPD Plan is [facility] to [facility] for EGD with removal of food bolus. Discussed risks and complications with patient and his ; including but not limited to pain, bleeding, infection and even esophageal rupture. Pt understands and all questions answered to their satisfaction. I also recommended he not eat anything that needs to be chewed (especially steak), would even stay away from chicken, lettuce and even large amounts of bread. ANDREW CORNEJO DO Mar 01, 2017 12:20
[2017-03-01] MEDS ORDERED: fentaNYL INJECTION 100 MCG/2 ML AMP ONE (12:52)
[2017-03-01] MEDS ORDERED: SEVOFLURANE (ULTANE) 15 ML INHAL SOLN ONE ×8 (12:52→14:47)
[2017-03-01] MEDS ORDERED: LACTATED RINGERS 0 ML IV ONE (12:52)
[2017-03-01] MEDS ORDERED: proPOfol 200 MG/20 ML (DIPRIVAN) VIAL IV ONE (12:54)
[2017-03-01] MEDS ORDERED: LACTATED RINGERS 1,000 ML IV ONE (14:47)
--- NOTE | 2017-03-01 15:01 | Progress Note-Post Operative ---
Post-Operative Progess Note Surgeon (s)/Parts Sales Associate (s) Surgeon ANDREW CORNEJO DO Parts Sales Associate: none Pre-Operative Diagnosis Dysphagia, probable food bolus, Hx of laryngeal carcinoma. Post-Operative Diagnosis Same Procedure & Operative Findings Date of Procedure 03/01/17 Procedure Performed/Findings EGD with removal of food bolus Anesthesia Type GET Estimated Blood Loss Estimated blood loss (mL): scant Specimens/Packing Specimens Removed Piece of ANDREW Rabago DO Mar 01, 2017 15:01
--- NOTE | 2017-03-01 15:03 | Endoscopy Discharge Instruct ---
Endo Procedure/Findings Findings Procedure/Findings Food Bolus Discharge Instructions - Activity: You might feel a little sleepy until tomorrow. This is due to the medicine you received to relax you. Until tomorrow, you should: NOT drive a car, operate machinery or power tools. NOT drink any alcoholic beverages. NOT make any important decisions or sign importortant papers. Do not return to work until tomorrow, unless otherwise instructed. Resume previous activities tomorrow. Diet: Start by taking liquids. If you tolerate liquids, advance to solid food. Notify Physician - If you experience excessive bleeding, unusual abdominal pain, fever, or chest pain, contact your doctor immediately. Follow-Up: - I have received and understand the above instructions and will call my doctor if I have any further questions. Patient Signature Date Nurse Signature Other (Relationship) ANDREW CORNEJO DO Mar 01, 2017 15:03
[2017-03-01 15:50] VITALS: BP 121/73
[2017-03-01 16:20] VITALS: BP 123/83
[2017-03-01 16:38] VITALS: BP 123/83
--- NOTE | 2017-03-03 08:05 | OPERATIVE REPORT ---
DATE OF SERVICE: PREOPERATIVE DIAGNOSES: 1. Dysphagia secondary to possible food bolus. 2. History of laryngeal cancer with recent surgery. 3. Tracheostomy. 4. History of chronic obstructive pulmonary disease. POSTOPERATIVE DIAGNOSES: 1. Dysphagia secondary to food bolus- piece of steak. 2. History of laryngeal cancer with recent surgery. 3. Tracheostomy. 4. History of chronic obstructive pulmonary disease. PROCEDURE: EGD with removal of food bolus. SURGEON: Dr. Carter. PRESS TENDER SHORT GOODS: None. ANESTHESIA: General endotracheal tube. SPECIMEN BLOOD LOSS: Piece of steak. FLUIDS: Per anesthesia. POSTOPERATIVE CONDITION: Stable. INDICATION FOR PROCEDURE: The patient is a 61-year-old male who has a history of esophageal cancer. He had surgery in September and then in October, he had a radical neck dissection and multiple other procedures. He had a PEG tube placed and only recently had a PEG tube removed about 2 weeks ago and has been on some form of food, liquids and minimal solids over the past 5 or 6 weeks and apparently last night decided he wanted to have steak. said he hadcoughed some up, but apparently did not get all of it. FINDINGS: The patient had a large piece of steak stuck in his esophagus. PROCEDURE NOTE: After informed consent was obtained, the patient was brought to the operating room. He was put to sleep by the MARKETING BUDGET ANALYST and then started with EGD, placed the EGD scope down the mouth into the esophagus, could see a large piece of steak. We tried to grasp it with a Shields Net, tried grasping with a loop as well as tried with the grasper, had difficulty with any of these, could not get the full piece of steak up, went through 3 Shields Nets because they kept bending, took about an hour and 15 minutes. Finally, able to get the steak up high enough where we could use the GlideScope to see the upper portion of the esophagus and actually could see the piece of steak. We then used the Fide laryngoscopy forceps, able to watch as I grasped the steak with the Fide forceps and then pulled it out of the mouth. After this was out, I then placed the EGD scope back into esophagus and able to get down into the stomach. Took a picture of the stomach, looked fine. The esophagus down to the GE junction looks fine. Took pictures all the way up. Minimal irritation of the upper esophagus from the instrumentation and the piece of steak and at this time, I then removed the EGD. The patient tolerated the procedure and he was transferred to recovery room in stable condition. Job ID: [id number] DocumentID: [id number] Dictated Date: 03/01/2017 15:44:47 Music Industry Intern Date: 03/02/2017 15:28:39 Dictated By: DO EMY SHELBY
== END 2017-03-01 16:38 | disposition home or self-care (01) ==
LOC: EDUNIT# 09:49 → ER 09:53 → ENDO 12:06
PROVIDERS: ATTEND Surgery
DX: T18.128A Food in esophagus causing other injury, initial encounter (principal); Z85.21 Personal history of malignant neoplasm of larynx; J44.9 Chronic obstructive pulmonary disease, unspecified; F17.210 Nicotine dependence, cigarettes, uncomplicated; K75.9 Inflammatory liver disease, unspecified; E03.9 Hypothyroidism, unspecified; Z93.0 Tracheostomy status; Z79.899 Other long term (current) drug therapy
CPT/HCPCS: 36415; 80053; 83690; 85025; 96360

== ENCOUNTER → 2017-04-15 | Outpatient (CLI) | payer MEDICARE, OTHER ==
[~2017-04-15] MED LIST changes: +IOHEXOL 350 MG/ML 100 ML (OMNIPAQUE 350) VIAL IV ONE; +NS 100 ML (IVPB) BAG IV ONE
--- NOTE | 2017-04-15 12:49 | Diagnostic Imaging Report ---
EXAMINATION: CT neck and chest without intravenous contrast. INDICATION: Squamous cell carcinoma of larynx. 100 mL of Omnipaque 350 is administered intravenously. COMPARISON: 08/24/2016. FINDINGS: CT NECK: There is evidence of laryngectomy with a fat flap seen in the laryngectomy bed. Surgical clips are also noted. There is a tracheostomy in place. Postsurgical changes with some distortion of the muscular layers and subcutaneous stranding is noted with no suspicious soft tissue mass or lymphadenopathy identified at this time. The parotid glands appear symmetric. The submandibular glands appear symmetric. The internal jugular veins appear patent. The paranasal sinuses demonstrate mild mucosal thickening along the inferior aspect of the right maxillary sinus. There is nasal septal deviation to the left. The osseous structures appear grossly unremarkable. CT CHEST: There is advanced emphysema within the upper lobes and mild emphysema changes in the lower lobes. Calcified granuloma in the left lung base is seen. There is a nonspecific noncalcified pulmonary nodule measuring 5 mm seen in the left parahilar region and another nodule in subpleural location measuring 0.8 cm, axial image 36. These are not seen on 08/17/2016 exam. Another nodule measuring 8 mm is seen in the left lung base. The heart size is normal. No pericardial or pleural effusion. There is no mediastinal mass. No hilar, mediastinal, or axillary lymphadenopathy is seen. The osseous structures appear grossly unremarkable. IMPRESSION: CT NECK: Post-laryngectomy changes with no suspicious soft tissue mass to suggest tumor recurrence are seen. CT CHEST: 1. There are new nonspecific pulmonary nodules in the left lower lobe up to 8 mm in size. Early metastasis is not excluded. Three-month followup exam is recommended. 2. Emphysema. Dictated by: Dictated on workstation # [id number]
== END ==
LOC: RAD 11:24
PROVIDERS: ATTEND Otolaryngology Plastic Surgery within the Head & Neck
DX: C32.9 Malignant neoplasm of larynx, unspecified (principal); Z90.02 Acquired absence of larynx; Z92.3 Personal history of irradiation; R91.8 Other nonspecific abnormal finding of lung field; J43.9 Emphysema, unspecified
CPT/HCPCS: 70491; 71260

== ENCOUNTER → 2017-08-05 | Outpatient (CLI) | payer MEDICARE, OTHER ==
[~2017-08-05] MED LIST changes: +CATHETER FLUSH 10 ML SYR IV PRN; -NS 100 ML (IVPB) BAG IV ONE
[2017-08-05 12:31] LABS: BUN/CREATININE RATIO 9; CREATININE SERUM 1.05 MG/DL (0.60-1.30); GFR ESTIMATED > 60
--- NOTE | 2017-08-05 13:56 | Diagnostic Imaging Report ---
INDICATION: Squamous cell carcinoma of the larynx, status post laryngectomy and left upper lobectomy. TECHNIQUE: Axial imaging through the neck and chest was performed after the administration of intravenous contrast. COMPARISON: Correlation is made with prior CT from 04/15/2017. FINDINGS: CT neck: Postsurgical changes of laryngectomy with fat flap is again noted. Multiple surgical clips are present. There is a new area of soft tissue mass-like density just to the left of the upper esophagus, at the level of the clavicles measuring 2.5 x 3.2 cm. This may represent recurrence. No definite lymphadenopathy is seen. Salivary glands appear to be symmetric. The visualized intracranial structures are unremarkable. Visualized paranasal sinuses are clear. IMPRESSION: Postsurgical changes of laryngectomy and fat flap placement. There is a new area of soft tissue mass-like density noted near the surgical bed just to the left of the upper thoracic esophagus, as described. Focal area of recurrence cannot be excluded. Correlation with PET/CT may be useful for further evaluation. CT chest: No axillary, hilar, or mediastinal lymphadenopathy is detected. No pericardial or pleural fluid is identified. Parenchymal evaluation does show significant emphysematous changes throughout both lungs. There are enlarging pulmonary nodules bilaterally. A nodule in the paraspinal left upper lobe measures 10 mm compared with 5 mm, image 17. There is a spiculated enlarging nodule in the left upper lobe posterior, near the major fissure measuring 15 mm compared with 5 mm, image 30. A superior segment right lower lobe nodule in the right paraspinal location measures 13 mm compared with 7 mm, image 29. There is a subpleural nodule in the left lower lobe measuring 13 mm compared with 8 mm, image 38. Calcified granuloma in the right lower lobe is again noted. The nodule in the inferior left lower lobe appears stable at 7 mm, image 51. Upper abdomen is unremarkable. IMPRESSION: Enlarging bilateral pulmonary nodules, consistent with worsening pulmonary metastatic disease. Dictated by: Dictated on workstation # [id number]
== END ==
LOC: RAD 11:58
PROVIDERS: ATTEND Otolaryngology Plastic Surgery within the Head & Neck
DX: C32.9 Malignant neoplasm of larynx, unspecified (principal); R91.8 Other nonspecific abnormal finding of lung field; Z90.02 Acquired absence of larynx; Z90.2 Acquired absence of lung [part of]; Z87.891 Personal history of nicotine dependence
CPT/HCPCS: 36415; 70491; 71260; 82565; 84520

== ENCOUNTER → 2017-08-13 | Outpatient (CLI) | payer MEDICARE, OTHER ==
[~2017-08-13] MED LIST changes: -CATHETER FLUSH 10 ML SYR IV PRN; +GABA600T2 PO; -IOHEXOL 350 MG/ML 100 ML (OMNIPAQUE 350) VIAL IV ONE; +LEVO125T6 PO; +OXYC10TA7 PO
--- NOTE | 2017-08-14 08:04 | Diagnostic Imaging Report ---
EXAMINATION: PET/CT INDICATION: Carcinoid of the larynx. TECHNIQUE: PET/CT imaging was obtained from the base of the skull through the pelvis after the administration of 12.36 mCi of F-[address] imaging was utilized for localization and attenuation correction purposes. The low energy CT utilized for attenuation correction is not considered to be of high enough spatial resolution to allow in and of itself a separate anatomical analysis. The previous PET/CT exam performed on 03/14/2018 failed to show any sign of malignancy. However the recent CT neck and CT chest exam performed on 08/05/2017 did note a 2.5 x 3.2 CM soft tissue mass just to the left of the upper esophagus at the level of clavicles. This mass measured 2.5 x 3.2 CM and was felt to be suspicious for recurrent malignancy. On this exam that mass is indeed hypermetabolic. The mass has a maximum SUV of 17.2 and consequently this mass should be considered neoplastic until proven otherwise. The CT chest exam also suggested enlarging pulmonary nodules. Those nodules do not appear to have changed significantly in size on this study but the nodules are hypermetabolic. The nodule along the posterior medial aspect of the right lung just inferior to the level of the willard has a maximum SUV of 8.9. The other nodules have SUV values in the 4.2 - 7.7 range. These nodules also should be considered neoplastic until proven otherwise. There is no other hypermetabolic activity to suggest the presence of neoplasm. There is generalized increased activity in the left masseter muscle and in the posterior paraspinal musculature along the cervical thoracic junction on the left. These areas have maximum SUV values in the 3-4.5 range. I suspect that these areas of uptake are related to muscular activity. There is also physiologic activity in the brain, the heart, the kidneys, the bowel and the bladder. The CT images fail to show any sign of an acute abnormality. IMPRESSION: 1. The 2.5 x 3.2 CM soft tissue mass just to the left of the upper esophagus seen on the recent CT neck exam is hypermetabolic and should be considered secondary to recurrent malignancy until proven otherwise. The pulmonary nodules noted on this prior CT chest exam are also hypermetabolic and these too are most likely related to metastatic disease. 2. There is no other hypermetabolic activity seen to suggest the presence of malignancy. 3. The increased activity in the left masseter muscle and the posterior paraspinal musculature of the cervical and thoracic junction on the left is felt to be due to muscular activity. Dictated by: Dictated on workstation # [id number]
== END ==
LOC: RAD 10:49
PROVIDERS: ATTEND Otolaryngology Plastic Surgery within the Head & Neck
DX: C32.9 Malignant neoplasm of larynx, unspecified (principal); J98.4 Other disorders of lung; R91.8 Other nonspecific abnormal finding of lung field; Z90.02 Acquired absence of larynx

== ENCOUNTER 2017-08-15 13:27 | Outpatient (RCR) | payer MEDICARE, OTHER ==
[~2017-08-15 13:27] MED LIST changes: -GABA600T2 PO; -LEVO125T6 PO; -OXYC10TA7 PO
[2017-08-15] MEDS ORDERED: GABA600T2 PO (15:25)
[2017-08-15] MEDS ORDERED: OXYC10TA7 PO (15:25)
[2017-08-15] MEDS ORDERED: LEVO125T6 PO (15:25)
[2017-08-21] MEDS ORDERED: OXYC-197 PO (11:50)
== END 2017-09-02 13:48 | disposition home or self-care (01) ==
LOC: ONC 13:27
PROVIDERS: ATTEND Internal Medicine Hematology & Oncology
DX: C32.1 Malignant neoplasm of supraglottis (principal); C77.0 Secondary and unspecified malignant neoplasm of lymph nodes of head, face and neck; K22.9 Disease of esophagus, unspecified; R91.1 Solitary pulmonary nodule; D69.59 Other secondary thrombocytopenia; J44.9 Chronic obstructive pulmonary disease, unspecified; K70.10 Alcoholic hepatitis without ascites; B18.2 Chronic viral hepatitis C; F17.210 Nicotine dependence, cigarettes, uncomplicated; Z79.899 Other long term (current) drug therapy
CPT/HCPCS: 99214

== ENCOUNTER 2017-08-15 15:17 | Outpatient (CLI) | payer OTHER ==
[~2017-08-15] VITALS: Ht 185.4 cm; Wt 85.3 kg
[2017-08-15] MEDS ORDERED: GABA600T2 PO (15:25)
[2017-08-15] MEDS ORDERED: OXYC10TA7 PO (15:25)
[2017-08-15] MEDS ORDERED: LEVO125T6 PO (15:25)
== END 2017-08-15 15:36 ==
LOC: PREOP 15:17
PROVIDERS: ATTEND Surgery
DX: Z01.818 Encounter for other preprocedural examination (principal); C34.90 Malignant neoplasm of unspecified part of unspecified bronchus or lung

== ENCOUNTER 2017-08-21 09:06 | Day surgery (SDC) | payer MEDICARE, OTHER ==
--- NOTE | 2017-08-16 09:54 | History & Physicial ---
History of Present Illness History of Present Illness Reason for visit/HPI To undergo an Hcgpgv-y-Uhqs placement, to facilitate administration of systemic chemotherapy. 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 Date of Admission 08/16/17 Date Seen by Provider: Aug 16, 2017 Time Seen by Provider: 09:53 I consulted on this patient on 08/16/17 09:52 Attending Physician Cresencio Felder MD Admitting Physician Consult Allergies and Home Medications Allergies Coded Allergies: No Known Drug Allergies (Unverified , 02/07/17) Home Medications Diazepam 10 Mg Tablet, 10 MG PO BID, (Reported) Gabapentin 600 Mg Tablet, 600 MG PO QID, (Reported) Levothyroxine Sodium 125 Mcg Tablet, 125 MCG PO DAILY, (Reported) Oxycodone HCl 10 Mg Tablet, 10 MG PO DAILY, (Reported) Past Hbalogi-Jarftt-Tuecqn Hx Patient Social History Marrital Status: Employed/Student: retired Former Smoker, Quit: Apr 03, 2016 Type Used: Cigarettes 2nd Hand Smoke Exposure: No Recent Hopitalizations: No Immunizations Up To Date Date of Pneumonia Vaccine: Mar 08, 2016 Date of Influenza Vaccine: Apr 10, 2017 Seasonal Allergies Seasonal Allergies: No Surgeries Yes (Back surgery, PEG, TEETH PULLED, laryngectomy, radical neck dissection) Tracheostomy Respiratory Yes Cardiovascular No Neurological No Reproductive System Hx Reproductive Disorders: No Sexually Transmitted Disease: No HIV/AIDS: No Genitourinary No Gastrointestinal Yes Hepatitis Musculoskeletal Yes Chronic Back Pain Endocrine History of Endocrine Disorders: Yes Endocrine Disorders: Hypothyroidsim HEENT History of HEENT Disorders: Yes HEENT Disorders: Cataract Loss of Vision: Bilateral Hearing Impairment: Denies Cancer Yes (Laryngeal) Lung Type of Treatment: Surgical Intervention Psychosocial History of Psychiatric Problem: No Integumentary History of Skin or Integumenta: No Blood Transfusions History of Blood Disorders: No Adverse Reaction to a Blood Tr: No Family Medical History Significant Family History: Diabetes, Lung Disease Constitutional: fever EENTM: see HPI Respiratory: cough Cardiovascular: no symptoms reported Gastrointestinal: no symptoms reported Genitourinary: no symptoms reported Musculoskeletal: joint pain Skin: no symptoms reported Psychiatric/Neurological: No Symptoms Reported Physical Exam Vital Signs Capillary Refill : General Appearance: No Apparent Distress Neck: Supple Respiratory: Lungs Clear Cardiovascular: Regular Rate, Rhythm Back: Normal Inspection Extremity: Normal Inspection Neurologic/Psychiatric: Alert, Oriented x3 Skin: Warm/Dry Assessment/Plan Assessment and Plan Gentleman with recurrent carcinoma of the head and neck region. For Infuse-a- Port placement Problems: CRESENCIO FELDER MD Aug 16, 2017 9:54 am
[~2017-08-21] VITALS: Ht 185.4 cm; Wt 85.3 kg
[~2017-08-21 09:06] MED LIST changes: +GABA600T2 PO; +LEVO125T6 PO; +OXYC10TA7 PO
[2017-08-21 09:12] VITALS: BP 131/91
[2017-08-21] MEDS ORDERED: LACTATED RINGERS 1,000 ML IV PRN (09:49)
[2017-08-21] MEDS ORDERED: BUP/EPI 0.5% 1:200,000 (SENSORCAINE) 30 ML VIAL ONE (09:57)
[2017-08-21] MEDS ORDERED: HEParin (CENTRAL IV FLUSH) 500 UNIT/5 ML SYR ONE ×2 (09:57→10:01)
[2017-08-21] MEDS ORDERED: 0.9% SODIUM CHLORIDE PF INJ 20 ML VIAL ONE (09:57)
[2017-08-21] MEDS ORDERED: ceFAZolin INJECTION 1,000 MG in NS (IVPB) 50 ML IV ONE (10:00)
--- NOTE | 2017-08-21 10:11 | Progress Note-Pre Operative ---
Pre-Operative Progress Note H&P Reviewed The H&P was reviewed, patient examined and no changes noted. Date Seen by Provider: Aug 21, 2017 Time Seen by Provider: 10:11 Date H&P Reviewed: Aug 21, 2017 Time H&P Reviewed: 10:11 Pre-Operative Diagnosis: Recurrent carcinoma CRESENCIO FELDER MD Aug 21, 2017 10:11 am
[2017-08-21] MEDS ORDERED: CATHETER FLUSH 10 ML SYR IV PRN (10:15)
[2017-08-21] MEDS ORDERED: SEVOFLURANE (ULTANE) 15 ML INHAL SOLN ONE ×2 (11:02→11:40)
[2017-08-21] MEDS ORDERED: proPOfol 200 MG/20 ML (DIPRIVAN) VIAL IV ONE (11:02)
[2017-08-21] MEDS ORDERED: MIDAZOLAM 2 MG/2 ML (VERSED) VIAL ONE (11:03)
[2017-08-21] MEDS ORDERED: fentaNYL INJECTION 100 MCG/2 ML AMP ONE (11:03)
[2017-08-21] MEDS ORDERED: LIDOCAINE PF 2% 5 ML (XYLOCAINE) VIAL ONE (11:04)
[2017-08-21] MEDS ORDERED: ONDANSETRON 4 MG/2 ML (SDV) Z0FRAN ONE (11:19)
[2017-08-21] MEDS ORDERED: PHENYLEPHRINE 100 MCG/ML 10 ML (ANESTHESIA) SYR ONE (11:36)
--- NOTE | 2017-08-21 11:47 | Operative Report ---
Operative Report Date of Procedure/Surgery Aug 21, 2017 Surgeon (s) CRESENCIO FELDER MD Tray Line Worker (s): N/A Post-Operative Diagnosis Same Procedure Performed Ipfpcv-t-Qmpz placement Description of Procedure Anesthesia Type: General Estimated blood loss (mL): Minimal Specimen(s) collected/removed None Description of the Procedure Indication for the procedure: This gentleman is due to receive systemic chemotherapy to manage resected laryngeal carcinoma. Facilitate this, placing an Tbunfk-u-Dftc was felt to be reasonable. Informed consent was obtained after reviewing the operative details and complications or hematoma, bacteremia and malfunction of the catheter, requiring replacement Description of procedure: He was placed supine on the operative table and general anesthesia induced using his existing tracheostomy tube. Ancef was administered intravenously as prophylaxis against infection. His upper chest wall and neck were prepared and draped in the usual sterile manner. Left subclavian vein was easily accessed and a floppy guidewire introduced into the heart, under fluoroscopy. A subcutaneous pocket was created over the infraclavicular fossa the Anthony catheter introduced into the heart, under fluoroscopy, using the peel-away sheath. It was pulled back to the superior vena cava and connected to the Cuhbri-x-Rwdi, that had been primed with heparinized saline. I was able to aspirate and flush the system without difficulty. The port was then secured to the pectoralis tissue with 2-0 Prolene sutures. The incision itself was closed using 3-0 Vicryl for the subcutaneous tissue and 4-0 Vicryl for skin, in a subcuticular fashion. 0.5 percent Marcaine with epinephrine was infiltrated along the incision, preemptively He tolerated the procedure well and was taken back to the nursing area in a stable condition. Findings of the Procedure See op report Allergies and Home Medications Allergies Coded Allergies: No Known Drug Allergies (Unverified , 02/07/17) Home Medications Diazepam 10 Mg Tablet, 10 MG PO BID, (Reported) Gabapentin 600 Mg Tablet, 600 MG PO QID, (Reported) Levothyroxine Sodium 125 Mcg Tablet, 125 MCG PO DAILY, (Reported) Oxycodone HCl 10 Mg Tablet, 10 MG PO DAILY, (Reported) CRESENCIO FELDER MD Aug 21, 2017 11:47 am
[2017-08-21] MEDS ORDERED: OXYC-197 PO (11:50)
--- NOTE | 2017-08-21 11:50 | Discharge Inst-Simple/Standard ---
Discharge Inst-Standard Discharge Medications New, Converted or Re-Newed RX: RX on Chart Patient Instructions/Follow Up Plan of Care/Instructions/FU: Band-Aids off in 48 hours. May use the port Activity as Tolerated: Yes Discharge Diet: No Restrictions CRESENCIO FELDER MD Aug 21, 2017 11:50 am
--- NOTE | 2017-08-21 12:10 | Diagnostic Imaging Report ---
INDICATION: Groshong catheter placement. FINDINGS: Fluoroscopy was provided during Groshong catheter placement. One minute and 5 seconds of fluoroscopy time was utilized. Two images over the mid chest were obtained. IMPRESSION: Fluoroscopy for Groshong catheter placement. Dictated by: Dictated on workstation # [id number]
--- NOTE | 2017-08-21 12:15 | Diagnostic Imaging Report ---
INDICATION: Groshong catheter placement. TIME OF EXAM: 12:00 p.m. Correlation is made with prior study from 11/01/2016. FINDINGS: Tracheostomy tube has tip above the willard. A left-sided catheter has been placed and appears to have the tip entering the upper portion of the right atrium. There are emphysematous changes in both lungs. No pneumothorax is seen. Nodular density near the right costophrenic angle appears stable. There is no effusion. IMPRESSION: Catheter placement, as described. No pneumothorax is seen. Dictated by: Dictated on workstation # [id number]
[2017-08-21 12:55] VITALS: BP 112/71
[2017-08-21] MEDS ORDERED: oxyCODONE/APAP 5/325MG (PERCOCET 5) TABLET PO ONE (13:15)
[2017-08-21 13:20] VITALS: BP 118/75
[2017-08-21 13:55] VITALS: BP 121/78
--- OUTSIDE RECORDS SUMMARY | 2017-08-23 08:44 | XMS REPORT | Clinical Summary ---
Author Author [facility] Organization [facility] Address Unknown Phone Unavailable Care Team Providers Care Atm Technician Name Role Phone ArvindArlyn CALL OR CONTACT CENTRE TEAM LEADER Unavailable Mary Kay Leonardo RN Unavailable Unavailable Tyler Mcdonald MD PCP Source Comments Some departments are not documenting in the electronic medical record. If you do not see the information that you expected, contact Release of Information in the Health Information Management department at [phone] for further assistance in locating additional records.[facility] Allergies No Known Allergies Current Medications Prescription Sig. Disp. Refills Start End Date Status Date cholecalciferol (VITAMIN Take 1 Tab by mouth 90 Tab 0 10/23/19 Active D-3) 1,000 units tablet daily. Per Gtube 17 diazePAM (VALIUM) 10 mg Take 1 Tab by mouth twice 11/07/19 Active tablet daily. Per Gtube 17 oxyCODONE (ROXICODONE) 1 Take 5-10 mL by mouth 400 mL 0 12/11/19 Active mg/mL oral solution every 4 hours as needed 17 Per Gtube levothyroxine (SYNTHROID) Take 1 Tab via feeding 30 Tab 2 12/11/19 Active 50 mcg tablet tube daily. Hold tube 17 feeds 1hr before and 1hr after dose gabapentin (NEURONTIN) Take 600 mg by mouth four Active 600 mg tablet times daily. ACETAMINOPHEN (TYLENOL Take by mouth as Needed. Active PO) CALCIUM PO Take by mouth as Needed. Active MULTIVITAMIN PO Take by mouth daily. Active diphenhydrAMINE (BENADRYL Take 25 mg by mouth every Active ALLERGY) 25 mg tablet 6 hours as needed. HYDROcodone/acetaminophen Take 1-2 tablets by mouth 10 tablet 0 Active (NORCO) 5/325 mg tablet every 4 hours as needed 18 for Pain Active Problems Problem Noted Date Hypothyroidism (acquired) 07/30/2017 Aphonia 06/13/2017 Overview: Added automatically from request for surgery [id number] History of laryngectomy 06/13/2017 Overview: Added automatically from request for surgery [id number] Normocytic anemia 11/02/2016 S/P laryngectomy 11/01/2016 Oropharyngeal [...] Encounters Date Type Specialty Care Team Description 08/21/2017 Ancillary Radiology Outpatient, Radiologist Diagnosis unknown Orders 08/14/2017 Clinical Otolaryngology Yamile Avila, K[place]; Support JAZ SPICER-PRODUCTION MECHANIC History of laryngectomy; Status post tracheoesophageal puncture 08/13/2017 Hospital Radiology Encounter 08/08/2017 Telephone Oncology Francia Mckeon MD Navigation Follow Up 08/08/2017 Telephone Otolaryngology Heidy Allen RN Results; Order Needed 08/07/2017 Orders Only Otolaryngology Heidy Allen RN Squamous cell carcinoma of larynx (HCC) (Primary Dx); Status post radiation therapy; Shortness of breath at rest; S/P laryngectomy; Chronic lung disease; Abnormal CT scan, chest 08/06/2017 Orders Only Otolaryngology Heidy Allen RN Shortness of breath at rest; Squamous cell carcinoma of larynx (HCC); S/P laryngectomy; History of laryngectomy; Encounter for preprocedural laboratory examination 08/02/2017 Telephone OtolaryngologHeidy Loya RN Order Needed 08/01/2017 Telephone Otolaryngology Heidy Allen RN Order Needed 07/30/2017 Clinical Otolaryngology Yamile Avila, Aphonia; Support NAYAN,CCC-PRODUCTION MECHANIC History of laryngectomy; Status post tracheoesophageal puncture 07/30/2017 Office Visit Otolaryngology Francia Mckeon MD S/P laryngectomy (Primary Dx); Shortness of breath at rest; Squamous cell carcinoma of larynx (HCC); History of laryngectomy; Hypothyroidism (acquired) 07/16/2017 Clinical Otolaryngology Chelo Candelario MA,CCC-PRODUCTION MECHANIC Aphonia; Support Essential tremor; History of laryngectomy; S/P laryngectomy 07/16/2017 Hospital Sharifa Flores MD [place] Encounter 07/16/2017 Procedure Pass 07/16/2017 Surgery Sharifa Flores MD TRACHEOESOPHAGEAL PUNCTURE 07/15/2017 Anesthesia Luis Eagle MD Event 06/13/2017 Orders Only Otolaryngology Sharifa Flores MD ERRONEOUS ENCOUNTER--DISREGARD (Primary Dx) 06/13/2017 Prep for Case Otolaryngology Sharifa Flores MD 06/06/2017 Office Visit Otolaryngology Sharifa Flores MD S/P laryngectomy (Primary Dx); Aphonia from Last 3 Months Immunizations Name Dates [...] Vital Sign Reading Time Taken Blood Pressure 148/90 07/30/2017 1:05 PM POND SCALER Pulse 65 07/30/2017 1:05 PM POND SCALER Temperature 37.1 C (98.8 F) 07/16/2017 8:31 AM POND SCALER Respiratory Rate 20 10/18/2014 2:25 PM CDT Oxygen Saturation 92% 07/16/2017 9:00 AM POND SCALER Inhaled Oxygen - - Concentration Weight 101.6 kg (224 lb) 07/30/2017 1:05 PM POND SCALER Height 182.9 cm (6') 07/30/2017 1:05 PM POND SCALER Body Mass Index 30.38 07/30/2017 1:05 PM POND SCALER Plan of Treatment Health Maintenance Due Date Last Done Comments PHYSICAL (COMPREHENSIVE) 1961 EXAM PERTUSSIS VACCINE 1965 TETANUS VACCINE 11/16/1971 COLORECTAL CANCER 2004 SCREENING SHINGLES VACCINE 2014 INFLUENZA VACCINE 02/05/2017 04/07/2016 Implants Implanted Type Area Farm Service Adviser Device Expiration Model / Identifier Date Serial / Lot Device Closure 70cm 6fr Angio-Seal Right: [employer] [id number] / Vip .035in Vascular - S. Femoral 4591 . / Implanted: Qty: 1 on 11/01/2016 by Artery [id number] Parminder Jordan MD Particles Embolization Kit Liquid Tongue JandJ: CORDIS [id number] / System Trufill Nbca 1gm - S. NEUROVASCULAR [id number] . / Implanted: Qty: 1 on 11/01/2016 by [id number] Parminder Jordan MD [employer] Voice Prosthesis 20fr N/A: [employer] TECH 04/06/2019 [id number] / 12.5mm - [id number] Trachea [id number] / Implanted: Qty: 1 on 07/16/2017 by [id number] Sharifa Flores MD Procedures Procedure Name Priority Date/Time Associated Diagnosis Comments ECG-SCAN 07/17/2017 Results for this 5:35 PM POND SCALER procedure are in the results section. TRACHEOESOPHAGEAL 07/16/2017 [place]ph[place] PUNCTURE 8:00 AM POND SCALER from Last 3 Months Results * NM PET/CT EXTERNAL IMAGING (08/13/2017) Narrative This order has been auto finalized and does not contain a result. * CT CHEST W CONTRAST (08/05/2017) Specimen Performing Laboratory [facility] [address] [address] * CT NECK W/CONTRAST (08/05/2017) Specimen Performing Laboratory [facility] [address] [address] * BUN (08/05/2017) Component Value Ref Range Blood Urea Nitrogen 9 7 - 18 MG/DL Specimen Performing Laboratory [facility] [address] [address] * CREATININE (08/05/2017) Component Value Ref Range Creatinine 1.05 0.60 - 1.30 Specimen Performing Laboratory Blood [facility] [address] [place] [address] * ECG-SCAN (07/17/2017 5:35 PM) Narrative Ordered by an unspecified provider. from Last 3 Months
--- OUTSIDE RECORDS SUMMARY | 2017-08-23 08:44 | XMS REPORT | Continuity of Care Document ---
Author Author [employer] Organization [facility] Address Unknown Phone Unavailable Care Team Providers Care Business Operations Coordinator Name Role Phone [employer] Unavailable Unavailable Problems Medications Allergies, Adverse Reactions, Alerts Immunizations Results Vital Signs Encounters Location Location Details Encounter Type Encounter Number Reason For Visit Attending Provider ADM Date DC Date Status Source OP SURGERY [id number] ZIA RHOADES 07/16/2017 07/16/2017 Active [facility] O 08/13/2017 08/13/2017 Active [facility] Procedures Plan of Care Social History Assessment and Plan Family History Advance Directives Functional Status
--- OUTSIDE RECORDS SUMMARY | 2017-08-23 08:44 | XMS REPORT | Encounter Summary ---
Author Author [facility] Organization [facility] Address Unknown Phone Unavailable Care Team Providers Care Journeyman Pipe Fitter Name Role Phone Arlyn Samuels CLINICAL SERVICES ASSISTANT Unavailable Mary Kay Leonardo RN Unavailable Unavailable Tyler Mcdonald MD PCP Reason for Visit * Reason Comments Other alaryngela voice therapy Encounter Details Date Type Department Care Team Description 08/14/2017 Clinical [facility] Yamile Avila Aphonia; Support Physicians - ENT NAYAN,CCC-MEASUREMENT TECHNICIAN History of laryngectomy; 3RD FLOOR POD C Status post [address] [facility] tracheoesophageal [place] [address] Social History Tobacco Use Types [...] as of this encounter Progress Notes * Luis Miner MD - 08/14/2017 2:00 PM TEMPORARY RECEPTIONIST Formatting of this note may be different from the original. ATTESTATION I have reviewed the information from this visit and agree with the impression and recommendations. Staff name: Luis Miner MD Date: 08/15/2017 * Yamile Avila MA,CCC-MEASUREMENT TECHNICIAN - 08/14/2017 2:00 PM TEMPORARY RECEPTIONIST [facility] TEP Evaluation ([id number]) Staff: Gabino Miner MD Date of Service: 08/14/2017 G Codes: G9174: CN - severe (aphonic) + G9175: CH - within functional limits ( normal voice) + G9176: CH - within functional limits (normal voice) Olayinka Garrison Sr. is a 61 y.o. male, referred to this service by Dr. Francia Mckeon for a speech pathology tracheoesophageal voice evaluation. 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 MR Garrison laryngectomy was completed on October 03 2016. This patient presents to the clinic today in accordance to the original plan of care in order to undergo evaluation of the prosthesis and provide education regarding maintenance procedures and how to use it. To date, MR Garrison has in place an 12mm 20Fr indwelling [employer]ox tracheoesophageal voice prosthesis from [facility] per Dr. Flores's report. His called to report that he is unable to achieve TEP voice but is not leaking. We were unable to identify/resolve the problem over the phone, so he presents today for clinic evaluation. PROCEDURE: Upon examination the prosthesis appears to be of good fit within the puncture tract. Patient presents with unfenestrated LaryTube, Madalyn straps loosely attached and HME. We discussed that he will not achieve voicing with an unfenestrated tube. He reports that he was not trying to voice with this tube when the problem occurred. The tube was removed. Without the tube in place, patient is able to digitally occlude the stoma and achieve fluent TEP voicing. He was able to voice continuously with digital occlusion and with HME baseplate (Stabilibase, placed by clinician) for the entire 55 minute session. We could not identify a problem with the prosthesis or his anatomy. During the session, patient's reported that he leaked one drop of water during testing last night, but leaking stopped after cleaning. We tested him with water today without any leaking observed by clinician (through or around). I provided the patient with written and verbal TEP troubleshooting education, including how to get a good HME seal. TEP CHANGE DID NOT OCCUR TODAY. ASSESSMENT AND PLAN: Patient left the clinic today with good voicing. I assisted in providing more XtraBase and Stabilibase samples and filled out the [facility] Consent form with them to request that they get a coming home kit (they said they never got this). They do not have a shower guard. I reviewed the current Rx (which has shower guard on it) and discussed it's benefit.. Plan of care includes for the patient to contact us should he have trouble voicing, or at the first sight of leakage. Contact information provided. I also encouraged him to contact me should any changes occur with the device. I look forward to continued voice quaker of this patient. CN=(Initial, Severe impairment, high risk for aspiration) CH=(Goal status, No impairment) CH=(Final status, No impairment) in this encounter Plan of Treatment Not on fileas of this encounter Visit Diagnoses Diagnosis Aphonia History of laryngectomy Other postprocedural status Status post tracheoesophageal puncture
--- OUTSIDE RECORDS SUMMARY | 2017-08-23 08:44 | XMS REPORT | Encounter Summary ---
Author Author [facility] Organization [facility] Address Unknown Phone Unavailable Care Team Providers Care Director Of Marketing Analytics Name Role Phone Arlyn Samuels APRN Unavailable Mary Kay Leonardo RN Unavailable Unavailable Tyler Mcdonald MD PCP Reason for Visit * Reason Comments Navigation Follow Up Encounter Details Date Type Department Care Team Description 08/08/2017 Telephone [facility] Francia Mckeon MD Navigation Follow Up [facility] Exam [address] [place] [address] [place] [address] [phone] Social History Tobacco Use Types Packs/Day Years [...] impairment: No 11/03/2016 as of this encounter Miscellaneous Notes * Telephone Encounter - Victoria Lemons RN - 08/08/2017 12:39 PM BARREL CLEANER PET / CT scheduled at [facility] on Aug 13 at 10:45 am. Medical Oncology referral related to new pulmonary nodules noted on CT. Appt with Dr Peter Arriola on Aug 15 at 1pm Location: [facility] in [place] Pt and called and reason for tests and referrals reviewed. Pt agrees with plans. Appointments given and they state understanding of plan and appts. in this encounter Plan of Treatment Not on fileas of this encounter Visit Diagnoses Not on filein this encounter
--- OUTSIDE RECORDS SUMMARY | 2017-08-23 08:44 | XMS REPORT | Encounter Summary ---
Author Author [facility] Organization [facility] Address Unknown Phone Unavailable Care Team Providers Care Regulatory Scientist Name Role Phone ArvindArlyn WELDING MACHINE OPERATOR [employer]BM[employer] Unavailable Mary Kay Leonardo RN Unavailable Unavailable Tyler Mcdonald MD PCP Encounter Details Date Type Department Care Team Description 08/13/2017 Hospital [facility] Encounter Hospital Radiology [address] [place] [address] Social History Tobacco Use Types Packs/Day Years [...] Sig. Disp. Refills Start Date End Date ACETAMINOPHEN (TYLENOL Take by mouth as Needed. PO) CALCIUM PO Take by mouth as Needed. cholecalciferol (VITAMIN Take 1 Tab by mouth 90 Tab 0 10/22/2016 D-3) 1,000 units tablet daily. Per Gtube diazePAM (VALIUM) 10 mg Take 1 Tab by mouth twice 11/06/2016 tablet daily. Per Gtube diphenhydrAMINE (BENADRYL Take 25 mg by mouth every ALLERGY) 25 mg tablet 6 hours as needed. gabapentin (NEURONTIN) Take 600 mg by mouth four 600 mg tablet times daily. HYDROcodone/acetaminophen Take 1-2 tablets by mouth 10 tablet 0 2017 (NORCO) 5/325 mg tablet every 4 hours as needed for Pain levothyroxine (SYNTHROID) Take 1 Tab via feeding 30 Tab 2 12/10/2016 50 mcg tablet tube daily. Hold tube feeds 1hr before and 1hr after dose MULTIVITAMIN PO Take by mouth daily. oxyCODONE (ROXICODONE) 1 Take 5-10 mL by mouth 400 mL 0 12/10/2016 mg/mL oral solution every 4 hours as needed Per Gtube as of this encounter Plan of Treatment Not on fileas of this encounter Results * NM PET/CT EXTERNAL IMAGING (08/13/2017) Narrative This order has been auto finalized and does not contain a result. in this encounter Visit Diagnoses Diagnosis Diagnosis unknown Other unknown and unspecified cause of morbidity or mortality
--- OUTSIDE RECORDS SUMMARY | 2017-08-23 08:44 | XMS REPORT | Encounter Summary ---
Author Author [facility] Organization [facility] Address Unknown Phone Unavailable Care Team Providers Care Rig Builder Name Role Phone ArvindIvethcy TRANSIT DRIVER Unavailable Mary Kay Leonardo RN Unavailable Unavailable Tyler Mcdonald MD PCP Encounter Details Date Type Department Care Team Description 08/21/2017 Ancillary Rad Outpatient, Radiologist Diagnosis unknown Orders [address] [place] [address] Social History Tobacco Use Types [...]
--- OUTSIDE RECORDS SUMMARY | 2017-08-23 08:45 | XMS REPORT | Encounter Summary ---
Author Author [facility] Organization [facility] Address Unknown Phone Unavailable Care Team Providers Care Load Dispatcher Name Role Phone ArvindIvethcy PIANO PROFESSOR Unavailable Mary Kay Leonardo RN Unavailable Unavailable Tyler Mcdonald MD PCP Reason for Visit * Auth/Cert Status Reason Specialty Diagnoses / Referred By Referred To Procedures Contact Contact Diagnoses Aphonia History of laryngectomy UNKNOWN Procedures MI CONSTJ TRACHEOESOPHGL FSTL&INSJ SP PROSTH MI ESOPHAGOSCOPY FLEXIBLE TRANSORAL DIAGNOSTIC MI CONSTJ TRACHEOESOPHGL FSTL&INSJ SP PROSTH MI ESOPHAGOSCOPY FLEXIBLE TRANSORAL DIAGNOSTIC TRACHEOESOPHAGEA L PUNCTURE ESOPHAGOSCOPY Encounter Details Date Type Department Care Team Description 07/16/2017 [facility] [place] Operating Room Sharifa Flores MD Aphonia Encounter [address] [facility] [address] [place] [address] [place] [address] Social History Tobacco Use Types Packs/Day Years Used Date Former Smoker 0.5 51 Smokeless Tobacco: Never Used Comments: 1 pack every 24hr Alcohol Use Drinks/Week oz/Week Comments No 0 Standard 0.0 Denies ETOH use. drinks or equivalent Sex Assigned at Date Recorded Not on file as of this encounter Last Filed Vital Signs Vital Sign Reading Time Taken Blood Pressure 122/82 07/16/2017 9:00 AM ORNAMENTAL IRON WORKER APPRENTICE Pulse 65 07/16/2017 9:00 AM ORNAMENTAL IRON WORKER APPRENTICE Temperature 37.1 C (98.8 F) 07/16/2017 8:31 AM ORNAMENTAL IRON WORKER APPRENTICE Respiratory Rate - - Oxygen Saturation 92% 07/16/2017 9:00 AM ORNAMENTAL IRON WORKER APPRENTICE Inhaled Oxygen - - Concentration Weight 100.5 kg (221 lb 9.6 oz) 07/16/2017 6:03 AM ORNAMENTAL IRON WORKER APPRENTICE Height 185.4 cm (6' 1") 07/16/2017 6:03 AM ORNAMENTAL IRON WORKER APPRENTICE Body Mass Index 29.24 07/16/2017 6:03 AM ORNAMENTAL IRON WORKER APPRENTICE in this encounter Functional Status Functional Status Response Date of Assessment Does the patient have a hearing impairment: No 11/03/2016 as of this encounter Discharge Instructions * Pre-Anesthesia Medication Instructions - Vincent Dela Cruz RN - 06/25/2017 10:30 AM ORNAMENTAL IRON WORKER APPRENTICE Formatting of this note may be different from the original. YOUR MEDICATIONS: ACETAMINOPHEN (TYLENOL PO) Take by mouth as Needed. CALCIUM PO Take by mouth as Needed. cholecalciferol (VITAMIN D-3) 1,000 units tablet Take 1 Tab by mouth daily. Per Gtube (Patient taking differently: Take 1,000 Units by mouth daily.) diazePAM (VALIUM) 10 mg tablet Take 1 Tab by mouth twice daily. Per Gtube ( Patient taking differently: Take 10 mg by mouth twice daily.) gabapentin (NEURONTIN) 600 mg tablet Take 600 mg by mouth four times daily. levothyroxine (SYNTHROID) 50 mcg tablet Take 1 Tab via feeding tube daily. Hold tube feeds 1hr before and 1hr after dose (Patient taking differently: Take 100 mcg by mouth daily.) MULTIVITAMIN PO Take by mouth daily. oxyCODONE (ROXICODONE) 1 mg/mL oral solution Take 5-10 mL by mouth every 4 hours as needed Per Gtube (Patient taking differently: Take 5-10 mg by mouth every 4 hours as needed ) YOUR MEDICATION INSTRUCTIONS FOR SURGERY: Before surgery Stop the following vitamins, herbals, and natural supplements 14 days before surgery: Multivitamin Stop the following medications 7 days before surgery: Anti-inflammatory medications such as ibuprofen (Advil, Motrin) and naproxen (Aleve) You may use acetaminophen (Tylenol) Morning of surgery On the morning of surgery, do NOT take these medications: Remaining vitamins/supplements (vitamin D, calcium) Ointments/creams/lotions On the morning of surgery, take ONLY these medications with a sip (1-2 ounces) of water: Diazepam Gabapentin Levothyroxine Oxycodone- if needed Other information Before surgery, please contact ADENIKE Kaur, with any medicine updates or questions. E-mail: [email or web address] Before going home from the hospital, please ask your doctor when you should re- start your medicines that were stopped before surgery. * Pre-Anesthesia Patient Instructions - Vincent Dela Cruz RN - 06/25/2017 10:28 AM ORNAMENTAL IRON WORKER APPRENTICE GENERAL INFORMATION Before you come to the hospital Make arrangements for a responsible adult to drive you home and stay with you for 24 hours following surgery. Bath/Shower Instructions Take a bath or shower with antibacterial soap the night before or the morning of your procedure. Use clean towels. Put on clean clothes after bath or shower. Avoid using lotion and oils. If you are having surgery above the waist, wear a shirt that fastens up the front. Sleep on clean sheets if bath or shower is done the night before procedure. Leave money, credit cards, jewelry, and any other valuables at home. The [facility] is not responsible for the loss or breakage of personal items. Remove nail israeli, makeup and all jewelry (including piercings) before coming to the hospital. The morning of your procedure: brush your teeth and tongue do not smoke do not shave the area where you will have surgery What to bring to the hospital ID/ Insurance Card [employer] card Official documents for legal guardianship Copy of your Living Will, Advanced Directives, and/or Durable Power of [employer] Small bag with a few personal belongings Cases for glasses/hearing aids/contact lens (bring solutions for contacts) Dress in clean, loose, comfortable clothing Eating or drinking before surgery Do not eat or drink anything after 11:00 p.m. the day before your procedure ( including gum, mints, candy, or chewing tobacco) OR follow the specific instructions you were given by your Surgeon. You may have WATER ONLY up to 2 hours before arriving at the hospital. Other instructions: See medication instructions. Other instructions Notify your surgeon if: you become ill with a cough, fever, sore throat, nausea, vomiting or flu- like symptoms you have any open wounds/sores that are red, painful, draining, or are new since you last saw the doctor you need to cancel your procedure Notify us at [facility]: if you need to cancel your procedure if you are going to be late Arrival at the hospital [facility]: ? Park in the P5 parking garage located at [address] [place] [address] (Next to the [facility] [address] [facility]). ? [employer] Grader parking is available in front of [facility] between the hours of 7:00 am and 4:00 pm Saturday through Saturday. ? If parking in the P5 garage, take the east elevators in the parking garage to the second level and walk to the entrance of the [facility]. ? Enter through the 1st floor main entrance and check in with Information Desk. ? You will be contacted by the surgery office between 2:30 pm and 4:30 pm on the last business day before your procedure to advise you of your arrival time. If you do not receive a call, you may call the Preoperative Assessment Clinic to confirm your arrival time. Before 4:30 pm, call [phone], and after 4:30 pm, call [phone]. in this encounter Medications at Time of Discharge [...] needed Per Gtube as of this encounter Progress Notes * Vincent Dela Cruz, RN - 06/25/2017 10:30 AM ORNAMENTAL IRON WORKER APPRENTICE Updates completed with patient's , Nichelle, for surgery on 07/16/[address] Flores. Denies any changes in medical history and functional status since last surgery on 10/03/16 and 11/02/16 at , except for removal of G-tube. Denies chest pain, palpitations, and shortness of breath. No PAC appointment at this time. Pre-op and medication instructions reviewed with patient's . No vitamins, herbals, and supplements 14 days prior to surgery, but may continue vitamin D and calcium. No NSAIDs 7 days prior to surgery. Take diazepam, levothyroxine, gabapentin, and oxycodone (if needed) on the day of surgery. NPO after 2300 the night before surgery, but may have water until 2 hours prior to arrival for surgery. Pt's verbalized understanding of instructions and copy of instructions sent to patient. in this encounter H&P Notes * Gianluca Beebe - 07/16/2017 6:44 AM ORNAMENTAL IRON WORKER APPRENTICE Formatting of this note may be different from the original. CAR[facility]A/[facility] Surgery 07/16/2017 Patient: Olayinka Garrison Sr. Admission Date: 07/16/2017, LOS: 0 days Admission Diagnosis: Aphonia [R49.1] History of laryngectomy [Z98.890, Z90.02] Date of Service: July 16, 2017 ASSESSMENT/PLAN: 61 y.o. male with hx of laryngeal SCCa s/p total laryngectomy presents for TEP placement. The patient's pre-operative examination and work-up has been completed. The patient denies SOB, chest pain, fevers, chills, or infection. Risks, benefits, and alternatives were discussed at length with the patient. Questions were answered, patient and family voiced understanding, and consent has been obtained. Patient wishes to proceed with tracheo-esophageal placement. Gianluca Beebe MD [phone] __ HPI: Olayinka Garrison Sr. is a 61 y.o. male presents for surgery today for TEP placement. Mr. Garrison is a very pleasant 61-year-old gentleman who is referred by Dr. Francia Mckeon for evaluation for TEP. Mr. Garrison was diagnosed with laryngeal cancer which was treated with radiation therapy in June 2016. Unfortunately, he had persistent disease. He underwent a total laryngectomy with pectoral flap reconstruction in September 2016. 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 Currently, he has no swallow complaints. He is able to eat and drink all consistencies without difficulty. Mr. Garrison currently communicates via an electrolarynx. He is interested in the possibility of a TEP. He is viewed videos on the procedure and the device, and is hopeful that TEP will provide him with a more natural sounding voice. He does complain of some numbness in his right hand, but has had no deficits of his manual dexterity. He has no underlying pulmonary conditions. Past Medical History: Diagnosis Date Alcoholism (HCC) Chronic lung disease Essential tremor H/O malignant neoplasm of head and neck Hepatitis C History of radiation therapy Liver disease Tobacco abuse Past Surgical History: Procedure Laterality Date MI LARYNGOSCOPY W/BIOPSY MICROSCOPE/TELESCOPE Bilateral 04/03/2016 DIRECT LARYNGOSCOPY BIOPSY performed by Francia [facility] TRACHEOSTOMY N/A 04/03/2016 TRACHEOSTOMY-AWAKE performed by Francia Mckeon MD at [facility] MI TRACHEOSTOMY PLANNED SEPARATE PROCEDURE N/A 09/12/2016 TRACHEOSTOMY, Direct laryngoscopy, biopsies performed by Francia Mckeon MD [facility] MI LARYNGECTOMY TOTAL W/RADICAL NECK DISSECTION Bilateral 10/03/2016 LARYNGECTOMY COMPLETE WITH RADICAL NECK DISSECTION performed by Eduardo Winchester MD at [facility] MI MUSC MYOCUTANEOUS/FASCIOCUTANEOUS FLAP TRUNK Left 10/03/2016 PECTORALIS MAJOR MUSCLE FLAP performed by Eduardo Marques MD at [facility] MI SPLIT AGRFT F/S/N/H/F/G/M/D GT 1ST 100 CM/</1 % Left 10/03/2016 GRAFT SKIN SPLIT THICKNESS LOWER EXTREMITY performed by Eduardo Marques MD at [facility] BRONCHOSCOPY Medications: No current facility-administered medications on file prior to encounter. Current Outpatient Prescriptions on File Prior to Encounter Medication Sig Dispense Refill cholecalciferol (VITAMIN D-3) 1,000 units tablet Take 1 Tab by mouth daily. Per Gtube (Patient taking differently: Take 1,000 Units by mouth daily.) 90 Tab 0 diazePAM (VALIUM) 10 mg tablet Take 1 Tab by mouth twice daily. Per Gtube ( Patient taking differently: Take 10 mg by mouth twice daily.) levothyroxine (SYNTHROID) 50 mcg tablet Take 1 Tab via feeding tube daily. Hold tube feeds 1hr before and 1hr after dose (Patient taking differently: Take 100 mcg by mouth daily.) 30 Tab 2 oxyCODONE (ROXICODONE) 1 mg/mL oral solution Take 5-10 mL by mouth every 4 hours as needed Per Gtube (Patient taking differently: Take 5-10 mg by mouth every 4 hours as needed ) 400 mL 0 Allergies: Review of patient's allergies indicates no known allergies. Social History Social History Marital status: Spouse name: N/A Number of children: N/A Years of education: N/A Occupational History Not on file. Social History Main Topics Smoking status: Former Smoker Packs/day: 0.50 Years: 51.00 Smokeless tobacco: Never Used Comment: 1 pack every 24hr Alcohol use No Comment: Denies ETOH use. Drug use: No Comment: no illicit drug use. Sexual activity: Yes Comment: denies high risk sexual behavior. Other Topics Concern Not on file Social History Narrative Lives with significant other. Unemployed. Family History Problem Relation Age of Onset Diabetes Mother Cancer Father Patient Active Problem List Diagnosis Date Noted Aphonia 06/13/2017 History of laryngectomy 06/13/2017 Normocytic anemia 11/02/2016 S/P laryngectomy 11/01/2016 Oropharyngeal bleeding 11/01/2016 Chronic lung disease Essential tremor Dysphagia 09/12/2016 Hypokalemia 09/12/2016 Hypomagnesemia 09/12/2016 Acute respiratory failure (HCC) 09/11/2016 Shortness of breath at rest 09/11/2016 Squamous cell carcinoma of larynx (HCC) 08/14/2016 Status post radiation therapy 08/14/2016 Laryngeal mass 04/02/2016 GERD without esophagitis 10/20/2014 Itching 10/20/2014 Tobacco abuse 10/06/2013 Fatty liver 10/06/2013 Hepatitis C 03/16/2013 Anxiety 03/16/2013 Family history reviewed and otherwise non contributory Vitals: Vital Signs: Last Filed In 24 Hours Vital Signs: 24 Hour Range BP: 126/85 (07/16 602) Temp: 37 C (98.6 F) (07/16 602) Pulse: 86 (07/16 602) Respirations: 15 PER MINUTE (07/16 602) O2 Delivery: None (Room Air) (07/16 602) SpO2 Pulse: 87 (07/16 602) Height: 185.4 cm (73") (07/16 602) BP: (126)/(85) Temp: [37 C (98.6 F)] Pulse: [86] Respirations: [15 PER MINUTE] O2 Delivery: None (Room Air) Intensity Pain Scale 0-10 (Pain 1): 8 (07/16/17602) 12- point review review of symptoms conducted and negative except as noted in HPI. Intake/Output: No intake or output data in the 24 hours ending 07/16/17643 Physical Exam: alert, cooperative and no distress Neurologic: Alert and oriented x 3. Cranial nerves II - XII grossly intact and symmetric. Eyes: Pupils equal round and reactive. Extraocular eye movements intact and full. Ears: Pinna appear normal. Hearing intact to finger rustle. External auditory canals without significant cerumen or debris. Tympanic membrane intact without effusion, retraction or perforation. Nose: Dorsum straight. Nares patent. On anterior rhinoscopy, the mucosa is moist. Anterior turbinates 2+. Septum midline. No mucopurulent discharge or polyps. Oral Cavity: Edentulous. Oral mucosa pink and moist. No masses or lesions. Tongue mobile. Floor of mouth without mass or lesion. Oropharynx: No mucosal masses or lesions. Soft palate elevates symmetrically. Neck: Mild submental firmness. Left pec flap visible. Stoma ~ 1.5 cm. Skin graft noted at superior mucocutaneous junction. Lab/Radiology/Other Diagnostic Tests: No results for input(s): HGB, HCT, WBC, PLTCT, NA, K, CL, CO2, BUN, CR, GLU, CA , MG, PO4, ALBUMIN, TOTPROT, TOTBILI, AST, ALT, ALKPHOS, HENRRY, LIPASE, PREALB, INR, PT, PTT in the last 72 hours. Gianluca Beebe Pager:[phone] Associated attestation - Sharifa Flores MD - 07/16/2017 7:22 AM ORNAMENTAL IRON WORKER APPRENTICE Formatting of this note may be different from the original. ATTESTATION Pt seen in pre-op holding. Has elected for TEP placement. Stoma widely patent , though with some STSG encroachment into stoma. Reviewed risks, to include bleeding, infection, esophageal injury, breakdown of the fistula, leaking of the prosthesis and failure to provide adequate voice. Pt understands and wishes to proceed. Consent on chart. Staff name: Sharifa Flores MD Date: 07/16/2017 in this encounter Miscellaneous Notes * Operative Report (Direct Entry) - Sharifa Flores MD - 07/16/2017 7:23 AM ORNAMENTAL IRON WORKER APPRENTICE OPERATIVE REPORT Name: Olayinka Garrison SrEdil is a 61 y.o. male : 1955 DATE OF OPERATION: 07/16/2017 Surgeon(s) and Role: * Sharifa Flores MD - Primary * Gianluca Beebe - Resident - Assisting Preoperative Diagnosis: Aphonia [R49.1] History of laryngectomy [Z90.02] Post-op Diagnosis * Aphonia [R49.1] * History of laryngectomy [Z98.890, Z90.02] Procedure(s): TRACHEOESOPHAGEAL PUNCTURE ESOPHAGOSCOPY Anesthesia Type: General Indications: Mr. Garrison is s/p laryngectomy. He currently uses an electrolarynx to voice. He wishes to move forward with TEP placement. Findings: 1. 20F/12 mm prosthesis placed Description of Operative Procedure: The patient was seen and evaluated in the pre-operative holding area. After discussing the risks and benefits of the procedure, informed consent was obtained. The patient was brought to the operating suite and placed on the operating table in the supine position. After the uneventful induction of general anesthesia via his stoma, the table was rotated 90 degrees. A surgical time out was performed to verify patient identity, allergies and the planned surgical procedure. The head was wrapped and the patient was draped in the usual fashion. A raytec was placed over the maxillary alveolus. The #8 esophagoscope was passed through the oral cavity into the proximal esophagus. No oral cavity or oropharyngeal lesions were noted. The proximal esophagus appreated normal. The esophagoscope was rotated so that the flange was positionedposteriorly to protect the back wall of the esophagus. The light from the esophagoscope could be seen transilluminating the republican wall. The trochar was then used to make a puncture approximately 1 cm below the skin edge into the republican wall. The trochar was visualized as it entered the lumen of the esophagoscope. The guide wire was advanced into the scope and out of the mouth. The trochar was removed. The dilator with attached prosthesis (20F/12mm) was then gently pulled through the mouth and out the puncture site. The external flange deployed. The prostheses was rotated and the the tag was cut. The espohagus was re-examined and the internal flange was noted to be in place. The esophagoscope was removed and the patient was handed over to the anesthesia team in stable condition for recovery. I was present for the entire operative portion of the case. There were no complications. The patient was escorted to the PACU in stable condition for recover. Our counts were correct times two. Estimated Blood Loss: No blood loss documented. Specimen(s) Removed/Disposition: * No specimens in log * Attestation: I performed this procedure with a resident. and I was present for the entire procedure. Sharifa Flores MD Pager in this encounter Plan of Treatment Not on fileas of this encounter Procedures Procedure Name Priority Date/Time Associated Diagnosis Comments ECG-SCAN 07/17/2017 Results for this 5:35 PM ORNAMENTAL IRON WORKER APPRENTICE procedure are in the results section. TRACHEOESOPHAGEAL 07/16/2017 Aphonia PUNCTURE 8:00 AM ORNAMENTAL IRON WORKER APPRENTICE in this encounter Results * ECG-SCAN (07/17/2017 5:35 PM) Narrative Ordered by an unspecified provider. in this encounter Visit Diagnoses Diagnosis Aphonia History of laryngectomy Other postprocedural status Admitting Diagnoses Diagnosis Aphonia - UNKNOWN History of laryngectomy Other postprocedural status Administered Medications Medication Order MAR Action Action Date Dose Rate Site lidocaine PF 1% (10 mg/mL) injection Given 07/16/2017 0.4 mL 0.1-2 mL 06:15 ORNAMENTAL IRON WORKER APPRENTICE 0.1-2 mL, Injection, NEEDED, Starting 07/16/17 at 0633, Until Sat07/16/17 at 1556, Other..., for IV insertion, Pre-Op oxyCODONE (ROXICODONE, OXY-IR) tablet Given 07/16/2017 10 mg 5-10 mg 08:41 ORNAMENTAL IRON WORKER APPRENTICE 5-10 mg, Oral, ONCE PRN, 1 dose, Starting Sat07/16/17 at 0813, Until Sat07/16/17 at 2359, Pain PO, For Pain Score <4, PACU (only) sodium chloride 0.9 % infusion Given - New 07/16/2017 1,000 mL 20 mL/ hr 1,000 mL, 1,000 mL, Intravenous, at 20 Bag 06:15 ORNAMENTAL IRON WORKER APPRENTICE mL/hr, CONTINUOUS, Starting Sat07/16/17 at 0545, Until Sat07/16/17 at 1556, Pre-Op in this encounter
--- OUTSIDE RECORDS SUMMARY | 2017-08-23 08:45 | XMS REPORT | Encounter Summary ---
Author Author [facility] Organization [facility] Address Unknown Phone Unavailable Care Team Providers Care Licensed Aircraft Maintenance Engineer Name Role Phone ArvindArlyn SHIPPING & RECEIVING LEAD Unavailable Mary Kay Leonardo RN Unavailable Unavailable Tyler Mcdonald MD PCP Reason for Visit * Auth/Cert Status Reason Specialty Diagnoses / Referred By Referred To Procedures Contact Contact Diagnoses Aphonia History of laryngectomy UNKNOWN Procedures [place] CONSTJ TRACHEOESOPHGL FSTL&INSJ SP PROSTH [place] ESOPHAGOSCOPY FLEXIBLE TRANSORAL DIAGNOSTIC [place] CONSTJ TRACHEOESOPHGL FSTL&INSJ SP PROSTH [place] ESOPHAGOSCOPY FLEXIBLE TRANSORAL DIAGNOSTIC TRACHEOESOPHAGEA L PUNCTURE ESOPHAGOSCOPY Encounter Details Date Type Department Care Team Description 07/16/2017 Anesthesia [place] Operating Room Luis Eagle MD [address] [address] [address] [place], [place] [id number] Anesthesia Record Procedure Name Responsible Anesthesia Start Time Anesthesia Stop Time Anesthesiologist TRACHEOESOPHAGEAL Luis Eagle MD 07/16/17 0750 07/16/17 0834 PUNCTURE (N/A Neck) Date Time Event Comment 722 AN Equip Check 2017 0750 Anes Start 0751 An Start Data 0756 An Induction The patient was reevaluated immediately before moderate or deep sedation use and before anesthesia induction. 0759 An Intubation 0802 Anesthesia Ready 0802 Proc Start 0803 Antibiotic Given 0816 Quick Note Apnea per Surgeon x 30 sec 0825 An Extubation 0828 an stop data 0831 Handoff to RN I completed my SBAR handoff to the receiving nurse. 0834 An Stop Meds Name Total midazolam (VERSED) 1 mg/mL injection 2 mg fentaNYL PF (SUBLIMAZE) injection 100 mcg lidocaine (2%) 200 mg/10mL Injection 100 mg syringe propofol (DIPRIVAN) 200 mg/ 20 mL 160 mg injection (VIAL) ondansetron (ZOFRAN) injection 4 mg dexamethasone (DECADRON) 4 mg/mL 4 mg injection phenylephrine (ILLIA-SYNEPHRINE) 0.1 mg/mL 100 mcg injection (SYRINGE) ceFAZolin (ANCEF) injection 2 g sodium chloride 0.9 % infusion 500 mL * Name O2 N2O Inspired Air Sevoflurane Inspired Sevoflurane * No blood administrations on file. Type Details Placement Removal Wounds 04/03/16; 1410; Neck; Surgical Incision; 04/03/16 1410 by Tank, (NOT for Trach site: sutures, Nikki, RN Pressure Injuries) Gastrostom 09/14/16; 1115; Left, Quadrant, Right 09/14/16 1115 by Ismael Mays RN Wounds 10/03/16; Left, Right; Neck; Surgical 10/03/16 0000 by Julieta, (NOT for Incision; Sutures Gely RN Pressure Injuries) Wounds 10/03/16; 1716; Chest; Surgical 10/03/16 1716 by (NOT for Incision; chest closed with sutures and Rodrigues-Barriga, Teri, Pressure toyin, bacitracin ointment RN Injuries) Wounds 10/03/16; 1717; Left; Leg; Surgical 10/03/16 1717 by (NOT for Incision; xeroform, tegaderm, kerlix Rodrigues-Barriga, Teri, Pressure RN Injuries) Peripheral 10/17/16; 1308; R; Forearm; 22 G; No; 1 10/17/16 1308 by MICHAEL Key RN Wounds 11/01/16; 1639; Buttocks; Skin Tear 11/01/16 1639 by (NOT for Jones Fernández RN Pressure Injuries) Wounds 11/01/16; 1642; Left; Leg; Split 11/01/16 1642 by Jose, (NOT for Thickness Skin Graft Elizabeth RN Pressure Injuries) Peg Tube (present on admission); Left 11/01/16 1823 by Elizabeth Garcia RN Puncture 11/01/16; 1999; Left; Femoral 11/01/161999 by Carloz Lawson RN (Sheath) Vladislav 11/02/16; 1140; Right; Neck; 19 FR; #1 11/02/16 1140 by Barbra Toribio RN Drain Wounds 11/02/16; 1148; Chin to Neck to Chest; 11/02/16 1148 by Malu, (NOT for Surgical Incision; CLOSED WITH TOYIN ADENIKE Pickens Pressure AND SUTURESDRESSINGS: BACITRACIN Injuries) Peripheral 07/16/17; 0614; RN; R; Hand; 20 G 07/16/17 0614 by MICHAEL Sal RN Laryngecto 07/16/17; 0825 11/04/16 0059 by Marianne, 07/16/17 0825 by barbara Wright RN Brian, AIDEN ETT 07/16/17; 0759; Unable to mask ventilate 07/16/17 0759 by Adriana, 03/25 0825 by Adriana, (4); (Exchanged Trach 10 FR Provox for Eliezer, SRNA Eliezer, SRNA 6.0 Armored); Single-Lumen, Cuffed; 6mm; Trach (stoma); Auscultation, ETCO2 Detector; 9 centimeters; 07/16/17; 0825 in this encounter Social History Tobacco Use Types Packs/Day Years [...] impairment: No 11/03/2016 as of this encounter OR Notes * Anesthesia Postprocedure Evaluation - Jane Jimenez MD - 07/16/2017 9:12 AM DRY CLEANING MACHINE OPERATOR Post-Anesthesia Evaluation Name: Olayinka Garrison Sr. : 1955 Age: 61 y.o. Sex: male Procedure Date: 07/16/2017 Procedure: Procedure(s) with comments: TRACHEOESOPHAGEAL PUNCTURE - CASE LENGTH 1 HOUR, PROVOX 12 MM/20 FR KIT, PEDS GASTROSCOPE Surgeon: Surgeon(s): MD Gianluca Braun Post-Anesthesia Vitals BP: 122/82 (07/16 899) Temp: 37.1 C (98.8 F) (07/16 830) Pulse: 65 (07/16 899) Respirations: 10 PER MINUTE (07/16 831) SpO2: 92 % (07/16 899) O2 Delivery: None (Room Air) (07/16 899) SpO2 Pulse: 62 (07/16 899) Height: 185.4 cm (73") (07/16 602) Post Anesthesia Evaluation Note Evaluation location: Pre/Post Patient participation: recovered; patient participated in evaluation Level of consciousness: alert Pain score: 0 Pain management: adequate Hydration: normovolemia Temperature: 36.0C - 38.4C Airway patency: adequate Perioperative Events Perioperative events: no Post-op nausea and vomiting: no PONV Postoperative Status Cardiovascular status: hemodynamically stable Respiratory status: spontaneous ventilation Follow-up needed: none Perioperative Events Perioperative Event: No Emergency Case Activation: No * Anesthesia Preprocedure Evaluation - Luis Eagle MD - 07/16/2017 7:00 AM DRY CLEANING MACHINE OPERATOR Formatting of this note may be different from the original. Anesthesia Pre-Procedure Evaluation Name: Olayinka Garrison : 1955 Age: 61 y.o. Sex: male Procedure Date: 07/16/2017 Procedure: Procedure(s) with comments: TRACHEOESOPHAGEAL PUNCTURE - CASE LENGTH 1 HOUR, PROVOX 12 MM/20 FR KIT, PEDS GASTROSCOPE ESOPHAGOSCOPY Physical Assessment Vital Signs (last filed in past 24 hours): BP: 126/85 (07/16 602) Temp: 37 C (98.6 F) (07/16 602) Pulse: 86 (07/16 602) Respirations: 15 PER MINUTE (07/16 602) O2 Delivery: None (Room Air) (07/16 602) Height: 185.4 cm (73") (07/16 602) Weight: 100.5 kg (221 lb 9.6 oz) (07/16 602) Patient History No Known Allergies Current Medications Medication Directions ACETAMINOPHEN (TYLENOL PO) Take by mouth as Needed. CALCIUM PO Take by mouth as Needed. cholecalciferol (VITAMIN D-3) 1,000 units tablet Take 1 Tab by mouth daily. Per Gtube Patient taking differently: Take 1,000 Units by mouth daily. diazePAM (VALIUM) 10 mg tablet Take 1 Tab by mouth twice daily. Per Gtube Patient taking differently: Take 10 mg by mouth twice daily. diphenhydrAMINE (BENADRYL ALLERGY) 25 mg tablet Take 25 mg by mouth every 6 hours as needed. gabapentin (NEURONTIN) 600 mg tablet Take 600 mg by mouth four times daily. levothyroxine (SYNTHROID) 50 mcg tablet Take 1 Tab via feeding tube daily. Hold tube feeds 1hr before and 1hr after dose Patient taking differently: Take 100 mcg by mouth daily. MULTIVITAMIN PO Take by mouth daily. oxyCODONE (ROXICODONE) 1 mg/mL oral solution Take 5-10 mL by mouth every 4 hours as needed Per Gtube Patient taking differently: Take 5-10 mg by mouth every 4 hours as needed Review of Systems/Medical History Patient summary reviewed Pertinent labs reviewed PONV Screening: Postoperative opioids Airway History of head/neck radiation Prior tracheostomy Pulmonary Not a current smoker Shortness of breath Cardiovascular Exercise tolerance: <4 METS Beta Rico therapy: No No hypertension, No hx of coronary artery disease GI/Hepatic/Renal GERD, Hepatitis C Liver disease Neuro/Psych Neuromuscular disease Psychiatric history Anxiety Endocrine/Other Anemia Malignancy (SCCA of larynx) Physical Exam Airway Findings Pre-existing airway: tracheostomy Cardiovascular Findings: Rhythm: regular Rate: normal Pulmonary Findings: Decreased breath sounds. Neurological Findings: Normal mental status No motor deficit Diagnostic Tests Hematology: Lab Results Component Value Date HGB 8.4 11/06/2016 HCT 24.5 11/06/2016 PLTCT 176 11/06/2016 WBC 5.5 11/06/2016 NEUT 79 10/23/2016 ANC 5.60 10/23/2016 ALC 0.60 10/23/2016 FAY 10 10/23/2016 AMC 0.70 10/23/2016 EOSA 1 10/23/2016 ABC 0.00 10/23/2016 MCV 90.9 11/06/2016 MCH 31.2 11/06/2016 MCHC 34.3 11/06/2016 MPV 6.8 11/06/2016 RDW 17.1 11/06/2016 General Chemistry: Lab Results Component Value Date NA 137 11/06/2016 K 3.7 11/06/2016 CL 104 11/06/2016 CO2 28 11/06/2016 GAP 5 11/06/2016 BUN 2 11/06/2016 CR 0.44 11/06/2016 GLU 102 11/06/2016 CA 7.8 11/06/2016 ALBUMIN 2.7 11/01/2016 LACTIC 2.6 10/04/2016 OBSCA 1.10 11/06/2016 MG 1.8 11/06/2016 TOTBILI 0.8 11/01/2016 PO4 2.8 11/06/2016 Coagulation: Lab Results Component Value Date PT 11.7 08/17/2008 INR 1.3 11/01/2016 Anesthesia Plan ASA score: 3 Plan: general Induction method: intravenous NPO status: acceptable Informed Consent Anesthetic plan and risks discussed with patient. Use of blood products discussed with patient;. Plan discussed with: SRNA. in this encounter Plan of Treatment Not on fileas of this encounter Visit Diagnoses Not on filein this encounter Administered Medications Medication Order MAR Action Action Date Dose Rate Site ceFAZolin (ANCEF) injection Given 07/16/2017 2 g INTRA-PROCEDURE MED, Starting Sat07/16/17 08:03 DRY CLEANING MACHINE OPERATOR at 0803, Until Sat07/16/17 at 0834, Anesthesia Intra-op dexamethasone (DECADRON) injection Given 07/16/2017 4 mg Intravenous, INTRA-PROCEDURE MED, 08:04 DRY CLEANING MACHINE OPERATOR Starting Sat07/16/17 at 0804, Until Sat07/16/17 at 0834, Nausea/Vomiting Injectable, Anesthesia Intra-op fentaNYL citrate PF (SUBLIMAZE) Given 07/16/2017 50 mcg injection 07:56 DRY CLEANING MACHINE OPERATOR INTRA-PROCEDURE MED, Starting Sat07/16/17 at 0756, Until Sat07/16/17 at 0834, Pain Injectable, Anesthesia Intra-op Given 07/16/2017 25 mcg 08:02 DRY CLEANING MACHINE OPERATOR Given 07/16/2017 25 mcg 08:06 DRY CLEANING MACHINE OPERATOR lidocaine (PF) injection Given 07/16/2017 100 mg INTRA-PROCEDURE MED, Starting Sat07/16/17 07:56 DRY CLEANING MACHINE OPERATOR at 0756, Until Sat07/16/17 at 0834, Anesthesia Intra-op midazolam (VERSED) injection Given 07/16/2017 2 mg Intravenous, INTRA-PROCEDURE MED, 07:50 DRY CLEANING MACHINE OPERATOR Starting Sat07/16/17 at 0750, Until Sat07/16/17 at 0834, Agitation Injectable, Anxiety Injectable, Anesthesia Intra-op ondansetron (ZOFRAN) injection Given 07/16/2017 4 mg Intravenous, INTRA-PROCEDURE MED, 08:20 DRY CLEANING MACHINE OPERATOR Starting Sat07/16/17 at 0820, Until Sat07/16/17 at 0835, Nausea/Vomiting Injectable, Anesthesia Intra-op phenylephrine in NS Injection Given 07/16/2017 100 mcg Intravenous, INTRA-PROCEDURE MED, 08:03 DRY CLEANING MACHINE OPERATOR Starting Sat07/16/17 at 0803, Until Sat07/16/17 at 0834, Symptomatic Hypotension, Anesthesia Intra-op propofol (DIPRIVAN) injection Given 07/16/2017 160 mg INTRA-PROCEDURE MED, Starting Sat07/16/17 07:56 DRY CLEANING MACHINE OPERATOR at 0756, Until Sat07/16/17 at 0834, Anesthesia Intra-op in this encounter
--- OUTSIDE RECORDS SUMMARY | 2017-08-23 08:45 | XMS REPORT | Encounter Summary ---
Author Author [facility] Organization [facility] Address Unknown Phone Unavailable Care Team Providers Care Control Panel Assembler Name Role Phone ArvindArlyn ROSALIND Unavailable Mary Kay Leonardo RN Unavailable Unavailable Tyler Mcdonald MD PCP Reason for Visit * Reason Comments Order Needed Encounter Details Date Type Department Care Team Description 08/02/2017 Telephone [facility] Heidy Allen RN Order Needed Physicians - ENT 3RD FLOOR POD C [address] [facility] [place] [place] [address] Social History Tobacco Use Types [...] encounter Miscellaneous Notes * Telephone Encounter - Heidy Allen RN - 08/02/2017 10:39 AM MUSIC DIRECTOR [facility] in [place], [place] is calling for an order for this patient. I had faxed orders over yesterday for CT scans to be performed on this patient. Before this can be completed, they need an order for labs to be drawn. Advised them that I would fax these labs over to them today as requested. 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
--- OUTSIDE RECORDS SUMMARY | 2017-08-23 08:45 | XMS REPORT | Encounter Summary ---
Author Author [facility] Organization [facility] Address Unknown Phone Unavailable Care Team Providers Care Trapper Bird Name Role Phone ArvindArlyn DONATIONS ATTENDANT Unavailable Mary Kay Leonardo RN Unavailable Unavailable Tyler Mcdonald MD PCP Reason for Visit * Reason Comments Other TEP Eval Encounter Details Date Type Department Care Team Description 07/30/2017 Clinical [facility] Yamile Avila Aphonia; Support Physicians - ENT NAYAN,CCC-SEAM RUBBER History of laryngectomy; 3RD FLOOR POD C Status post [address] [facility] tracheoesophageal [place] [address] Social History Tobacco Use Types [...] as of this encounter Progress Notes * Yamile Avila MA,CCC-SEAM RUBBER - 07/30/2017 1:00 PM FINISHED STOCK INSPECTOR Formatting of this note may be different from the original. [facility] TEP Evaluation ([id number]) Staff: Francia Mckeon Date of Service: 07/30/2017 G Codes: G9174: CN - severe + G9175: CH - within functional limits + G9176: CH - within functional limits Olayinka Garrison Sr. is a 61 y.o. [...] 20Fr indwelling Provox tracheoesophageal voice prosthesis from [facility] per Dr. Flores's report. He presented for clinic follow up with Dr. Mckeon today reporting that he is unable to achieve TEP voice but is not leaking. Evaluation was requested as an add-on by Dr. Mckeon and Dr. Maravilla. PROCEDURE: Upon examination the prosthesis appears to be of good fit within the puncture tract. Patient presents with manually fenestrated LaryTube, Madalyn straps and HME which have been removed prior to this evaluation and are sitting next to the patient on the table. Without the tube in place, patient is able to digitally occlude the stoma and achieve fluent TEP voicing suggestive that tube may not sit firmly in one place after insertion and fenestrated holes may not always be perfectly aligned. Discussion with Dr. Mckeon resulted in clarification that LaryTube only needs to be worn at night if we can utilize a more rigid HME baseplate to keep his redundant flap/external neck tissues away from stomal opening. We were able to place an Atos XtraBase and Stabilibase, both kept the redundant neck tissues away from his stoma and allowed for clear TEP voicing after attaching the HME cassette. Dr. Mckeon reiterated that the patient must wear the larytube at night. TEP CHANGE DID NOT OCCUR TODAY. ASSESSMENT AND PLAN: Patient left the clinic today with good voicing. I will assist in getting a complete Atos Rx signed for the XtraBase and Stabilibase. Patient requested this be sent to Mily Rehman at [facility] fax: [phone] so that they can get these supplies [place] for by the [place]. Plan of care includes for the patient to contact us should he have trouble voicing, or at the first sight of leakage. Contact information provided. I also encouraged him to contact me should any changes occur with the device. I look forward to continued voice caodaism of this patient. CN=(Initial, Severe impairment, high risk for aspiration) CH=(Goal status, No impairment) CH=(Final status, No impairment) ATTESTATION I have reviewed the information from this visit and agree with the impression and recommendations. Staff name: Francia Mckeon MD Date: 07/31/2017 in this encounter Plan of Treatment Not on fileas of this encounter Visit Diagnoses Diagnosis Aphonia History of laryngectomy Other postprocedural status Status post tracheoesophageal puncture
--- OUTSIDE RECORDS SUMMARY | 2017-08-23 08:45 | XMS REPORT | Encounter Summary ---
Author Author [facility] Organization [facility] Address Unknown Phone Unavailable Care Team Providers Care Truck Engine Assembler Name Role Phone ArvindrAlyn ROSALIND Unavailable Mary Kay Leonardo RN Unavailable Unavailable Tyler Mcdonald MD PCP Reason for Visit * Reason Comments Order Needed Encounter Details Date Type Department Care Team Description 08/01/2017 Telephone [facility] Heidy Allen RN Order Needed Physicians - ENT 3RD FLOOR POD C [address] [facility] [place] [address] Social History Tobacco Use Types [...] Telephone Encounter - Heidy Allen RN - 08/01/2017 1:00 PM SAS ARCHITECT Patient would like to complete ordered scans closer to home. Faxed order to [facility] in [place], [place]. Patient's notified that order was faxed. Spoke to scheduling at [facility] to verify that order was received. in this encounter Plan of Treatment Not on fileas of this encounter Visit Diagnoses Not on filein this encounter
--- OUTSIDE RECORDS SUMMARY | 2017-08-23 08:45 | XMS REPORT | Encounter Summary ---
Author Author [facility] Organization [facility] Address Unknown Phone Unavailable Care Team Providers Care Asphalt Heater Operator Name Role Phone ArvindArlyn EXTERNAL GRINDER TENDER Unavailable Mary Kay Leonardo RN Unavailable Unavailable Tyler Mcdonald MD PCP Reason for Visit * Auth/Cert Status Reason Specialty Diagnoses / Referred By Referred To Procedures Contact Contact Diagnoses Aphonia History of laryngectomy UNKNOWN Procedures OR CONSTJ TRACHEOESOPHGL FSTL&INSJ SP PROSTH OR ESOPHAGOSCOPY FLEXIBLE TRANSORAL DIAGNOSTIC OR CONSTJ TRACHEOESOPHGL FSTL&INSJ SP PROSTH OR ESOPHAGOSCOPY FLEXIBLE TRANSORAL DIAGNOSTIC TRACHEOESOPHAGEA L PUNCTURE ESOPHAGOSCOPY Encounter Details Date Type Department Care Team Description 07/16/2017 Surgery [place] Operating Room Sharifa Flores MD TRACHEOESOPHAGEAL [address] [facility] [address] [place] [address] [address] [place] [address] Social History Tobacco Use Types [...] Taken Blood Pressure 122/82 07/16/2017 9:00 AM ROCK WOOL INSULATOR Pulse 65 07/16/2017 9:00 AM ROCK WOOL INSULATOR Temperature 37.1 C (98.8 F) 07/16/2017 8:31 AM ROCK WOOL INSULATOR Respiratory Rate - - Oxygen Saturation 92% 07/16/2017 9:00 AM ROCK WOOL INSULATOR Inhaled Oxygen - - Concentration Weight 100.5 kg (221 lb 9.6 oz) 07/16/2017 6:03 AM ROCK WOOL INSULATOR Height 185.4 cm (6' 1") 07/16/2017 6:03 AM ROCK WOOL INSULATOR Body Mass Index 29.24 07/16/2017 6:03 AM ROCK WOOL INSULATOR in this encounter Functional Status Functional Status Response Date of Assessment Does the patient have a hearing impairment: No 11/03/2016 as of this encounter Discharge Instructions * Pre-Anesthesia Medication Instructions - Vincent Dela Cruz RN - 06/25/2017 10:30 AM ROCK WOOL INSULATOR Formatting of this note may be different [...] with any medicine updates or questions. E-mail: [email or web address] Before going home from the hospital, please ask your doctor when you should re- start your medicines that were stopped before surgery. * Pre-Anesthesia Patient Instructions - Vincent Dela Cruz RN - 06/25/2017 10:28 AM ROCK WOOL INSULATOR GENERAL INFORMATION Before you come to the [...] and any other valuables at home. The [facility] is not responsible for the loss or breakage of personal items. Remove nail malian, makeup and all jewelry (including piercings) before coming to the hospital. The morning of your procedure: brush your teeth and tongue do not smoke do not shave the area where you will have surgery What to bring to the hospital ID/ Insurance Card Bun Icer card Official documents for legal guardianship Copy of your Living Will, Advanced Directives, and/or Durable Power of Shelf Filler Small bag with a few personal belongings [...] to cancel your procedure Notify us at [facility]: if you need to cancel your procedure if you are going to be late Arrival at the hospital [facility] A: ? Park in the P5 parking garage located at [address] [place] [address] (Next to the [facility] A [address] [facility]). ? Carpentry Supervisor parking is available in front of [facility] between the hours of 7:00 am and 4:00 pm Saturday through Saturday. ? If parking in the P5 garage, take the east elevators in the parking garage to the second level and walk to the entrance of the [facility]. ? Enter through the 1st floor main entrance and check in with Information Desk. ? You will be contacted by the surgery office between 2:30 pm and 4:30 pm on the last day before your procedure to advise you of your arrival time. If you do not receive a call, you may call the Preoperative Assessment Clinic to confirm your arrival time. Before 4:30 pm, call [phone], and after 4:30 pm, call [phone]. in this encounter Medications at Time of [...] Dela Cruz, RN - 06/25/2017 10:30 AM ROCK WOOL INSULATOR Updates completed with patient's , Nichelle, for [...] * Gianluca Beebe - 07/16/2017 6:44 AM ROCK WOOL INSULATOR Formatting of this note may be different [...] abuse Past Surgical History: Procedure Laterality Date OR LARYNGOSCOPY W/BIOPSY MICROSCOPE/TELESCOPE Bilateral 04/03/2016 DIRECT LARYNGOSCOPY BIOPSY performed by Francia Mckeon MD at [facility]Periop TRACHEOSTOMY N/A 04/03/2016 TRACHEOSTOMY-AWAKE performed by Francia Mckeon MD at [facility] OR/Periop OR TRACHEOSTOMY PLANNED SEPARATE PROCEDURE N/A 09/12/2016 TRACHEOSTOMY, Direct laryngoscopy, biopsies performed by Francia Mckeon MD at [facility] OR/Periop OR LARYNGECTOMY TOTAL W/RADICAL NECK DISSECTION Bilateral 10/03/2016 LARYNGECTOMY COMPLETE WITH RADICAL NECK DISSECTION performed by Eduardo Winchester MD at [facility] OR/Periop OR MUSC MYOCUTANEOUS/FASCIOCUTANEOUS FLAP TRUNK Left 10/03/2016 PECTORALIS MAJOR MUSCLE FLAP performed by Eduardo Marques MD at [facility] OR/ Periop OR SPLIT AGRFT F/S/N/H/F/G/M/D GT 1ST 100 CM/</1 [...] in the last 72 hours. Gianluca Beebe Pager:[phone] Associated attestation - Sharifa Flores MD - 07/16/2017 7:22 AM ROCK WOOL INSULATOR Formatting of this note may be different [...] Sharifa Flores MD - 07/16/2017 7:23 AM ROCK WOOL INSULATOR OPERATIVE REPORT Name: Olayinka Garrison SrEdil is [...] the esophagoscope could be seen transilluminating the democrat wall. The trochar was then used to make a puncture approximately 1 cm below the skin edge into the democrat wall. The trochar was visualized as it [...] ECG-SCAN 07/17/2017 Results for this 5:35 PM ROCK WOOL INSULATOR procedure are in the results section. TRACHEOESOPHAGEAL 07/16/2017 Aphonia PUNCTURE 8:00 AM ROCK WOOL INSULATOR in this encounter Results * ECG-SCAN (07/17/2017 [...] Given 07/16/2017 0.4 mL 0.1-2 mL 06:15 ROCK WOOL INSULATOR 0.1-2 mL, Injection, NEEDED, Starting 07/16/17 at 0633, Until Sat07/16/17 at 1556, Other..., for IV insertion, Pre-Op oxyCODONE (ROXICODONE, OXY-IR) tablet Given 07/16/2017 10 mg 5-10 mg 08:41 ROCK WOOL INSULATOR 5-10 mg, Oral, ONCE PRN, 1 dose, Starting Sat07/16/17 at 0813, Until Sat07/16/17 at 2359, Pain PO, For Pain Score <4, PACU (only) sodium chloride 0.9 % infusion Given - New 07/16/2017 1,000 mL 20 mL/ hr 1,000 mL, 1,000 mL, Intravenous, at 20 Bag 06:15 ROCK WOOL INSULATOR mL/hr, CONTINUOUS, Starting Sat07/16/17 at 0545, Until Sat07/16/17 at 1556, Pre-Op in this encounter
--- OUTSIDE RECORDS SUMMARY | 2017-08-23 08:45 | XMS REPORT | Encounter Summary ---
Author Author [facility] Organization [facility] Address Unknown Phone Unavailable Care Team Providers Care Sizing Machine And Drier Operator Name Role Phone ArvindArlyn RAILROAD DETECTIVE Unavailable Mary Kay Leonardo RN Unavailable Unavailable Tyler Mcdonald MD PCP Reason for Referral * Radiology Services Status Reason Specialty Diagnoses / Referred By Referred To Procedures Contact Contact New Request Radiology Diagnoses Francia Mckeon Squamous cell MD carcinoma of [address]) [address] Status post [address] radiation [place], [place] therapy [address] Shortness of Phone: breath at rest [phone] S/P laryngectomy Fax: Chronic lung [phone] scan, chest P rocedures NM PET SCAN TORSO (SKULL-THIGHS) Encounter Details Date Type Department Care Team Description 08/07/2017 Orders Only [facility] Heidy Allen RN Squamous cell carcinoma Physicians - ENT of larynx (HCC) (Primary 3RD FLOOR POD C Dx); [address] MED Status post radiation OFFICE BLDG therapy; [place], [place] [address] rest; [phone] S/P laryngectomy; Chronic lung disease; Abnormal CT scan, chest Social History Tobacco Use Types Packs/Day Years [...] Treatment Name Priority Associated Diagnoses Order Schedule NM PET SCAN TORSO (SKULL-THIGHS) Routine Squamous cell carcinoma Expected: 08/07/2017 of larynx (HCC) (Approximate), Expires: Status post radiation 08/07/2018 therapy Shortness of breath at rest S/P laryngectomy Chronic lung disease Abnormal CT scan, chest as of this encounter Visit Diagnoses Diagnosis Squamous cell carcinoma of larynx (HCC) - Primary Malignant neoplasm of larynx, unspecified site Status post radiation therapy Convalescence following radiotherapy Shortness of breath at rest S/P laryngectomy Other postprocedural status Chronic lung disease Other diseases of lung, not elsewhere classified Abnormal CT scan, chest Nonspecific (abnormal) findings on radiological and other examination of other intrathoracic organs
--- OUTSIDE RECORDS SUMMARY | 2017-08-23 08:45 | XMS REPORT | Encounter Summary ---
Author Author [facility] Organization [facility] Address Unknown Phone Unavailable Care Team Providers Care Auto Hiker Name Role Phone ArvindArlyn TRANSITIONAL LIVING SPECIALIST Unavailable Mary Kay Leonardo RN Unavailable Unavailable Tyler Mcdonald MD PCP Encounter Details Date Type Department Care Team Description 06/13/2017 Prep for Case [facility] Sharifa Flores MD Physicians - ENT [address] [facility] 3RD FLOOR POD C [address] [place] [address] OFFICE BLDG [phone] [place] [address] Social History Tobacco Use Types [...]
--- OUTSIDE RECORDS SUMMARY | 2017-08-23 08:45 | XMS REPORT | Encounter Summary ---
Author Author [facility] Organization [facility] Address Unknown Phone Unavailable Care Team Providers Care Petroleum Production Engineer Name Role Phone ArvindArlyn DRY PRIMER POWDER BLENDER Unavailable Mary Kay Leonardo RN Unavailable Unavailable Tyler Mcdonald MD PCP Reason for Visit * Reason Comments Throat Problem Encounter Details Date Type Department Care Team Description 06/06/2017 Office Visit [facility] Sharifa Flores MD S/P laryngectomy (Primary Physicians - ENT [address] Dx); [address] [place] [address] [place] [address] Social History Tobacco Use Types Packs/Day Years Used Date Former Smoker 0.5 51 Smokeless Tobacco: Never Used Comments: 1 pack every 24hr Alcohol Use Drinks/Week oz/Week Comments No 0 Standard 0.0 Denies ETOH use. drinks or equivalent Sex Assigned at Date Recorded Not on file as of this encounter Last Filed Vital Signs Vital Sign Reading Time Taken Blood Pressure 123/73 06/06/2017 12:51 PM ELECTRONICS DEPARTMENT MANAGER Pulse 60 06/06/2017 12:51 PM ELECTRONICS DEPARTMENT MANAGER Temperature - - Respiratory Rate - - Oxygen Saturation - - Inhaled Oxygen - - Concentration Weight 102.2 kg (225 lb 6.4 oz) 06/06/2017 12:51 PM ELECTRONICS DEPARTMENT MANAGER Height 182.9 cm (6') 06/06/2017 12:51 PM ELECTRONICS DEPARTMENT MANAGER Body Mass Index 30.57 06/06/2017 12:51 PM ELECTRONICS DEPARTMENT MANAGER in this encounter Functional Status Functional Status Response Date of Assessment Does the patient have a hearing impairment: No 11/03/2016 as of this encounter Progress Notes * Sharifa Flores MD - 06/06/2017 1:00 PM ELECTRONICS DEPARTMENT MANAGER Formatting of this note may be different from the original. Date of Service: 06/06/2017 Subjective: Olayinka Garrison Sr. is a 61 y.o. male. History of Present Illness Mr. Garrison is a very pleasant 61-year-old [...] dexterity. He has no underlying pulmonary conditions. Review of Systems Constitutional: Negative. HENT: Negative. Aphonia Eyes: Negative. Respiratory: Negative. Cardiovascular: Negative. Gastrointestinal: [...] dose (Patient taking differently: Take 100 mcg via feeding tube daily. Hold tube feeds 1hr before and 1hr after dose) oxyCODONE (ROXICODONE) 1 mg/mL oral solution Take 5-10 mL by mouth every 4 hours as needed Per Gtube traZODone (DESYREL) 50 mg tablet Take 1 Tab by mouth at bedtime daily. Per PEG vitamins, multi w/iron (CERTAVITE) oral solution Take 15 mL by mouth daily. Per PEG Vitals: 06/06/17 1251 Weight: 102.2 kg (225 lb 6.4 oz) Height: 182.9 cm (72") Body mass index is 30.57 kg/(m^2). Physical Exam EXAM: Constitutional: Blood pressure 123/73, pulse 60, height 182.9 cm (72"), weight 102.2 kg (225 lb 6.4 oz). alert, cooperative and no distress Neurologic: Alert [...] Skin graft noted at superior mucocutaneous junction. Assessment and Plan: ASSESSMENT: 1. Aphonia PLAN: I reviewed my findings with Mr. Garrison. He is now approximately 8 months status post laryngectomy. He is interested in pursuing a TEP. Anatomically, his stoma is slightly flat with encroachment of his reconstruction on the superior mucocutaneous junction. I do think, however, there is adequate room for placement of a TEP. He has been no medical contraindications. We did discuss the risks of the procedure, to include wound breakdown, enlargement of the tracheal esophageal puncture, aspiration, and failure to provide voice. Currently, the primary issue is determining his postoperative care. Specifically, we need to resolve where his TEP changes will be performed, as [facility] is [facility]. Once we have resolved this issue, we can move forward with scheduling him for secondary puncture with primary placement of prosthesis. in this encounter Plan of Treatment Not on fileas of this encounter Visit Diagnoses Diagnosis S/P laryngectomy - Primary Other postprocedural status Aphonia
--- OUTSIDE RECORDS SUMMARY | 2017-08-23 08:45 | XMS REPORT | Encounter Summary ---
Author Author [facility] Organization [facility] Address Unknown Phone Unavailable Care Team Providers Care Fbi Sharpshooter Name Role Phone ArvindArlyn ROSALIND Unavailable Mary Kay Leonardo RN Unavailable Unavailable Tyler Mcdonald MD PCP Encounter Details Date Type Department Care Team Description 06/13/2017 Orders Only [facility] Sharifa Flores MD ERRONEOUS Physicians - ENT [address] [facility] ENCOUNTER--DISREGARD 3RD FLOOR POD C [address] (Primary Dx) [address] [facility] [place] [address] OFFICE BLDG [phone] [place] [address] Social History Tobacco Use Types [...] fileas of this encounter Visit Diagnoses Diagnosis ERRONEOUS ENCOUNTER--DISREGARD - Primary
--- OUTSIDE RECORDS SUMMARY | 2017-08-23 08:45 | XMS REPORT | Encounter Summary ---
Author Author [facility] Organization [facility] Address Unknown Phone Unavailable Care Team Providers Care Residential Installer Name Role Phone Arvind Arlyn BOYER Unavailable Mary Kay Leonardo RN Unavailable Unavailable Tyler Mcdonald MD PCP Reason for Referral * Radiology Services Status Reason Specialty Diagnoses / Referred By Referred To Procedures Contact Contact New Request Radiology Diagnoses Francia Mckeon Shortness of breath at rest [address] carcinoma of [address] larynx (HCC) S/P laryngectomy [address] History of Phone: laryngectomy [phone] P [facility] [phone] CT CHEST W CONTRAST * Radiology Services Status Reason Specialty Diagnoses / Referred By Referred To Procedures Contact Contact New Request Radiology Diagnoses Francia Mckeon, [place] of breath at rest [address] carcinoma of [address] larynx (HCC) S/P laryngectomy [address] History of Phone: laryngectomy [phone] P Fax: [facility] [phone] CT NECK W/CONTRAST Encounter Details Date Type Department Care Team Description 08/06/2017 Orders Only [facility] Heidy Allen RN Shortness of breath at Physicians - ENT rest; 3RD FLOOR POD C Squamous cell carcinoma [address] MED of larynx (HCC); OFFICE BLDG S/P laryngectomy; History of laryngectomy; [address] Encounter for [phone] preprocedural laboratory examination Social History Tobacco Use Types Packs/Day Years [...] 18 MG/DL Specimen Performing [place] [address] * CREATININE (08/05/2017) Component Value Ref Range Creatinine 1.05 0.60 - 1.30 Specimen Performing Laboratory Blood [facility] [place] [id number] * CT CHEST W CONTRAST (08/05/2017) Specimen Performing Laboratory [facility] [address] [address] * CT NECK W/CONTRAST (08/05/2017) Specimen Performing Laboratory [facility] [address] [address] in this encounter Visit Diagnoses Diagnosis Shortness of breath at rest Squamous cell carcinoma of larynx (HCC) Malignant neoplasm of larynx, unspecified site S/P laryngectomy Other postprocedural status History of laryngectomy Other postprocedural status Encounter for preprocedural laboratory examination Pre-procedural laboratory examination
--- OUTSIDE RECORDS SUMMARY | 2017-08-23 08:45 | XMS REPORT | Encounter Summary ---
Author Author [facility] Organization [facility] Address Unknown Phone Unavailable Care Team Providers Care Manager Party Name Role Phone Arlyn Samuels APRN Unavailable Mary Kay Leonardo RN Unavailable Unavailable Tyler Mcdonald MD PCP Encounter Details Date Type Department Care Team Description 07/16/2017 Procedure Pass [place] Operating Room [address] [place] [address] Social History Tobacco Use Types Packs/Day Years [...]
--- OUTSIDE RECORDS SUMMARY | 2017-08-23 08:45 | XMS REPORT | Encounter Summary ---
Author Author [facility] Organization [facility] Address Unknown Phone Unavailable Care Team Providers Care Cabinet Assembler Name Role Phone ArvindArlyn DIRECTOR INSTRUCTIONAL MATERIAL Unavailable Mary Kay Leonardo RN Unavailable Unavailable Tyler Mcdonald MD PCP Reason for Referral * Radiology Services Status Reason Specialty Diagnoses / Referred By Referred To Procedures Contact Contact New Request Radiology Diagnoses Francia Mckeon Shortness of MD breath at rest [address] carcinoma of [address] larynx (HCC) [place], [place] S/P laryngectomy [address] History of Phone: laryngectomy [phone] P Fax: [employer] [phone] CT CHEST W CONTRAST * Radiology Services Status Reason Specialty Diagnoses / Referred By Referred To Procedures Contact Contact New Request Radiology Diagnoses Francia Mckeon Shortness of MD breath at rest [address] carcinoma of [address] larynx (HCC) [place], [place] S/P laryngectomy [address] History of Phone: laryngectomy [phone] P Fax: [facility] [phone] CT NECK W/CONTRAST Reason for Visit * Reason Comments Cancer Surveillance Encounter Details Date Type Department Care Team Description 07/30/2017 Office Visit [facility] Francia Mckeon MD S/P laryngectomy (Primary Physicians - ENT [address] Dx); 3RD FLOOR POD C [address] Shortness of breath at [address] [place] [address] rest; OFFICE BLDG [phone] Squamous cell carcinoma [place], [place] of larynx (HCC); [address] History of laryngectomy; [phone] Hypothyroidism (acquired) Social History Tobacco Use Types Packs/Day Years [...] Taken Blood Pressure 148/90 07/30/2017 1:05 PM ASIC ENGINEER Pulse 65 07/30/2017 1:05 PM ASIC ENGINEER Temperature - - Respiratory Rate - - Oxygen Saturation - - Inhaled Oxygen - - Concentration Weight 101.6 kg (224 lb) 07/30/2017 1:05 PM ASIC ENGINEER Height 182.9 cm (6') 07/30/2017 1:05 PM ASIC ENGINEER Body Mass Index 30.38 07/30/2017 1:05 PM ASIC ENGINEER in this encounter Functional Status Functional Status Response Date of Assessment Does the patient have a hearing impairment: No 11/03/2016 as of this encounter Progress Notes * Francia Mckeon MD - 07/30/2017 1:30 PM ASIC ENGINEER Formatting of this note may be different from the original. Date of Service: 07/30/2017 Subjective: Olayinka Garrison . is a 61 y.o. male. History of Present Illness Olayinka Garrison is a 61 y.o. male evaluated on 07/30/2017, in the Otolaryngology-Head and Neck Surgery Clinic at the [facility] for follow- up of a T3 N1 M0 squamous cell carcinoma of the larynx status post radiation therapy completed in June 2016 who had persistent disease status post total laryngectomy with left modified radical neck dissection pectoralis major myocutaneous flap October 03, 2016. His postoperative course was complicated by pharyngocutaneous fistula neck hematoma that was evacuated with primary fistula closure November 02, 2016. He was last seen April 2017, and in the interim he has had a TEP placed by Dr. Flores. He reports no problems today except for occasional nausea and increased pulmonary secretions. He is not using his TEP she is having difficulty producing voice. He continues to use Uriel to an electrolarynx to produce voice. He is maintaining an oral diet and has gained weight since his last clinic visit. He has missed his previous imaging studies has no imaging since prior to drainage of his neck hematoma. His last TSH was in October 2016. He is working on getting dentures. Review of Systems Constitutional: Negative. HENT: Negative. Eyes: Negative. Respiratory: Negative. Cardiovascular: Positive for chest pain. Gastrointestinal: Negative. Endocrine: Negative. Genitourinary: Negative. Musculoskeletal: Negative. Skin: Negative. Allergic/Immunologic: Negative. Neurological: Positive for numbness. Hematological: Negative. Psychiatric/Behavioral: Negative. Objective: ACETAMINOPHEN (TYLENOL PO) Take by mouth as Needed. CALCIUM PO Take by mouth as Needed. cholecalciferol (VITAMIN D-3) 1,000 units tablet Take 1 Tab by mouth daily. Per Gtube (Patient taking differently: Take 1,000 Units by mouth daily.) diazePAM (VALIUM) 10 mg tablet Take 1 Tab by mouth twice daily. Per Gtube ( Patient taking differently: Take 10 mg by mouth twice daily.) diphenhydrAMINE (BENADRYL ALLERGY) 25 mg tablet Take 25 mg by mouth every 6 hours as needed. gabapentin (NEURONTIN) 600 mg tablet Take 600 mg by mouth four times daily. HYDROcodone/acetaminophen (NORCO) 5/325 mg tablet Take 1-2 tablets by mouth every 4 hours as needed for Pain levothyroxine (SYNTHROID) 50 mcg tablet Take 1 [...] mouth every 4 hours as needed ) Vitals: 07/30/17 1305 BP: 148/90 Pulse: 65 Weight: 101.6 kg (224 lb) Height: 182.9 cm (72") Body mass index is 30.38 kg/(m^2). Physical Exam General: Well-developed, well-nourished Communication and Voice: Electrolarynx, intelligible Hearing: Hearing adequate for verbal communication bilaterally Inspection: Normocephalic and atraumatic without mass or lesion Palpation: Facial skeleton intact without bony stepoffs Facial Strength: Facial motility symmetric and full bilaterally Pinna: External ear intact and fully developed External Canal: Canal is patent with intact skin Tympanic Membrane: TM clear AU External Nose: No scar or anatomic deformity Internal Nose: Septum intact. No edema, polyp, or rhinorrhea. Oral cavity, Lips, Teeth, and Gums: Edentulous, no lesions Oropharynx: No erythema or exudate, no masses or ulcerations Neck: Stoma patent, TEP in place with no leak Eyes: No nystagmus with equal extraocular motion bilaterally Neuro/Psych/Balance: Patient oriented and appropriate in interaction; Appropriate mood and affect; Cranial nerves II-XII are intact Respiratory effort: Equal inspiration and expiration, no respiratory distress Peripheral Vascular: Warm extremities (SEPARATE PROCEDURE) Laryngeal Endoscopic Examination: After obtaining verbal consent, [...] without any evidence of masses or lesions. The nasopharynx was without mass or lesion. The scope was withdrawn and passed into the stoma revealing a patent trachea with no masses or lesions. The patient tolerated the procedure well without complications. Assessment and Plan: Olayinka Garrison has a history of T3 N1 M0 squamous cell carcinoma of the larynx status post radiation therapy completed in June 2016 who had persistent disease status post total laryngectomy with left modified radical neck dissection pectoralis major myocutaneous flap October 03, 2016. His postoperative course was complicated by pharyngocutaneous fistula neck hematoma that was evacuated with primary fistula closure November 02, 2016. He is having problems with his TEP, and he was seen today by Yamile Avila for assistance with this problem. He he needs surveillance imaging, which was reordered today. We also need to recheck a TSH since it was abnormal 9 months ago and has not subsequently been rechecked. He will follow-up with us in 3-4 months. Severiano Maravilla MD Otolaryngology Resident, PGY-4 ATTESTATION I personally performed the shah portions [...] with primary closure of fistula on 11/02/2016. Doing well. Exam: Stoma patent, neck well healed, no fistula, no suspicious peristomal tissue. TEP in place. No palpable cervical adenopathy. Assessment: no evidence of disease. Plan: CT neck and chest for surveillance Return in 3-4 months Staff name: Francia Mckeon MD Date: 07/31/2017 in this encounter Plan of Treatment Name Priority Associated Diagnoses Order Schedule TSH WITH FREE T4 REFLEX Routine Hypothyroidism (acquired) Expected: (Approximate), Expires: 07/30/2018 as of this encounter Results * CT CHEST W CONTRAST (08/05/2017) Specimen Performing Laboratory [facility] [address] [place] [address] * CT NECK W/CONTRAST (08/05/2017) Specimen Performing Laboratory [facility] [address] [address] in this encounter Visit Diagnoses Diagnosis S/P laryngectomy - Primary Other postprocedural status Shortness of breath at rest Squamous cell carcinoma of larynx (HCC) Malignant neoplasm of larynx, unspecified site History of laryngectomy Other postprocedural status Hypothyroidism (acquired) Unspecified hypothyroidism
--- OUTSIDE RECORDS SUMMARY | 2017-08-23 08:45 | XMS REPORT | Encounter Summary ---
Author Author [facility] Organization [facility] Address Unknown Phone Unavailable Care Team Providers Care Sales Promotion Director Name Role Phone ArvindArlyn ROSALIND Unavailable Mary Kay Leonardo RN Unavailable Unavailable Tyler Mcdonald MD PCP Reason for Visit * Reason Comments Results Order Needed Encounter Details Date Type Department Care Team Description 08/08/2017 Telephone [facility] Heidy Allen RN Results; Order Needed Physicians - ENT 3RD FLOOR POD C [address] [facility] [place] [address] Social History Tobacco Use Types [...] Telephone Encounter - Heidy Allen RN - 08/08/2017 10:40 AM CNC OPERATOR PROGRAMMER Spoke to patient's about CT scan results and about the need for PET/CT scan. Patient will also be referred back to local oncologist for suspicious, enlarging lung nodules. She will contact our office if she is not contacted by [facility] to schedule scan in the next couple of days. Order for PET/CT faxed to [facility]. in this encounter Plan of Treatment Not on fileas of this encounter Visit Diagnoses Not on filein this encounter
--- OUTSIDE RECORDS SUMMARY | 2017-08-23 08:45 | XMS REPORT | Encounter Summary ---
Author Author [facility] Organization [facility] Address Unknown Phone Unavailable Care Team Providers Care Flight Engineer Inspector Name Role Phone ArvindArlyn ROSALIND Unavailable Mary Kay Leonardo RN Unavailable Unavailable Tyler Mcdonald MD PCP Reason for Visit * Reason Comments Aphonia Cancer Encounter Details Date Type Department Care Team Description 07/16/2017 Clinical [facility] Chelo Candelario MA,CCC-PLASTICS FABRICATOR Aphonia; Support Physicians - ENT Essential tremor; 3RD FLOOR POD C History of laryngectomy; [address] [facility] [place] [address] Social History Tobacco Use Types [...] as of this encounter Progress Notes * Chelo Candelario MA,CCC-PLASTICS FABRICATOR - 07/16/2017 11:00 AM GLOBAL DIRECTOR AIR AND CLIMATE CHANGE Formatting of this note may be different from the original. [facility] TEP Evaluation ([id number]) Staff: Francia Mckeon Date of Service: 07/19/2017 G Codes: G9174: CN - severe + G9175: CH - within functional limits + G9176: CH - within functional limits Olayinka Garrison Sr. is a 61 y.o. year old male, referred to this service by Dr. Sharifa Flores for a speech pathology tracheoesophageal voice evaluation. [...] 20Fr indwelling [employer] tracheoesophageal voice prosthesis from [employer] per Dr. Flores's report. PROCEDURE: Upon examination the prosthesis appears to be of good fit within the puncture tract. There is some blood observed around the tracheal flange of the prosthesis consistent with recent surgical procedure required for placement. I tested for leakage with sips of water, no leakage observed with any sip through or around the prosthesis. The inner lumen of the prosthesis was cleaned and the valve was observed to be working well. The prosthesis spun easily within the tract. Patient and his were educated on how to clean the prosthesis with use of the provided [employer] brush. They were educated to ensure that the tab was facing down (6:00 position). They were taught how to observed the prosthesis for leakage. A packet was provided to the patient with written information on daily maintenance procedures, including how to clean and check the prosthesis for leakage, what to do if he is unable to attain voice, and what to do if he begins leaking. Patient and his were educated on processes required if the prosthesis becomes dislodged. Ascertain where the prothesis is: If in hand, or if it was known to be swallowed, place red rubber catheter in tract and tape knotted end to the neck. If unknown, or known to be in airway, place red rubber catheter at outlined above and present to ED for chest x-ray. If leaking, patient was educated to contact a speech pathologist directly for management. He and his were provided with the contact information for all three speech pathologists and were encouraged to contact any of the three of us. Patient is currently using his larytube, so this had to be fenestrated to allow it to be compatible for TEP use. I did have to puncture extra holes on the right side (clinician view) due to the placement of the TEP tract in the tracheoesophageal wall. The patient has a flap and does not get an excellent tissue seal so when he presses his HME down to allow for voicing, he will also need to press down his larytube to ensure tight seal is obtained, otherwise he won't be able to produce voice well. Please not that patient does have a hand tremor and had a difficult time providing maintenance tasks to the TEP (ie brushing). He did require assistance from his for this. ASSESSMENT AND PLAN: Patient left the clinic today with good voicing. Plan of care includes for the patient to contact us should he have trouble voicing, or at the first sight of leakage. Contact information provided. I also encouraged him to contact me should any changes occur with the device. I look forward to continued voice [facility] of this patient. CN=(Initial, Severe impairment, high risk for aspiration) CH=(Goal status, No impairment) CH=(Final status, No impairment) ATTESTATION I have reviewed the information from this visit and agree with the impression and recommendations. Staff name: Francia Mckeon MD Date: 07/19/2017 in this encounter Plan of Treatment Not on fileas of this encounter Visit Diagnoses Diagnosis Aphonia Essential tremor Essential and other specified forms of tremor History of laryngectomy Other postprocedural status S/P laryngectomy Other postprocedural status
--- OUTSIDE RECORDS SUMMARY | 2017-08-23 08:48 | XMS REPORT | Continuity of Care Document ---
Author Author [facility] Address Unknown Phone Unavailable Allergies Active Description Code Type Severity Reaction Onset Reported/Identified Relationship to Patient Clinical Status Yes Spiriva Drug Allergy 05/10/2011 Yes No Allergy Information Available [id number] Drug Allergy Unknown N/A 2013 Yes No Known Drug Allergies [id number] Drug Allergy Unknown N/A 02/07/2017 Medications There is no data. Problems Date Dx Coded Attending Type Code Diagnosis Diagnosed By 04/17/2011 MALACHI STEPHENS MD 272.4 HYPERLIPIDEMIA 04/17/2011 MALACHI STEPHENS MD 338.29 CHRONIC PAIN 04/17/2011 MALACHI STEPHENS MD 780.4 dizziness 04/17/2011 MALACHI STEPHENS MD 786.09 difficulty breathing (dyspnea) 04/17/2011 MALACHI STEPHENS MD V04.81 Vaccines Prophylactic Need Against Influenza 04/17/2011 272.4 HYPERLIPIDEMIA 04/17/2011 338.29 CHRONIC PAIN 04/17/2011 780.4 dizziness 04/17/2011 786.09 difficulty breathing (dyspnea) 04/17/2011 V04.81 Vaccines Prophylactic Need Against Influenza 04/17/2011 MALACHI STEPHENS MD 272.4 HYPERLIPIDEMIA 04/17/2011 MALACHI STEPHENS MD 338.29 CHRONIC PAIN 04/17/2011 MALACHI STEPHENS MD 780.4 dizziness 04/17/2011 MALACHI STEPHENS MD 786.09 difficulty breathing (dyspnea) 04/17/2011 MALACHI STEPHENS MD V04.81 Vaccines Prophylactic Need Against Influenza 04/17/2011 MALACHI STEPHENS MD 272.4 HYPERLIPIDEMIA 04/17/2011 MALACHI STEPHENS MD 338.29 CHRONIC PAIN 04/17/2011 MALACHI STEPHENS MD 780.4 dizziness 04/17/2011 MALACHI STEPHENS MD 786.09 difficulty breathing (dyspnea) 04/17/2011 MALACHI STEPHENS MD V04.81 Vaccines Prophylactic Need Against Influenza 04/17/2011 WHITE DDS, GINGER J 272.4 HYPERLIPIDEMIA 04/17/2011 GINGER WHITEHEAD DDS 338.29 CHRONIC PAIN 04/17/2011 GINGER WHITEHEAD DDS 780.4 dizziness 04/17/2011 GINGER WHITEHEAD DDS J 786.09 difficulty breathing (dyspnea) 04/17/2011 GINGER WHITEHEAD DDS V04.81 Vaccines Prophylactic Need Against Influenza 04/17/2011 MALACHI STEPHENS MD 272.4 HYPERLIPIDEMIA 04/17/2011 MALACHI STEPHENS MD 338.29 CHRONIC PAIN 04/17/2011 MALACHI STEPHENS MD 780.4 dizziness 04/17/2011 MALACHI STEPHENS MD 786.09 difficulty breathing (dyspnea) 04/17/2011 MALACHI STEPHENS MD V04.81 Vaccines Prophylactic Need Against Influenza 07/20/2011 MALACHI STEPHENS MD 496 CHRONIC AIRWAY OBSTRUCTION NOT ELSEWHERE CLASSIFIED 07/20/2011 496 CHRONIC AIRWAY OBSTRUCTION NOT ELSEWHERE CLASSIFIED 07/20/2011 MALACHI STEPHENS MD 496 CHRONIC AIRWAY OBSTRUCTION NOT ELSEWHERE CLASSIFIED 07/20/2011 MALACHI STEPHENS MD 496 CHRONIC AIRWAY OBSTRUCTION NOT ELSEWHERE CLASSIFIED 07/20/2011 GINGER WHITEHEAD DDS 496 CHRONIC AIRWAY OBSTRUCTION NOT ELSEWHERE CLASSIFIED 07/20/2011 MALACHI STEPHENS MD 496 CHRONIC AIRWAY OBSTRUCTION NOT ELSEWHERE CLASSIFIED 11/26/2011 MALACHI STEPHENS MD 719.41 PAIN IN JOINT INVOLVING SHOULDER REGION 11/26/2011 719.41 PAIN IN JOINT INVOLVING SHOULDER REGION 11/26/2011 MALACHI STEPHENS MD 719.41 PAIN IN JOINT INVOLVING SHOULDER REGION 11/26/2011 MALACHI STEPHENS MD 719.41 PAIN IN JOINT INVOLVING SHOULDER REGION 11/26/2011 GINGER WHITEHEAD DDS 719.41 PAIN IN JOINT INVOLVING SHOULDER REGION 11/26/2011 MALACHI STEPHENS MD 719.41 PAIN IN JOINT INVOLVING SHOULDER REGION 04/24/2012 MALACHI STEPHENS MD 300.00 ANXIETY STATE UNSPECIFIED 04/24/2012 300.00 ANXIETY STATE UNSPECIFIED 04/24/2012 AMLACHI STEPHENS MD 300.00 ANXIETY STATE UNSPECIFIED 04/24/2012 MALACHI STEPHENS MD 300.00 ANXIETY STATE UNSPECIFIED 04/24/2012 GINGER WHITEHEAD DDS 300.00 ANXIETY STATE UNSPECIFIED 04/24/2012 MALACHI STEPHENS MD 300.00 ANXIETY STATE UNSPECIFIED 08/01/2012 MALACHI STEPHENS MD 780.79 OTHER MALAISE AND FATIGUE 08/01/2012 780.79 OTHER MALAISE AND FATIGUE 08/01/2012 MALACHI STEPHENS MD 780.79 OTHER MALAISE AND FATIGUE 08/01/2012 MALACHI STEPHENS MD 780.79 OTHER MALAISE AND FATIGUE 08/01/2012 WHITE DDS, GINGER J 780.79 OTHER MALAISE AND FATIGUE 08/01/2012 MALACHI STEPHENS MD 780.79 OTHER MALAISE AND FATIGUE 01/14/2014 WHITE DDS, GINGER J 716.90 UNSPECIFIED ARTHROPATHY SITE UNSPECIFIED 01/14/2014 MALACHI STEPHENS MD 716.90 UNSPECIFIED ARTHROPATHY SITE UNSPECIFIED 07/07/2014 MALACHI STEPHENS MD Ot 287.5 07/07/2014 MALACHI STEPHENS MD Ot 790.6 10/20/2014 MALACHI STEPHENS MD Ot 287.5 10/20/2014 MALACHI STEPHENS MD Ot 790.6 11/02/2014 MALACHI STEPHENS MD Ot 287.5 11/02/2014 MALACHI STEPHENS MD Ot 790.6 11/11/2014 MALACHI STEPHENS MD Ot 287.5 11/11/2014 MALACHI STEPHENS MD Ot 790.6 12/11/2015 MALACHI STEPHENS MD Ot 287.5 THROMBOCYTOPENIA NOS 12/11/2015 MALACIH STEPHENS MD Ot 790.6 ABN BLOOD CHEMISTRY NEC 12/11/2015 CHAITANYA ORTEZ DO Ot F17.210 NICOTINE DEPENDENCE, CIGARETTES, UNCOMPL 12/11/2015 CHAITANYA ORTEZ DO Ot J44.0 CHRONIC OBSTRUCTIVE PULMON DISEASE W ACU 12/12/2015 MALACHI STEPHENS MD Ot 287.5 THROMBOCYTOPENIA NOS 12/12/2015 MALACHI STEPHENS MD Ot 790.6 ABN BLOOD CHEMISTRY NEC 12/14/2015 CHAITANYA ORTEZ DO Ot F17.210 NICOTINE DEPENDENCE, CIGARETTES, UNCOMPL 12/14/2015 CHAITANYA ORTEZ DO Ot J44.0 CHRONIC OBSTRUCTIVE PULMON DISEASE W ACU 03/21/2016 MALACHI STEPHENS MD Ot J44.9 CHRONIC OBSTRUCTIVE PULMONARY DISEASE, U 03/21/2016 MALACHI STEPHENS MD Ot R59.0 LOCALIZED ENLARGED LYMPH NODES 04/11/2016 MALACHI STEPHENS MD Ot J44.9 CHRONIC OBSTRUCTIVE PULMONARY DISEASE, U 04/11/2016 MALACHI STEPHENS MD Ot R59.0 LOCALIZED ENLARGED LYMPH NODES 04/17/2016 MALACHI STEPHENS MD Ot 287.5 THROMBOCYTOPENIA NOS 04/17/2016 MALACHI STEPHENS MD Ot 790.6 ABN BLOOD CHEMISTRY NEC 04/17/2016 MALACHI STEPHENS MD Ot 287.5 THROMBOCYTOPENIA NOS 04/17/2016 MALACHI STEPHENS MD Ot 790.6 ABN BLOOD CHEMISTRY NEC 04/17/2016 MALACHI STEPHENS MD Ot J44.9 CHRONIC OBSTRUCTIVE PULMONARY DISEASE, U 04/17/2016 MALACHI STEPHENS MD Ot R59.0 LOCALIZED ENLARGED LYMPH NODES 04/25/2016 MALACHI STEPHENS MD Ot J44.9 CHRONIC OBSTRUCTIVE PULMONARY DISEASE, U 04/25/2016 MALACHI STEPHENS MD Ot R59.0 LOCALIZED ENLARGED LYMPH NODES 04/25/2016 BLANCO ESCALONA, SUNITA Garcia Ot B18.2 CHRONIC VIRAL HEPATITIS C 04/25/2016 BLANCO ESCALONA, SUNITA Garcia Ot C32.1 MALIGNANT NEOPLASM OF SUPRAGLOTTIS 04/25/2016 BLANCO ESCALONA, SUNITA Garcia Ot J44.9 CHRONIC OBSTRUCTIVE PULMONARY DISEASE, U 04/25/2016 BLANCO ESCALONA, SUNITA Garcia Ot Z79.899 OTHER PIPELINE CONTROLLER (CURRENT) DRUG THERAPY 04/25/2016 BLANCO ESCALONA, SUNITA Garcia Ot Z87.891 PERSONAL HISTORY OF NICOTINE DEPENDENCE 04/25/2016 EMERITA ESCALONA, CRESENCIO Robles Ot 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, UNSPECIFIE 04/25/2016 EMERITA ESCALONA, CRESENCIO Robles Ot Z01.818 ENCOUNTER FOR OTHER PREPROCEDURAL EXAMIN 04/25/2016 CRESENCIO FELDER MD Ot 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, UNSPECIFIE 04/25/2016 EMERITA ESCALONA, CRESENCIO Robles Ot Z01.818 ENCOUNTER FOR OTHER PREPROCEDURAL EXAMIN 04/27/2016 EMERITA ESCALONA, CRESENCIO Robles Ot 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 04/30/2016 EMERITA ESCALONA, CRESENCIO Robles Ot 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 05/03/2016 EMERITA ESCALOAN, CRESENCIO Robles Ot 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 05/22/2016 SUNITA SIMEON MD, Ot B18.2 CHRONIC VIRAL HEPATITIS C 05/22/2016 SUNITA SIMEON MD, Ot C32.1 MALIGNANT NEOPLASM OF SUPRAGLOTTIS 05/22/2016 SUNITA SIMEON MD, Ot J44.9 CHRONIC OBSTRUCTIVE PULMONARY DISEASE, U 05/22/2016 SUNITA SIMEON MD, Ot Z79.899 OTHER SKILLED NURSING (CURRENT) DRUG THERAPY 05/22/2016 SUNITA SIMEON MD, Ot Z87.891 PERSONAL HISTORY OF NICOTINE DEPENDENCE 06/12/2016 SUNITA SIMEON MD, Ot B18.2 CHRONIC VIRAL HEPATITIS C 06/12/2016 SUNITA SIMEON MD, Ot C32.1 MALIGNANT NEOPLASM OF SUPRAGLOTTIS 06/12/2016 SUNITA SIMEON MD, Ot J44.9 CHRONIC OBSTRUCTIVE PULMONARY DISEASE, U 06/12/2016 SUNITA SIMEON MD, Ot Z79.899 OTHER SKILLED NURSING (CURRENT) DRUG THERAPY 06/12/2016 SUNITA SIMEON MD, Ot Z87.891 PERSONAL HISTORY OF NICOTINE DEPENDENCE 07/16/2016 SUNITA SIMEON MD, Ot B18.2 CHRONIC VIRAL HEPATITIS C 07/16/2016 SUNITA SIMEON MD, Ot C32.1 MALIGNANT NEOPLASM OF SUPRAGLOTTIS 07/16/2016 SUNITA SIMEON MD, Ot J44.9 CHRONIC OBSTRUCTIVE PULMONARY DISEASE, U 07/16/2016 SUNITA SIMEON MD Ot Z51.0 ENCOUNTER FOR ANTINEOPLASTIC RADIATION T 07/16/2016 SUNITA SIMEON MD Ot Z79.899 OTHER PIPELINE CONTROLLER (CURRENT) DRUG THERAPY 07/16/2016 SUNITA SIMEON MD Ot Z87.891 PERSONAL HISTORY OF NICOTINE DEPENDENCE 07/17/2016 SUNITA SIMEON MD, Ot B18.2 CHRONIC VIRAL HEPATITIS C 07/17/2016 SUNITA SIMEON MD Ot C32.1 MALIGNANT NEOPLASM OF SUPRAGLOTTIS 07/17/2016 SUNITA SIMEON MD Ot J44.9 CHRONIC OBSTRUCTIVE PULMONARY DISEASE, U 07/17/2016 SUNITA SIMEON MD Ot Z51.0 ENCOUNTER FOR ANTINEOPLASTIC RADIATION T 07/17/2016 SUNITA SIMEON MD Ot Z79.899 OTHER PIPELINE CONTROLLER (CURRENT) DRUG THERAPY 07/17/2016 SUNITA SIMEON MD Ot Z87.891 PERSONAL HISTORY OF NICOTINE DEPENDENCE 07/23/2016 MALACHI STEPHENS MD Ot 287.5 THROMBOCYTOPENIA NOS 07/23/2016 MALACHI STEPHENS MD Ot 790.6 ABN BLOOD CHEMISTRY NEC 07/23/2016 SUNITA SIMEON MD Ot B18.2 CHRONIC VIRAL HEPATITIS C 07/23/2016 SUNITA SIMEON MD Ot C32.1 MALIGNANT NEOPLASM OF SUPRAGLOTTIS 07/23/2016 SUNITA SIMEON MD Ot J44.9 CHRONIC OBSTRUCTIVE PULMONARY DISEASE, U 07/23/2016 SUNITA SIMEON MD Ot Z79.899 OTHER PIPELINE CONTROLLER (CURRENT) DRUG THERAPY 07/23/2016 SUNITA SIMEON MD Ot Z87.891 PERSONAL HISTORY OF NICOTINE DEPENDENCE 07/24/2016 SUNITA SIMEON MD Ot B18.2 CHRONIC VIRAL HEPATITIS C 07/24/2016 SUNITA SIMEON MD Ot C32.1 MALIGNANT NEOPLASM OF SUPRAGLOTTIS 07/24/2016 SUNITA SIMEON MD Ot J44.9 CHRONIC OBSTRUCTIVE PULMONARY DISEASE, U 07/24/2016 SUNITA SIMEON MD Ot Z79.899 OTHER SKILLED NURSING (CURRENT) DRUG THERAPY 07/24/2016 SUNITA SIMEON MD Ot Z87.891 PERSONAL HISTORY OF NICOTINE DEPENDENCE 07/24/2016 SUNITA SIMEON MD Ot B18.2 CHRONIC VIRAL HEPATITIS C 07/24/2016 SUNITA SIMEON MD Ot C32.1 MALIGNANT NEOPLASM OF SUPRAGLOTTIS 07/24/2016 SUNITA SIMEON MD Ot J44.9 CHRONIC OBSTRUCTIVE PULMONARY DISEASE, U 07/24/2016 SUNITA SIMEON MD Ot Z79.899 OTHER SKILLED NURSING (CURRENT) DRUG THERAPY 07/24/2016 SUNITA SIMEON MD Ot Z87.891 PERSONAL HISTORY OF NICOTINE DEPENDENCE 07/26/2016 CRESENCIO FELDER MD Ot C32.1 MALIGNANT NEOPLASM OF SUPRAGLOTTIS 07/26/2016 CRESENCIO FELDER MD Ot Z01.818 ENCOUNTER FOR OTHER PREPROCEDURAL EXAMIN 07/27/2016 CRESENCIO FELDER MD Ot C32.1 MALIGNANT NEOPLASM OF SUPRAGLOTTIS 07/27/2016 CRESENCIO FELDER MD Ot Z01.818 ENCOUNTER FOR OTHER PREPROCEDURAL EXAMIN 07/30/2016 MALACHI STEPHENS MD Ot 287.5 THROMBOCYTOPENIA NOS 07/30/2016 MALACHI STEPHESN MD Ot 790.6 ABN BLOOD CHEMISTRY NEC 07/30/2016 SUNITA SIMEON MD Ot B18.2 CHRONIC VIRAL HEPATITIS C 07/30/2016 SUNITA SIMEON MD Ot C32.1 MALIGNANT NEOPLASM OF SUPRAGLOTTIS 07/30/2016 BLANCO ESCALONA, SUNITA Garcia Ot J44.9 CHRONIC OBSTRUCTIVE PULMONARY DISEASE, U 07/30/2016 BLANCO ESCALONA, SUNITA Garcia Ot Z79.899 OTHER SKILLED NURSING (CURRENT) DRUG THERAPY 07/30/2016 BLANCO ESCALONA, SUNITA Garcia Ot Z87.891 PERSONAL HISTORY OF NICOTINE DEPENDENCE 07/30/2016 EMERITA ESCALONA, CRESENCIO Robles Ot 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, UNSPECIFIE 08/11/2016 EMERITA ESCALONA, CRESENCIO Robles Ot 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, UNSPECIFIE 08/21/2016 SCHMITTGENS BERTHA BULLOCK Ot 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, UNSPECIFIE 08/21/2016 KATLYNMITTGENS BERTHA BULLOCK M Ot J43.9 EMPHYSEMA, UNSPECIFIED 08/21/2016 KATLYNMITTGENS BERTHA BULLOCK M Ot K74.60 UNSPECIFIED CIRRHOSIS OF LIVER 08/21/2016 BERTHA VERA M Ot Z92.3 PERSONAL HISTORY OF IRRADIATION 08/21/2016 BERTHA VERA M Ot 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, UNSPECIFIE 08/21/2016 SCHMITTGENS BERTHA BULLOCK Ot J43.9 EMPHYSEMA, UNSPECIFIED 08/21/2016 SCHMITTGENS BERTHA BULLOCK M Ot K74.60 UNSPECIFIED CIRRHOSIS OF LIVER 08/21/2016 BERTHA VERA Ot Z92.3 PERSONAL HISTORY OF IRRADIATION 08/24/2016 MANJINDER RAMIREZ DIRECTOR OF REHABILITATION Ot 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, UNSPECIFIE 08/24/2016 MANJINDER RAMIREZ DIRECTOR OF REHABILITATION Ot J43.9 EMPHYSEMA, UNSPECIFIED 08/24/2016 MANJINDER RAMIREZ DIRECTOR OF REHABILITATION Ot R13.10 DYSPHAGIA, UNSPECIFIED 08/24/2016 KAT ESCALONA, MALACHI Buenrostro Ot 287.5 THROMBOCYTOPENIA NOS 08/24/2016 MALACHI STEPHENS MD Ot 790.6 ABN BLOOD CHEMISTRY NEC 08/24/2016 SUNITA SIMEON MD Ot B18.2 CHRONIC VIRAL HEPATITIS C 08/24/2016 SUNITA SIMEON MD Ot C32.1 MALIGNANT NEOPLASM OF SUPRAGLOTTIS 08/24/2016 SUNITA SIMEON MD Ot J44.9 CHRONIC OBSTRUCTIVE PULMONARY DISEASE, U 08/24/2016 SUNITA SIMEON MD Ot Z79.899 OTHER PIPELINE CONTROLLER (CURRENT) DRUG THERAPY 08/24/2016 SUNITA SIMEON MD Ot Z87.891 PERSONAL HISTORY OF NICOTINE DEPENDENCE 08/24/2016 BERTHA VERA Ot 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, UNSPECIFIE 08/24/2016 BERTHA VERA Ot J43.9 EMPHYSEMA, UNSPECIFIED 08/24/2016 BERTHA VERA Ot K74.60 UNSPECIFIED CIRRHOSIS OF LIVER 08/24/2016 BERTHA VERA Ot Z92.3 PERSONAL HISTORY OF IRRADIATION 08/27/2016 MANJINDER RAMIREZ DIRECTOR OF REHABILITATION Ot 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, UNSPECIFIE 08/27/2016 MANJINDER RAMIREZ DIRECTOR OF REHABILITATION Ot J43.9 EMPHYSEMA, UNSPECIFIED 08/27/2016 MANJINDER RAMIREZ DIRECTOR OF REHABILITATION Ot R13.10 DYSPHAGIA, UNSPECIFIED 09/04/2016 MANJINDER RAMIREZ DIRECTOR OF REHABILITATION Ot R13.10 DYSPHAGIA, UNSPECIFIED 09/04/2016 MANJINDER RAMIREZ DIRECTOR OF REHABILITATION Ot T17.208A UNSP FOREIGN BODY IN PHARYNX CAUSING OTH 09/04/2016 MANJINDER RAMIREZ DIRECTOR OF REHABILITATION Ot Z85.21 PERSONAL HISTORY OF MALIGNANT NEOPLASM O 09/04/2016 MANJINDER RAMIREZ DIRECTOR OF REHABILITATION Ot Z87.891 PERSONAL HISTORY OF NICOTINE DEPENDENCE 09/04/2016 MALACHI STEPHENS MD Ot 287.5 THROMBOCYTOPENIA NOS 09/04/2016 MALACHI STEPHENS MD Ot 790.6 ABN BLOOD CHEMISTRY NEC 09/04/2016 SUNITA SIMEON MD Ot B18.2 CHRONIC VIRAL HEPATITIS C 09/04/2016 SUNITA SIMEON MD Ot C32.1 MALIGNANT NEOPLASM OF SUPRAGLOTTIS 09/04/2016 SUNITA SIMEON MD Ot J44.9 CHRONIC OBSTRUCTIVE PULMONARY DISEASE, U 09/04/2016 SUNITA SIMEON MD Ot Z79.899 OTHER SKILLED NURSING (CURRENT) DRUG THERAPY 09/04/2016 SUNITA SIMEON MD Ot Z87.891 PERSONAL HISTORY OF NICOTINE DEPENDENCE 09/04/2016 BERTHA VERA Ot 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, UNSPECIFIE 09/04/2016 BERTHA VERA Ot J43.9 EMPHYSEMA, UNSPECIFIED 09/04/2016 BERTHA VERA Ot K74.60 UNSPECIFIED CIRRHOSIS OF LIVER 09/04/2016 BERTHA VERA Ot Z92.3 PERSONAL HISTORY OF IRRADIATION 09/05/2016 MANJINDER RAMIREZ APRN Ot R13.10 DYSPHAGIA, UNSPECIFIED 09/05/2016 MANJINDER RAMIREZ APRN Ot T17.208A UNSP FOREIGN BODY IN PHARYNX CAUSING OTH 09/05/2016 MANJINDER RAMIREZ DIRECTOR OF REHABILITATION Ot Z85.21 PERSONAL HISTORY OF MALIGNANT NEOPLASM O 09/05/2016 MANJINDER RAMIREZ DIRECTOR OF REHABILITATION Ot Z87.891 PERSONAL HISTORY OF NICOTINE DEPENDENCE 09/08/2016 MALACHI STEPHENS MD, Ot J44.9 CHRONIC OBSTRUCTIVE PULMONARY DISEASE, U 09/08/2016 MALACHI STEPHENS MD Ot R59.0 LOCALIZED ENLARGED LYMPH NODES 09/10/2016 MANJINDER RAMIREZ APRN Ot R13.10 DYSPHAGIA, UNSPECIFIED 09/10/2016 MANJINDER RAMIREZ APRN Ot T17.208A UNSP FOREIGN BODY IN PHARYNX CAUSING OTH 09/10/2016 MANJINDER RAMIREZ APRN Ot Z85.21 PERSONAL HISTORY OF MALIGNANT NEOPLASM O 09/10/2016 MANJINDER RAMIREZ APRN Ot Z87.891 PERSONAL HISTORY OF NICOTINE DEPENDENCE 10/04/2016 MALACHI STEPHENS MD, Ot J44.9 CHRONIC OBSTRUCTIVE PULMONARY DISEASE, U 10/04/2016 MALACHI STEPHENS MD Ot R59.0 LOCALIZED ENLARGED LYMPH NODES 10/21/2016 SUNITA SIMEON MD Ot B18.2 CHRONIC VIRAL HEPATITIS C 10/21/2016 SUNITA SIMEON MD Ot C32.1 MALIGNANT NEOPLASM OF SUPRAGLOTTIS 10/21/2016 SUNITA SIMEON MD Ot J44.9 CHRONIC OBSTRUCTIVE PULMONARY DISEASE, U 10/21/2016 SUNITA SIMEON MD Ot Z79.899 OTHER SKILLED NURSING (CURRENT) DRUG THERAPY 10/21/2016 SUNITA SIMEON MD Ot Z87.891 PERSONAL HISTORY OF NICOTINE DEPENDENCE 11/01/2016 MALACHI STEPHENS MD Ot 287.5 THROMBOCYTOPENIA NOS 11/01/2016 MALACHI STEPHENS MD Ot 790.6 ABN BLOOD CHEMISTRY NEC 11/01/2016 MALACHI STEPHENS MD, Ot J44.9 CHRONIC OBSTRUCTIVE PULMONARY DISEASE, U 11/01/2016 MALACHI STEPHENS MD Ot R59.0 LOCALIZED ENLARGED LYMPH NODES 11/01/2016 BERTHA VERA Ot 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, UNSPECIFIE 11/01/2016 BERTHA VERA Ot J43.9 EMPHYSEMA, UNSPECIFIED 11/01/2016 BERTHA VERA Ot K74.60 UNSPECIFIED CIRRHOSIS OF LIVER 11/01/2016 BERTHA VERA Ot Z92.3 PERSONAL HISTORY OF IRRADIATION 11/01/2016 MALACHI STEPHENS MD Ot J44.9 CHRONIC OBSTRUCTIVE PULMONARY DISEASE, U 11/01/2016 MALACHI STEPHENS MD Ot R59.0 LOCALIZED ENLARGED LYMPH NODES 11/01/2016 OSMAR NUÑEZ MD Ot 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, UNSPECIFI 11/01/2016 OSMAR NUÑEZ MD Ot D62 ACUTE POSTHEMORRHAGIC ANEMIA 11/01/2016 OSMAR NUÑEZ MD, Ot D72.829 ELEVATED WHITE BLOOD CELL COUNT, UNSPECI 11/01/2016 OSMAR NUÑEZ MD, Ot J44.9 CHRONIC OBSTRUCTIVE PULMONARY DISEASE, U 11/01/2016 OSMAR NUÑEZ MD Ot J95.830 POSTPROC HEMOR OF A RESP SYS ORG FOL A R 11/01/2016 OSMAR NUÑEZ MD Ot R00.0 TACHYCARDIA, UNSPECIFIED 11/01/2016 OSMAR NUÑEZ MD Ot 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 11/06/2016 RACHEL FREITAS MD, Ot B18.2 CHRONIC VIRAL HEPATITIS C 11/06/2016 RACHEL FREITAS MD, Ot C32.1 MALIGNANT NEOPLASM OF SUPRAGLOTTIS 11/06/2016 RACHEL FREITAS MD, Ot J44.9 CHRONIC OBSTRUCTIVE PULMONARY DISEASE, U 11/06/2016 RACHEL FREITAS MD, Ot Z79.899 OTHER PIPELINE CONTROLLER (CURRENT) DRUG THERAPY 11/06/2016 RACHEL FREITAS MD, Ot Z87.891 PERSONAL HISTORY OF NICOTINE DEPENDENCE 11/06/2016 RACHEL FREITAS MD, Ot B18.2 CHRONIC VIRAL HEPATITIS C 11/06/2016 RACHEL FREITAS MD, Ot C32.1 MALIGNANT NEOPLASM OF SUPRAGLOTTIS 11/06/2016 RACHEL FREITAS MD, Ot J44.9 CHRONIC OBSTRUCTIVE PULMONARY DISEASE, U 11/06/2016 RACHEL FREITAS MD, Ot Z79.899 OTHER SKILLED NURSING (CURRENT) DRUG THERAPY 11/06/2016 RACHEL FREITAS MD Ot Z87.891 PERSONAL HISTORY OF NICOTINE DEPENDENCE 11/13/2016 ANDREW CHATMAN MD Ot B19.20 UNSPECIFIED VIRAL HEPATITIS C WITHOUT HE 11/13/2016 ANDREW CHATMAN MD Ot 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 11/13/2016 ANDREW CHATMAN MD Ot J44.9 CHRONIC OBSTRUCTIVE PULMONARY DISEASE, U 11/13/2016 ANDREW CHATMAN MD Ot K70.9 ALCOHOLIC LIVER DISEASE, UNSPECIFIED 11/13/2016 ANDREW CHATMAN MD Ot Z48.3 AFTERCARE FOLLOWING SURGERY FOR NEOPLASM 11/13/2016 ANDREW CHATMAN MD E Ot Z85.21 PERSONAL HISTORY OF MALIGNANT NEOPLASM O 11/13/2016 ANDREW CHATMAN MD Ot Z87.891 PERSONAL HISTORY OF NICOTINE DEPENDENCE 11/13/2016 ANDREW CHATMAN MD E Ot B19.20 UNSPECIFIED VIRAL HEPATITIS C WITHOUT HE 11/13/2016 ANDREW CHATMAN MD Ot 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 11/13/2016 ANDREW CHATMAN MD Ot J44.9 CHRONIC OBSTRUCTIVE PULMONARY DISEASE, U 11/13/2016 ANDREW CHATMAN MD Ot K70.9 ALCOHOLIC LIVER DISEASE, UNSPECIFIED 11/13/2016 ANDREW CHATMAN MD Ot Z48.3 AFTERCARE FOLLOWING SURGERY FOR NEOPLASM 11/13/2016 ANDREW CHATMAN MD E Ot Z85.21 PERSONAL HISTORY OF MALIGNANT NEOPLASM O 11/13/2016 ANDREW CHATMAN MD E Ot Z87.891 PERSONAL HISTORY OF NICOTINE DEPENDENCE 11/13/2016 ANDREW CHATMAN MD Ot B19.20 UNSPECIFIED VIRAL HEPATITIS C WITHOUT HE 11/13/2016 ANDREW CHATMAN MD Ot 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 11/13/2016 ANDREW CHATMAN MD Ot J44.9 CHRONIC OBSTRUCTIVE PULMONARY DISEASE, U 11/13/2016 ANDREW CHATMAN MD Ot K70.9 ALCOHOLIC LIVER DISEASE, UNSPECIFIED 11/13/2016 ANDREW CHATMAN MD Ot Z48.3 AFTERCARE FOLLOWING SURGERY FOR NEOPLASM 11/13/2016 ANDREW CHATMAN MD E Ot Z85.21 PERSONAL HISTORY OF MALIGNANT NEOPLASM O 11/13/2016 ANDREW CHATMAN MD E Ot Z87.891 PERSONAL HISTORY OF NICOTINE DEPENDENCE 11/14/2016 ANDREW CHATMAN MD E Ot B19.20 UNSPECIFIED VIRAL HEPATITIS C WITHOUT HE 11/14/2016 ANDREW CHATMAN MD Ot 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 11/14/2016 ANDREW CHATMAN MD Ot J44.9 CHRONIC OBSTRUCTIVE PULMONARY DISEASE, U 11/14/2016 ANDREW CHATMAN MD Ot K70.9 ALCOHOLIC LIVER DISEASE, UNSPECIFIED 11/14/2016 ANDREW CHATMAN MD E Ot Z48.3 AFTERCARE FOLLOWING SURGERY FOR NEOPLASM 11/14/2016 ANDREW CHATMAN MD E Ot Z85.21 PERSONAL HISTORY OF MALIGNANT NEOPLASM O 11/14/2016 ANDREW CHATMAN MD E Ot Z87.891 PERSONAL HISTORY OF NICOTINE DEPENDENCE 11/14/2016 ANDREW CHATMAN MD E Ot B19.20 UNSPECIFIED VIRAL HEPATITIS C WITHOUT HE 11/14/2016 ANDREW CHATMAN MD Ot 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 11/14/2016 ANDREW CHATMAN MD Ot J44.9 CHRONIC OBSTRUCTIVE PULMONARY DISEASE, U 11/14/2016 ANDREW CHATMAN MD Ot K70.9 ALCOHOLIC LIVER DISEASE, UNSPECIFIED 11/14/2016 ANDREW CHATMAN MD E Ot Z48.3 AFTERCARE FOLLOWING SURGERY FOR NEOPLASM 11/14/2016 ANDREW CHATMAN MD E Ot Z85.21 PERSONAL HISTORY OF MALIGNANT NEOPLASM O 11/14/2016 ANDREW CHATMAN MD E Ot Z87.891 PERSONAL HISTORY OF NICOTINE DEPENDENCE 2016 ANDREW CHATMAN MD E Ot B19.20 UNSPECIFIED VIRAL HEPATITIS C WITHOUT HE 2016 ANDREW CHATMAN MD E Ot 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 2016 ANDREW CHATMAN MD Ot J44.9 CHRONIC OBSTRUCTIVE PULMONARY DISEASE, U 2016 ANDREW CHATMAN MD E Ot K70.9 ALCOHOLIC LIVER DISEASE, UNSPECIFIED 2016 ANDREW CHATMAN MD E Ot T81.31XA DISRUPTION OF EXTERNAL OPERATION (SURGIC 2016 ANDREW CHATMAN MD E Ot Z48.3 AFTERCARE FOLLOWING SURGERY FOR NEOPLASM 2016 ANDREW CHATMAN MD E Ot Z85.21 PERSONAL HISTORY OF MALIGNANT NEOPLASM O 2016 ANDREW CHATMAN MD E Ot Z87.891 PERSONAL HISTORY OF NICOTINE DEPENDENCE 2016 ANDREW CHATMAN MD E Ot B19.20 UNSPECIFIED VIRAL HEPATITIS C WITHOUT HE 2016 ANDREW CHATMAN MD E Ot 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 2016 LURDES ESCALONA, ANDREW Naqvi Ot J44.9 CHRONIC OBSTRUCTIVE PULMONARY DISEASE, U 2016 LURDES ESCALONA, ANDREW Naqvi Ot K70.9 ALCOHOLIC LIVER DISEASE, UNSPECIFIED 2016 LURDES ESCALONA, ANDREW Naqvi Ot Z48.3 AFTERCARE FOLLOWING SURGERY FOR NEOPLASM 2016 LURDES ESCALONA, ANDREW Naqvi Ot Z85.21 PERSONAL HISTORY OF MALIGNANT NEOPLASM O 2016 LURDES ESCALONA, ANDREW Naqvi Ot Z87.891 PERSONAL HISTORY OF NICOTINE DEPENDENCE 12/14/2016 MALACHI STEPHENS MD, Ot J44.9 CHRONIC OBSTRUCTIVE PULMONARY DISEASE, U 12/14/2016 MALACHI STEPHENS MD Ot R59.0 LOCALIZED ENLARGED LYMPH NODES 12/17/2016 MALACHI STEPHENS MD Ot J44.9 CHRONIC OBSTRUCTIVE PULMONARY DISEASE, U 12/17/2016 MALACHI STEPHENS MD Ot R59.0 LOCALIZED ENLARGED LYMPH NODES 12/17/2016 BERTHA VERA Ot 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, UNSPECIFIE 12/17/2016 BERTHA VERA Ot R13.10 DYSPHAGIA, UNSPECIFIED 12/17/2016 BERTHA VERA Ot 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 12/31/2016 BERTHA VERA Ot 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, UNSPECIFIE 12/31/2016 BERTHA VERA Ot J43.9 EMPHYSEMA, UNSPECIFIED 12/31/2016 BERTHA VERA Ot K74.60 UNSPECIFIED CIRRHOSIS OF LIVER 12/31/2016 BERTHA VERA Ot Z92.3 PERSONAL HISTORY OF IRRADIATION 12/31/2016 BERTHA VERA Ot 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, UNSPECIFIE 12/31/2016 BERTHA VERA Ot J43.9 EMPHYSEMA, UNSPECIFIED 12/31/2016 BERTHA VERA Ot K74.60 UNSPECIFIED CIRRHOSIS OF LIVER 12/31/2016 BERTHA VERA Ot Z92.3 PERSONAL HISTORY OF IRRADIATION 12/31/2016 BERTHA VERA Ot 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, UNSPECIFIE 12/31/2016 BERTHA VERA Ot R13.10 DYSPHAGIA, UNSPECIFIED 12/31/2016 SCHMITTBERTHA NAZARIO M Ot 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 12/31/2016 KAT ESCALONA, MALACHI Buenrostro Ot 287.5 THROMBOCYTOPENIA NOS 12/31/2016 MALACHI STEPHENS MD Ot 790.6 ABN BLOOD CHEMISTRY NEC 12/31/2016 MALACHI STEPHENS MD Ot J44.9 CHRONIC OBSTRUCTIVE PULMONARY DISEASE, U 12/31/2016 MALACHI STEPHENS MD Ot R59.0 LOCALIZED ENLARGED LYMPH NODES 12/31/2016 BERTHA VERA Ot 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, UNSPECIFIE 12/31/2016 BERTHA VERA Ot J43.9 EMPHYSEMA, UNSPECIFIED 12/31/2016 BERTHA VERA Ot K74.60 UNSPECIFIED CIRRHOSIS OF LIVER 12/31/2016 BERTHA VERA Ot Z92.3 PERSONAL HISTORY OF IRRADIATION 12/31/2016 BERTHA VERA Ot 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, UNSPECIFIE 12/31/2016 BERTHA VERA Ot R13.10 DYSPHAGIA, UNSPECIFIED 12/31/2016 SCHBERTHA TUCKER Ot 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 01/10/2017 BERTHA VERA Ot 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, UNSPECIFIE 01/10/2017 BERTHA VERA M Ot R13.10 DYSPHAGIA, UNSPECIFIED 01/10/2017 SCHMITTBERTHA NAZARIO M Ot 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 01/18/2017 BERTHA VERA Ot 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, UNSPECIFIE 01/18/2017 BERTHA VERA Ot R13.10 DYSPHAGIA, UNSPECIFIED 01/18/2017 SCHMITTBERTHA NAZARIO M Ot 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 02/06/2017 EMERITA ESCALONA, CRESENCIO Robles Ot 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, UNSPECIFIE 02/06/2017 EMERITA ESCALONA, CRESENCIO Robles Ot Z01.818 ENCOUNTER FOR OTHER PREPROCEDURAL EXAMIN 02/07/2017 CRESENCIO FELDER MD Ot 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818 ENCOUNTER FOR OTHER PREPROCEDURAL EXAMIN 02/08/2017 MALACHI STEPHENS MD Ot J44.9 CHRONIC OBSTRUCTIVE PULMONARY DISEASE, U 02/08/2017 MALACHI STEPHENS MD Ot R59.0 LOCALIZED ENLARGED LYMPH NODES 02/08/2017 BERTHA VERA Ot 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, UNSPECIFIE 02/08/2017 BERTHA VERA Ot R13.10 DYSPHAGIA, UNSPECIFIED 02/08/2017 BERTHA VERA Ot 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 02/11/2017 CRESENCIO FELDER MD Ot F17.210 NICOTINE DEPENDENCE, CIGARETTES, UNCOMPL 02/11/2017 CRESENCIO FELDER MD Ot F41.9 ANXIETY DISORDER, UNSPECIFIED 02/11/2017 CRESENCIO FELDER MD Ot Z08 ENCNTR FOR FOLLOW-UP EXAM AFTER TRTMT FO 02/11/2017 CRESENCIO FEDLER MD Ot Z85.21 PERSONAL HISTORY OF MALIGNANT NEOPLASM O 02/11/2017 CRESENCIO FELDER MD Ot 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 02/12/2017 CRESENCIO FELDER MD Ot F17.210 NICOTINE DEPENDENCE, CIGARETTES, UNCOMPL 02/12/2017 CRESENCIO FELDER MD Ot F41.9 ANXIETY DISORDER, UNSPECIFIED 02/12/2017 CRESENCIO FELDER MD Ot Z08 ENCNTR FOR FOLLOW-UP EXAM AFTER TRTMT FO 02/12/2017 CRESENCIO FELDER MD Ot Z85.21 PERSONAL HISTORY OF MALIGNANT NEOPLASM O 02/12/2017 EMERITA ESCALONA, CRESENCIO Robles Ot 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 02/15/2017 KAT ESCALONA, MALACHI Buenrostro Ot 287.5 THROMBOCYTOPENIA NOS 02/15/2017 MALACHI STEPHENS MD Ot 790.6 ABN BLOOD CHEMISTRY NEC 02/15/2017 MALACHI STEPHENS MD Ot J44.9 CHRONIC OBSTRUCTIVE PULMONARY DISEASE, U 02/15/2017 MALACHI STEPHENS MD Ot R59.0 LOCALIZED ENLARGED LYMPH NODES 02/15/2017 BERTHA VERA Ot 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, UNSPECIFIE 02/15/2017 BERTHA VERA Ot J43.9 EMPHYSEMA, UNSPECIFIED 02/15/2017 BERTHA VERA Ot K74.60 UNSPECIFIED CIRRHOSIS OF LIVER 02/15/2017 BERTHA VERA Ot Z92.3 PERSONAL HISTORY OF IRRADIATION 02/15/2017 BERTHA VERA Ot 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, UNSPECIFIE 02/15/2017 BERTHA VERA Ot R13.10 DYSPHAGIA, UNSPECIFIED 02/15/2017 BERTHA VERA Ot 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 03/01/2017 ANDREW CORNEJO DO B Ot E03.9 HYPOTHYROIDISM, UNSPECIFIED 03/01/2017 ANDREW CORNEJO DO B Ot F17.210 NICOTINE DEPENDENCE, CIGARETTES, UNCOMPL 03/01/2017 ANDREW CORNEJO DO B Ot J44.9 CHRONIC OBSTRUCTIVE PULMONARY DISEASE, U 03/01/2017 ANDREW CORNEJO DO B Ot K75.9 INFLAMMATORY LIVER DISEASE, UNSPECIFIED 03/01/2017 ANDREW CORNEJO DO B Ot T18.128A FOOD IN ESOPHAGUS CAUSING OTHER INJURY, 03/01/2017 ANDREW CORNEJO DO B Ot Z79.899 OTHER SKILLED NURSING (CURRENT) DRUG THERAPY 03/01/2017 ANDREW CORNEJO DO B Ot Z85.21 PERSONAL HISTORY OF MALIGNANT NEOPLASM O 03/01/2017 ANDREW CORNEJO DO B Ot Z93.0 TRACHEOSTOMY STATUS 03/04/2017 ANDREW CORNEJO DO B Ot E03.9 HYPOTHYROIDISM, UNSPECIFIED 03/04/2017 ANDREW CORNEJO DO B Ot F17.210 NICOTINE DEPENDENCE, CIGARETTES, UNCOMPL 03/04/2017 DICK CORNEJO DOIC Joselo Ot J44.9 CHRONIC OBSTRUCTIVE PULMONARY DISEASE, U 03/04/2017 ANDREW CORNEJO DO Ot K75.9 INFLAMMATORY LIVER DISEASE, UNSPECIFIED 03/04/2017 ANDREW CORNEJO DO Ot T18.128A FOOD IN ESOPHAGUS CAUSING OTHER INJURY, 03/04/2017 ANDREW CORNEJO DO Ot Z79.899 OTHER SKILLED NURSING (CURRENT) DRUG THERAPY 03/04/2017 ANDREW CORNEJO DO Ot Z85.21 PERSONAL HISTORY OF MALIGNANT NEOPLASM O 03/04/2017 ANDREW CORNEJO DO Ot Z93.0 TRACHEOSTOMY STATUS 04/11/2017 MALACHI STEPHENS MD, Ot J44.9 CHRONIC OBSTRUCTIVE PULMONARY DISEASE, U 04/11/2017 MALACHI STEPHENS MD Ot R59.0 LOCALIZED ENLARGED LYMPH NODES 04/11/2017 BERTHA VERA Ot 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, UNSPECIFIE 04/11/2017 BERTHA VERA Ot R13.10 DYSPHAGIA, UNSPECIFIED 04/11/2017 BERTHA VERA Ot 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 05/07/2017 CICI BABCOCK MD Ot 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, UNSPECIFIE 05/07/2017 CICI BABCOCK MD Ot J43.9 EMPHYSEMA, UNSPECIFIED 05/07/2017 CICI BABCOCK MD Ot R91.8 OTHER NONSPECIFIC ABNORMAL FINDING OF YADIRA 05/07/2017 CICI BABCOCK MD Ot 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 05/07/2017 CICI BABCOCK MD Ot Z92.3 PERSONAL HISTORY OF IRRADIATION 07/20/2017 MANJINDER RAMIREZ APRN Ot 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, UNSPECIFIE 07/20/2017 MANJINDER RAMIREZ APRN Ot J43.9 EMPHYSEMA, UNSPECIFIED 07/20/2017 MANJINDER RAMIREZ APRN Ot R13.10 DYSPHAGIA, UNSPECIFIED 08/05/2017 MALACHI STEPHENS MD, Ot J44.9 CHRONIC OBSTRUCTIVE PULMONARY DISEASE, U 08/05/2017 MALACHI STEPHENS MD Ot R59.0 LOCALIZED ENLARGED LYMPH NODES 08/05/2017 BERTHA VERA Ot 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, UNSPECIFIE 08/05/2017 BERTHA VERA Ot R13.10 DYSPHAGIA, UNSPECIFIED 08/05/2017 BERTHA VERA Ot 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 08/05/2017 CICI BABCOCK MD Ot 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, UNSPECIFIE 08/05/2017 CICI BABCOCK MD Ot J43.9 EMPHYSEMA, UNSPECIFIED 08/05/2017 CICI BABCOCK MD Ot R91.8 OTHER NONSPECIFIC ABNORMAL FINDING OF YADIRA 08/05/2017 CICI BABCOCK MD Ot 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 08/05/2017 CIIC BABCOCK MD Ot Z92.3 PERSONAL HISTORY OF IRRADIATION 08/06/2017 CICI BABCOCK MD Ot 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, UNSPECIFIE 08/06/2017 CICI BABCOCK MD Ot R91.8 OTHER NONSPECIFIC ABNORMAL FINDING OF YADIRA 08/06/2017 CICI BABCOCK MD Ot Z87.891 PERSONAL HISTORY OF NICOTINE DEPENDENCE 08/06/2017 CICI BABCOCK MD Ot 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 08/06/2017 CICI BABCOCK MD Ot Z90.2 ACQUIRED ABSENCE OF LUNG [PART OF] 08/09/2017 MALACHI STEPHENS MD Ot J44.9 CHRONIC OBSTRUCTIVE PULMONARY DISEASE, U 08/09/2017 MALACHI STEPHENS MD Ot R59.0 LOCALIZED ENLARGED LYMPH NODES 08/09/2017 BERTHA VERA Ot 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, UNSPECIFIE 08/09/2017 BERTHA VERA Ot R13.10 DYSPHAGIA, UNSPECIFIED 08/09/2017 BERTHA VERA Ot 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 08/09/2017 CICI BABCOCK MD Ot 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, UNSPECIFIE 08/09/2017 CICI BABCOCK MD Ot J43.9 EMPHYSEMA, UNSPECIFIED 08/09/2017 CICI BABCOCK MD Ot R91.8 OTHER NONSPECIFIC ABNORMAL FINDING OF YADIRA 08/09/2017 CICI BABCOCK MD Ot 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 08/09/2017 CICI BABCOCK MD Ot Z92.3 PERSONAL HISTORY OF IRRADIATION 08/09/2017 CICI BABCOCK MD Ot 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, UNSPECIFIE 08/09/2017 CICI BABCOCK MD Ot R91.8 OTHER NONSPECIFIC ABNORMAL FINDING OF YADIRA 08/09/2017 CICI BABCOCK MD Ot Z87.891 PERSONAL HISTORY OF NICOTINE DEPENDENCE 08/09/2017 CICI BABCOCK MD Ot 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 08/09/2017 CICI BABCOCK MD Ot Z90.2 ACQUIRED ABSENCE OF LUNG [PART OF] 08/13/2017 MALACHI STEPHENS MD Ot J44.9 CHRONIC OBSTRUCTIVE PULMONARY DISEASE, U 08/13/2017 MALACHI STEPHENS MD Ot R59.0 LOCALIZED ENLARGED LYMPH NODES 08/13/2017 BERTHA VERA Ot 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, UNSPECIFIE 08/13/2017 BERTHA VERA Ot R13.10 DYSPHAGIA, UNSPECIFIED 08/13/2017 BERTHA VERA Ot 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 08/13/2017 CICI BABCOCK MD Ot 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, UNSPECIFIE 08/13/2017 CICI BABCOCK MD Ot J43.9 EMPHYSEMA, UNSPECIFIED 08/13/2017 CICI BABCOCK MD Ot R91.8 OTHER NONSPECIFIC ABNORMAL FINDING OF YADIRA 08/13/2017 CICI BABCOCK MD Ot 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 08/13/2017 CICI BABCOCK MD Ot Z92.3 PERSONAL HISTORY OF IRRADIATION 08/13/2017 CICI BABCOCK MD Ot 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, UNSPECIFIE 08/13/2017 CICI BABCOCK MD Ot R91.8 OTHER NONSPECIFIC ABNORMAL FINDING OF YADIRA 08/13/2017 CICI BABCOCK MD Ot Z87.891 PERSONAL HISTORY OF NICOTINE DEPENDENCE 08/13/2017 CICI BABCOCK MD Ot 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 08/13/2017 CICI BABCOCK MD Ot Z90.2 ACQUIRED ABSENCE OF LUNG [PART OF] 08/15/2017 CICI BABCOCK MD Ot 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, UNSPECIFIE 08/15/2017 CICI BABCOCK MD Ot J98.4 OTHER DISORDERS OF LUNG 08/15/2017 CICI BABCOCK MD Ot R91.8 OTHER NONSPECIFIC ABNORMAL FINDING OF YADIRA 08/15/2017 CICI BABCOCK MD Ot 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 Procedures Code Description [place] [address] ROUTINE VENIPUNCTURE 08/01/2012 17472 TSH 08/02/2012 14686 TESTOSTERONE TOTAL 08/02/2012 54668 ROUTINE VENIPUNCTURE 05/31/2014 [id number] GFR CALC (RESULT ONLY) 06/01/2014 05682 CMP 06/01/2014 15736 CBC 06/01/[address] ABDOMEN W/ AND W/O CONTRAST 06/06/2014 64198 HEP C PCR QUANT (SERIAL) 07/15/2014 Results Test Result Range Mycobacterium species detection by organism specific culture - 12/11/15 14:36 DATE/TIME MICROSCOPIC 12-20-2015 NRG MICROSCOPIC NO ACID-FAST BACILLI FOUND NRG DATE/TIME VERBAL REPORT 12-20-2015 NRG VERBAL REPORT FROM [facility] AFB SMEAR NEGATIVE NRG AFB CULTURE NO MYCOBACTERIA RECOVERED AFTER 6 WEEKS NRG DATE FINAL AFB CULTURE 02-03-2016 NR [id number] - 03/20/16 10:34 Serum or plasma urea nitrogen measurement (mass/volume) 8 mg/dL 7-18 Serum or plasma creatinine measurement (mass/volume) 0.81 mg/dL 0.60-1.30 Serum or plasma urea nitrogen/creatinine mass ratio 10 NRG Serum or plasma creatinine measurement with calculation of estimated glomerular filtration rate > NRG [id number] - 08/17/16 10:58 Serum or plasma urea nitrogen measurement (mass/volume) 8 mg/dL 7-18 Serum or plasma creatinine measurement (mass/volume) 0.74 mg/dL 0.60-1.30 Serum or plasma urea nitrogen/creatinine mass ratio 11 NRG Serum or plasma creatinine measurement with calculation of estimated glomerular filtration rate > NRG Complete blood count (CBC) with automated white blood cell (WBC) differential - 08/24/16 11:05 Blood leukocytes automated count (number/volume) 5.7 10*3/uL 4.3-11.0 Blood erythrocytes automated count (number/volume) 4.62 10*6/uL 4.35-5.85 Venous blood hemoglobin measurement (mass/volume) 14.7 g/dL 13.3-17.7 Blood hematocrit (volume fraction) 42 % 40-54 Automated erythrocyte mean corpuscular volume 90 [foz_us] 80-99 Automated erythrocyte mean corpuscular hemoglobin (mass per erythrocyte) 32 pg 25-34 Automated erythrocyte mean corpuscular hemoglobin concentration measurement ( mass/volume) 35 g/dL 32-36 Automated erythrocyte distribution width ratio 13.0 % 10.0-14.5 Automated blood platelet count (count/volume) 122 10*3/uL 130-400 Automated blood platelet mean volume measurement 9.6 [foz_us] 7.4-10.4 Automated blood neutrophils/100 leukocytes 72 % 42-75 Automated blood lymphocytes/100 leukocytes 15 % 12-44 Blood monocytes/100 leukocytes 11 % 0-12 Automated blood eosinophils/100 leukocytes 2 % 0-10 Automated blood basophils/100 leukocytes 1 % 0-10 Blood neutrophils automated count (number/volume) 4.0 10*3 1.8-7.8 Blood lymphocytes automated count (number/volume) 0.9 10*3 1.0-4.0 Blood monocytes automated count (number/volume) 0.6 10*3 0.0-1.0 Automated eosinophil count 0.1 10*3/uL 0.0-0.3 Automated blood basophil count (count/volume) 0.0 10*3/uL 0.0-0.1 Whole blood basic metabolic panel - 08/24/16 11:05 Serum or plasma sodium measurement (moles/volume) 137 mmol/L 135-145 Serum or plasma potassium measurement (moles/volume) 4.0 mmol/L 3.6-5.0 Serum or plasma chloride measurement (moles/volume) 102 mmol/L 98-107 Carbon dioxide 25 mmol/L 21-32 Serum or plasma anion gap determination (moles/volume) 10 mmol/L 5-14 Serum or plasma urea nitrogen measurement (mass/volume) 7 mg/dL 7-18 Serum or plasma creatinine measurement (mass/volume) 0.71 mg/dL 0.60-1.30 Serum or plasma urea nitrogen/creatinine mass ratio 10 NRG Serum or plasma creatinine measurement with calculation of estimated glomerular filtration rate > NRG Serum or plasma glucose measurement (mass/volume) 107 mg/dL 70-105 Serum or plasma calcium measurement (mass/volume) 9.3 mg/dL 8.5-10.1 Complete blood count (CBC) with automated white blood cell (WBC) differential - 11/01/16 00:02 Blood leukocytes automated count (number/volume) 21.5 10*3/uL 4.3-11.0 Blood erythrocytes automated count (number/volume) 3.34 10*6/uL 4.35-5.85 Venous blood hemoglobin measurement (mass/volume) 10.5 g/dL 13.3-17.7 Blood hematocrit (volume fraction) 32 % 40-54 Automated erythrocyte mean corpuscular volume 96 [foz_us] 80-99 Automated erythrocyte mean corpuscular hemoglobin (mass per erythrocyte) 31 pg 25-34 Automated erythrocyte mean corpuscular hemoglobin concentration measurement ( mass/volume) 33 g/dL 32-36 Automated erythrocyte distribution width ratio 15.5 % 10.0-14.5 Automated blood platelet count (count/volume) 419 10*3/uL 130-400 Automated blood platelet mean volume measurement 8.7 [foz_us] 7.4-10.4 Automated blood neutrophils/100 leukocytes 87 % 42-75 Automated blood lymphocytes/100 leukocytes 5 % 12-44 Blood monocytes/100 leukocytes 7 % 0-12 Automated blood eosinophils/100 leukocytes 0 % 0-10 Automated blood basophils/100 leukocytes 0 % 0-10 Blood neutrophils automated count (number/volume) 18.8 10*3 1.8-7.8 Blood lymphocytes automated count (number/volume) 1.0 10*3 1.0-4.0 Blood monocytes automated count (number/volume) 1.6 10*3 0.0-1.0 Automated eosinophil count 0.1 10*3/uL 0.0-0.3 Automated blood basophil count (count/volume) 0.1 10*3/uL 0.0-0.1 PT panel in platelet poor plasma by coagulation assay - 11/01/16 00:02 Prothrombin time (PT) in platelet poor plasma by coagulation assay 15.7 s 12.2-14.7 INR in platelet poor plasma or blood by coagulation assay 1.3 0.8-1.4 Activated partial thromboplastin time (aPTT) in platelet poor plasma bycoagulation assay - 11/01/16 00:02 Activated partial thromboplastin time (aPTT) in platelet poor plasma bycoagulation assay 31 s 24-35 Blood manual differential performed detection - 11/01/16 00:02 Blood monocytes/100 leukocytes 6 % NRG Manual blood segmented neutrophils/100 leukocytes 78 % NRG Blood band neutrophils/100 leukocytes 12 % NRG Manual blood lymphocytes/100 leukocytes 3 % NRG Manual eosinophils/100 leukocytes in nose 0 % NRG Manual blood basophils/100 leukocytes 1 % NRG Blood erythrocyte morphology finding identification NORMAL [facility] Comprehensive metabolic panel - 11/01/16 00:02 Serum or plasma sodium measurement (moles/volume) 134 mmol/L 135-145 Serum or plasma potassium measurement (moles/volume) 4.5 mmol/L 3.6-5.0 Serum or plasma chloride measurement (moles/volume) 100 mmol/L 98-107 Carbon dioxide 22 mmol/L 21-32 Serum or plasma anion gap determination (moles/volume) 12 mmol/L 5-14 Serum or plasma urea nitrogen measurement (mass/volume) 12 mg/dL 7-18 Serum or plasma creatinine measurement (mass/volume) 0.71 mg/dL 0.60-1.30 Serum or plasma urea nitrogen/creatinine mass ratio 17 NRG Serum or plasma creatinine measurement with calculation of estimated glomerular filtration rate > NRG Serum or plasma glucose measurement (mass/volume) 186 mg/dL 70-105 Serum or plasma calcium measurement (mass/volume) 8.0 mg/dL 8.5-10.1 Serum or plasma total bilirubin measurement (mass/volume) 0.7 mg/dL 0.1-1.0 Serum or plasma alkaline phosphatase measurement (enzymatic activity/volume) 114 U/L 40-136 Serum or plasma aspartate aminotransferase measurement (enzymatic activity/ volume) 33 U/L 5-34 Serum or plasma alanine aminotransferase measurement (enzymatic activity/volume ) 19 U/L 0-55 Serum or plasma protein measurement (mass/volume) 6.1 g/dL 6.4-8.2 Serum or plasma albumin measurement (mass/volume) 2.6 g/dL 3.2-4.5 Magnesium - 11/01/16 00:02 Magnesium 1.7 mg/dL 1.8-2.4 FRESH FROZEN PLASMA - 11/01/16 00:02 FRESH FROZEN PLASMA TRANSFUSED 11/01/16 0148 NRG RED CELLS LEUKO REDUCED AS1 - 11/01/16 00:02 RED CELLS LEUKO REDUCED AS1 TRANSFUSED 11/01/16 0010 NRG Blood type T Indirect antibody screen panel - 11/01/16 00:02 ABO+Rh group AP NRG Transfusion band number [id number] NRG Blood group antibody screen NEGATIVE NRG Blood lactic acid measurement (moles/volume) - 11/01/16 01:00 Blood lactic acid measurement (moles/volume) 2.83 mmol/L 0.50-2.00 Bacterial blood culture - 11/01/16 01:00 Bacterial blood culture NG NRG Bacterial blood culture - 11/01/16 01:07 Bacterial blood culture NG NRG Complete blood count (CBC) with automated white blood cell (WBC) differential - 11/07/16 05:27 Blood leukocytes automated count (number/volume) 5.9 10*3/uL 4.3-11.0 Blood erythrocytes automated count (number/volume) 2.81 10*6/uL 4.35-5.85 Venous blood hemoglobin measurement (mass/volume) 8.5 g/dL 13.3-17.7 Blood hematocrit (volume fraction) 26 % 40-54 Automated erythrocyte mean corpuscular volume 93 [foz_us] 80-99 Automated erythrocyte mean corpuscular hemoglobin (mass per erythrocyte) 30 pg 25-34 Automated erythrocyte mean corpuscular hemoglobin concentration measurement ( mass/volume) 32 g/dL 32-36 Automated erythrocyte distribution width ratio 16.8 % 10.0-14.5 Automated blood platelet count (count/volume) 192 10*3/uL 130-400 Automated blood platelet mean volume measurement 9.0 [foz_us] 7.4-10.4 Automated blood neutrophils/100 leukocytes 81 % 42-75 Automated blood lymphocytes/100 leukocytes 10 % 12-44 Blood monocytes/100 leukocytes 8 % 0-12 Automated blood eosinophils/100 leukocytes 1 % 0-10 Automated blood basophils/100 leukocytes 1 % 0-10 Blood neutrophils automated count (number/volume) 4.7 10*3 1.8-7.8 Blood lymphocytes automated count (number/volume) 0.6 10*3 1.0-4.0 Blood monocytes automated count (number/volume) 0.5 10*3 0.0-1.0 Automated eosinophil count 0.0 10*3/uL 0.0-0.3 Automated blood basophil count (count/volume) 0.0 10*3/uL 0.0-0.1 Comprehensive metabolic panel - 11/07/16 05:27 Serum or plasma sodium measurement (moles/volume) 137 mmol/L 135-145 Serum or plasma potassium measurement (moles/volume) 3.6 mmol/L 3.6-5.0 Serum or plasma chloride measurement (moles/volume) 102 mmol/L 98-107 Carbon dioxide 26 mmol/L 21-32 Serum or plasma anion gap determination (moles/volume) 9 mmol/L 5-14 Serum or plasma urea nitrogen measurement (mass/volume) 2 mg/dL 7-18 Serum or plasma creatinine measurement (mass/volume) 0.57 mg/dL 0.60-1.30 Serum or plasma urea nitrogen/creatinine mass ratio 4 NRG Serum or plasma creatinine measurement with calculation of estimated glomerular filtration rate > NRG Serum or plasma glucose measurement (mass/volume) 95 mg/dL 70-105 Serum or plasma calcium measurement (mass/volume) 8.1 mg/dL 8.5-10.1 Serum or plasma total bilirubin measurement (mass/volume) 0.6 mg/dL 0.1-1.0 Serum or plasma alkaline phosphatase measurement (enzymatic activity/volume) 84 U/L 40-136 Serum or plasma aspartate aminotransferase measurement (enzymatic activity/ volume) 18 U/L 5-34 Serum or plasma alanine aminotransferase measurement (enzymatic activity/volume ) 15 U/L 0-55 Serum or plasma protein measurement (mass/volume) 5.7 g/dL 6.4-8.2 Serum or plasma albumin measurement (mass/volume) 2.8 g/dL 3.2-4.5 Gram stain microscopy - 11/07/16 22:50 GRAM STAIN RESULT FEW GRAM POSITIVE COCCI NRG Bacterial body fluid culture - 11/07/16 22:50 FREE TEXT EXTERNAL ROBERTO SPECIES, NOT ALBICANS NRG QUANTITY OF GROWTH Scant Growth [facility] Bacterial body fluid culture [id number] [facility] Bacterial susceptibility panel - 11/07/16 22:50 Gentamicin susceptibility test by minimum inhibitory concentration < = NRG Trimethoprim/sulfamethoxazole susceptibility test by minimum inhibitoryconcentration <= NRG Tobramycin susceptibility test by minimum inhibitory concentration < = NRG Cefazolin susceptibility test by minimum inhibitory concentration > = NRG Piperacillin/tazobactam susceptibility test by minimum inhibitory concentration >= NRG Ciprofloxacin susceptibility test by minimum inhibitory concentration <= NRG Meropenem susceptibility test by minimum inhibitory concentration < = NRG Aztreonam susceptibility test by minimum inhibitory concentration 16 NRG Cefepime susceptibility test by minimum inhibitory concentration <= NRG Complete blood count (CBC) with automated white blood cell (WBC) differential - 11/09/16 05:27 Blood leukocytes automated count (number/volume) 7.2 10*3/uL 4.3-11.0 Blood erythrocytes automated count (number/volume) 2.78 10*6/uL 4.35-5.85 Venous blood hemoglobin measurement (mass/volume) 8.4 g/dL 13.3-17.7 Blood hematocrit (volume fraction) 27 % 40-54 Automated erythrocyte mean corpuscular volume 96 [foz_us] 80-99 Automated erythrocyte mean corpuscular hemoglobin (mass per erythrocyte) 30 pg 25-34 Automated erythrocyte mean corpuscular hemoglobin concentration measurement ( mass/volume) 32 g/dL 32-36 Automated erythrocyte distribution width ratio 16.9 % 10.0-14.5 Automated blood platelet count (count/volume) 214 10*3/uL 130-400 Automated blood platelet mean volume measurement 8.8 [foz_us] 7.4-10.4 Automated blood neutrophils/100 leukocytes 83 % 42-75 Automated blood lymphocytes/100 leukocytes 8 % 12-44 Blood monocytes/100 leukocytes 8 % 0-12 Automated blood eosinophils/100 leukocytes 1 % 0-10 Automated blood basophils/100 leukocytes 0 % 0-10 Blood neutrophils automated count (number/volume) 5.9 10*3 1.8-7.8 Blood lymphocytes automated count (number/volume) 0.6 10*3 1.0-4.0 Blood monocytes automated count (number/volume) 0.6 10*3 0.0-1.0 Automated eosinophil count 0.1 10*3/uL 0.0-0.3 Automated blood basophil count (count/volume) 0.0 10*3/uL 0.0-0.1 Whole blood basic metabolic panel - 11/09/16 05:27 Serum or plasma sodium measurement (moles/volume) 136 mmol/L 135-145 Serum or plasma potassium measurement (moles/volume) 4.0 mmol/L 3.6-5.0 Serum or plasma chloride measurement (moles/volume) 101 mmol/L 98-107 Carbon dioxide 27 mmol/L 21-32 Serum or plasma anion gap determination (moles/volume) 8 mmol/L 5-14 Serum or plasma urea nitrogen measurement (mass/volume) 9 mg/dL 7-18 Serum or plasma creatinine measurement (mass/volume) 0.57 mg/dL 0.60-1.30 Serum or plasma urea nitrogen/creatinine mass ratio 16 NRG Serum or plasma creatinine measurement with calculation of estimated glomerular filtration rate > NRG Serum or plasma glucose measurement (mass/volume) 106 mg/dL 70-105 Serum or plasma calcium measurement (mass/volume) 7.7 mg/dL 8.5-10.1 Complete blood count (CBC) with automated white blood cell (WBC) differential - 11/12/16 08:39 Blood leukocytes automated count (number/volume) 6.4 10*3/uL 4.3-11.0 Blood erythrocytes automated count (number/volume) 3.10 10*6/uL 4.35-5.85 Venous blood hemoglobin measurement (mass/volume) 9.2 g/dL 13.3-17.7 Blood hematocrit (volume fraction) 30 % 40-54 Automated erythrocyte mean corpuscular volume 97 [foz_us] 80-99 Automated erythrocyte mean corpuscular hemoglobin (mass per erythrocyte) 30 pg 25-34 Automated erythrocyte mean corpuscular hemoglobin concentration measurement ( mass/volume) 31 g/dL 32-36 Automated erythrocyte distribution width ratio 16.9 % 10.0-14.5 Automated blood platelet count (count/volume) 222 10*3/uL 130-400 Automated blood platelet mean volume measurement 8.9 [foz_us] 7.4-10.4 Automated blood neutrophils/100 leukocytes 80 % 42-75 Automated blood lymphocytes/100 leukocytes 8 % 12-44 Blood monocytes/100 leukocytes 10 % 0-12 Automated blood eosinophils/100 leukocytes 1 % 0-10 Automated blood basophils/100 leukocytes 1 % 0-10 Blood neutrophils automated count (number/volume) 5.1 10*3 1.8-7.8 Blood lymphocytes automated count (number/volume) 0.5 10*3 1.0-4.0 Blood monocytes automated count (number/volume) 0.6 10*3 0.0-1.0 Automated eosinophil count 0.1 10*3/uL 0.0-0.3 Automated blood basophil count (count/volume) 0.1 10*3/uL 0.0-0.1 Whole blood basic metabolic panel - 11/12/16 08:39 Serum or plasma sodium measurement (moles/volume) 136 mmol/L 135-145 Serum or plasma potassium measurement (moles/volume) 3.8 mmol/L 3.6-5.0 Serum or plasma chloride measurement (moles/volume) 100 mmol/L 98-107 Carbon dioxide 29 mmol/L 21-32 Serum or plasma anion gap determination (moles/volume) 7 mmol/L 5-14 Serum or plasma urea nitrogen measurement (mass/volume) 7 mg/dL 7-18 Serum or plasma creatinine measurement (mass/volume) 0.60 mg/dL 0.60-1.30 Serum or plasma urea nitrogen/creatinine mass ratio 12 NRG Serum or plasma creatinine measurement with calculation of estimated glomerular filtration rate > NRG Serum or plasma glucose measurement (mass/volume) 111 mg/dL 70-105 Serum or plasma calcium measurement (mass/volume) 8.6 mg/dL 8.5-10.1 Blood manual differential performed detection - 11/12/16 08:39 Blood monocytes/100 leukocytes 9 % NRG Manual blood segmented neutrophils/100 leukocytes 83 % NRG Blood band neutrophils/100 leukocytes 0 % NRG Manual blood lymphocytes/100 leukocytes 7 % NRG Manual eosinophils/100 leukocytes in nose 0 % NRG Manual blood basophils/100 leukocytes 1 % NRG Blood anisocytosis detection by light microscopy SLIGHT NRG Complete blood count (CBC) with automated white blood cell (WBC) differential - 03/01/17 11:20 Blood leukocytes automated count (number/volume) 4.1 10*3/uL 4.3-11.0 Blood erythrocytes automated count (number/volume) 5.14 10*6/uL 4.35-5.85 Venous blood hemoglobin measurement (mass/volume) 13.5 g/dL 13.3-17.7 Blood hematocrit (volume fraction) 43 % 40-54 Automated erythrocyte mean corpuscular volume 83 [foz_us] 80-99 Automated erythrocyte mean corpuscular hemoglobin (mass per erythrocyte) 26 pg 25-34 Automated erythrocyte mean corpuscular hemoglobin concentration measurement ( mass/volume) 32 g/dL 32-36 Automated erythrocyte distribution width ratio 16.5 % 10.0-14.5 Automated blood platelet count (count/volume) 134 10*3/uL 130-400 Automated blood platelet mean volume measurement 9.6 [foz_us] 7.4-10.4 Automated blood neutrophils/100 leukocytes 70 % 42-75 Automated blood lymphocytes/100 leukocytes 19 % 12-44 Blood monocytes/100 leukocytes 8 % 0-12 Automated blood eosinophils/100 leukocytes 3 % 0-10 Automated blood basophils/100 leukocytes 1 % 0-10 Blood neutrophils automated count (number/volume) 2.8 10*3 1.8-7.8 Blood lymphocytes automated count (number/volume) 0.8 10*3 1.0-4.0 Blood monocytes automated count (number/volume) 0.3 10*3 0.0-1.0 Automated eosinophil count 0.1 10*3/uL 0.0-0.3 Automated blood basophil count (count/volume) 0.1 10*3/uL 0.0-0.1 Comprehensive metabolic panel - 03/01/17 11:20 Serum or plasma sodium measurement (moles/volume) 142 mmol/L 135-145 Serum or plasma potassium measurement (moles/volume) 4.2 mmol/L 3.6-5.0 Serum or plasma chloride measurement (moles/volume) 105 mmol/L 98-107 Carbon dioxide 30 mmol/L 21-32 Serum or plasma anion gap determination (moles/volume) 7 mmol/L 5-14 Serum or plasma urea nitrogen measurement (mass/volume) 11 mg/dL 7-18 Serum or plasma creatinine measurement (mass/volume) 0.93 mg/dL 0.60-1.30 Serum or plasma urea nitrogen/creatinine mass ratio 12 NRG Serum or plasma creatinine measurement with calculation of estimated glomerular filtration rate > NRG Serum or plasma glucose measurement (mass/volume) 106 mg/dL 70-105 Serum or plasma calcium measurement (mass/volume) 9.7 mg/dL 8.5-10.1 Serum or plasma total bilirubin measurement (mass/volume) 1.0 mg/dL 0.1-1.0 Serum or plasma alkaline phosphatase measurement (enzymatic activity/volume) 102 U/L 40-136 Serum or plasma aspartate aminotransferase measurement (enzymatic activity/ volume) 19 U/L 5-34 Serum or plasma alanine aminotransferase measurement (enzymatic activity/volume ) 11 U/L 0-55 Serum or plasma protein measurement (mass/volume) 8.5 g/dL 6.4-8.2 Serum or plasma albumin measurement (mass/volume) 4.5 g/dL 3.2-4.5 Lipase - 03/01/17 11:20 Lipase 25 U/L 8-78 [id number] - 08/05/17 12:11 Serum or plasma urea nitrogen measurement (mass/volume) 9 mg/dL 7-18 Serum or plasma creatinine measurement (mass/volume) 1.05 mg/dL 0.60-1.30 Serum or plasma urea nitrogen/creatinine mass ratio 9 NRG Serum or plasma creatinine measurement with calculation of estimated glomerular filtration rate > NRG Encounters ACCT No. Visit Date/Time Discharge Status Pt. Type Provider Facility Loc./Unit Complaint [id number] 05/31/2014 16:22:00 05/31/2014 23:59:59 CLS Outpatient MALACHI STEPHENS MD [id number] 01/22/2014 11:02:00 01/22/2014 23:59:59 CLS Outpatient GINGER WHITEHEAD DDS [id number] 10/13/2013 14:49:00 10/13/2013 23:59:59 CLS Outpatient MALACHI STEPHENS MD [id number] 01/12/2013 15:56:00 01/12/2013 23:59:59 CLS Outpatient MALACHI STEPHENS MD [id number] 08/01/2012 13:50:00 08/01/2012 23:59:59 CLS Outpatient MALACHI STEPHENS MD [id number] 08/01/2012 13:50:00 Document Registration [id number] 08/16/2017 10:30:00 08/16/2017 23:59:59 CLS Preadmit EMERITA ESCALONA, CRESENCIO [facility] LUNG CANCER [id number] 08/15/2017 13:27:00 08/15/2017 23:59:59 CLS Outpatient RACHEL FREITAS MD [facility] ONC [id number] 08/15/2017 15:17:00 08/15/2017 15:36:00 DIS Outpatient CRESENCIO FELDER MD [facility] PREOP LUNG CANCER [id number] 08/13/2017 10:49:00 08/13/2017 23:59:59 CLS Outpatient CICI BABCOCK MD [facility] RAD CANCER LARYNX [id number] 08/05/2017 11:58:00 08/05/2017 23:59:59 CLS Outpatient CICI BABCOCK MD [facility] RAD C32.9 [id number] 04/15/2017 11:24:00 04/15/2017 23:59:59 CLS Outpatient CICI BABCOCK MD [facility] RAD SQUAMOUS CELL CARCINOMA OF LARYNX C32.9 [id number] 03/01/2017 12:06:00 03/01/2017 16:38:00 DIS Outpatient ANDREW CORNEJO DO [facility] ENDO EDG; DIFFICULTY SWALLOWING [id number] 02/11/2017 10:09:00 02/11/2017 13:10:00 DIS Outpatient CRESENCIO FELDER MD [facility] ENDO LARYNX CARCINOMA [id number] 02/07/2017 05:45:00 02/07/2017 12:49:00 DIS Outpatient CRESENCIO FELDER MD [facility] PREOP EGD WITH PEG TUB REMOVAL [id number] 12/17/2016 10:36:00 12/17/2016 23:59:59 CLS Outpatient BERTHA VERA [facility] RAD DYSPHAGIA R13.10 [id number] 11/06/2016 16:42:00 2016 14:50:00 DIS Inpatient ANDREW CHATMAN MD [facility] IRF LARYNGEAL CANCER [id number] 10/31/2016 23:58:00 11/01/2016 02:31:00 DIS Emergency OSMAR NUÑEZ MD [facility] ER POST OP THROAT BLEEDING [id number] 08/20/2016 14:34:00 10/21/2016 00:01:00 DIS Outpatient SUNITA SIMEON MD [facility] ONC [id number] 09/05/2016 11:08:00 09/05/2016 23:59:59 CLS Preadmit SUNITA SIMEON MD [facility] REHAB LARYNGEAL CANCER [id number] 09/04/2016 13:11:00 09/04/2016 14:42:00 DIS Emergency MANJINDER RAMIREZ DIRECTOR OF REHABILITATION [facility] ER FB IN THROAT [id number] 08/24/2016 10:04:00 08/24/2016 12:28:00 DIS Emergency MANJINDER RAMIREZ DIRECTOR OF REHABILITATION [facility] ER POST OP TRACH REMOVDIFF SWALLOWING/THROAT SWOLLEN [id number] 08/17/2016 10:48:00 08/17/2016 23:59:59 CLS Outpatient BERTHA VERA [facility] RAD SQUAMOUS CELL CARCINOMA [id number] 07/30/2016 08:42:00 07/30/2016 11:30:00 DIS Outpatient CRESENCIO FELDER MD [facility] RAD LARYNGEAL CANCER [id number] 07/26/2016 05:49:00 07/26/2016 12:27:00 DIS Outpatient CRESENCIO FELDER MD [facility] PREOP LARYNGEAL CANCER [id number] 07/03/2016 11:56:00 07/16/2016 00:01:00 DIS Outpatient SUNITA SIMEON MD [facility] ONC [id number] 04/27/2016 13:50:00 04/27/2016 16:25:00 DIS Outpatient CRESENCIO FELDER MD [facility] SDC LARYNGEAL CANCER [id number] 04/25/2016 05:44:00 04/25/2016 14:08:00 DIS Outpatient CRESENCIO FELDER MD [facility] PREOP LARYNGEAL CANCER [id number] 03/20/2016 10:23:00 03/20/2016 23:59:59 CLS Outpatient MALACHI STEPHENS MD [facility] RAD CERVICAL ADENOPATHY,COPD [id number] 12/11/2015 16:04:00 12/11/2015 18:50:00 DIS Emergency NEELIMA CHAITANYA K [facility] ER SOA [id number] 06/16/2014 10:07:00 06/16/2014 23:59:59 CLS Outpatient MALACHI STEPHENS MD [facility] RAD LFT ABNORMALITY
== END 2017-08-21 13:55 | disposition home or self-care (01) ==
LOC: SDC 09:06
PROVIDERS: ATTEND Surgery
DX: C32.9 Malignant neoplasm of larynx, unspecified (principal); E03.9 Hypothyroidism, unspecified; Z11.2 Encounter for screening for other bacterial diseases; Z93.0 Tracheostomy status; Z79.899 Other long term (current) drug therapy; Z87.891 Personal history of nicotine dependence; J44.9 Chronic obstructive pulmonary disease, unspecified
CPT/HCPCS: 71045; 87081

== ENCOUNTER 2017-11-20 14:15 | Outpatient (RCR) | payer MEDICARE, OTHER ==
[2017-09-04 12:12] LABS: BASOPHILS % (AUTO) 0 % (0-10); EOSINOPHILS % (AUTO) 0 % (0-10); HEMATOCRIT 43 % (40-54); HEMOGLOBIN 15.2 G/DL (13.3-17.7); LYMPHOCYTES # (AUTO) 0.5 X 10^3 (1.0-4.0); LYMPHOCYTES % (AUTO) 8 % (12-44); MEAN CORPUSCULAR HEMOGLOBIN 31 PG (25-34); MEAN CORPUSCULAR HGB CONC 36 G/DL (32-36); MEAN CORPUSCULAR VOLUME 85 FL (80-99); MEAN PLATELET VOLUME 10.1 FL (7.4-10.4); MONOCYTES % (AUTO) 0 % (0-12); NEUTROPHILS # (AUTO) 6.4 X 10^3 (1.8-7.8); NEUTROPHILS % (AUTO) 92 % (42-75); PLATELET COUNT 175 10^3/uL (130-400); RED BLOOD COUNT 4.99 10^6/uL (4.35-5.85)
[2017-09-04 12:29] LABS: ALANINE AMINOTRANSFERASE 21 U/L (0-55); ALBUMIN 4.4 GM/DL (3.2-4.5); ALKALINE PHOSPHATASE 110 U/L (40-136); BUN/CREATININE RATIO 17; CALCIUM 9.2 MG/DL (8.5-10.1); CARBON DIOXIDE 22 MMOL/L (21-32); CHLORIDE 105 MMOL/L (98-107); CREATININE SERUM 0.82 MG/DL (0.60-1.30); GFR ESTIMATED > 60; GLUCOSE 155 MG/DL (70-105); SODIUM 139 MMOL/L (135-145); TOTAL PROTEIN 8.3 GM/DL (6.4-8.2)
--- NOTE | 2017-09-04 16:51 | Diagnostic Imaging Report ---
INDICATION: Abdominal pain. History of squamous cell carcinoma. COMPARISON: 08/13/2017 FINDINGS: Frontal radiographic view of the chest demonstrates normal cardiac silhouette and pulmonary vasculature. Bilateral pulmonary nodules are identified. Patient has known pulmonary metastatic disease. There is minimal left basilar atelectasis. There is also hyperinflation of the lungs. There is no large effusion or pneumothorax. Left-sided Port-A-Cath is in stable position. Tracheostomy tube has since been removed. Supine and upright radiographic views of the abdomen show nondistended loops of small bowel. There is no large collection of free intraperitoneal air. No abnormal air-fluid levels are seen. No unexpected radiopaque foreign bodies are identified. Bony structures show no gross acute abnormalities. IMPRESSION: 1. No evidence of failure or focal infiltrate. 2. Bilateral pulmonary nodules. Again, patient has known metastatic pulmonary disease. 3. Background of COPD. 4. Nonobstructive small bowel gas pattern. Dictated by: Dictated on workstation # [id number]
[2017-09-04 16:55] LABS: AMYLASE 33 U/L (25-125); LIPASE 15 U/L (8-78)
[2017-09-27 11:26] LABS: BASOPHILS % (AUTO) 0 % (0-10); EOSINOPHILS % (AUTO) 0 % (0-10); HEMATOCRIT 40 % (40-54); HEMOGLOBIN 14.4 G/DL (13.3-17.7); LYMPHOCYTES # (AUTO) 0.4 X 10^3 (1.0-4.0); LYMPHOCYTES % (AUTO) 6 % (12-44); MEAN CORPUSCULAR HEMOGLOBIN 31 PG (25-34); MEAN CORPUSCULAR HGB CONC 36 G/DL (32-36); MEAN CORPUSCULAR VOLUME 86 FL (80-99); MEAN PLATELET VOLUME 9.1 FL (7.4-10.4); MONOCYTES # (AUTO) 0.1 X 10^3 (0.0-1.0); MONOCYTES % (AUTO) 1 % (0-12); NEUTROPHILS # (AUTO) 6.8 X 10^3 (1.8-7.8); NEUTROPHILS % (AUTO) 93 % (42-75); PLATELET COUNT 186 10^3/uL (130-400); RED BLOOD COUNT 4.64 10^6/uL (4.35-5.85); RED CELL DISTRIBUTION WIDTH 14.8 % (10.0-14.5); WHITE BLOOD COUNT 7.3 10^3/uL (4.3-11.0)
[2017-09-27 11:50] LABS: ALANINE AMINOTRANSFERASE 19 U/L (0-55); ALBUMIN 4.1 GM/DL (3.2-4.5); ALKALINE PHOSPHATASE 126 U/L (40-136); BILIRUBIN,TOTAL 0.9 MG/DL (0.1-1.0); BUN/CREATININE RATIO 12; CALCIUM 9.1 MG/DL (8.5-10.1); CARBON DIOXIDE 25 MMOL/L (21-32); CHLORIDE 105 MMOL/L (98-107); CREATININE SERUM 0.82 MG/DL (0.60-1.30); GFR ESTIMATED > 60; GLUCOSE 188 MG/DL (70-105); MAGNESIUM 1.8 MG/DL (1.8-2.4); POTASSIUM 3.8 MMOL/L (3.6-5.0); SODIUM 140 MMOL/L (135-145); TOTAL PROTEIN 8.1 GM/DL (6.4-8.2)
[2017-10-07 14:49] LABS: BASOPHILS % (AUTO) 1 % (0-10); EOSINOPHILS # (AUTO) 0.2 10^3/uL (0.0-0.3); EOSINOPHILS % (AUTO) 4 % (0-10); HEMATOCRIT 38 % (40-54); HEMOGLOBIN 13.5 G/DL (13.3-17.7); LYMPHOCYTES % (AUTO) 17 % (12-44); MEAN CORPUSCULAR HEMOGLOBIN 32 PG (25-34); MEAN CORPUSCULAR HGB CONC 35 G/DL (32-36); MEAN CORPUSCULAR VOLUME 89 FL (80-99); MEAN PLATELET VOLUME 9.2 FL (7.4-10.4); MONOCYTES # (AUTO) 0.7 X 10^3 (0.0-1.0); MONOCYTES % (AUTO) 12 % (0-12); NEUTROPHILS # (AUTO) 3.7 X 10^3 (1.8-7.8); NEUTROPHILS % (AUTO) 66 % (42-75); PLATELET COUNT 139 10^3/uL (130-400); RED BLOOD COUNT 4.29 10^6/uL (4.35-5.85); WHITE BLOOD COUNT 5.6 10^3/uL (4.3-11.0)
[2017-10-07 15:08] LABS: ALANINE AMINOTRANSFERASE 17 U/L (0-55); ALBUMIN 3.8 GM/DL (3.2-4.5); ALKALINE PHOSPHATASE 109 U/L (40-136); BILIRUBIN,TOTAL 0.6 MG/DL (0.1-1.0); BUN/CREATININE RATIO 9; CARBON DIOXIDE 29 MMOL/L (21-32); CHLORIDE 105 MMOL/L (98-107); CREATININE SERUM 0.78 MG/DL (0.60-1.30); GFR ESTIMATED > 60; GLUCOSE 129 MG/DL (70-105); POTASSIUM 3.9 MMOL/L (3.6-5.0); SODIUM 139 MMOL/L (135-145); TOTAL PROTEIN 7.2 GM/DL (6.4-8.2)
[2017-10-23 15:17] LABS: BASOPHILS # (AUTO) 0.1 10^3/uL (0.0-0.1); BASOPHILS % (AUTO) 1 % (0-10); EOSINOPHILS # (AUTO) 0.4 10^3/uL (0.0-0.3); EOSINOPHILS % (AUTO) 6 % (0-10); HEMATOCRIT 42 % (40-54); HEMOGLOBIN 14.8 G/DL (13.3-17.7); LYMPHOCYTES # (AUTO) 0.9 X 10^3 (1.0-4.0); LYMPHOCYTES % (AUTO) 13 % (12-44); MEAN CORPUSCULAR HEMOGLOBIN 31 PG (25-34); MEAN CORPUSCULAR HGB CONC 35 G/DL (32-36); MEAN CORPUSCULAR VOLUME 88 FL (80-99); MEAN PLATELET VOLUME 9.3 FL (7.4-10.4); MONOCYTES # (AUTO) 0.8 X 10^3 (0.0-1.0); MONOCYTES % (AUTO) 11 % (0-12); NEUTROPHILS # (AUTO) 4.8 X 10^3 (1.8-7.8); NEUTROPHILS % (AUTO) 69 % (42-75); PLATELET COUNT 169 10^3/uL (130-400); RED BLOOD COUNT 4.77 10^6/uL (4.35-5.85); RED CELL DISTRIBUTION WIDTH 14.2 % (10.0-14.5); WHITE BLOOD COUNT 6.9 10^3/uL (4.3-11.0)
[2017-10-23 15:38] LABS: ALANINE AMINOTRANSFERASE 18 U/L (0-55); ALBUMIN 4.1 GM/DL (3.2-4.5); ALKALINE PHOSPHATASE 124 U/L (40-136); BUN/CREATININE RATIO 9; CALCIUM 9.3 MG/DL (8.5-10.1); CARBON DIOXIDE 25 MMOL/L (21-32); CHLORIDE 103 MMOL/L (98-107); CREATININE SERUM 0.75 MG/DL (0.60-1.30); GFR ESTIMATED > 60; GLUCOSE 129 MG/DL (70-105); POTASSIUM 3.7 MMOL/L (3.6-5.0); SODIUM 138 MMOL/L (135-145); TOTAL PROTEIN 7.8 GM/DL (6.4-8.2)
[2017-11-06 15:06] LABS: BASOPHILS # (AUTO) 0.1 10^3/uL (0.0-0.1); BASOPHILS % (AUTO) 1 % (0-10); EOSINOPHILS # (AUTO) 0.3 10^3/uL (0.0-0.3); EOSINOPHILS % (AUTO) 6 % (0-10); HEMATOCRIT 41 % (40-54); HEMOGLOBIN 14.2 G/DL (13.3-17.7); LYMPHOCYTES % (AUTO) 19 % (12-44); MEAN CORPUSCULAR HEMOGLOBIN 31 PG (25-34); MEAN CORPUSCULAR HGB CONC 35 G/DL (32-36); MEAN CORPUSCULAR VOLUME 89 FL (80-99); MEAN PLATELET VOLUME 9.2 FL (7.4-10.4); MONOCYTES # (AUTO) 0.4 X 10^3 (0.0-1.0); MONOCYTES % (AUTO) 8 % (0-12); NEUTROPHILS # (AUTO) 3.3 X 10^3 (1.8-7.8); NEUTROPHILS % (AUTO) 66 % (42-75); PLATELET COUNT 153 10^3/uL (130-400); RED CELL DISTRIBUTION WIDTH 13.7 % (10.0-14.5)
[2017-11-06 15:25] LABS: ALANINE AMINOTRANSFERASE 14 U/L (0-55); ALBUMIN 3.8 GM/DL (3.2-4.5); ALKALINE PHOSPHATASE 112 U/L (40-136); BILIRUBIN,TOTAL 0.8 MG/DL (0.1-1.0); BUN/CREATININE RATIO 11; CALCIUM 8.7 MG/DL (8.5-10.1); CARBON DIOXIDE 29 MMOL/L (21-32); CHLORIDE 106 MMOL/L (98-107); CREATININE SERUM 0.63 MG/DL (0.60-1.30); GFR ESTIMATED > 60; GLUCOSE 102 MG/DL (70-105); POTASSIUM 3.7 MMOL/L (3.6-5.0); SODIUM 141 MMOL/L (135-145); TOTAL PROTEIN 7.4 GM/DL (6.4-8.2)
[~2017-11-20] VITALS: Ht 185.4 cm; Wt 90.3 kg
[~2017-11-20 14:15] MED LIST changes: +CARBOPLATIN IV SCH; +D5W IV SCH; +FAMOTIDINE 20MG/2ML IV (CANCER CTR) IV SCH; +FOSAPREPITANT DIMEGLUMINE 150 MG in NS (IVPB) CANCER CENTER ONLY 150 ML IV SCH; +NORMAL SALINE IV SCH; +NS IV 1000 ML (CANCER CTR) IV SCH; +NS IV 500 ML (CANCER CENTER) 500 ML ONE; +OXYC-197 PO; +PACLITAXEL IV SCH; +PALONOSETRON 0.25 MG, DEXAMETHASONE 10 MG/NS 50 ML IVPB IV PRN; +PANITUMUMAB IV SCH; +SUCRALFATE 1 GM (CARAFATE) TAB PO ONE; +VISC LIDOCAINE/ANTACID/DIPHENHYDRAMINE 1:1:1 120 ML PO NR; +[UNRECOGNIZED DRUG - OTHER] IV SCH; +diphenhydrAMINE 25 MG TAB (BENADRYL) CANCER CENTER PO SCH; +diphenhydrAMINE 50 MG/ML INJ (CANCER CENTER) ONE
[2017-11-20 14:56] LABS: BASOPHILS % (AUTO) 1 % (0-10); EOSINOPHILS # (AUTO) 0.4 10^3/uL (0.0-0.3); EOSINOPHILS % (AUTO) 5 % (0-10); HEMATOCRIT 45 % (40-54); HEMOGLOBIN 15.9 G/DL (13.3-17.7); LYMPHOCYTES # (AUTO) 1.2 X 10^3 (1.0-4.0); LYMPHOCYTES % (AUTO) 17 % (12-44); MEAN CORPUSCULAR HEMOGLOBIN 31 PG (25-34); MEAN CORPUSCULAR HGB CONC 35 G/DL (32-36); MEAN CORPUSCULAR VOLUME 88 FL (80-99); MEAN PLATELET VOLUME 9.6 FL (7.4-10.4); MONOCYTES # (AUTO) 0.7 X 10^3 (0.0-1.0); MONOCYTES % (AUTO) 10 % (0-12); NEUTROPHILS # (AUTO) 4.5 X 10^3 (1.8-7.8); NEUTROPHILS % (AUTO) 67 % (42-75); PLATELET COUNT 179 10^3/uL (130-400); RED BLOOD COUNT 5.13 10^6/uL (4.35-5.85); RED CELL DISTRIBUTION WIDTH 13.6 % (10.0-14.5); WHITE BLOOD COUNT 6.7 10^3/uL (4.3-11.0)
[2017-11-20 15:12] LABS: ALANINE AMINOTRANSFERASE 24 U/L (0-55); ALBUMIN 4.1 GM/DL (3.2-4.5); ALKALINE PHOSPHATASE 130 U/L (40-136); BUN/CREATININE RATIO 11; CALCIUM 9.4 MG/DL (8.5-10.1); CARBON DIOXIDE 25 MMOL/L (21-32); CHLORIDE 104 MMOL/L (98-107); CREATININE SERUM 0.74 MG/DL (0.60-1.30); GFR ESTIMATED > 60; GLUCOSE 105 MG/DL (70-105); POTASSIUM 4.3 MMOL/L (3.6-5.0); SODIUM 140 MMOL/L (135-145); TOTAL PROTEIN 7.8 GM/DL (6.4-8.2)
[2017-11-20] MEDS ORDERED: NS IV 500 ML (CANCER CENTER) 500 ML ONE (15:15)
[2017-11-20] MEDS ORDERED: PANITUMUMAB INJECTION 400 MG, PANITUMUMAB INJECTION 100 MG in NS (IVPB) CANCER CENTER 1... IV SCH (15:30)
[2017-11-20 16:31] LABS: MAGNESIUM 1.8 MG/DL (1.8-2.4)
== END 2017-12-03 | disposition home or self-care (01) ==
LOC: ONC 14:15
PROVIDERS: ATTEND Internal Medicine Hematology & Oncology
DX: Z51.11 Encounter for antineoplastic chemotherapy (principal); C32.9 Malignant neoplasm of larynx, unspecified; E03.9 Hypothyroidism, unspecified; Z79.899 Other long term (current) drug therapy; Z87.891 Personal history of nicotine dependence
CPT/HCPCS: 36591; 74022; 80053; 82150; 83690; 83735; 84443; 85025; 96367; 96375; 96413; 96415; 96417

== ENCOUNTER → 2017-11-26 | Outpatient (CLI) | payer OTHER ==
[~2017-11-26] MED LIST changes: +BARIUM SUSPENSION 2.1% (VANILLA SILQ) 450 ML PO ONE; -CARBOPLATIN IV SCH; +CATHETER FLUSH 10 ML SYR IV PRN; -D5W IV SCH; -FAMOTIDINE 20MG/2ML IV (CANCER CTR) IV SCH; -FOSAPREPITANT DIMEGLUMINE 150 MG in NS (IVPB) CANCER CENTER ONLY 150 ML IV SCH; +IOHEXOL 350 MG/ML 100 ML (OMNIPAQUE 350) VIAL IV ONE; -NORMAL SALINE IV SCH; +NS 250 ML (IVPB) BAG IV ONE; -NS IV 1000 ML (CANCER CTR) IV SCH; -NS IV 500 ML (CANCER CENTER) 500 ML ONE; -PACLITAXEL IV SCH; -PALONOSETRON 0.25 MG, DEXAMETHASONE 10 MG/NS 50 ML IVPB IV PRN; -PANITUMUMAB IV SCH; -SUCRALFATE 1 GM (CARAFATE) TAB PO ONE; -VISC LIDOCAINE/ANTACID/DIPHENHYDRAMINE 1:1:1 120 ML PO NR; -[UNRECOGNIZED DRUG - OTHER] IV SCH; -diphenhydrAMINE 25 MG TAB (BENADRYL) CANCER CENTER PO SCH; -diphenhydrAMINE 50 MG/ML INJ (CANCER CENTER) ONE
--- NOTE | 2017-11-26 19:12 | Diagnostic Imaging Report ---
INDICATION: History of head and neck cancer COMPARISON with study of 08/05/2017. CT NECK: Post IV contrast enhanced soft tissue neck CT performed. Laryngeal fat flap is a redemonstrated finding. Left of midline paraesophageal at the level of the thoracic inlet. Previously there was a 3.2 x 2.5 cm soft tissue density like mass effect. Tissue at that level is decreased in size and density in the interim, likely owing to reduction and post surgical distortion, the process, versus improvements in neoplasm. Today liver shows a somewhat nodular capsular contour, unchanged raising the question of cirrhosis. There is however no liver mass. The adrenals are negative. The spleen unremarkable. There is no ascites. There is no abdominal lymphadenopathy. No evidence for bowel, biliary or urinary tract obstruction. The atherosclerotic aorta was nonaneurysmal. There is a benign simple left renal cortical cyst. IMPRESSION: Extensive postsurgical changes, near the thoracic inlet. Left paraesophageal tissue density is smaller and less dense than on prior. No adenopathy. No new lesion. No adverse development. CHEST: Increased size of multifocal presumed pulmonary parenchymal metastases with no thoracic adenopathy or ascites or effusion. CT ABDOMEN: Post IV contrast enhanced abdominal CT performed. No findings suggestive of abdominal metastasis. ____ measuring 2.5 x 1.8 cm today and caudally is not clearly separable from the musculature itself. There is no convincing evidence for neoplastic recurrence and there is no pathological appearing cervical adenopathy nor fluid collection. No destructive osseous lesion. Visualized orbits, intracranial structures and partially visualized paranasal sinuses as well as mastoids, unremarkable. CT CHEST: Post IV contrast enhanced chest CT performed also compared with 08/05/2017 Bilateral pulmonary parenchymal nodules showed mild progression from prior. The largest spiculated mass in the left upper lobe today is 2.2 x 1.8 cm, previously 1.5 x 1.0 cm. Mass in the subpleural superior segment right lower lobe posteromedially is 1.4 cm today, previously 1.3 cm. Perifissural left upper lobe nodule at 8 mm is unchanged. Underlying centrilobular emphysema as a stable finding. A benign calcified granuloma in the right lower lobe, a stable finding. Subpleural irregular mass in the left lower lobe laterally 1.5 cm today previously 1.3 cm. There is no hilar or mediastinal lymphadenopathy. No thoracic effusion. The aortic is patent and nonaneurysmal. There is no central pulmonary embolus. No destructive chest wall lesion. Dictated by: Dictated on workstation # [id number]
== END ==
LOC: RAD 12:49
PROVIDERS: ATTEND Internal Medicine Hematology & Oncology
DX: C32.1 Malignant neoplasm of supraglottis (principal); R91.8 Other nonspecific abnormal finding of lung field; Z85.89 Personal history of malignant neoplasm of other organs and systems
CPT/HCPCS: 70491; 71260; 74160

== ENCOUNTER → 2018-02-19 | Outpatient (CLI) | payer MEDICARE, OTHER ==
[~2018-02-19] MED LIST changes: -BARIUM SUSPENSION 2.1% (VANILLA SILQ) 450 ML PO ONE; +TRAZ-189 GT; -TRAZ-28 GT
--- NOTE | 2018-02-19 14:23 | Diagnostic Imaging Report ---
INDICATION: Laryngeal carcinoma, status post laryngectomy. Precontrast axial imaging through the abdomen was performed. Postcontrast axial imaging through the neck, chest and abdomen was performed. Comparison is made with prior CT from 11/26/2017. CT neck: FINDINGS: The visualized intracranial structures are unremarkable. There are postsurgical changes of laryngectomy with fat flap present. The area of soft tissue mass-like nodularity at the level of the thoracic inlet on the left immediately anterior and slightly medial to the left common carotid artery and left jugular vein appears similar to the exam from November. This area measures approximately 2.3 cm transverse x 1.7 cm AP compared with 2.3 cm x 1.7 cm. Posterior nasopharynx and oropharynx are unremarkable. Parapharyngeal fat planes are preserved. The parotid and submandibular glands appear to be symmetric. No posterior cervical lymphadenopathy is seen. IMPRESSION: Stable postsurgical changes of laryngectomy when compared with exam from 11/26/2017. The area of nodularity on the left at the thoracic inlet appears stable. No new abnormality is seen. CT chest: FINDINGS: Left chest wall port has tip overlying the SVC. No axillary lymphadenopathy is detected. No definite mediastinal or hilar lymphadenopathy is identified. No pericardial or pleural fluid is identified. Significant centrilobular emphysematous changes are identified. Numerous spiculated masses are again noted in both lungs consistent with pulmonary metastatic disease. A spiculated mass in the posteromedial left upper lobe measures 14 mm compared with 9 mm. Spiculated mass in the left upper lobe at the level of the left hilum measures 2.9 cm compared with 2.2 cm. Spiculated mass in the superior segment of the left lower lobe is stable at approximately 1.8 cm. A mass in the superior segment of the right lower lobe medially measures 1.8 cm compared with 1.5 cm. No new mass is identified. IMPRESSION: Increase in size of multiple spiculated masses in both lungs consistent with pulmonary metastatic disease, when compared with exam from 11/26/2017. CT abdomen: FINDINGS: Liver again demonstrates a nodular contour consistent with cirrhosis. No discrete liver mass is identified. The gallbladder is unremarkable. The pancreas is unremarkable. Spleen remains enlarged. No adrenal mass is seen. Kidneys demonstrate a cyst in lower pole of left kidney. Aorta is calcified but nonaneurysmal. Small lymph nodes in the central retroperitoneum are seen. No pathologically enlarged nodes are identified. The visualized small and large bowel loops are normal caliber. There is no ascites. IMPRESSION: 1. Findings remain consistent with cirrhosis and possible portal hypertension with splenomegaly. No discrete liver mass is identified. 2. No evidence of abdominal metastatic disease. Dictated by: Dictated on workstation # [id number]
== END ==
LOC: RAD 12:28
PROVIDERS: ATTEND Internal Medicine Hematology & Oncology
DX: C32.1 Malignant neoplasm of supraglottis (principal); R91.8 Other nonspecific abnormal finding of lung field; Z98.890 Other specified postprocedural states
CPT/HCPCS: 70491; 71260; 74170

== ENCOUNTER 2018-04-02 14:58 | Outpatient (RCR) | payer MEDICARE, OTHER ==
[2018-03-05 14:15] LABS: BASOPHILS % (AUTO) 1 % (0-10); EOSINOPHILS # (AUTO) 0.2 10^3/uL (0.0-0.3); EOSINOPHILS % (AUTO) 5 % (0-10); HEMATOCRIT 42 % (40-54); HEMOGLOBIN 14.7 G/DL (13.3-17.7); LYMPHOCYTES # (AUTO) 0.8 X 10^3 (1.0-4.0); LYMPHOCYTES % (AUTO) 16 % (12-44); MEAN CORPUSCULAR HEMOGLOBIN 31 PG (25-34); MEAN CORPUSCULAR HGB CONC 35 G/DL (32-36); MEAN CORPUSCULAR VOLUME 88 FL (80-99); MEAN PLATELET VOLUME 9.4 FL (7.4-10.4); MONOCYTES # (AUTO) 0.5 X 10^3 (0.0-1.0); MONOCYTES % (AUTO) 10 % (0-12); NEUTROPHILS # (AUTO) 3.6 X 10^3 (1.8-7.8); NEUTROPHILS % (AUTO) 69 % (42-75); PLATELET COUNT 170 10^3/uL (130-400); RED BLOOD COUNT 4.78 10^6/uL (4.35-5.85); WHITE BLOOD COUNT 5.2 10^3/uL (4.3-11.0)
[2018-03-05 14:37] LABS: ALANINE AMINOTRANSFERASE 17 U/L (0-55); ALBUMIN 3.9 GM/DL (3.2-4.5); ALKALINE PHOSPHATASE 122 U/L (40-136); BILIRUBIN,TOTAL 1.1 MG/DL (0.1-1.0); BUN/CREATININE RATIO 9; CALCIUM 8.9 MG/DL (8.5-10.1); CARBON DIOXIDE 26 MMOL/L (21-32); CHLORIDE 104 MMOL/L (98-107); CREATININE SERUM 0.77 MG/DL (0.60-1.30); GFR ESTIMATED > 60; GLUCOSE 161 MG/DL (70-105); POTASSIUM 3.2 MMOL/L (3.6-5.0); SODIUM 141 MMOL/L (135-145); TOTAL PROTEIN 7.7 GM/DL (6.4-8.2)
[2018-03-19 15:33] LABS: BASOPHILS % (AUTO) 1 % (0-10); EOSINOPHILS # (AUTO) 0.3 10^3/uL (0.0-0.3); EOSINOPHILS % (AUTO) 7 % (0-10); HEMATOCRIT 40 % (40-54); LYMPHOCYTES # (AUTO) 1.3 X 10^3 (1.0-4.0); LYMPHOCYTES % (AUTO) 29 % (12-44); MEAN CORPUSCULAR HEMOGLOBIN 31 PG (25-34); MEAN CORPUSCULAR HGB CONC 35 G/DL (32-36); MEAN CORPUSCULAR VOLUME 88 FL (80-99); MEAN PLATELET VOLUME 9.2 FL (7.4-10.4); MONOCYTES # (AUTO) 0.5 X 10^3 (0.0-1.0); MONOCYTES % (AUTO) 10 % (0-12); NEUTROPHILS # (AUTO) 2.5 X 10^3 (1.8-7.8); NEUTROPHILS % (AUTO) 54 % (42-75); PLATELET COUNT 179 10^3/uL (130-400); RED BLOOD COUNT 4.53 10^6/uL (4.35-5.85); RED CELL DISTRIBUTION WIDTH 13.6 % (10.0-14.5); WHITE BLOOD COUNT 4.7 10^3/uL (4.3-11.0)
[2018-03-19 15:53] LABS: ALANINE AMINOTRANSFERASE 15 U/L (0-55); ALBUMIN 3.7 GM/DL (3.2-4.5); ALKALINE PHOSPHATASE 121 U/L (40-136); BILIRUBIN,TOTAL 0.7 MG/DL (0.1-1.0); BUN/CREATININE RATIO 9; CALCIUM 8.8 MG/DL (8.5-10.1); CARBON DIOXIDE 27 MMOL/L (21-32); CHLORIDE 105 MMOL/L (98-107); CREATININE SERUM 0.74 MG/DL (0.60-1.30); GFR ESTIMATED > 60; GLUCOSE 134 MG/DL (70-105); POTASSIUM 3.5 MMOL/L (3.6-5.0); SODIUM 140 MMOL/L (135-145); TOTAL PROTEIN 7.3 GM/DL (6.4-8.2)
[~2018-04-02] VITALS: Ht 185.4 cm; Wt 92.2 kg
[~2018-04-02 14:58] MED LIST changes: -CATHETER FLUSH 10 ML SYR IV PRN; -IOHEXOL 350 MG/ML 100 ML (OMNIPAQUE 350) VIAL IV ONE; +NIVOLUMAB 200 MG, NIVOLUMAB 40 MG in NS (IVPB) CANCER CENTER 50 ML IV SCH; +NIVOLUMAB 240 MG in NS (IVPB) CANCER CENTER 50 ML IV SCH; -NS 250 ML (IVPB) BAG IV ONE; +NS IV 1000 ML (CANCER CTR) IV SCH; +NS IV 500 ML (CANCER CENTER) 500 ML ONE; -OXYC-197 PO; +OXYC1TAB87 PO; +PANITUMUMAB INJECTION 400 MG, PANITUMUMAB INJECTION 100 MG in NS (IVPB) CANCER CENTER 1... IV SCH
[2018-04-02] MEDS ORDERED: NS (IVPB) CANCER CENTER 250 ML ONE (15:10)
== END 2018-04-15 09:35 | disposition home or self-care (01) ==
LOC: ONC 14:58
PROVIDERS: ATTEND Internal Medicine Hematology & Oncology
DX: Z51.11 Encounter for antineoplastic chemotherapy (principal); C32.1 Malignant neoplasm of supraglottis; C77.0 Secondary and unspecified malignant neoplasm of lymph nodes of head, face and neck; E03.9 Hypothyroidism, unspecified; K22.9 Disease of esophagus, unspecified; R91.1 Solitary pulmonary nodule; D69.59 Other secondary thrombocytopenia; J44.9 Chronic obstructive pulmonary disease, unspecified; K70.10 Alcoholic hepatitis without ascites; B18.2 Chronic viral hepatitis C; Z87.891 Personal history of nicotine dependence; Z79.899 Other long term (current) drug therapy
CPT/HCPCS: 36591; 80053; 84443; 85025; 96413

== ENCOUNTER → 2018-06-05 | Outpatient (CLI) | payer OTHER ==
[~2018-06-05] MED LIST changes: -ACET160E28 GT; +ACET160E50 GT; +BARIUM SUSPENSION 2.1% (VANILLA SILQ) 450 ML PO ONE; +CATHETER FLUSH 10 ML SYR IV PRN; +IOHEXOL 350 MG/ML 100 ML (OMNIPAQUE 350) VIAL IV ONE; -NIVOLUMAB 200 MG, NIVOLUMAB 40 MG in NS (IVPB) CANCER CENTER 50 ML IV SCH; -NIVOLUMAB 240 MG in NS (IVPB) CANCER CENTER 50 ML IV SCH; +NS 250 ML (IVPB) BAG IV ONE; -NS IV 1000 ML (CANCER CTR) IV SCH; -NS IV 500 ML (CANCER CENTER) 500 ML ONE; -PANITUMUMAB INJECTION 400 MG, PANITUMUMAB INJECTION 100 MG in NS (IVPB) CANCER CENTER 1... IV SCH; +RECEIVED CONTRAST (Hold Metformin) IV SCH
--- NOTE | 2018-06-05 14:13 | Diagnostic Imaging Report ---
INDICATION: Throat carcinoma and lung carcinoma, followup. Pre and Postcontrast axial imaging through the abdomen with postcontrast axial imaging through the neck and chest was performed. Comparison is made with prior CT from 02/19/2018. CT NECK: The visualized intracranial structures are unremarkable. Posterior nasopharynx and oropharynx are unremarkable. Parapharyngeal fat planes are preserved. Postsurgical changes of laryngectomy with fat flap is again seen. The area of nodularity previously described at the level of the thoracic inlet in the left para midline is significantly improved and decreased in size. Only minimal residual tissue at this dislocation is present. No lymphadenopathy is detected. No fluid collections are seen. IMPRESSION: Status post laryngectomy. Area of nodularity along the inferior and left para midline portion of the laryngectomy site at the thoracic inlet is markedly improved and barely visible on today's study. No new mass or lymphadenopathy is detected. CT CHEST: A left chest wall port is in place. No axillary lymphadenopathy is seen. No definite mediastinal or hilar lymphadenopathy is seen. No pericardial or pleural fluid is detected. Parenchymal evaluation does show emphysematous changes in both lungs. Small nodule adjacent to the major fissure in the left upper lobe posteriorly has improved now measuring 12 mm x 8 mm compared with 14 mm x 11 mm. The large spiculated mass at the level of the left hilum in the left upper lobe is now barely visible. The mass in the medial aspect of the right lower lobe superior segment is also now barely visible. Minimal residual density in subpleural and lateral left lower lobe is seen measuring 9 mm compared to 18 mm on prior. No new mass is seen. Calcified granuloma in the right lower lobe is unchanged. IMPRESSION: Significant decrease in size of multiple bilateral pulmonary masses consistent with improving metastatic disease. No new mass is detected. No thoracic lymphadenopathy is identified. CT ABDOMEN: Nodular contour to the liver is again seen suggestive of cirrhosis. No discrete liver mass is identified. Gallbladder is unremarkable. No biliary duct dilatation is seen. Spleen remains enlarged. Pancreas is unremarkable. No adrenal mass is seen. The kidneys are stable. Aorta and iliac vessels are calcified but not aneurysmal. There are small lymph nodes in the central retroperitoneum but no pathologically enlarged nodes are identified. The bowel loops are normal caliber. There is no ascites. IMPRESSION: Stable CT abdomen since exam from 02/19/2018. There continued be features of cirrhosis as well as splenomegaly. No ascites is seen. No liver mass is detected. Dictated by: Dictated on workstation # [id number]
== END ==
LOC: RAD 12:51
PROVIDERS: ATTEND Internal Medicine Hematology & Oncology
DX: C32.1 Malignant neoplasm of supraglottis (principal); C78.00 Secondary malignant neoplasm of unspecified lung; K74.60 Unspecified cirrhosis of liver; R16.1 Splenomegaly, not elsewhere classified; Z90.02 Acquired absence of larynx; Z95.828 Presence of other vascular implants and grafts
CPT/HCPCS: 70491; 71260; 74170

== ENCOUNTER 2018-07-09 15:02 | Outpatient (RCR) | payer MEDICARE, OTHER ==
[2018-04-16 15:26] LABS: BASOPHILS % (AUTO) 1 % (0-10); EOSINOPHILS # (AUTO) 0.3 10^3/uL (0.0-0.3); EOSINOPHILS % (AUTO) 6 % (0-10); HEMATOCRIT 41 % (40-54); HEMOGLOBIN 14.2 G/DL (13.3-17.7); LYMPHOCYTES # (AUTO) 0.8 X 10^3 (1.0-4.0); LYMPHOCYTES % (AUTO) 18 % (12-44); MEAN CORPUSCULAR HEMOGLOBIN 31 PG (25-34); MEAN CORPUSCULAR HGB CONC 35 G/DL (32-36); MEAN CORPUSCULAR VOLUME 90 FL (80-99); MONOCYTES # (AUTO) 0.4 X 10^3 (0.0-1.0); MONOCYTES % (AUTO) 8 % (0-12); NEUTROPHILS % (AUTO) 68 % (42-75); PLATELET COUNT 131 10^3/uL (130-400); RED BLOOD COUNT 4.54 10^6/uL (4.35-5.85); RED CELL DISTRIBUTION WIDTH 12.9 % (10.0-14.5); WHITE BLOOD COUNT 4.5 10^3/uL (4.3-11.0)
[2018-04-16 15:47] LABS: ALANINE AMINOTRANSFERASE 13 U/L (0-55); ALBUMIN 3.9 GM/DL (3.2-4.5); ALKALINE PHOSPHATASE 110 U/L (40-136); BILIRUBIN,TOTAL 0.5 MG/DL (0.1-1.0); BUN/CREATININE RATIO 8; CALCIUM 8.9 MG/DL (8.5-10.1); CARBON DIOXIDE 25 MMOL/L (21-32); CHLORIDE 108 MMOL/L (98-107); CREATININE SERUM 0.91 MG/DL (0.60-1.30); GFR ESTIMATED > 60; GLUCOSE 154 MG/DL (70-105); POTASSIUM 3.6 MMOL/L (3.6-5.0); SODIUM 142 MMOL/L (135-145); TOTAL PROTEIN 7.5 GM/DL (6.4-8.2)
[2018-05-15 13:16] LABS: BASOPHILS # (AUTO) 0.1 10^3/uL (0.0-0.1); BASOPHILS % (AUTO) 1 % (0-10); EOSINOPHILS # (AUTO) 0.3 10^3/uL (0.0-0.3); EOSINOPHILS % (AUTO) 6 % (0-10); HEMATOCRIT 43 % (40-54); HEMOGLOBIN 14.7 G/DL (13.3-17.7); LYMPHOCYTES # (AUTO) 0.9 X 10^3 (1.0-4.0); LYMPHOCYTES % (AUTO) 18 % (12-44); MEAN CORPUSCULAR HEMOGLOBIN 31 PG (25-34); MEAN CORPUSCULAR HGB CONC 35 G/DL (32-36); MEAN CORPUSCULAR VOLUME 88 FL (80-99); MEAN PLATELET VOLUME 9.4 FL (7.4-10.4); MONOCYTES # (AUTO) 0.5 X 10^3 (0.0-1.0); MONOCYTES % (AUTO) 10 % (0-12); NEUTROPHILS # (AUTO) 3.2 X 10^3 (1.8-7.8); NEUTROPHILS % (AUTO) 65 % (42-75); PLATELET COUNT 181 10^3/uL (130-400); RED BLOOD COUNT 4.82 10^6/uL (4.35-5.85); RED CELL DISTRIBUTION WIDTH 13.7 % (10.0-14.5)
[2018-05-15 13:43] LABS: ALANINE AMINOTRANSFERASE 13 U/L (0-55); ALBUMIN 4.3 GM/DL (3.2-4.5); ALKALINE PHOSPHATASE 110 U/L (40-136); BILIRUBIN,TOTAL 0.7 MG/DL (0.1-1.0); BUN/CREATININE RATIO 11; CALCIUM 9.4 MG/DL (8.5-10.1); CARBON DIOXIDE 22 MMOL/L (21-32); CHLORIDE 106 MMOL/L (98-107); CREATININE SERUM 0.97 MG/DL (0.60-1.30); GFR ESTIMATED > 60; GLUCOSE 123 MG/DL (70-105); MAGNESIUM 2.1 MG/DL (1.8-2.4); SODIUM 141 MMOL/L (135-145); TOTAL PROTEIN 8.4 GM/DL (6.4-8.2)
[2018-06-11 15:25] LABS: BASOPHILS % (AUTO) 1 % (0-10); EOSINOPHILS # (AUTO) 0.3 10^3/uL (0.0-0.3); EOSINOPHILS % (AUTO) 5 % (0-10); HEMATOCRIT 43 % (40-54); HEMOGLOBIN 14.5 G/DL (13.3-17.7); LYMPHOCYTES % (AUTO) 16 % (12-44); MEAN CORPUSCULAR HEMOGLOBIN 30 PG (25-34); MEAN CORPUSCULAR HGB CONC 34 G/DL (32-36); MEAN CORPUSCULAR VOLUME 89 FL (80-99); MEAN PLATELET VOLUME 9.2 FL (7.4-10.4); MONOCYTES # (AUTO) 0.6 X 10^3 (0.0-1.0); MONOCYTES % (AUTO) 9 % (0-12); NEUTROPHILS # (AUTO) 4.3 X 10^3 (1.8-7.8); NEUTROPHILS % (AUTO) 69 % (42-75); PLATELET COUNT 157 10^3/uL (130-400); RED BLOOD COUNT 4.77 10^6/uL (4.35-5.85); RED CELL DISTRIBUTION WIDTH 13.7 % (10.0-14.5); WHITE BLOOD COUNT 6.2 10^3/uL (4.3-11.0)
[2018-06-11 15:44] LABS: ALANINE AMINOTRANSFERASE 14 U/L (0-55); ALKALINE PHOSPHATASE 115 U/L (40-136); BILIRUBIN,TOTAL 0.9 MG/DL (0.1-1.0); BUN/CREATININE RATIO 11; CALCIUM 9.2 MG/DL (8.5-10.1); CARBON DIOXIDE 26 MMOL/L (21-32); CHLORIDE 107 MMOL/L (98-107); CREATININE SERUM 0.87 MG/DL (0.60-1.30); GFR ESTIMATED > 60; GLUCOSE 150 MG/DL (70-105); POTASSIUM 3.7 MMOL/L (3.6-5.0); SODIUM 144 MMOL/L (135-145); TOTAL PROTEIN 7.8 GM/DL (6.4-8.2)
[~2018-07-09] VITALS: Ht 185.4 cm; Wt 96.6 kg
[~2018-07-09 15:02] MED LIST changes: -BARIUM SUSPENSION 2.1% (VANILLA SILQ) 450 ML PO ONE; -CATHETER FLUSH 10 ML SYR IV PRN; -IOHEXOL 350 MG/ML 100 ML (OMNIPAQUE 350) VIAL IV ONE; +NIVOLUMAB 240 MG in NS (IVPB) CANCER CENTER 50 ML IV SCH; +NIVOLUMAB 480 MG in NS (IVPB) CANCER CENTER 50 ML IV SCH; +NS (IVPB) CANCER CENTER 250 ML IV SCH; -NS 250 ML (IVPB) BAG IV ONE; -RECEIVED CONTRAST (Hold Metformin) IV SCH
[2018-07-09 15:29] LABS: BASOPHILS % (AUTO) 1 % (0-10); EOSINOPHILS # (AUTO) 0.4 10^3/uL (0.0-0.3); EOSINOPHILS % (AUTO) 5 % (0-10); HEMATOCRIT 41 % (40-54); HEMOGLOBIN 14.1 G/DL (13.3-17.7); LYMPHOCYTES # (AUTO) 1.1 X 10^3 (1.0-4.0); LYMPHOCYTES % (AUTO) 17 % (12-44); MEAN CORPUSCULAR HEMOGLOBIN 30 PG (25-34); MEAN CORPUSCULAR HGB CONC 35 G/DL (32-36); MEAN CORPUSCULAR VOLUME 88 FL (80-99); MEAN PLATELET VOLUME 8.7 FL (7.4-10.4); MONOCYTES # (AUTO) 0.7 X 10^3 (0.0-1.0); MONOCYTES % (AUTO) 11 % (0-12); NEUTROPHILS # (AUTO) 4.4 X 10^3 (1.8-7.8); NEUTROPHILS % (AUTO) 67 % (42-75); PLATELET COUNT 181 10^3/uL (130-400); RED BLOOD COUNT 4.65 10^6/uL (4.35-5.85); RED CELL DISTRIBUTION WIDTH 13.8 % (10.0-14.5); WHITE BLOOD COUNT 6.5 10^3/uL (4.3-11.0)
[2018-07-09 15:47] LABS: ALANINE AMINOTRANSFERASE 11 U/L (0-55); ALBUMIN 3.9 GM/DL (3.2-4.5); ALKALINE PHOSPHATASE 116 U/L (40-136); BILIRUBIN,TOTAL 0.7 MG/DL (0.1-1.0); BUN/CREATININE RATIO 9; CARBON DIOXIDE 24 MMOL/L (21-32); CHLORIDE 105 MMOL/L (98-107); CREATININE SERUM 0.85 MG/DL (0.60-1.30); GFR ESTIMATED > 60; GLUCOSE 107 MG/DL (70-105); MAGNESIUM 1.8 MG/DL (1.8-2.4); POTASSIUM 3.7 MMOL/L (3.6-5.0); SODIUM 140 MMOL/L (135-145); TOTAL PROTEIN 7.8 GM/DL (6.4-8.2)
== END 2018-07-15 | disposition home or self-care (01) ==
LOC: ONC 15:02
PROVIDERS: ATTEND Internal Medicine Hematology & Oncology
DX: Z51.11 Encounter for antineoplastic chemotherapy (principal); C32.1 Malignant neoplasm of supraglottis; C77.0 Secondary and unspecified malignant neoplasm of lymph nodes of head, face and neck; E03.9 Hypothyroidism, unspecified; K22.9 Disease of esophagus, unspecified; R91.1 Solitary pulmonary nodule; D69.59 Other secondary thrombocytopenia; J44.9 Chronic obstructive pulmonary disease, unspecified; K70.10 Alcoholic hepatitis without ascites; B18.2 Chronic viral hepatitis C; Z87.891 Personal history of nicotine dependence; Z79.899 Other long term (current) drug therapy
CPT/HCPCS: 36591; 80053; 83735; 84443; 85025; 96413

== ENCOUNTER → 2018-09-01 | Outpatient (CLI) | payer OTHER ==
[~2018-09-01] MED LIST changes: -GABA600T2 PO; +GBPN600T PO; +IOHEXOL 350 MG/ML 100 ML (OMNIPAQUE 350) VIAL IV ONE; -NIVOLUMAB 240 MG in NS (IVPB) CANCER CENTER 50 ML IV SCH; -NIVOLUMAB 480 MG in NS (IVPB) CANCER CENTER 50 ML IV SCH; -NS (IVPB) CANCER CENTER 250 ML IV SCH; +NS 100 ML (IVPB) BAG IV ONE; +RECEIVED CONTRAST (Hold Metformin) IV SCH
--- NOTE | 2018-09-01 18:05 | Diagnostic Imaging Report ---
CT NECK-CHEST W/ABDOMEN W WO INDICATION: Pharyngeal cancer. Surveillance imaging. COMPARISON: CT neck, chest, and abdomen from 06/05/2018. TECHNIQUE: Precontrast imaging of the abdomen was performed. Postcontrast imaging of the neck, chest, and abdomen was performed utilizing IV contrast. CT neck findings: Stable postoperative changes of laryngectomy with voice box Endobutton present. Expected architectural distortion associated with the surgical site is similar in appearance. No new soft tissue nodules or masses in the head and neck to suggest recurrent neoplasm. Collapse of the upper airway is similar to prior exam and postoperative in nature. No cervical lymphadenopathy. Arteries are widely patent. No concerning focal osseous lesions. CT NECK IMPRESSION: 1. Stable postoperative changes of laryngectomy without features of local recurrence in the neck. CT CHEST FINDINGS: No endoluminal nodule within the trachea. Severe emphysema is again noted. No new pulmonary nodule or mass. Calcified right lower lobe pulmonary nodules, unchanged and compatible with old granulomatous infection. No pleural effusion or pneumothorax. No axillary lymphadenopathy. No mediastinal, hilar, or juxtaphrenic lymphadenopathy. Heart is normal in size without pericardial effusion. Normal-caliber thoracic aorta. No concerning focal osseous lesions. IMPRESSION: 1. Previously noted metastatic pulmonary nodules have completely resolved. CT ABDOMEN FINDINGS: No free intraperitoneal air or fluid. No abdominal lymphadenopathy. Stable nodular configuration of the liver, compatible with cirrhosis. No focal hepatic lesion to suggest metastasis. The spleen and pancreas are grossly normal. No adrenal mass. Stable cyst in the lower pole of the left kidney. No solid renal mass. Normal-caliber abdominal aorta. CT ABDOMEN IMPRESSION: 1. No change in the abdomen to indicate metastatic disease. 2. Cirrhosis. Dictated by: Dictated on workstation # [id number]
== END ==
LOC: RAD 14:43
PROVIDERS: ATTEND Internal Medicine Hematology & Oncology
DX: C32.1 Malignant neoplasm of supraglottis (principal); C78.00 Secondary malignant neoplasm of unspecified lung; K74.60 Unspecified cirrhosis of liver; Z90.02 Acquired absence of larynx
CPT/HCPCS: 70491; 71260; 74170

== ENCOUNTER 2018-10-22 14:54 | Outpatient (RCR) | payer OTHER ==
[2018-08-06 15:22] LABS: BASOPHILS % (AUTO) 0 % (0-10); EOSINOPHILS # (AUTO) 0.2 10^3/uL (0.0-0.3); EOSINOPHILS % (AUTO) 2 % (0-10); HEMATOCRIT 46 % (40-54); HEMOGLOBIN 15.5 G/DL (13.3-17.7); LYMPHOCYTES # (AUTO) 1.9 X 10^3 (1.0-4.0); LYMPHOCYTES % (AUTO) 22 % (12-44); MEAN CORPUSCULAR HEMOGLOBIN 31 PG (25-34); MEAN CORPUSCULAR HGB CONC 34 G/DL (32-36); MEAN CORPUSCULAR VOLUME 90 FL (80-99); MEAN PLATELET VOLUME 9.1 FL (7.4-10.4); MONOCYTES # (AUTO) 0.6 X 10^3 (0.0-1.0); MONOCYTES % (AUTO) 7 % (0-12); NEUTROPHILS % (AUTO) 69 % (42-75); PLATELET COUNT 158 10^3/uL (130-400); RED CELL DISTRIBUTION WIDTH 13.9 % (10.0-14.5); WHITE BLOOD COUNT 8.7 10^3/uL (4.3-11.0)
[2018-08-06 15:27] LABS: ALANINE AMINOTRANSFERASE 24 U/L (0-55); ALBUMIN 3.9 GM/DL (3.2-4.5); ALKALINE PHOSPHATASE 87 U/L (40-136); BILIRUBIN,TOTAL 0.4 MG/DL (0.1-1.0); BUN/CREATININE RATIO 18; CALCIUM 8.9 MG/DL (8.5-10.1); CARBON DIOXIDE 27 MMOL/L (21-32); CHLORIDE 102 MMOL/L (98-107); CREATININE SERUM 0.85 MG/DL (0.60-1.30); GFR ESTIMATED > 60; GLUCOSE 125 MG/DL (70-105); SODIUM 141 MMOL/L (135-145); TOTAL PROTEIN 7.2 GM/DL (6.4-8.2)
[2018-08-20 15:16] LABS: BASOPHILS % (AUTO) 0 % (0-10); EOSINOPHILS # (AUTO) 0.1 10^3/uL (0.0-0.3); EOSINOPHILS % (AUTO) 1 % (0-10); HEMATOCRIT 44 % (40-54); HEMOGLOBIN 15.4 G/DL (13.3-17.7); LYMPHOCYTES % (AUTO) 10 % (12-44); MEAN CORPUSCULAR HEMOGLOBIN 31 PG (25-34); MEAN CORPUSCULAR HGB CONC 35 G/DL (32-36); MEAN CORPUSCULAR VOLUME 89 FL (80-99); MEAN PLATELET VOLUME 9.2 FL (7.4-10.4); MONOCYTES # (AUTO) 0.6 X 10^3 (0.0-1.0); MONOCYTES % (AUTO) 5 % (0-12); NEUTROPHILS # (AUTO) 8.7 X 10^3 (1.8-7.8); NEUTROPHILS % (AUTO) 84 % (42-75); PLATELET COUNT 151 10^3/uL (130-400); RED CELL DISTRIBUTION WIDTH 13.8 % (10.0-14.5); WHITE BLOOD COUNT 10.3 10^3/uL (4.3-11.0)
[2018-08-20 15:41] LABS: ALANINE AMINOTRANSFERASE 19 U/L (0-55); ALKALINE PHOSPHATASE 94 U/L (40-136); BILIRUBIN,TOTAL 0.4 MG/DL (0.1-1.0); BUN/CREATININE RATIO 14; CALCIUM 8.7 MG/DL (8.5-10.1); CARBON DIOXIDE 27 MMOL/L (21-32); CHLORIDE 102 MMOL/L (98-107); CREATININE SERUM 0.79 MG/DL (0.60-1.30); GFR ESTIMATED > 60; GLUCOSE 151 MG/DL (70-105); SODIUM 140 MMOL/L (135-145); TOTAL PROTEIN 7.2 GM/DL (6.4-8.2)
[2018-09-03 15:18] LABS: BASOPHILS # (AUTO) 0.1 10^3/uL (0.0-0.1); BASOPHILS % (AUTO) 1 % (0-10); EOSINOPHILS # (AUTO) 0.1 10^3/uL (0.0-0.3); EOSINOPHILS % (AUTO) 2 % (0-10); HEMATOCRIT 42 % (40-54); HEMOGLOBIN 14.1 G/DL (13.3-17.7); LYMPHOCYTES # (AUTO) 1.4 X 10^3 (1.0-4.0); LYMPHOCYTES % (AUTO) 18 % (12-44); MEAN CORPUSCULAR HEMOGLOBIN 30 PG (25-34); MEAN CORPUSCULAR HGB CONC 34 G/DL (32-36); MEAN CORPUSCULAR VOLUME 90 FL (80-99); MEAN PLATELET VOLUME 9.3 FL (7.4-10.4); MONOCYTES # (AUTO) 0.5 X 10^3 (0.0-1.0); MONOCYTES % (AUTO) 6 % (0-12); NEUTROPHILS # (AUTO) 5.7 X 10^3 (1.8-7.8); NEUTROPHILS % (AUTO) 74 % (42-75); PLATELET COUNT 137 10^3/uL (130-400); RED CELL DISTRIBUTION WIDTH 13.8 % (10.0-14.5); WHITE BLOOD COUNT 7.8 10^3/uL (4.3-11.0)
[2018-09-03 15:49] LABS: ALANINE AMINOTRANSFERASE 23 U/L (0-55); ALBUMIN 3.9 GM/DL (3.2-4.5); ALKALINE PHOSPHATASE 83 U/L (40-136); BILIRUBIN,TOTAL 0.4 MG/DL (0.1-1.0); BUN/CREATININE RATIO 12; CALCIUM 8.9 MG/DL (8.5-10.1); CARBON DIOXIDE 28 MMOL/L (21-32); CHLORIDE 102 MMOL/L (98-107); CREATININE SERUM 0.81 MG/DL (0.60-1.30); GFR ESTIMATED > 60; GLUCOSE 153 MG/DL (70-105); MAGNESIUM 1.9 MG/DL (1.8-2.4); POTASSIUM 3.5 MMOL/L (3.6-5.0); SODIUM 141 MMOL/L (135-145); TOTAL PROTEIN 6.9 GM/DL (6.4-8.2)
[2018-09-17 13:30] LABS: BASOPHILS # (AUTO) 0.1 10^3/uL (0.0-0.1); BASOPHILS % (AUTO) 1 % (0-10); EOSINOPHILS # (AUTO) 0.2 10^3/uL (0.0-0.3); EOSINOPHILS % (AUTO) 3 % (0-10); HEMATOCRIT 39 % (40-54); HEMOGLOBIN 13.6 G/DL (13.3-17.7); LYMPHOCYTES # (AUTO) 1.2 X 10^3 (1.0-4.0); LYMPHOCYTES % (AUTO) 15 % (12-44); MEAN CORPUSCULAR HEMOGLOBIN 31 PG (25-34); MEAN CORPUSCULAR HGB CONC 35 G/DL (32-36); MEAN CORPUSCULAR VOLUME 88 FL (80-99); MEAN PLATELET VOLUME 8.6 FL (7.4-10.4); MONOCYTES # (AUTO) 0.7 X 10^3 (0.0-1.0); MONOCYTES % (AUTO) 9 % (0-12); NEUTROPHILS # (AUTO) 5.8 X 10^3 (1.8-7.8); NEUTROPHILS % (AUTO) 72 % (42-75); PLATELET COUNT 184 10^3/uL (130-400); RED CELL DISTRIBUTION WIDTH 14.9 % (10.0-14.5)
[2018-09-17 13:55] LABS: ALANINE AMINOTRANSFERASE 16 U/L (0-55); ALBUMIN 3.9 GM/DL (3.2-4.5); ALKALINE PHOSPHATASE 91 U/L (40-136); BILIRUBIN,TOTAL 0.8 MG/DL (0.1-1.0); BUN/CREATININE RATIO 10; CALCIUM 9.2 MG/DL (8.5-10.1); CARBON DIOXIDE 27 MMOL/L (21-32); CHLORIDE 104 MMOL/L (98-107); CREATININE SERUM 0.81 MG/DL (0.60-1.30); GFR ESTIMATED > 60; GLUCOSE 111 MG/DL (70-105); MAGNESIUM 1.9 MG/DL (1.8-2.4); POTASSIUM 3.8 MMOL/L (3.6-5.0); SODIUM 141 MMOL/L (135-145); TOTAL PROTEIN 7.2 GM/DL (6.4-8.2)
[~2018-10-22] VITALS: Ht 185.4 cm; Wt 105.2 kg
[~2018-10-22 14:54] MED LIST changes: -IOHEXOL 350 MG/ML 100 ML (OMNIPAQUE 350) VIAL IV ONE; +NIVOLUMAB 240 MG in NS (IVPB) CANCER CENTER 50 ML IV SCH; +NIVOLUMAB 480 MG in NS (IVPB) CANCER CENTER 50 ML IV SCH; +NS (IVPB) CANCER CENTER 250 ML IV SCH; -NS 100 ML (IVPB) BAG IV ONE; -RECEIVED CONTRAST (Hold Metformin) IV SCH
[2018-10-22 17:02] LABS: ALANINE AMINOTRANSFERASE 23 U/L (0-55); ALBUMIN 4.2 GM/DL (3.2-4.5); ALKALINE PHOSPHATASE 66 U/L (40-136); BUN/CREATININE RATIO 18; CALCIUM 9.4 MG/DL (8.5-10.1); CARBON DIOXIDE 28 MMOL/L (21-32); CHLORIDE 102 MMOL/L (98-107); CREATININE SERUM 0.85 MG/DL (0.60-1.30); GFR ESTIMATED > 60; GLUCOSE 114 MG/DL (70-105); POTASSIUM 3.7 MMOL/L (3.6-5.0); SODIUM 141 MMOL/L (135-145); TOTAL PROTEIN 7.4 GM/DL (6.4-8.2)
== END 2018-11-04 | disposition home or self-care (01) ==
LOC: ONC 14:54
PROVIDERS: ATTEND Internal Medicine Hematology & Oncology
DX: Z51.11 Encounter for antineoplastic chemotherapy (principal); C32.1 Malignant neoplasm of supraglottis; C77.0 Secondary and unspecified malignant neoplasm of lymph nodes of head, face and neck; E03.9 Hypothyroidism, unspecified; K22.9 Disease of esophagus, unspecified; R91.1 Solitary pulmonary nodule; D69.59 Other secondary thrombocytopenia; J44.9 Chronic obstructive pulmonary disease, unspecified; K70.10 Alcoholic hepatitis without ascites; B18.2 Chronic viral hepatitis C; Z87.891 Personal history of nicotine dependence; Z79.899 Other long term (current) drug therapy
CPT/HCPCS: 36591; 80053; 83735; 84443; 85025; 96413

== ENCOUNTER → 2018-11-19 | Outpatient (CLI) | payer OTHER ==
[~2018-11-19] MED LIST changes: +HOLD METFORMIN - RECEIVED CONTRAST 20 ML VIAL IV SCH; +IOHEXOL 350 MG/ML 100 ML (OMNIPAQUE 350) VIAL IV ONE; -NIVOLUMAB 240 MG in NS (IVPB) CANCER CENTER 50 ML IV SCH; -NIVOLUMAB 480 MG in NS (IVPB) CANCER CENTER 50 ML IV SCH; -NS (IVPB) CANCER CENTER 250 ML IV SCH
--- NOTE | 2018-11-19 17:08 | Diagnostic Imaging Report ---
PROCEDURE: CT chest with contrast only. TECHNIQUE: Multiple contiguous axial images were obtained through the chest after administration of intravenous contrast. Auto Exposure Controls were utilized during the CT exam to meet ALARA standards for radiation dose reduction. INDICATION: History of laryngeal carcinoma. Lung cancer. Followup. COMPARISON: 09/01/2018 FINDINGS: Evaluation of the lung umanzor demonstrates background advanced air trapping consistent with emphysematous disease. There is an ill-defined patchy density within the posterolateral margins of the left upper lobe bordering the major fissure (image 15, series 2). Area in question measures 2.0 x 1.6 cm. More medially, there is an additional smaller ill-defined juxtapleural micronodular density that measures 6-7 mm and corresponds to previous solid micronodule on the exam dated 11/26/2017. Area in question has a stable appearance when compared to 09/01/2018. There is a linear nodular density within the lateral margins of the left lower lobe that measures 1.2 x 0.4 cm. This corresponds to nodule seen on more remote exam dated 11/26/2017. There has been no significant interval change when compared to more recent exam dated 09/01/2018. There is also an area of ill-defined spiculated density within the posterior margins of the lingula in the left upper lobe. This too corresponds to soft tissue nodule seen on more remote exam. Overall appearance is stable compared to more recent exam dated 09/01/2018. On the right, there is juxtapleural linear density within the medial margins of the superior segment of the right lower lobe. This too is stable compared to more recent exam and corresponds to nodular lesion seen on more remote study. Benign calcified granuloma is present within the inferolateral margins of the right lower lobe. No other new pulmonary nodule or mass is seen. There is no large effusion or pneumothorax. Cardiomediastinal structures show normal heart size. There is no large pericardial effusion. There is mild calcified aortic and coronary atherosclerotic disease. Osseous structures show no acute abnormalities. Included portions of the upper abdomen show cirrhotic morphology to the liver. IMPRESSION: 1. Scattered areas of interest within the left upper, left lower, and right lower lobes have a stable appearance. Again, these areas correspond to previously described solid appearing nodules and micronodules on more remote exam dated 11/26/2017, but have a stable appearance when compared to more recent study dated 09/01/2018. 2. New ill-defined nodular density within the posterior lateral margins of the left upper lobe. Conceivably, this could be an area of focal rounded pneumonia/infiltrate, malignant etiology is doubted, but cannot be entirely excluded. Continued followup is recommended. 3. Background moderate to marked emphysematous disease. 4. Hepatic cirrhosis. Dictated by: Dictated on workstation # [id number]
== END ==
LOC: RAD 14:54
PROVIDERS: ATTEND Internal Medicine Hematology & Oncology
DX: C32.1 Malignant neoplasm of supraglottis (principal); C78.00 Secondary malignant neoplasm of unspecified lung; J43.9 Emphysema, unspecified; K74.60 Unspecified cirrhosis of liver
CPT/HCPCS: 71260

== ENCOUNTER → 2019-02-12 | Outpatient (CLI) | payer OTHER ==
[~2019-02-12] MED LIST changes: +NS 100 ML (IVPB) BAG IV ONE; -TRAZ-189 GT; +TRAZ-222 GT
--- NOTE | 2019-02-12 16:05 | Diagnostic Imaging Report ---
PROCEDURE: CT chest with contrast only. TECHNIQUE: Multiple contiguous axial images were obtained through the chest after administration of intravenous contrast. Auto Exposure Controls were utilized during the CT exam to meet ALARA standards for radiation dose reduction. INDICATION: Laryngeal carcinoma with metastases to the lungs. COMPARISON: Correlation is made with prior CT chest from 11/19/2018. FINDINGS: No axillary lymphadenopathy is detected. No mediastinal or hilar lymphadenopathy is detected. No pericardial or pleural fluid is identified. Emphysematous changes within both lungs are again noted. Ill-defined juxtapleural density adjacent to the major fissure of the left upper lobe medially is stable at approximately 6 mm. Lateral to this, the area of ill-defined patchy density appears to be essentially resolved. A linear density along the lateral aspect of the left lower lobe also appears less prominent at approximately 9 mm x 4 mm compared with 12 mm x 4 mm on prior. This does not appear to be mass like. Lingular density noted posteriorly is stable. Calcified granuloma of the right lower lobe is stable. No new parenchymal mass is identified. Healing lower right posterior rib fractures again noted. This appears to involve right lateral and posterior 8th, 9th, and 10th ribs. Upper abdomen does show somewhat nodular contour to the liver. There appears to be hepatic steatosis. IMPRESSION: 1. Stable to decrease in prominence of pulmonary parenchymal densities when compared with exam from 11/19/2018. No thoracic lymphadenopathy is detected. 2. Healing right-sided lower rib fractures. 3. Hepatic steatosis with hepatic nodular contour, suspicious for cirrhosis. Dictated by: Dictated on workstation # [id number]
== END ==
LOC: RAD 14:34
PROVIDERS: ATTEND Internal Medicine Hematology & Oncology
DX: S22.31XA Fracture of one rib, right side, initial encounter for closed fracture (principal); K76.0 Fatty (change of) liver, not elsewhere classified; C32.9 Malignant neoplasm of larynx, unspecified; C78.00 Secondary malignant neoplasm of unspecified lung
CPT/HCPCS: 71260

== ENCOUNTER 2019-02-13 14:43 | Outpatient (RCR) | payer OTHER ==
[2018-12-19 13:27] LABS: BASOPHILS % (AUTO) 1 % (0-10); EOSINOPHILS # (AUTO) 0.2 10^3/uL (0.0-0.3); EOSINOPHILS % (AUTO) 3 % (0-10); HEMATOCRIT 45 % (40-54); LYMPHOCYTES % (AUTO) 15 % (12-44); MEAN CORPUSCULAR HEMOGLOBIN 30 PG (25-34); MEAN CORPUSCULAR HGB CONC 34 G/DL (32-36); MEAN CORPUSCULAR VOLUME 90 FL (80-99); MEAN PLATELET VOLUME 9.4 FL (7.4-10.4); MONOCYTES # (AUTO) 0.6 X 10^3 (0.0-1.0); MONOCYTES % (AUTO) 8 % (0-12); NEUTROPHILS % (AUTO) 73 % (42-75); PLATELET COUNT 188 10^3/uL (130-400); RED CELL DISTRIBUTION WIDTH 12.8 % (10.0-14.5); WHITE BLOOD COUNT 6.9 10^3/uL (4.3-11.0)
[2018-12-19 13:42] LABS: ALANINE AMINOTRANSFERASE 18 U/L (0-55); ALKALINE PHOSPHATASE 106 U/L (40-136); BILIRUBIN,TOTAL 0.8 MG/DL (0.1-1.0); BUN/CREATININE RATIO 10; CALCIUM 9.4 MG/DL (8.5-10.1); CARBON DIOXIDE 26 MMOL/L (21-32); CHLORIDE 106 MMOL/L (98-107); GFR ESTIMATED > 60; GLUCOSE 154 MG/DL (70-105); POTASSIUM 3.6 MMOL/L (3.6-5.0); SODIUM 142 MMOL/L (135-145); TOTAL PROTEIN 7.5 GM/DL (6.4-8.2)
[2019-01-16 13:48] LABS: BASOPHILS # (AUTO) 0.1 10^3/uL (0.0-0.1); BASOPHILS % (AUTO) 1 % (0-10); EOSINOPHILS # (AUTO) 0.2 10^3/uL (0.0-0.3); EOSINOPHILS % (AUTO) 3 % (0-10); HEMATOCRIT 45 % (40-54); LYMPHOCYTES # (AUTO) 1.2 X 10^3 (1.0-4.0); LYMPHOCYTES % (AUTO) 17 % (12-44); MEAN CORPUSCULAR HEMOGLOBIN 30 PG (25-34); MEAN CORPUSCULAR HGB CONC 34 G/DL (32-36); MEAN CORPUSCULAR VOLUME 88 FL (80-99); MEAN PLATELET VOLUME 9.4 FL (7.4-10.4); MONOCYTES # (AUTO) 0.6 X 10^3 (0.0-1.0); MONOCYTES % (AUTO) 9 % (0-12); NEUTROPHILS # (AUTO) 4.8 X 10^3 (1.8-7.8); NEUTROPHILS % (AUTO) 71 % (42-75); PLATELET COUNT 241 10^3/uL (130-400); RED CELL DISTRIBUTION WIDTH 13.8 % (10.0-14.5); WHITE BLOOD COUNT 6.8 10^3/uL (4.3-11.0)
[2019-01-16 14:11] LABS: ALANINE AMINOTRANSFERASE 41 U/L (0-55); ALBUMIN 4.1 GM/DL (3.2-4.5); ALKALINE PHOSPHATASE 98 U/L (40-136); BILIRUBIN,TOTAL 0.6 MG/DL (0.1-1.0); BUN/CREATININE RATIO 11; CALCIUM 9.4 MG/DL (8.5-10.1); CARBON DIOXIDE 25 MMOL/L (21-32); CHLORIDE 107 MMOL/L (98-107); CREATININE SERUM 0.81 MG/DL (0.60-1.30); GFR ESTIMATED > 60; GLUCOSE 135 MG/DL (70-105); POTASSIUM 3.5 MMOL/L (3.6-5.0); SODIUM 143 MMOL/L (135-145); TOTAL PROTEIN 7.7 GM/DL (6.4-8.2)
[~2019-02-13 14:43] MED LIST changes: -HOLD METFORMIN - RECEIVED CONTRAST 20 ML VIAL IV SCH; -IOHEXOL 350 MG/ML 100 ML (OMNIPAQUE 350) VIAL IV ONE; -NS 100 ML (IVPB) BAG IV ONE
[2019-02-13 15:18] LABS: BASOPHILS % (AUTO) 0 % (0-10); EOSINOPHILS # (AUTO) 0.2 10^3/uL (0.0-0.3); EOSINOPHILS % (AUTO) 3 % (0-10); HEMATOCRIT 44 % (40-54); HEMOGLOBIN 14.7 G/DL (13.3-17.7); LYMPHOCYTES % (AUTO) 14 % (12-44); MEAN CORPUSCULAR HEMOGLOBIN 29 PG (25-34); MEAN CORPUSCULAR HGB CONC 34 G/DL (32-36); MEAN CORPUSCULAR VOLUME 87 FL (80-99); MEAN PLATELET VOLUME 9.5 FL (7.4-10.4); MONOCYTES # (AUTO) 0.5 X 10^3 (0.0-1.0); MONOCYTES % (AUTO) 7 % (0-12); NEUTROPHILS # (AUTO) 5.1 X 10^3 (1.8-7.8); NEUTROPHILS % (AUTO) 75 % (42-75); PLATELET COUNT 185 10^3/uL (130-400); RED CELL DISTRIBUTION WIDTH 14.2 % (10.0-14.5); WHITE BLOOD COUNT 6.8 10^3/uL (4.3-11.0)
[2019-02-13 15:35] LABS: ALANINE AMINOTRANSFERASE 20 U/L (0-55); ALBUMIN 4.1 GM/DL (3.2-4.5); ALKALINE PHOSPHATASE 103 U/L (40-136); BILIRUBIN,TOTAL 0.6 MG/DL (0.1-1.0); BUN/CREATININE RATIO 13; CALCIUM 9.6 MG/DL (8.5-10.1); CARBON DIOXIDE 26 MMOL/L (21-32); CHLORIDE 106 MMOL/L (98-107); CREATININE SERUM 0.77 MG/DL (0.60-1.30); GFR ESTIMATED > 60; GLUCOSE 129 MG/DL (70-105); POTASSIUM 3.6 MMOL/L (3.6-5.0); SODIUM 142 MMOL/L (135-145); TOTAL PROTEIN 7.6 GM/DL (6.4-8.2)
== END 2019-02-19 | disposition home or self-care (01) ==
LOC: ONC 14:43
PROVIDERS: ATTEND Internal Medicine Hematology & Oncology
DX: C32.1 Malignant neoplasm of supraglottis (principal); C77.0 Secondary and unspecified malignant neoplasm of lymph nodes of head, face and neck; E03.9 Hypothyroidism, unspecified; K22.9 Disease of esophagus, unspecified; R91.1 Solitary pulmonary nodule; D69.59 Other secondary thrombocytopenia; J44.9 Chronic obstructive pulmonary disease, unspecified; K70.10 Alcoholic hepatitis without ascites; B18.2 Chronic viral hepatitis C; Z87.891 Personal history of nicotine dependence; Z79.899 Other long term (current) drug therapy; Z45.2 Encounter for adjustment and management of vascular access device
CPT/HCPCS: 36591; 80053; 84443; 85025; 96523

== ENCOUNTER → 2019-05-18 | Outpatient (CLI) | payer OTHER ==
[~2019-05-18] MED LIST changes: +BARIUM SUSPENSION 2.1% (VANILLA SILQ) 450 ML PO ONE; +HOLD METFORMIN - RECEIVED CONTRAST 20 ML VIAL IV SCH; +IOHEXOL 350 MG/ML 100 ML (OMNIPAQUE 350) VIAL IV ONE; +NS 100 ML (IVPB) BAG IV ONE
--- NOTE | 2019-05-18 15:04 | Diagnostic Imaging Report ---
PROCEDURE: CT chest with contrast, CT abdomen with and without contrast. TECHNIQUE: Precontrast acquisitions were acquired through the abdomen. Multiple contiguous axial images were obtained through the chest and abdomen after administration of intravenous contrast. Auto Exposure Controls were utilized during the CT exam to meet ALARA standards for radiation dose reduction. INDICATION: Laryngeal carcinoma and chronic alcoholic liver disease. COMPARISON: Correlation is made with prior CT chest from 02/12/[address] abdomen from 09/01/2018. FINDINGS: CT CHEST: Post surgical changes from laryngectomy are again noted. A left chest wall port remains in place. No axillary, hilar, or mediastinal lymphadenopathy is detected. No pericardial or pleural fluid is identified. Significant emphysematous changes in both lungs are again noted. The previously noted juxtapleural density in the left upper lobe medially adjacent to the major fissure remains stable at approximately 6 mm. The left lower lobe density appears stable at approximately 8 mm x 3 mm compared with 9 mm x 4 mm. A right lower lobe calcified granuloma is noted. There is some mild patchy infiltrate or atelectasis in the posterior right lower lobe, increased since the prior exam. This is noted in the left lower lobe as well posteriorly but to a lesser degree. No new pulmonary mass is identified. Right posterior healing or healed rib fractures are again noted. IMPRESSION: No thoracic lymphadenopathy. The previously noted parenchymal densities remain stable from the CT of 02/12/2019. There has been some development of mild bilateral lower lobe patchy infiltrates or atelectasis. CT ABDOMEN: The nodular liver contour is again noted. No discrete liver mass is detected. The gallbladder is unremarkable. No biliary ductal dilatation is seen. The pancreas and spleen are unremarkable. No adrenal mass is detected. The left lower pole renal low density appears stable and suggestive of a cyst. The aorta is heavily calcified but nonaneurysmal. No central retroperitoneal or mesenteric lymphadenopathy is seen. IMPRESSION: Overall stable CT abdomen when compared with the exam from 09/01/2018. Changes suggestive of cirrhosis are again noted. No discrete liver mass is detected. No abdominal lymphadenopathy or evidence of metastatic disease is detected. Dictated by: Dictated on workstation # [id number]
== END ==
LOC: RAD 13:05
PROVIDERS: ATTEND Internal Medicine Hematology & Oncology
DX: I70.0 Atherosclerosis of aorta (principal); C32.9 Malignant neoplasm of larynx, unspecified; K70.10 Alcoholic hepatitis without ascites
CPT/HCPCS: 71260; 74170

== ENCOUNTER 2019-05-22 13:35 | Outpatient (RCR) | payer OTHER ==
[2019-05-18 13:57] LABS: BASOPHILS % (AUTO) 1 % (0-10); EOSINOPHILS # (AUTO) 0.3 10^3/uL (0.0-0.3); EOSINOPHILS % (AUTO) 5 % (0-10); HEMATOCRIT 43 % (40-54); HEMOGLOBIN 14.3 G/DL (13.3-17.7); LYMPHOCYTES # (AUTO) 0.9 X 10^3 (1.0-4.0); LYMPHOCYTES % (AUTO) 16 % (12-44); MEAN CORPUSCULAR HEMOGLOBIN 31 PG (25-34); MEAN CORPUSCULAR HGB CONC 34 G/DL (32-36); MEAN CORPUSCULAR VOLUME 91 FL (80-99); MEAN PLATELET VOLUME 9.2 FL (7.4-10.4); MONOCYTES # (AUTO) 0.5 X 10^3 (0.0-1.0); MONOCYTES % (AUTO) 9 % (0-12); NEUTROPHILS # (AUTO) 4.2 X 10^3 (1.8-7.8); NEUTROPHILS % (AUTO) 70 % (42-75); PLATELET COUNT 182 10^3/uL (130-400)
[2019-05-18 14:18] LABS: ALANINE AMINOTRANSFERASE 18 U/L (0-55); ALKALINE PHOSPHATASE 111 U/L (40-136); BILIRUBIN,TOTAL 0.6 MG/DL (0.1-1.0); BUN/CREATININE RATIO 12; CALCIUM 8.9 MG/DL (8.5-10.1); CARBON DIOXIDE 27 MMOL/L (21-32); CHLORIDE 106 MMOL/L (98-107); CREATININE SERUM 0.78 MG/DL (0.60-1.30); GFR ESTIMATED > 60; GLUCOSE 114 MG/DL (70-105); POTASSIUM 4.1 MMOL/L (3.6-5.0); SODIUM 142 MMOL/L (135-145); TOTAL PROTEIN 7.3 GM/DL (6.4-8.2)
[~2019-05-22 13:35] MED LIST changes: -BARIUM SUSPENSION 2.1% (VANILLA SILQ) 450 ML PO ONE; -HOLD METFORMIN - RECEIVED CONTRAST 20 ML VIAL IV SCH; -IOHEXOL 350 MG/ML 100 ML (OMNIPAQUE 350) VIAL IV ONE; -NS 100 ML (IVPB) BAG IV ONE
== END 2019-06-11 | disposition home or self-care (01) ==
LOC: ONC 13:35
PROVIDERS: ATTEND Internal Medicine Hematology & Oncology
DX: C32.1 Malignant neoplasm of supraglottis (principal); C77.0 Secondary and unspecified malignant neoplasm of lymph nodes of head, face and neck; E03.9 Hypothyroidism, unspecified; K22.9 Disease of esophagus, unspecified; R91.1 Solitary pulmonary nodule; D69.59 Other secondary thrombocytopenia; J44.9 Chronic obstructive pulmonary disease, unspecified; K70.10 Alcoholic hepatitis without ascites; B18.2 Chronic viral hepatitis C; Z87.891 Personal history of nicotine dependence; Z79.899 Other long term (current) drug therapy; Z45.2 Encounter for adjustment and management of vascular access device
CPT/HCPCS: 36591; 80053; 84443; 85025; 96523; 99213

== ENCOUNTER → 2019-05-25 | Outpatient (CLI) | payer OTHER ==
[~2019-05-25] MED LIST changes: +CATHETER FLUSH 10 ML SYR IV PRN; +HOLD METFORMIN - RECEIVED CONTRAST 20 ML VIAL IV SCH; +IOHEXOL 350 MG/ML 100 ML (OMNIPAQUE 350) VIAL IV ONE; +NS 100 ML (IVPB) BAG IV ONE
--- NOTE | 2019-05-25 17:21 | Diagnostic Imaging Report ---
PROCEDURE: CT neck soft tissue with contrast. TECHNIQUE: Multiple contiguous axial images were obtained through the neck after the administration of contrast. Auto Exposure Controls were utilized during the CT exam to meet ALARA standards for radiation dose reduction. INDICATION: Laryngeal cancer, laryngectomy. COMPARISON: 09/01/2018. FINDINGS: Postoperative changes are seen compatible with total laryngectomy. Patient's stoma is widely patent. There is no abnormal enhancement or mass to suggest recurrence. The visualized esophagus is patent. Vascular structures are widely patent. There is no lymphadenopathy. The central canal and osseous structures are age-appropriate. Visualized parotid and submandibular glands are unremarkable. The visualized lung apices demonstrate extensive centrilobular emphysema. Skull base anatomy is normal. The floor of the mouth appears grossly unremarkable. IMPRESSION: 1. Status post laryngectomy. No recurrent mass or lymphadenopathy is identified. 2. Extensive centrilobular emphysema. Dictated by: Dictated on workstation # [id number]
== END ==
LOC: RAD 15:46
PROVIDERS: ATTEND Internal Medicine Hematology & Oncology
DX: C32.1 Malignant neoplasm of supraglottis (principal); J43.2 Centrilobular emphysema; Z90.02 Acquired absence of larynx
CPT/HCPCS: 70491

== ENCOUNTER → 2019-08-10 | Outpatient (CLI) | payer OTHER ==
[~2019-08-10] MED LIST changes: -CATHETER FLUSH 10 ML SYR IV PRN; -CHLO473M PO; +NFCHLORHGL PO; +OMEP40CA27 GT; -OMEP40CA36 GT; -TRAZ-222 GT; +TRZ50T GT
--- NOTE | 2019-08-10 16:19 | Diagnostic Imaging Report ---
EXAMINATION: CT neck and chest with contrast. CT abdomen with and without intravenous contrast. TECHNIQUE: Multiple contiguous axial images were obtained through the neck, chest, and abdomen after the uneventful administration of intravenous contrast. Pre-contrast images of the abdomen were also obtained. All CT scans use one or more of the following dose optimizing techniques: Automated exposure control, MA and/or KvP adjustment based on a patient size and exam type, or iterative reconstruction. HISTORY: Laryngeal cancer. COMPARISON: 05/25/[address] and 05/18/[address] FINDINGS: Neck CT: There are postsurgical changes of laryngectomy and flap reconstruction. Pharyngeal edema is likely related to prior treatment. No mass is seen in the neck to indicate local recurrence. Scattered subcentimeter lymph nodes are seen in the neck. None are pathologically enlarged or abnormally enhancing. The muscles of the neck are normal. Vessels of the neck demonstrate normal course and caliber. The visualized airway is widely patent. The base of the skull and the temporal bones are normal. Limited views of the brain including the cerebellum and brainstem are normal. The limited view of the [place] is unremarkable. The visualized portions of the orbits are normal. The spinal canal is normal in caliber. Intervertebral disc heights are normal. Neural foramina are normal. Chest CT: The lungs are clear without edema or pneumonia. No pleural effusion or pneumothorax. No suspicious nodules. Lungs are severely emphysematous. Calcified granuloma is seen in the right lung base. Patchy nodules in the right lower lobe are likely inflammatory and can potentially be related to aspiration or chronic bronchitis. Mucus is present in the right and left mainstem bronchi. A left subclavian port catheter is present. Heart size is normal. No pericardial effusion. Aorta is normal in caliber. There is no axillary or supraclavicular lymphadenopathy. There is no mediastinal lymphadenopathy. Abdomen and Pelvis CT: Liver surface appears nodular suggestive of cirrhosis. There is a 10 mm lesion in the dome of the liver which is indeterminate (series 4, image 46). There is no biliary ductal dilation. Gallbladder is normal. Pancreas is normal. Spleen is normal. Adrenal glands are normal. The kidneys are normal. There is no hydronephrosis. Visualized bowel is normal in caliber without obstruction or inflammation. No free fluid or air. No abdominal lymphadenopathy. Aorta is normal in caliber without aneurysm. There is a stable mild compression fracture of L4. No suspicious osseous lesions are seen. Incidental note is made of sternal foramen. IMPRESSION: 1. Status post laryngectomy without evidence for local recurrence or metastatic disease. 2. Cirrhotic appearing liver with indeterminate lesion at the dome. Liver protocol CT or MRI is recommended. 3. Inflammatory-appearing nodules in the right lower lobe. Dictated by: Dictated on workstation # [id number]
== END ==
LOC: RAD 14:48
PROVIDERS: ATTEND Internal Medicine Hematology & Oncology
DX: C32.1 Malignant neoplasm of supraglottis (principal); K76.9 Liver disease, unspecified; R91.8 Other nonspecific abnormal finding of lung field; Z90.02 Acquired absence of larynx
CPT/HCPCS: 70491; 71260; 74170

== ENCOUNTER 2019-09-04 10:42 | Outpatient (RCR) | payer OTHER ==
[2019-07-13 14:38] LABS: BASOPHILS % (AUTO) 1 % (0-10); EOSINOPHILS # (AUTO) 0.2 10^3/uL (0.0-0.3); EOSINOPHILS % (AUTO) 4 % (0-10); HEMATOCRIT 41 % (40-54); HEMOGLOBIN 14.4 G/DL (13.3-17.7); LYMPHOCYTES # (AUTO) 1.2 X 10^3 (1.0-4.0); LYMPHOCYTES % (AUTO) 19 % (12-44); MEAN CORPUSCULAR HEMOGLOBIN 31 PG (25-34); MEAN CORPUSCULAR HGB CONC 35 G/DL (32-36); MEAN CORPUSCULAR VOLUME 90 FL (80-99); MEAN PLATELET VOLUME 8.7 FL (7.4-10.4); MONOCYTES # (AUTO) 0.4 X 10^3 (0.0-1.0); MONOCYTES % (AUTO) 7 % (0-12); NEUTROPHILS # (AUTO) 4.4 X 10^3 (1.8-7.8); NEUTROPHILS % (AUTO) 70 % (42-75); PLATELET COUNT 173 10^3/uL (130-400); RED CELL DISTRIBUTION WIDTH 14.2 % (10.0-14.5); WHITE BLOOD COUNT 6.3 10^3/uL (4.3-11.0)
[2019-07-13 15:02] LABS: ALANINE AMINOTRANSFERASE 12 U/L (0-55); ALKALINE PHOSPHATASE 108 U/L (40-136); BILIRUBIN,TOTAL 0.6 MG/DL (0.1-1.0); BUN/CREATININE RATIO 10; CALCIUM 8.7 MG/DL (8.5-10.1); CARBON DIOXIDE 27 MMOL/L (21-32); CHLORIDE 107 MMOL/L (98-107); CREATININE SERUM 0.72 MG/DL (0.60-1.30); GFR ESTIMATED > 60; GLUCOSE 107 MG/DL (70-105); POTASSIUM 3.8 MMOL/L (3.6-5.0); SODIUM 143 MMOL/L (135-145); TOTAL PROTEIN 7.2 GM/DL (6.4-8.2)
[2019-08-10 14:43] LABS: BASOPHILS % (AUTO) 1 % (0-10); EOSINOPHILS # (AUTO) 0.2 10^3/uL (0.0-0.3); EOSINOPHILS % (AUTO) 5 % (0-10); HEMATOCRIT 42 % (40-54); HEMOGLOBIN 14.3 G/DL (13.3-17.7); LYMPHOCYTES # (AUTO) 1.1 X 10^3 (1.0-4.0); LYMPHOCYTES % (AUTO) 21 % (12-44); MEAN CORPUSCULAR HEMOGLOBIN 32 PG (25-34); MEAN CORPUSCULAR HGB CONC 34 G/DL (32-36); MEAN CORPUSCULAR VOLUME 93 FL (80-99); MEAN PLATELET VOLUME 9.2 FL (7.4-10.4); MONOCYTES # (AUTO) 0.4 X 10^3 (0.0-1.0); MONOCYTES % (AUTO) 8 % (0-12); NEUTROPHILS # (AUTO) 3.5 X 10^3 (1.8-7.8); NEUTROPHILS % (AUTO) 66 % (42-75); PLATELET COUNT 173 10^3/uL (130-400); RED CELL DISTRIBUTION WIDTH 13.6 % (10.0-14.5); WHITE BLOOD COUNT 5.4 10^3/uL (4.3-11.0)
[2019-08-10 15:06] LABS: ALANINE AMINOTRANSFERASE 15 U/L (0-55); ALBUMIN 3.8 GM/DL (3.2-4.5); ALKALINE PHOSPHATASE 111 U/L (40-136); BILIRUBIN,TOTAL 0.5 MG/DL (0.1-1.0); BUN/CREATININE RATIO 12; CALCIUM 8.6 MG/DL (8.5-10.1); CARBON DIOXIDE 29 MMOL/L (21-32); CHLORIDE 105 MMOL/L (98-107); CREATININE SERUM 0.74 MG/DL (0.60-1.30); GFR ESTIMATED > 60; GLUCOSE 97 MG/DL (70-105); POTASSIUM 4.1 MMOL/L (3.6-5.0); SODIUM 142 MMOL/L (135-145); TOTAL PROTEIN 6.9 GM/DL (6.4-8.2)
[~2019-09-04 10:42] MED LIST changes: -HOLD METFORMIN - RECEIVED CONTRAST 20 ML VIAL IV SCH; -IOHEXOL 350 MG/ML 100 ML (OMNIPAQUE 350) VIAL IV ONE; -NS 100 ML (IVPB) BAG IV ONE
== END 2019-09-13 | disposition home or self-care (01) ==
LOC: ONC 10:42
PROVIDERS: ATTEND Internal Medicine Hematology & Oncology
DX: C32.1 Malignant neoplasm of supraglottis (principal); C77.0 Secondary and unspecified malignant neoplasm of lymph nodes of head, face and neck; E03.9 Hypothyroidism, unspecified; K22.9 Disease of esophagus, unspecified; R91.1 Solitary pulmonary nodule; D69.59 Other secondary thrombocytopenia; J44.9 Chronic obstructive pulmonary disease, unspecified; K70.10 Alcoholic hepatitis without ascites; B18.2 Chronic viral hepatitis C; Z87.891 Personal history of nicotine dependence; Z79.899 Other long term (current) drug therapy; Z45.2 Encounter for adjustment and management of vascular access device
CPT/HCPCS: 36591; 80053; 85025; 96523; 99213

== ENCOUNTER → 2019-10-30 | Outpatient (CLI) | payer OTHER ==
[~2019-10-30] MED LIST changes: +BARIUM SUSPENSION 2.1% (VANILLA SILQ) 450 ML PO ONE; +CATHETER FLUSH 10 ML SYR IV PRN; +HOLD METFORMIN - RECEIVED CONTRAST 20 ML VIAL IV SCH; +IOHEXOL 350 MG/ML 100 ML (OMNIPAQUE 350) VIAL IV ONE; +NS 100 ML (IVPB) BAG IV ONE
--- NOTE | 2019-10-30 16:39 | Diagnostic Imaging Report ---
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 COMPARISON is made with studies of 08/30/2019. TECHNIQUE: Pre-IV contrast CT abdomen performed. Following IV contrast the patient underwent CT neck, chest, abdomen with multiplanar reconstructions. NECK: Findings of post surgical changes of a total laryngectomy again noted. There is no findings of a primary tumor recurrence. There is no postoperative fluid collection. There is no pathological-appearing cervical lymph nodes. Atherosclerotic carotid vascular disease, chronic. CT CHEST: Dependent nodular airspace inflammatory changes in the right lower lobe have improved. Benign calcified granuloma in the right lower lobe, stable. No suspicious nodule or lymphadenopathy. No chest effusion. No acute or suspect chest wall disease. ABDOMEN: Nodule at the dome of the liver measures a long axis diameter of 1.5 cm previously 1 cm. It shows a somewhat target configured enhancement pattern with a relatively diminished density centrally. A metastatic deposit could not be excluded. Its position would make it a poor candidate for percutaneous sampling. Consider metabolic PET imaging as further evaluation. Changes of hepatic cirrhosis are redemonstrated. There is patency of the intra and extrahepatic portal veins. Directional flow cannot be addressed at CT. There is mild splenomegaly. There was no ascites. There is a benign left renal cortical cyst. The adrenals negative. The pancreas unremarkable. No bowel obstruction or ileus. IMPRESSION: NECK: Stable postoperative changes without findings of neoplastic recurrence or cervical metastasis. CHEST: Improvements in right lower lobed inflammatory changes with no findings suggestive of metastasis or adverse development. ABDOMEN: An enlarging mass in the liver at the dome. Metastatic disease could not be excluded. Metabolic PET imaging may be of further benefit. Dictated by: Dictated on workstation # [id number]
== END ==
LOC: RAD 15:07
PROVIDERS: ATTEND Internal Medicine Hematology & Oncology
DX: C32.1 Malignant neoplasm of supraglottis (principal); C76.0 Malignant neoplasm of head, face and neck; C78.00 Secondary malignant neoplasm of unspecified lung
CPT/HCPCS: 70491; 71260; 74170

== ENCOUNTER → 2019-11-17 | Outpatient (CLI) | payer OTHER, MEDICARE ==
[~2019-11-17] MED LIST changes: -BARIUM SUSPENSION 2.1% (VANILLA SILQ) 450 ML PO ONE; -CATHETER FLUSH 10 ML SYR IV PRN; -HOLD METFORMIN - RECEIVED CONTRAST 20 ML VIAL IV SCH; -IOHEXOL 350 MG/ML 100 ML (OMNIPAQUE 350) VIAL IV ONE; -NS 100 ML (IVPB) BAG IV ONE
--- NOTE | 2019-11-17 14:21 | Diagnostic Imaging Report ---
INDICATION: Laryngeal carcinoma, subsequent restaging. Serum blood glucose level at time of injection was 133 mg/dL. Patient was administered 14.2 mCi F-18 FDG intravenously in the right upper arm and PET imaging was performed from the top of skull to mid thighs. Noncontrast CT was also performed for attenuation correction and anatomic correlation. Correlation is made with prior PET/CT study from 08/13/2017. Comparison is also made with recent CT neck, chest and abdomen study from 10/30/2019. Symmetric activity throughout the brain is identified. There are postsurgical changes of total laryngectomy. Previously noted hypermetabolic mass adjacent to the upper esophagus on prior PET is no longer appreciated. No suspicious hypermetabolism in the neck is identified. The mediastinum and bailey are unremarkable. No pulmonary parenchymal hypermetabolism is detected. No suspicious hypermetabolism in the liver is identified. In particular, no definite hypermetabolic focus to account for the lesion noted in the dome on recent CT is identified. Even so, close continued followup to confirm stability is recommended. There is physiologic activity throughout the gastrointestinal and genitourinary tracts. IMPRESSION: No evidence of a residual or recurrent neck mass. No findings to suggest metastatic disease are identified. The lesion noted in the dome of the liver on recent CT is not well visualized by PET. Even so, continued close followup is recommended to confirm stability. Dictated by: Dictated on workstation # [id number]
== END ==
LOC: RAD 09:50
PROVIDERS: ATTEND Internal Medicine Hematology & Oncology
DX: C32.1 Malignant neoplasm of supraglottis (principal); C78.00 Secondary malignant neoplasm of unspecified lung; K76.89 Other specified diseases of liver; B18.2 Chronic viral hepatitis C

== ENCOUNTER 2019-12-07 13:04 | Outpatient (RCR) | payer OTHER ==
[2019-10-30 15:10] LABS: BASOPHILS % (AUTO) 1 % (0-10); EOSINOPHILS # (AUTO) 0.3 10^3/uL (0.0-0.3); EOSINOPHILS % (AUTO) 6 % (0-10); HEMATOCRIT 45 % (40-54); HEMOGLOBIN 15.5 G/DL (13.3-17.7); LYMPHOCYTES # (AUTO) 1.2 X 10^3 (1.0-4.0); LYMPHOCYTES % (AUTO) 21 % (12-44); MEAN CORPUSCULAR HEMOGLOBIN 31 PG (25-34); MEAN CORPUSCULAR HGB CONC 34 G/DL (32-36); MEAN CORPUSCULAR VOLUME 91 FL (80-99); MONOCYTES # (AUTO) 0.4 X 10^3 (0.0-1.0); MONOCYTES % (AUTO) 8 % (0-12); NEUTROPHILS # (AUTO) 3.5 X 10^3 (1.8-7.8); NEUTROPHILS % (AUTO) 64 % (42-75); PLATELET COUNT 193 10^3/uL (130-400); RED CELL DISTRIBUTION WIDTH 13.9 % (10.0-14.5); WHITE BLOOD COUNT 5.4 10^3/uL (4.3-11.0)
[2019-10-30 15:21] LABS: CHLORIDE 103 MMOL/L (98-107); SODIUM 141 MMOL/L (135-145)
[2019-10-30 15:23] LABS: CALCIUM 9.3 MG/DL (8.5-10.1)
[2019-10-30 15:24] LABS: GLUCOSE 108 MG/DL (70-105); TOTAL PROTEIN 7.7 GM/DL (6.4-8.2)
[2019-10-30 15:25] LABS: BILIRUBIN,TOTAL 0.6 MG/DL (0.1-1.0); CARBON DIOXIDE 27 MMOL/L (21-32)
[2019-10-30 15:27] LABS: ALKALINE PHOSPHATASE 97 U/L (40-136); CREATININE SERUM 0.82 MG/DL (0.60-1.30); GFR ESTIMATED > 60
[2019-10-30 15:28] LABS: BUN/CREATININE RATIO 15
[2019-10-30 15:30] LABS: ALANINE AMINOTRANSFERASE 15 U/L (0-55)
== END 2019-12-31 | disposition home or self-care (01) ==
LOC: ONC 13:04
PROVIDERS: ATTEND Internal Medicine Hematology & Oncology
DX: Z45.2 Encounter for adjustment and management of vascular access device (principal); C32.1 Malignant neoplasm of supraglottis; C77.0 Secondary and unspecified malignant neoplasm of lymph nodes of head, face and neck; C78.00 Secondary malignant neoplasm of unspecified lung; R91.1 Solitary pulmonary nodule; D69.59 Other secondary thrombocytopenia; J44.9 Chronic obstructive pulmonary disease, unspecified; K70.10 Alcoholic hepatitis without ascites; B18.2 Chronic viral hepatitis C; E03.9 Hypothyroidism, unspecified; K22.9 Disease of esophagus, unspecified; Z79.899 Other long term (current) drug therapy; Z87.891 Personal history of nicotine dependence
CPT/HCPCS: 36591; 80053; 83615; 85025; 96523; 99213

== ENCOUNTER → 2020-02-29 | Outpatient (CLI) | payer MEDICARE, OTHER ==
[~2020-02-29] MED LIST changes: +BARIUM SUSPENSION 2.1% (VANILLA SILQ) 450 ML PO ONE; +HOLD METFORMIN - RECEIVED CONTRAST 20 ML VIAL IV SCH; +IOHEXOL 350 MG/ML 100 ML (OMNIPAQUE 350) VIAL IV ONE; +NS 100 ML (IVPB) BAG IV ONE
[2020-02-29] MEDS: CATHETER FLUSH 10 ML SYR IV PRN ×2 (15:26→16:05)
--- NOTE | 2020-02-29 16:02 | Diagnostic Imaging Report ---
PROCEDURE: CT chest with contrast, CT abdomen and pelvis with and without contrast. TECHNIQUE: Pre and post intravenous contrast axial imaging of the abdomen and pelvis and post contrast axial imaging of the chest were performed. Auto Exposure Controls were utilized during the CT exam to meet ALARA standards for radiation dose reduction. INDICATION: Laryngeal carcinoma. This study is performed for follow-up. Correlation is made with prior CT from 10/30/2019. CT CHEST: FINDINGS: A left chest wall port has tip at the SVC-right atrial junction. Postop changes from laryngectomy are noted. No axillary lymphadenopathy is identified. No mediastinal or hilar lymphadenopathy is detected. No pericardial or pleural fluid is detected. Parenchymal evaluation again demonstrates significant emphysematous changes throughout both lungs. Calcified granuloma in the superior segment of right lower lobe is noted. There is some minimal infiltrate or atelectasis in the posterior right lower lobe. No noncalcified mass is detected. IMPRESSION: Minimal infiltrate or atelectasis in right lung base. The study is otherwise stable. No thoracic lymphadenopathy or evidence of pulmonary metastatic disease is identified. CT ABDOMEN AND PELVIS: FINDINGS: A low-density mass near the dome of the right lobe of the liver appears to be similar in size approximately 15 mm. Liver does demonstrate somewhat nodular contour, but no new mass is detected. The gallbladder is unremarkable. No biliary ductal dilatation is seen. Pancreas and spleen are unremarkable. No adrenal mass is detected. Kidneys are stable. Low-density lesion in the lower pole of left kidney is stable and suggestive of a cyst. Aorta is calcified but nonaneurysmal. No central retroperitoneal or mesenteric lymphadenopathy is detected. Small and large bowel loops are normal caliber. There is no obstruction. There is diverticulosis of the sigmoid but no evidence of acute diverticulitis. The bladder and prostate are unremarkable. No pelvic lymphadenopathy is detected. Bilateral fat-containing inguinal hernias are noted. IMPRESSION: 1. Stable right lobe liver dome lesion when compared with study from 10/30/2019. No new liver lesion is detected. 2. No evidence of abdominal or pelvic lymphadenopathy. 3. Uncomplicated diverticulosis. Dictated by: Dictated on workstation # [id number]
== END ==
LOC: RAD 14:50
PROVIDERS: ATTEND Internal Medicine Hematology & Oncology
DX: C32.1 Malignant neoplasm of supraglottis (principal); C78.00 Secondary malignant neoplasm of unspecified lung; B18.2 Chronic viral hepatitis C; K57.30 Diverticulosis of large intestine without perforation or abscess without bleeding; K76.9 Liver disease, unspecified
CPT/HCPCS: 71260; 74178

== ENCOUNTER 2020-04-01 11:25 | Outpatient (RCR) | payer OTHER, MEDICARE ==
[2020-02-29 14:35] LABS: BASOPHILS % (AUTO) 0 % (0-10); EOSINOPHILS # (AUTO) 0.3 10^3/uL (0.0-0.3); EOSINOPHILS % (AUTO) 4 % (0-10); HEMATOCRIT 43 % (40-54); HEMOGLOBIN 14.7 G/DL (13.3-17.7); LYMPHOCYTES # (AUTO) 1.2 X 10^3 (1.0-4.0); LYMPHOCYTES % (AUTO) 17 % (12-44); MEAN CORPUSCULAR HEMOGLOBIN 32 PG (25-34); MEAN CORPUSCULAR HGB CONC 34 G/DL (32-36); MEAN CORPUSCULAR VOLUME 93 FL (80-99); MEAN PLATELET VOLUME 9.6 FL (7.4-10.4); MONOCYTES # (AUTO) 0.6 X 10^3 (0.0-1.0); MONOCYTES % (AUTO) 8 % (0-12); NEUTROPHILS # (AUTO) 4.9 X 10^3 (1.8-7.8); NEUTROPHILS % (AUTO) 70 % (42-75); PLATELET COUNT 190 10^3/uL (130-400)
[2020-02-29 15:01] LABS: ALANINE AMINOTRANSFERASE 18 U/L (0-55); ALBUMIN 3.8 GM/DL (3.2-4.5); ALKALINE PHOSPHATASE 103 U/L (40-136); BILIRUBIN,TOTAL 0.8 MG/DL (0.1-1.0); BUN/CREATININE RATIO 17; CALCIUM 8.5 MG/DL (8.5-10.1); CARBON DIOXIDE 26 MMOL/L (21-32); CHLORIDE 105 MMOL/L (98-107); GFR ESTIMATED > 60; GLUCOSE 110 MG/DL (70-105); POTASSIUM 3.9 MMOL/L (3.6-5.0); SODIUM 140 MMOL/L (135-145); TOTAL PROTEIN 7.3 GM/DL (6.4-8.2)
[~2020-04-01 11:25] MED LIST changes: -BARIUM SUSPENSION 2.1% (VANILLA SILQ) 450 ML PO ONE; -HOLD METFORMIN - RECEIVED CONTRAST 20 ML VIAL IV SCH; -IOHEXOL 350 MG/ML 100 ML (OMNIPAQUE 350) VIAL IV ONE; -NS 100 ML (IVPB) BAG IV ONE
== END 2020-04-03 | disposition home or self-care (01) ==
LOC: ONC 11:25
PROVIDERS: ATTEND Internal Medicine Hematology & Oncology
DX: Z45.2 Encounter for adjustment and management of vascular access device (principal); C32.1 Malignant neoplasm of supraglottis; C77.0 Secondary and unspecified malignant neoplasm of lymph nodes of head, face and neck; C78.00 Secondary malignant neoplasm of unspecified lung; R91.1 Solitary pulmonary nodule; D69.59 Other secondary thrombocytopenia; J44.9 Chronic obstructive pulmonary disease, unspecified; K70.10 Alcoholic hepatitis without ascites; B18.2 Chronic viral hepatitis C; E03.9 Hypothyroidism, unspecified; K22.9 Disease of esophagus, unspecified; Z79.899 Other long term (current) drug therapy; Z87.891 Personal history of nicotine dependence; Z92.3 Personal history of irradiation
CPT/HCPCS: 36591; 80053; 85025; 96523; 99213

== ENCOUNTER → 2020-05-19 | Outpatient (CLI) | payer OTHER ==
[~2020-05-19] MED LIST changes: +HOLD METFORMIN - RECEIVED CONTRAST 20 ML VIAL IV SCH; +IOHEXOL 350 MG/ML 100 ML (OMNIPAQUE 350) VIAL IV ONE; +NS 100 ML (IVPB) BAG IV ONE
--- NOTE | 2020-05-19 12:50 | Diagnostic Imaging Report ---
PROCEDURE: CT chest with contrast, CT abdomen with and without contrast. TECHNIQUE: Precontrast acquisitions were acquired through the abdomen. Multiple contiguous axial images were obtained through the chest and abdomen after administration of intravenous contrast. Auto Exposure Controls were utilized during the CT exam to meet ALARA standards for radiation dose reduction. INDICATION: Laryngeal carcinoma, follow-up. COMPARISON: Correlation is made with prior CT chest and abdomen study from 02/29/2020. FINDINGS: CT chest: A left chest wall port remains in place. The tip enters the right atrium. No axillary lymphadenopathy is identified. No mediastinal or hilar lymphadenopathy is detected. There is no pericardial or pleural fluid detected. Emphysematous changes throughout both lungs persists. The calcified granuloma in superior segment of right lower lobe is again seen. There is a slightly nodular subpleural opacity in the posterior right lower lobe measuring 7 mm in size. This may represent an area of minimal infiltrate or scarring, although continued close follow-up is recommended. Left lung is clear. IMPRESSION: 1. No evidence of thoracic lymphadenopathy. 2. Subpleural nodular opacity in right lower lobe. Continued close interval follow-up is recommended to confirm stability. CT abdomen: Vague low-density opacity in the dome of the right lobe of the liver is again noted measuring approximately 12 mm compared with 15 mm on prior. There is a somewhat lobulated contour to the liver. No other liver lesion is seen. The gallbladder is unremarkable. No biliary ductal dilatation is seen. Pancreas and spleen are unremarkable. No adrenal mass is detected. Kidneys are stable. Aorta is heavily calcified but not aneurysmal. No central, retroperitoneal or mesenteric lymphadenopathy is identified. Visualized bowel loops are normal caliber. No obstruction is seen. There is no free fluid or fluid collection. There are diverticuli within the descending colon. The bony structures are unremarkable. IMPRESSION: 1. Stable CT abdomen since exam from 02/29/2020. Liver dome lesion appears stable. Lobulated contour to the liver persists, perhaps owing to cirrhosis. No other significant abnormality is identified. Dictated by: Dictated on workstation # [id number]
== END ==
LOC: RAD 11:15
PROVIDERS: ATTEND Internal Medicine Hematology & Oncology
DX: C32.9 Malignant neoplasm of larynx, unspecified (principal); C78.00 Secondary malignant neoplasm of unspecified lung
CPT/HCPCS: 71260; 74170

== ENCOUNTER 2020-06-16 14:10 | Outpatient (RCR) | payer OTHER ==
[2020-05-19 11:31] LABS: BASOPHILS # (AUTO) 0.1 10^3/uL (0.0-0.1); BASOPHILS % (AUTO) 1 % (0-10); EOSINOPHILS # (AUTO) 0.3 10^3/uL (0.0-0.3); EOSINOPHILS % (AUTO) 2 % (0-10); HEMATOCRIT 48 % (40-54); HEMOGLOBIN 16.2 g/dL (13.3-17.7); LYMPHOCYTES # (AUTO) 1.6 10^3/uL (1.0-4.0); LYMPHOCYTES % (AUTO) 14 % (12-44); MEAN CORPUSCULAR HEMOGLOBIN 31 pg (25-34); MEAN CORPUSCULAR HGB CONC 34 g/dL (32-36); MEAN CORPUSCULAR VOLUME 92 fL (80-99); MEAN PLATELET VOLUME 9.4 fL (9.0-12.2); MONOCYTES # (AUTO) 0.7 10^3/uL (0.0-1.0); MONOCYTES % (AUTO) 7 % (0-12); NEUTROPHILS # (AUTO) 8.2 10^3/uL (1.8-7.8); NEUTROPHILS % (AUTO) 76 % (42-75); PLATELET COUNT 220 10^3/uL (130-400); WHITE BLOOD COUNT 10.9 10^3/uL (4.3-11.0)
[2020-05-19 11:52] LABS: ALANINE AMINOTRANSFERASE 23 U/L (0-55); ALBUMIN 4.1 GM/DL (3.2-4.5); ALKALINE PHOSPHATASE 102 U/L (40-136); BUN/CREATININE RATIO 14; CALCIUM 9.1 MG/DL (8.5-10.1); CARBON DIOXIDE 24 MMOL/L (21-32); CHLORIDE 104 MMOL/L (98-107); CREATININE SERUM 0.78 MG/DL (0.60-1.30); GFR ESTIMATED > 60; GLUCOSE 141 MG/DL (70-105); POTASSIUM 3.3 MMOL/L (3.6-5.0); SODIUM 142 MMOL/L (135-145); TOTAL PROTEIN 7.8 GM/DL (6.4-8.2)
[~2020-06-16 14:10] MED LIST changes: -HOLD METFORMIN - RECEIVED CONTRAST 20 ML VIAL IV SCH; -IOHEXOL 350 MG/ML 100 ML (OMNIPAQUE 350) VIAL IV ONE; -NS 100 ML (IVPB) BAG IV ONE
== END 2020-07-12 14:59 | disposition home or self-care (01) ==
LOC: ONC 14:10
PROVIDERS: ATTEND Internal Medicine Hematology & Oncology
DX: Z45.2 Encounter for adjustment and management of vascular access device (principal); C32.1 Malignant neoplasm of supraglottis; C77.0 Secondary and unspecified malignant neoplasm of lymph nodes of head, face and neck; C78.00 Secondary malignant neoplasm of unspecified lung; R91.1 Solitary pulmonary nodule; D69.59 Other secondary thrombocytopenia; J44.9 Chronic obstructive pulmonary disease, unspecified; K70.10 Alcoholic hepatitis without ascites; B18.2 Chronic viral hepatitis C; E03.9 Hypothyroidism, unspecified; K22.9 Disease of esophagus, unspecified; Z79.899 Other long term (current) drug therapy; Z87.891 Personal history of nicotine dependence; Z92.3 Personal history of irradiation
CPT/HCPCS: 36591; 80053; 84443; 85025; 96523; 99213

== ENCOUNTER 2020-09-14 13:19 | Outpatient (RCR) | payer OTHER | END 2020-10-13 | disposition home or self-care (01) | LOC: ONC 13:19 | PROVIDERS: ATTEND Internal Medicine Hematology & Oncology | DX: Z45.2 Encounter for adjustment and management of vascular access device (principal); C32.1 Malignant neoplasm of supraglottis; C77.0 Secondary and unspecified malignant neoplasm of lymph nodes of head, face and neck; C78.00 Secondary malignant neoplasm of unspecified lung; D69.59 Other secondary thrombocytopenia; J44.9 Chronic obstructive pulmonary disease, unspecified; K70.10 Alcoholic hepatitis without ascites; B18.2 Chronic viral hepatitis C; E03.9 Hypothyroidism, unspecified; K22.9 Disease of esophagus, unspecified; R91.1 Solitary pulmonary nodule; Z79.899 Other long term (current) drug therapy; Z87.891 Personal history of nicotine dependence; Z92.3 Personal history of irradiation | CPT/HCPCS: 96523 ==

== ENCOUNTER 2020-12-22 11:14 | Outpatient (RCR) | payer OTHER ==
[2020-11-24 10:52] LABS: BASOPHILS # (AUTO) 0.1 10^3/uL (0.0-0.1); BASOPHILS % (AUTO) 1 % (0-10); EOSINOPHILS # (AUTO) 0.3 10^3/uL (0.0-0.3); EOSINOPHILS % (AUTO) 3 % (0-10); HEMATOCRIT 46 % (40-54); HEMOGLOBIN 15.6 g/dL (13.3-17.7); LYMPHOCYTES # (AUTO) 1.7 10^3/uL (1.0-4.0); LYMPHOCYTES % (AUTO) 18 % (12-44); MEAN CORPUSCULAR HEMOGLOBIN 32 pg (25-34); MEAN CORPUSCULAR HGB CONC 34 g/dL (32-36); MEAN CORPUSCULAR VOLUME 94 fL (80-99); MEAN PLATELET VOLUME 8.9 fL (9.0-12.2); MONOCYTES # (AUTO) 0.7 10^3/uL (0.0-1.0); MONOCYTES % (AUTO) 8 % (0-12); NEUTROPHILS # (AUTO) 6.3 10^3/uL (1.8-7.8); NEUTROPHILS % (AUTO) 69 % (42-75); PLATELET COUNT 220 10^3/uL (130-400); WHITE BLOOD COUNT 9.2 10^3/uL (4.3-11.0)
[2020-11-24 11:10] LABS: ALANINE AMINOTRANSFERASE 14 U/L (0-55); ALKALINE PHOSPHATASE 114 U/L (40-136); BILIRUBIN,TOTAL 0.8 MG/DL (0.1-1.0); BUN/CREATININE RATIO 13; CALCIUM 8.4 MG/DL (8.5-10.1); CARBON DIOXIDE 29 MMOL/L (21-32); CHLORIDE 104 MMOL/L (98-107); CREATININE SERUM 0.77 MG/DL (0.60-1.30); GFR ESTIMATED > 60; GLUCOSE 80 MG/DL (70-105); POTASSIUM 3.9 MMOL/L (3.6-5.0); SODIUM 140 MMOL/L (135-145); TOTAL PROTEIN 7.8 GM/DL (6.4-8.2)
[~2020-12-22 11:14] MED LIST changes: +ACET160E28 GT; -ACET160E50 GT; -OMEP40CA27 GT; +OMEP40CA6 GT; -SULF1TAB35 PO; +SULF1TAB38 PO
== END 2021-01-18 | disposition home or self-care (01) ==
LOC: ONC 11:14
PROVIDERS: ATTEND Internal Medicine Hematology & Oncology
DX: Z45.2 Encounter for adjustment and management of vascular access device (principal); C32.1 Malignant neoplasm of supraglottis; C77.0 Secondary and unspecified malignant neoplasm of lymph nodes of head, face and neck; C78.00 Secondary malignant neoplasm of unspecified lung; D69.59 Other secondary thrombocytopenia; J44.9 Chronic obstructive pulmonary disease, unspecified; K70.10 Alcoholic hepatitis without ascites; B18.2 Chronic viral hepatitis C; E03.9 Hypothyroidism, unspecified; K22.9 Disease of esophagus, unspecified; R91.1 Solitary pulmonary nodule; Z79.899 Other long term (current) drug therapy; Z87.891 Personal history of nicotine dependence; Z92.3 Personal history of irradiation
CPT/HCPCS: 36591; 80053; 85025; 96523

== ENCOUNTER → 2021-02-16 | Outpatient (CLI) | payer OTHER ==
[~2021-02-16] MED LIST changes: +HOLD METFORMIN - RECEIVED CONTRAST 20 ML VIAL IV SCH; +IOHEXOL 350 MG/ML 100 ML (OMNIPAQUE 350) VIAL IV ONE; +NS 100 ML (IVPB) BAG IV ONE; -OLAN5TAB25 JT; +OLN5T JT
--- NOTE | 2021-02-16 10:42 | Diagnostic Imaging Report ---
EXAMINATION: CT neck, chest and abdomen with contrast. TECHNIQUE: Multiple contiguous axial images were obtained through the neck, chest, and abdomen after the uneventful administration of intravenous contrast. All CT scans use one or more of the following dose optimizing techniques: automated exposure control, MA and/or KvP adjustment based on patient size and exam type or iterative reconstruction. HISTORY: Malignant neoplasm of the supraglottis. COMPARISON: 05/19/2020 FINDINGS: Neck CT: Scattered subcentimeter lymph nodes are seen in the neck. None are pathologically enlarged or abnormally enhancing. There are postsurgical changes of laryngeal resection and flap reconstruction. There is no evidence of local recurrence. There is a tracheostomy. There is a tracheoesophageal prosthesis. Vessels of the neck demonstrate normal course and caliber. The visualized airway is widely patent. The base of the skull and the temporal bones are normal. Limited views of the brain including the cerebellum and brainstem are normal. The limited view of the [place] is unremarkable. The visualized portions of the orbits are normal. The spinal canal is normal in caliber. Intervertebral disk heights are normal. Neural foramina are normal. Chest CT: The lungs are clear without edema or pneumonia. No pleural effusion or pneumothorax. No suspicious nodules. Lungs are moderately emphysematous. There is no axillary or supraclavicular lymphadenopathy. There is no mediastinal lymphadenopathy. Port catheter is present. Heart size is normal. There are mild coronary artery calcifications. No pericardial effusion. Aorta is normal in caliber. Abdomen CT: There is continuous peripheral enhancement of a 2.8 x 2.4 cm lesion in hepatic segment 4A/8. It previously measured 1.8 x 2.4 cm. There is no clear washout on the delayed images. Liver is cirrhotic. There is no biliary ductal dilation. Gallbladder is normal. Pancreas is normal. Spleen is normal. Adrenal glands are normal. The kidneys are normal. There is no hydronephrosis. Visualized bowel is normal in caliber without obstruction or inflammation. No free fluid or air. No abdominal lymphadenopathy. Aorta is normal in caliber without aneurysm. There are no suspicious osseous lesions. IMPRESSION: 1. Increase in size of continuous peripheral enhancing liver lesion in segment 8/4A. This is highly concerning for hepatocellular carcinoma and a dedicated liver protocol CT or MRI is recommended for definitive diagnosis. 2. Postsurgical changes in the neck without metastatic disease seen. Dictated by: Dictated on workstation # [id number]
== END ==
LOC: RAD 09:45
PROVIDERS: ATTEND Internal Medicine Hematology & Oncology
DX: C32.1 Malignant neoplasm of supraglottis (principal)
CPT/HCPCS: 70491; 71260; 74160

== ENCOUNTER → 2021-02-28 | Outpatient (CLI) | payer OTHER ==
[~2021-02-28] MED LIST changes: +GADOBUTROL 10 MMOL/10 ML (GADAVIST) VIAL IV ONE; -HOLD METFORMIN - RECEIVED CONTRAST 20 ML VIAL IV SCH; -IOHEXOL 350 MG/ML 100 ML (OMNIPAQUE 350) VIAL IV ONE; -NS 100 ML (IVPB) BAG IV ONE
--- NOTE | 2021-02-28 12:04 | Diagnostic Imaging Report ---
EXAMINATION: MRI of the abdomen with and without contrast. TECHNIQUE: Multiplanar, multisequence MR images of the abdomen were obtained with and without intravenous contrast. HISTORY: Liver mass COMPARISON: CT dated 02/16/2021 FINDINGS: Liver is cirrhotic. In segment 8/4A there is a targetoid/rim enhancing lesion without clear washout measuring 2.8 x 2.4 cm. The T2 signal is intermediate and there is strong diffusion restriction. The postcontrast images are difficult to interpret due to poor breath holding. No other lesions are seen in the liver. The overall characterization is LR-M. The gallbladder contains stones. There is no biliary ductal dilation. Pancreas is normal. The pancreatic duct is normal. Spleen is normal. Adrenal glands are normal. There is a cyst in the left kidney. No suspicious renal lesions. There is no hydronephrosis. Visualized bowel is normal. No lymphadenopathy is seen. Lung bases are clear. No osseus lesions are seen. IMPRESSION: 1. Segment 8/4A liver lesion is categorized as LR-M (probably malignant but not specifically hepatocellular carcinoma). Differential includes intrahepatic cholangiocarcinoma and biphenotypic tumor. Dictated by: Dictated on workstation # [id number]
== END ==
LOC: RAD 10:15
PROVIDERS: ATTEND Internal Medicine Hematology & Oncology
DX: C22.1 Intrahepatic bile duct carcinoma (principal); R16.0 Hepatomegaly, not elsewhere classified
CPT/HCPCS: 74183

== ENCOUNTER 2021-04-13 13:11 | Outpatient (RCR) | payer OTHER ==
[2021-02-16 09:06] LABS: BASOPHILS # (AUTO) 0.1 10^3/uL (0.0-0.1); BASOPHILS % (AUTO) 1 % (0-10); EOSINOPHILS # (AUTO) 0.2 10^3/uL (0.0-0.3); EOSINOPHILS % (AUTO) 3 % (0-10); HEMATOCRIT 47 % (40-54); HEMOGLOBIN 16.2 g/dL (13.3-17.7); LYMPHOCYTES # (AUTO) 1.7 10^3/uL (1.0-4.0); LYMPHOCYTES % (AUTO) 23 % (12-44); MEAN CORPUSCULAR HEMOGLOBIN 32 pg (25-34); MEAN CORPUSCULAR HGB CONC 34 g/dL (32-36); MEAN CORPUSCULAR VOLUME 93 fL (80-99); MEAN PLATELET VOLUME 9.3 fL (9.0-12.2); MONOCYTES # (AUTO) 0.5 10^3/uL (0.0-1.0); MONOCYTES % (AUTO) 6 % (0-12); NEUTROPHILS # (AUTO) 4.9 10^3/uL (1.8-7.8); NEUTROPHILS % (AUTO) 67 % (42-75); PLATELET COUNT 211 10^3/uL (130-400); WHITE BLOOD COUNT 7.3 10^3/uL (4.3-11.0)
[2021-02-16 09:36] LABS: POTASSIUM 3.6 MMOL/L (3.6-5.0)
[2021-02-16 09:37] LABS: ALBUMIN 3.9 GM/DL (3.2-4.5); BILIRUBIN,TOTAL 0.8 MG/DL (0.1-1.0); CALCIUM 9.3 MG/DL (8.5-10.1); CREATININE SERUM 0.81 MG/DL (0.60-1.30); TOTAL PROTEIN 7.6 GM/DL (6.4-8.2)
[2021-02-28 09:46] LABS: PROTHROMBIN TIME PATIENT 13.4 SEC (12.2-14.7)
[~2021-04-13 13:11] MED LIST changes: -GADOBUTROL 10 MMOL/10 ML (GADAVIST) VIAL IV ONE
== END 2021-04-19 | disposition home or self-care (01) ==
LOC: ONC 13:11
PROVIDERS: ATTEND Internal Medicine Hematology & Oncology
DX: Z45.2 Encounter for adjustment and management of vascular access device (principal); C32.1 Malignant neoplasm of supraglottis; C78.00 Secondary malignant neoplasm of unspecified lung; D69.59 Other secondary thrombocytopenia; K70.10 Alcoholic hepatitis without ascites; B18.2 Chronic viral hepatitis C; J98.11 Atelectasis; K74.60 Unspecified cirrhosis of liver; J43.1 Panlobular emphysema; Z79.899 Other long term (current) drug therapy; Z87.891 Personal history of nicotine dependence; Z92.3 Personal history of irradiation; Z92.21 Personal history of antineoplastic chemotherapy; Z98.890 Other specified postprocedural states
CPT/HCPCS: 36591; 80053; 82105; 83615; 85025; 85610; 85730; 96523; 99213

== ENCOUNTER → 2021-05-17 | Outpatient (CLI) | payer MEDICARE ==
[2021-05-17 13:51] LABS: BASOPHILS # (AUTO) 0.1 10^3/uL (0.0-0.1); BASOPHILS % (AUTO) 1 % (0-10); EOSINOPHILS # (AUTO) 0.2 10^3/uL (0.0-0.3); EOSINOPHILS % (AUTO) 4 % (0-10); HEMATOCRIT 45 % (40-54); HEMOGLOBIN 15.3 g/dL (13.3-17.7); LYMPHOCYTES # (AUTO) 1.3 X 10^3 (1.0-4.0); LYMPHOCYTES % (AUTO) 23 % (12-44); MEAN CORPUSCULAR HEMOGLOBIN 32 pg (25-34); MEAN CORPUSCULAR HGB CONC 34 g/dL (32-36); MEAN CORPUSCULAR VOLUME 93 fL (80-99); MEAN PLATELET VOLUME 9.2 fL (9.0-12.2); MONOCYTES # (AUTO) 0.4 X 10^3 (0.0-1.0); MONOCYTES % (AUTO) 7 % (0-12); NEUTROPHILS # (AUTO) 3.5 X 10^3 (1.8-7.8); NEUTROPHILS % (AUTO) 64 % (42-75); PLATELET COUNT 195 10^3/uL (130-400); WHITE BLOOD COUNT 5.5 10^3/uL (4.3-11.0)
[2021-05-17 14:04] LABS: ALBUMIN 4.1 GM/DL (3.2-4.5); POTASSIUM 4.5 MMOL/L (3.6-5.0)
[2021-05-17 14:05] LABS: PROTHROMBIN TIME PATIENT 13.2 SEC (12.2-14.7)
[2021-05-17 14:07] LABS: TOTAL PROTEIN 7.4 GM/DL (6.4-8.2)
[2021-05-17 14:08] LABS: BILIRUBIN,TOTAL 0.8 MG/DL (0.1-1.0)
[2021-05-17 14:10] LABS: CREATININE SERUM 0.73 MG/DL (0.60-1.30)
== END ==
LOC: LAB 13:29
PROVIDERS: ATTEND Internal Medicine Gastroenterology
DX: K74.60 Unspecified cirrhosis of liver (principal)
CPT/HCPCS: 36415; 80053; 82105; 82378; 85025; 85610

== ENCOUNTER → 2021-06-13 | Outpatient (CLI) | payer OTHER ==
[~2021-06-13] MED LIST changes: +GADOTERATE 0.5 MMOL/ML (CLARISCAN) 20 ML VIAL IV ONE
--- NOTE | 2021-06-13 14:23 | Diagnostic Imaging Report ---
EXAMINATION: MRI of the abdomen with and without contrast. TECHNIQUE: Multiplanar, multisequence MR images of the abdomen were obtained with and without intravenous contrast. HISTORY: Cirrhosis, liver lesion on prior MRI. COMPARISON: 02/28/2021 FINDINGS: The liver is cirrhotic. The lesion in segment 8/4 has increased in size measuring 3.5 x 3.2 cm previously 2.8 x 2.4 cm. There is peripheral rim enhancement. No washout. Patient was unable to cooperate with breath-holding limiting evaluation. There is no hepatic steatosis. The gallbladder contains stones.. There is no biliary ductal dilation. Pancreas is normal. The pancreatic duct is normal. Spleen is normal. Adrenal glands are normal. Simple cysts are present in the kidneys. There is no hydronephrosis. Visualized bowel is normal. No lymphadenopathy is seen. Lung bases are clear. No osseus lesions are seen. IMPRESSION: 1. Increase in size of malignant appearing lesion in segment 8/4A measuring 3.5 x 3.2 cm previously 2.8 x 2.4 cm. Dictated by: Dictated on workstation # [id number]
== END ==
LOC: RAD 13:15
PROVIDERS: ATTEND Internal Medicine Gastroenterology
DX: K74.60 Unspecified cirrhosis of liver (principal); K76.9 Liver disease, unspecified
CPT/HCPCS: 74183

== ENCOUNTER 2021-06-19 10:32 | Outpatient (RCR) | payer OTHER ==
[~2021-06-19 10:32] MED LIST changes: -GADOTERATE 0.5 MMOL/ML (CLARISCAN) 20 ML VIAL IV ONE
[2021-06-19 11:12] LABS: BASOPHILS # (AUTO) 0.1 10^3/uL (0.0-0.1); BASOPHILS % (AUTO) 1 % (0-10); EOSINOPHILS # (AUTO) 0.2 10^3/uL (0.0-0.3); EOSINOPHILS % (AUTO) 3 % (0-10); HEMATOCRIT 47 % (40-54); LYMPHOCYTES # (AUTO) 1.3 10^3/uL (1.0-4.0); LYMPHOCYTES % (AUTO) 18 % (12-44); MEAN CORPUSCULAR HEMOGLOBIN 31 pg (25-34); MEAN CORPUSCULAR HGB CONC 34 g/dL (32-36); MEAN CORPUSCULAR VOLUME 90 fL (80-99); MEAN PLATELET VOLUME 9.6 fL (9.0-12.2); MONOCYTES # (AUTO) 0.5 10^3/uL (0.0-1.0); MONOCYTES % (AUTO) 7 % (0-12); NEUTROPHILS # (AUTO) 4.9 10^3/uL (1.8-7.8); NEUTROPHILS % (AUTO) 70 % (42-75); PLATELET COUNT 197 10^3/uL (130-400); WHITE BLOOD COUNT 6.9 10^3/uL (4.3-11.0)
[2021-06-19 11:28] LABS: BILIRUBIN,TOTAL 0.8 MG/DL (0.1-1.0); CALCIUM 9.1 MG/DL (8.5-10.1); CREATININE SERUM 0.75 MG/DL (0.60-1.30); POTASSIUM 3.7 MMOL/L (3.6-5.0); TOTAL PROTEIN 7.5 GM/DL (6.4-8.2)
== END 2021-07-07 | disposition home or self-care (01) ==
LOC: ONC 10:32
PROVIDERS: ATTEND Internal Medicine Hematology & Oncology
DX: Z45.2 Encounter for adjustment and management of vascular access device (principal); C32.1 Malignant neoplasm of supraglottis; C78.7 Secondary malignant neoplasm of liver and intrahepatic bile duct; C78.00 Secondary malignant neoplasm of unspecified lung; D69.59 Other secondary thrombocytopenia; K70.10 Alcoholic hepatitis without ascites; B18.2 Chronic viral hepatitis C; J98.11 Atelectasis; K74.60 Unspecified cirrhosis of liver; J43.1 Panlobular emphysema; Z79.899 Other long term (current) drug therapy; Z87.891 Personal history of nicotine dependence; Z92.3 Personal history of irradiation; Z92.21 Personal history of antineoplastic chemotherapy; Z98.890 Other specified postprocedural states
CPT/HCPCS: 36591; 80053; 85025; 96523; 99213

== ENCOUNTER 2021-08-21 13:11 | Outpatient (RCR) | payer OTHER ==
[2021-08-21 13:57] LABS: BASOPHILS # (AUTO) 0.1 10^3/uL (0.0-0.1); BASOPHILS % (AUTO) 1 % (0-10); EOSINOPHILS # (AUTO) 0.3 10^3/uL (0.0-0.3); EOSINOPHILS % (AUTO) 4 % (0-10); HEMATOCRIT 49 % (40-54); HEMOGLOBIN 16.6 g/dL (13.3-17.7); LYMPHOCYTES # (AUTO) 1.3 10^3/uL (1.0-4.0); LYMPHOCYTES % (AUTO) 16 % (12-44); MEAN CORPUSCULAR HEMOGLOBIN 31 pg (25-34); MEAN CORPUSCULAR HGB CONC 34 g/dL (32-36); MEAN CORPUSCULAR VOLUME 91 fL (80-99); MEAN PLATELET VOLUME 9.3 fL (9.0-12.2); MONOCYTES # (AUTO) 0.5 10^3/uL (0.0-1.0); MONOCYTES % (AUTO) 7 % (0-12); NEUTROPHILS # (AUTO) 5.8 10^3/uL (1.8-7.8); NEUTROPHILS % (AUTO) 72 % (42-75); PLATELET COUNT 207 10^3/uL (130-400); WHITE BLOOD COUNT 8.1 10^3/uL (4.3-11.0)
[2021-08-21 14:21] LABS: CREATININE SERUM 0.77 MG/DL (0.60-1.30); POTASSIUM 3.7 MMOL/L (3.6-5.0)
[2021-08-21 14:22] LABS: ALBUMIN 4.2 GM/DL (3.2-4.5); BILIRUBIN,TOTAL 0.8 MG/DL (0.1-1.0); CALCIUM 9.2 MG/DL (8.5-10.1); TOTAL PROTEIN 8.2 GM/DL (6.4-8.2)
== END 2021-09-04 | disposition home or self-care (01) ==
LOC: ONC 13:11
PROVIDERS: ATTEND Internal Medicine Hematology & Oncology
DX: Z45.2 Encounter for adjustment and management of vascular access device (principal); C32.1 Malignant neoplasm of supraglottis; C78.7 Secondary malignant neoplasm of liver and intrahepatic bile duct; C78.00 Secondary malignant neoplasm of unspecified lung; K76.0 Fatty (change of) liver, not elsewhere classified; J43.9 Emphysema, unspecified; B18.2 Chronic viral hepatitis C; Z79.899 Other long term (current) drug therapy; Z87.891 Personal history of nicotine dependence; Z92.3 Personal history of irradiation; Z92.21 Personal history of antineoplastic chemotherapy; Z98.890 Other specified postprocedural states
CPT/HCPCS: 80053; 85025; 96523; 99213

== ENCOUNTER 2021-09-21 13:23 | Outpatient (RCR) | payer OTHER | END 2021-10-05 | disposition home or self-care (01) | LOC: ONC 13:23 | PROVIDERS: ATTEND Internal Medicine Hematology & Oncology | DX: Z45.2 Encounter for adjustment and management of vascular access device (principal); C32.1 Malignant neoplasm of supraglottis; C78.7 Secondary malignant neoplasm of liver and intrahepatic bile duct; C78.00 Secondary malignant neoplasm of unspecified lung; K76.0 Fatty (change of) liver, not elsewhere classified; J43.9 Emphysema, unspecified; B18.2 Chronic viral hepatitis C; Z79.899 Other long term (current) drug therapy; Z87.891 Personal history of nicotine dependence; Z92.3 Personal history of irradiation; Z92.21 Personal history of antineoplastic chemotherapy; Z98.890 Other specified postprocedural states | CPT/HCPCS: 96523 ==

== ENCOUNTER 2021-10-27 10:39 | Outpatient (RCR) | payer OTHER ==
[2021-10-27 10:54] LABS: BASOPHILS # (AUTO) 0.1 10^3/uL (0.0-0.1); BASOPHILS % (AUTO) 1 % (0-10); EOSINOPHILS # (AUTO) 0.2 10^3/uL (0.0-0.3); EOSINOPHILS % (AUTO) 4 % (0-10); HEMATOCRIT 40 % (40-54); HEMOGLOBIN 13.6 g/dL (13.3-17.7); LYMPHOCYTES # (AUTO) 1.3 10^3/uL (1.0-4.0); LYMPHOCYTES % (AUTO) 22 % (12-44); MEAN CORPUSCULAR HEMOGLOBIN 32 pg (25-34); MEAN CORPUSCULAR HGB CONC 34 g/dL (32-36); MEAN CORPUSCULAR VOLUME 93 fL (80-99); MEAN PLATELET VOLUME 9.3 fL (9.0-12.2); MONOCYTES # (AUTO) 0.4 10^3/uL (0.0-1.0); MONOCYTES % (AUTO) 6 % (0-12); NEUTROPHILS # (AUTO) 3.9 10^3/uL (1.8-7.8); NEUTROPHILS % (AUTO) 67 % (42-75); PLATELET COUNT 176 10^3/uL (130-400); WHITE BLOOD COUNT 5.8 10^3/uL (4.3-11.0)
[2021-10-27 11:21] LABS: ALBUMIN 3.6 GM/DL (3.2-4.5); BILIRUBIN,TOTAL 0.5 MG/DL (0.1-1.0); CREATININE SERUM 0.73 MG/DL (0.60-1.30); POTASSIUM 3.5 MMOL/L (3.6-5.0); TOTAL PROTEIN 6.8 GM/DL (6.4-8.2)
== END 2021-11-04 | disposition home or self-care (01) ==
LOC: ONC 10:39
PROVIDERS: ATTEND Internal Medicine Hematology & Oncology
DX: C32.1 Malignant neoplasm of supraglottis (principal); C78.7 Secondary malignant neoplasm of liver and intrahepatic bile duct; C78.00 Secondary malignant neoplasm of unspecified lung; K76.0 Fatty (change of) liver, not elsewhere classified; J43.9 Emphysema, unspecified; Z79.899 Other long term (current) drug therapy; Z87.891 Personal history of nicotine dependence; Z92.3 Personal history of irradiation; Z92.21 Personal history of antineoplastic chemotherapy; Z98.890 Other specified postprocedural states
CPT/HCPCS: 80053; 85025

== ENCOUNTER 2021-11-01 14:02 | Emergency (ER) | payer OTHER ==
[~2021-11-01] VITALS: Ht 185 cm; Wt 90.0 kg
--- NOTE | 2021-11-01 14:50 | ED EENT ---
History of Present Illness General Chief Complaint: Foreign Body Stated Complaint: MISSING TEP Nursing Triage Note: Pt had TEP surgically implanted in neck for speech. It is no longer visable. Adviced by Doctor at to obtain an xray to make sure it is not in the lungs. Source: patient, family History of Present Illness Date Seen by Provider: Nov 01, 2021 Time Seen by Provider: 14:21 Initial Comments This is a well appearing 65 yo male who presented to the ER via POV with spouse for concerns of possibly aspirating on his TEP device. States he had his TEP changed 2 days ago and when the speech therapist went to change device noted his previous TEP was missing. Spouse states she was advised to go to ER at for CXR to see if patient possibly aspirated device. As patient denies cough, sore throat, shortness of breath, chest discomfort she decided to come to local ER for imaging. Allergies and Home Medications Allergies Coded Allergies: No Known Drug Allergies (Unverified , 02/07/17) Patient Home Medication List Home Medication List Reviewed: Yes Diazepam (Diazepam) 10 Mg Tablet, 10 MG PO BID, (Reported) Entered as Reported by: OSMAR NICHOLS on 02/07/17 1237 Gabapentin (Gabapentin) 600 Mg Tablet, 600 MG PO QID, (Reported) Entered as Reported by: CASA JACKSON on 08/15/17 1525 Levothyroxine Sodium (Levothyroxine Sodium) 125 Mcg Tablet, 125 MCG PO DAILY, (Reported) Entered as Reported by: CASA JACKSON on 08/15/17 1525 Oxycodone HCl (Oxycodone HCl) 10 Mg Tablet, 10 MG PO DAILY, (Reported) Entered as Reported by: CASA JACKSON on 08/15/17 1525 Oxycodone HCl/Acetaminophen (Percocet 5-325 mg Tablet) 1 Each Tablet, 1-2 TAB PO Q4H PRN for PAIN-MILD TO MODERATE Prescribed by: CRESENCIO FELDER on 08/21/17 1150 Review of Systems Review of Systems Constitutional: no symptoms reported Eyes: No Symptoms Reported Ears: No Symptoms Reported Nose: no symptoms reported Mouth: no symptoms reported Throat: no symptoms reported Respiratory: no symptoms reported Cardiovascular: no symptoms reported Gastrointestinal: no symptoms reported Musculoskeletal: no symptoms reported Skin: no symptoms reported Neurological: No Symptoms Reported Hematologic/Lymphatic: No Symptoms Reported Immunological/Allergic: no symptoms reported Past Aqrzomo-Alfjgm-Fqvdyz Hx Patient Social History Tobacco Use?: No Use of E-Cig and/or Vaping dev: No Substance use?: No Alcohol Use?: No Pt feels they are or have been: No Immunizations Up To Date Influenza Vaccine Up-to-Date: Yes; Up-to-Date Seasonal Allergies Seasonal Allergies: No Past Medical History Surgeries: Yes (Back surgery, PEG, TEETH PULLED, laryngectomy, radical neck dissection) Tracheostomy Respiratory: Yes COPD Cardiac: No Neurological: No Reproductive Disorders: No Sexually Transmitted Disease: No HIV/AIDS: No Genitourinary: No Gastrointestinal: Yes Hepatitis Musculoskeletal: Yes Chronic Back Pain Endocrine: Yes Hypothyroidsim HEENT: Yes Cataract Loss of Vision: Bilateral Hearing Impairment: Denies Cancer: Yes (Laryngeal) Lung What Type of Treatment Did You: Radiation, Surgical Intervention Psychosocial: No Integumentary: No Blood Disorders: No Adverse Reaction/Blood Tranf: No Family Medical History Diabetes, Lung Disease Physical Exam Height, Weight, BMI Height: 6'1.00" Weight: 188lbs. 0.0oz. [id number]; 26.00 BMI Method:Stated General Appearance: WD/WN, no apparent distress Eyes: bilateral eye normal inspection, bilateral eye EOMI Ears: bilateral ear auricle normal, bilateral ear canal normal Nose: normal inspection; No discharge Mouth/Throat: normal mouth inspection; No excessive drooling, No foreign body; other (TEP at tracheostomy opening, no erythema or swelling. ) Neck: full range of motion, normal inspection Cardiovascular: regular rate, rhythm, no murmur Respiratory: lungs clear, normal breath sounds, no respiratory distress, no accessory muscle use Gastrointestinal: normal bowel sounds, non tender, soft Neurologic/Psychiatric: no motor/sensory deficits, alert, normal mood/affect, oriented x 3 Skin: normal color, warm/dry Progress/Results/Core Measures Results/Orders My Orders Orders - MAR HANSEN APRN Chest 1 View, Ap/Pa Only (11/01/21 14:25) Progress Progress Note : Progress Note Patient has no physical symptoms at this time. CXR neg for aspiration of TEP. Current TEP in place on imaging. Discussed with spouse having CT chest if concern remains for aspiration of device. They declined additional imaging at t his time as he is scheduled for [facility]. Reviewed discharge POC with patient and spouse. They are agreeable with plan. No concerns voiced. Copy of x-ray report given to patient. Diagnostic Imaging Diagonstic Imaging: Xray Plain Films/CT/US/NM/MRI: chest Comments [facility] [place], [place] NAME: OBEY WASHBURN [facility] REC#: [id number] PT STATUS: DEP ER : [id number] PHYSICIAN: MAR HANSEN TEACHERS AIDE ADMIT DATE: 11/01/21/ER Signed Date of Exam:11/01/21 CHEST 1 VIEW, AP/PA ONLY CLINICAL INDICATION: Patient with tracheoesophageal puncture for voice prosthesis surgically implanted in neck for Speech. It is no longer visible. Get x-ray to ensure not in lungs. EXAM: Portable chest x-ray, upright view. COMPARISON: X-ray of the chest dated 08/21/2017. CT scan of the neck, chest, abdomen, and pelvis with contrast dated 02/16/2021. FINDINGS: There is a subtle slightly dense ring seen overlying the upper mediastinal region at the T1-T2 level. This has similar configuration of the TEP seen on the prior CT scan. There is no other unexpected radiodense foreign object seen. There are multiple surgical clips overlying the neck region with the left side more than the right. Calcified granuloma in the right lung base is seen. There is no pleural effusion or pneumothorax. Pulmonary vasculature and cardiac silhouette are within normal limits. Central line is again seen overlying the left chest. Bones show no significant abnormality. IMPRESSION: 1. There is a slightly denser ring overlying the upper mediastinal region at the T1-T2 level, which has similar configuration of the TEP seen on the prior CT scan. There is no unexpected radiodense foreign object. If there is continued concern to evaluate for other abnormality, then CT scan of the neck and chest would better evaluate. 2: There is no radiographic evidence of acute cardiopulmonary process. 3: There is a calcified granuloma in the right lung base. Dictated by: Dictated on workstation # [id number] Dict: 11/01/21 1522 Trans: 11/01/21 1726 [id number] Interpreted by: MIREYA ZALDIVAR MD Electronically signed by: MIREYA ZALDIVAR MD 11/01/21 1726 Reviewed: Reviewed by Me Departure Impression Primary Impression: ENCTR FOR OBS FOR SUSPECTED ASPIRATED (INHALED) FB RULED OUT Disposition: HOME, SELF-CARE Condition: Stable/Unchanged Departure-Patient Inst. Decision time for Depature: 15:46 Referrals: MALACHI STEPHENS MD (PCP/Family) Primary Care Physician Patient Instructions: NO INSTRUCTIONS GIVEN Add. Discharge Instructions: Plan: 1. Send copy of report to [facility]. If there continues to be concern we can always perform CT imaging of neck and chest, however you have elected to decline this today. 2. Return if you develop fever, cough, chest pain, shortness of breath or any other new or concerning symptoms. 3. Return for any new or concerning symptoms. All discharge instructions reviewed with patient and/or family. Voiced understanding. MAR HANSEN TEACHERS AIDE Nov 01, 2021 14:50
--- NOTE | 2021-11-01 15:39 | Diagnostic Imaging Report ---
CLINICAL INDICATION: Patient with tracheoesophageal puncture for voice prosthesis surgically implanted in neck for Speech. It is no longer visible. Get x-ray to ensure not in lungs. EXAM: Portable chest x-ray, upright view. COMPARISON: X-ray of the chest dated 08/21/2017. CT scan of the neck, chest, abdomen, and pelvis with contrast dated 02/16/2021. FINDINGS: There is a subtle slightly dense ring seen overlying the upper mediastinal region at the T1-T2 level. This has similar configuration of the TEP seen on the prior CT scan. There is no other unexpected radiodense foreign object seen. There are multiple surgical clips overlying the neck region with the left side more than the right. Calcified granuloma in the right lung base is seen. There is no pleural effusion or pneumothorax. Pulmonary vasculature and cardiac silhouette are within normal limits. Central line is again seen overlying the left chest. Bones show no significant abnormality. IMPRESSION: 1. There is a slightly denser ring overlying the upper mediastinal region at the T1-T2 level, which has similar configuration of the TEP seen on the prior CT scan. There is no unexpected radiodense foreign object. If there is continued concern to evaluate for other abnormality, then CT scan of the neck and chest would better evaluate. 2: There is no radiographic evidence of acute cardiopulmonary process. 3: There is a calcified granuloma in the right lung base. Dictated by: Dictated on workstation # [id number]
== END 2021-11-01 15:55 | disposition home or self-care (01) ==
LOC: EDUNIT# 14:02 → ER 14:04
DX: Z03.822 Encounter for observation for suspected aspirated (inhaled) foreign body ruled out (principal)
CPT/HCPCS: 71045; 99282

== ENCOUNTER → 2021-12-12 | Outpatient (CLI) | payer OTHER ==
[~2021-12-12] MED LIST changes: +CATHETER FLUSH 10 ML SYR IV PRN; +HOLD METFORMIN - RECEIVED CONTRAST 20 ML VIAL IV SCH; +IOHEXOL 350 MG/ML 100 ML (OMNIPAQUE 350) VIAL IV ONE; +NS 100 ML (IVPB) BAG IV ONE
--- NOTE | 2021-12-12 17:42 | Diagnostic Imaging Report ---
EXAMINATION: CT chest with intravenous contrast, CT abdomen and pelvis without and with intravenous contrast. TECHNIQUE: Pre and post intravenous contrast axial imaging of the abdomen and pelvis and post contrast axial imaging of the chest were performed. All CT scans use one or more of the following dose optimizing techniques: automated exposure control, MA and/or KvP adjustment based on patient size and exam type or iterative reconstruction. HISTORY: Supraglottic cancer COMPARISON: 02/16/2021 FINDINGS: There is no edema or pneumonia. No pleural effusion. No pneumothorax. No suspicious nodules. Tracheostomy device is present. Lungs are severely emphysematous. There is a calcified granuloma in the right lower lobe. There is no axillary or supraclavicular lymphadenopathy. There is no mediastinal lymphadenopathy. . Left-sided Ohah-Z-zrejogdv is present. Heart size is normal. There are mild coronary artery calcifications. No pericardial effusion. Aorta is normal in caliber. The segment 8/4 A liver lesion measures 3.1 x 3.5 cm, previously 2.9 x 3.0 cm. The liver is cirrhotic. There is no biliary ductal dilation. Gallbladder is normal. Pancreas is normal. There is an unchanged chronic subcapsular collection associated with the spleen. Adrenal glands are normal. There is a simple cyst in the left kidney. There is no hydronephrosis. Urinary bladder is normal. Bowel is normal in caliber without obstruction or inflammation. There is diverticulosis without diverticulitis. The appendix is normal. No free fluid or air. No abdominal or pelvic lymphadenopathy. Aorta is normal in caliber without aneurysm. There are no suspicious osseus lesions. IMPRESSION: 1. No metastatic disease in the chest. 2. Increase in size of suspicious segment 8/4 A liver lesion in the setting of cirrhosis. Findings concerning for hepatocellular carcinoma. Dictated by: Dictated on workstation # [id number]
== END ==
LOC: RAD 14:15
PROVIDERS: ATTEND Internal Medicine Hematology & Oncology
DX: C32.1 Malignant neoplasm of supraglottis (principal); K76.9 Liver disease, unspecified
CPT/HCPCS: 36591; 71260; 74178

== ENCOUNTER 2021-12-28 14:42 | Outpatient (RCR) | payer OTHER ==
[2021-12-12 14:38] LABS: BASOPHILS # (AUTO) 0.1 10^3/uL (0.0-0.1); BASOPHILS % (AUTO) 1 % (0-10); EOSINOPHILS # (AUTO) 0.3 10^3/uL (0.0-0.3); EOSINOPHILS % (AUTO) 4 % (0-10); HEMATOCRIT 45 % (40-54); LYMPHOCYTES # (AUTO) 1.3 10^3/uL (1.0-4.0); LYMPHOCYTES % (AUTO) 19 % (12-44); MEAN CORPUSCULAR HEMOGLOBIN 31 pg (25-34); MEAN CORPUSCULAR HGB CONC 34 g/dL (32-36); MEAN CORPUSCULAR VOLUME 93 fL (80-99); MEAN PLATELET VOLUME 9.2 fL (9.0-12.2); MONOCYTES # (AUTO) 0.6 10^3/uL (0.0-1.0); MONOCYTES % (AUTO) 8 % (0-12); NEUTROPHILS # (AUTO) 4.9 10^3/uL (1.8-7.8); NEUTROPHILS % (AUTO) 69 % (42-75); PLATELET COUNT 203 10^3/uL (130-400); WHITE BLOOD COUNT 7.1 10^3/uL (4.3-11.0)
[2021-12-12 15:03] LABS: ALBUMIN 4.1 GM/DL (3.2-4.5); BILIRUBIN,TOTAL 0.8 MG/DL (0.1-1.0); CALCIUM 8.6 MG/DL (8.5-10.1); CREATININE SERUM 0.7 MG/DL (0.60-1.30); POTASSIUM 3.6 MMOL/L (3.6-5.0); TOTAL PROTEIN 7.6 GM/DL (6.4-8.2)
[~2021-12-28] VITALS: Ht 185.4 cm; Wt 85.3 kg
[~2021-12-28 14:42] MED LIST changes: -CATHETER FLUSH 10 ML SYR IV PRN; -HOLD METFORMIN - RECEIVED CONTRAST 20 ML VIAL IV SCH; -IOHEXOL 350 MG/ML 100 ML (OMNIPAQUE 350) VIAL IV ONE; -NS 100 ML (IVPB) BAG IV ONE
[2022-01-02] MEDS ORDERED: HEParin (CENTRAL IV FLUSH) 500 UNIT/5 ML SYR IV PRN (13:45)
[2022-01-02] MEDS ORDERED: PEMBROLIZUMAB 200 MG in NS (IVPB) 50 ML IV SCH (13:45)
[2022-01-02] MEDS ORDERED: NS IV 1000 ML (CANCER CTR) IV SCH (13:45)
== END 2022-01-04 | disposition home or self-care (01) ==
LOC: ONC 14:42
PROVIDERS: ATTEND Internal Medicine Hematology & Oncology
DX: C32.1 Malignant neoplasm of supraglottis (principal); C78.7 Secondary malignant neoplasm of liver and intrahepatic bile duct; C78.00 Secondary malignant neoplasm of unspecified lung; J43.1 Panlobular emphysema; E66.9 Obesity, unspecified; K76.0 Fatty (change of) liver, not elsewhere classified; Z79.899 Other long term (current) drug therapy; Z87.891 Personal history of nicotine dependence; Z92.3 Personal history of irradiation; Z92.21 Personal history of antineoplastic chemotherapy; Z98.890 Other specified postprocedural states
CPT/HCPCS: 80053; 85025; 99213

== ENCOUNTER 2022-01-31 12:59 | Outpatient (RCR) | payer OTHER ==
[2022-01-09 14:09] LABS: BASOPHILS # (AUTO) 0.1 10^3/uL (0.0-0.1); BASOPHILS % (AUTO) 1 % (0-10); EOSINOPHILS # (AUTO) 0.2 10^3/uL (0.0-0.3); EOSINOPHILS % (AUTO) 2 % (0-10); HEMATOCRIT 45 % (40-54); HEMOGLOBIN 15.8 g/dL (13.3-17.7); LYMPHOCYTES % (AUTO) 13 % (12-44); MEAN CORPUSCULAR HEMOGLOBIN 32 pg (25-34); MEAN CORPUSCULAR HGB CONC 35 g/dL (32-36); MEAN CORPUSCULAR VOLUME 91 fL (80-99); MEAN PLATELET VOLUME 9.1 fL (9.0-12.2); MONOCYTES # (AUTO) 0.5 10^3/uL (0.0-1.0); MONOCYTES % (AUTO) 7 % (0-12); NEUTROPHILS # (AUTO) 5.6 10^3/uL (1.8-7.8); NEUTROPHILS % (AUTO) 76 % (42-75); PLATELET COUNT 210 10^3/uL (130-400); WHITE BLOOD COUNT 7.4 10^3/uL (4.3-11.0)
[2022-01-09 14:34] LABS: BILIRUBIN,TOTAL 0.7 MG/DL (0.1-1.0); CALCIUM 9.3 MG/DL (8.5-10.1); CREATININE SERUM 0.76 MG/DL (0.60-1.30); TOTAL PROTEIN 7.6 GM/DL (6.4-8.2)
[~2022-01-31 12:59] MED LIST changes: +HEParin (CENTRAL IV FLUSH) 500 UNIT/5 ML SYR IV PRN; +NS IV 1000 ML (CANCER CTR) IV SCH; +PEMBROLIZUMAB 200 MG in NS (IVPB) 50 ML IV SCH
[2022-01-31 13:39] LABS: BASOPHILS # (AUTO) 0.1 10^3/uL (0.0-0.1); BASOPHILS % (AUTO) 1 % (0-10); EOSINOPHILS # (AUTO) 0.2 10^3/uL (0.0-0.3); EOSINOPHILS % (AUTO) 3 % (0-10); HEMATOCRIT 46 % (40-54); HEMOGLOBIN 15.6 g/dL (13.3-17.7); LYMPHOCYTES # (AUTO) 0.9 10^3/uL (1.0-4.0); LYMPHOCYTES % (AUTO) 12 % (12-44); MEAN CORPUSCULAR HEMOGLOBIN 31 pg (25-34); MEAN CORPUSCULAR HGB CONC 34 g/dL (32-36); MEAN CORPUSCULAR VOLUME 92 fL (80-99); MEAN PLATELET VOLUME 9.2 fL (9.0-12.2); MONOCYTES # (AUTO) 0.5 10^3/uL (0.0-1.0); MONOCYTES % (AUTO) 7 % (0-12); NEUTROPHILS # (AUTO) 5.6 10^3/uL (1.8-7.8); NEUTROPHILS % (AUTO) 77 % (42-75); PLATELET COUNT 209 10^3/uL (130-400); WHITE BLOOD COUNT 7.4 10^3/uL (4.3-11.0)
[2022-01-31] MEDS ORDERED: NS IV 500 ML 500 ML ONE (13:44)
[2022-01-31 13:59] LABS: ALBUMIN 4.1 GM/DL (3.2-4.5); BILIRUBIN,TOTAL 0.8 MG/DL (0.1-1.0); CREATININE SERUM 0.82 MG/DL (0.60-1.30); POTASSIUM 3.8 MMOL/L (3.6-5.0); TOTAL PROTEIN 7.6 GM/DL (6.4-8.2)
== END 2022-02-04 | disposition home or self-care (01) ==
LOC: ONC 12:59
PROVIDERS: ATTEND Internal Medicine Hematology & Oncology
DX: Z51.11 Encounter for antineoplastic chemotherapy (principal); C32.1 Malignant neoplasm of supraglottis; C78.00 Secondary malignant neoplasm of unspecified lung; C76.0 Malignant neoplasm of head, face and neck; E66.9 Obesity, unspecified; Z79.899 Other long term (current) drug therapy; Z98.890 Other specified postprocedural states
CPT/HCPCS: 36591; 80053; 85025; 96413

== ENCOUNTER 2022-02-21 13:02 | Outpatient (RCR) | payer OTHER ==
[~2022-02-21 13:02] MED LIST changes: -NS IV 1000 ML (CANCER CTR) IV SCH; +NS IV 500 ML 500 ML IV SCH
[2022-02-21 13:20] LABS: BASOPHILS # (AUTO) 0.1 10^3/uL (0.0-0.1); BASOPHILS % (AUTO) 1 % (0-10); EOSINOPHILS # (AUTO) 0.3 10^3/uL (0.0-0.3); EOSINOPHILS % (AUTO) 4 % (0-10); HEMATOCRIT 45 % (40-54); HEMOGLOBIN 15.6 g/dL (13.3-17.7); LYMPHOCYTES # (AUTO) 1.4 10^3/uL (1.0-4.0); LYMPHOCYTES % (AUTO) 21 % (12-44); MEAN CORPUSCULAR HEMOGLOBIN 31 pg (25-34); MEAN CORPUSCULAR HGB CONC 35 g/dL (32-36); MEAN CORPUSCULAR VOLUME 90 fL (80-99); MEAN PLATELET VOLUME 9.2 fL (9.0-12.2); MONOCYTES # (AUTO) 0.4 10^3/uL (0.0-1.0); MONOCYTES % (AUTO) 7 % (0-12); NEUTROPHILS # (AUTO) 4.4 10^3/uL (1.8-7.8); NEUTROPHILS % (AUTO) 67 % (42-75); PLATELET COUNT 193 10^3/uL (130-400); WHITE BLOOD COUNT 6.6 10^3/uL (4.3-11.0)
[2022-02-21 13:39] LABS: ALBUMIN 4.2 GM/DL (3.2-4.5); BILIRUBIN,TOTAL 0.7 MG/DL (0.1-1.0); CALCIUM 9.3 MG/DL (8.5-10.1); CREATININE SERUM 0.89 MG/DL (0.60-1.30); POTASSIUM 3.8 MMOL/L (3.6-5.0); TOTAL PROTEIN 7.8 GM/DL (6.4-8.2)
== END 2022-03-07 | disposition home or self-care (01) ==
LOC: ONC 13:02
PROVIDERS: ATTEND Internal Medicine Hematology & Oncology
DX: Z51.11 Encounter for antineoplastic chemotherapy (principal); Z45.2 Encounter for adjustment and management of vascular access device; C32.1 Malignant neoplasm of supraglottis; C78.7 Secondary malignant neoplasm of liver and intrahepatic bile duct; J43.1 Panlobular emphysema; E66.9 Obesity, unspecified; K70.30 Alcoholic cirrhosis of liver without ascites; Z79.899 Other long term (current) drug therapy; Z98.890 Other specified postprocedural states; Z92.3 Personal history of irradiation
CPT/HCPCS: 36591; 80053; 85025; 96413

== ENCOUNTER → 2022-04-02 | Outpatient (CLI) | payer OTHER ==
[~2022-04-02] MED LIST changes: +CATHETER FLUSH 10 ML SYR IV PRN; -HEParin (CENTRAL IV FLUSH) 500 UNIT/5 ML SYR IV PRN; +IOHEXOL 350 MG/ML 100 ML (OMNIPAQUE 350) VIAL IV ONE; +NS 100 ML (IVPB) BAG IV ONE; -NS IV 500 ML 500 ML IV SCH; -PEMBROLIZUMAB 200 MG in NS (IVPB) 50 ML IV SCH
--- NOTE | 2022-04-02 16:05 | Diagnostic Imaging Report ---
EXAMINATION: CT chest, abdomen, and pelvis with intravenous contrast. TECHNIQUE: Multiple contiguous axial images were obtained through the chest, abdomen and pelvis after the uneventful administration of intravenous contrast. All CT scans use one or more of the following dose optimizing techniques: automated exposure control, MA and/or KvP adjustment based on patient size and exam type or iterative reconstruction. HISTORY: Malignant tumor of supraglottis. COMPARISON: 12/12/2021. FINDINGS: Thyroid: The thyroid gland is not visualized and may be surgically absent. Mediastinum: Heart size is normal without significant pericardial effusion. Calcifications of the aorta and coronary vessels. Thoracic aorta is normal in caliber. A left-sided port catheter is present. No suspicious lymphadenopathy. Lungs and airways: There are background emphysematous changes of the lungs. There is a calcified granuloma within the right lower lobe. There is no other suspicious pulmonary lesion. The airways are normal. Solid organs: There is a nodular morphology of the liver. A heterogeneous lesion within the liver measures up to 2.7 x 2.2 cm. This has decreased in size from the prior exam. The gallbladder is normal. There is no biliary ductal dilation. Pancreas is normal. Spleen is normal. Adrenal glands are normal. The kidneys are normal without hydronephrosis. Bowel: The stomach and small bowel are normal without obstruction. There is scattered colonic diverticulosis. The appendix is normal. Peritoneum: There is no intraperitoneal free fluid or free air. No suspicious lymphadenopathy. Vasculature: Calcification of the aorta without aneurysm. Musculoskeletal: Degenerative changes of the spine without suspicious osseous lesion or compression fracture. Pelvis: The prostate gland is normal. The urinary bladder is normal. IMPRESSION: 1. Decreased size of the heterogeneous lesion within the liver compared to the prior exam. 2. No new findings of metastatic disease within the chest, abdomen, or pelvis. 3. Cirrhotic morphology of the liver. 4. COPD. Dictated by: Dictated on workstation # [id number]
== END ==
LOC: RAD 14:15
PROVIDERS: ATTEND Internal Medicine Hematology & Oncology
DX: C32.1 Malignant neoplasm of supraglottis (principal); K74.60 Unspecified cirrhosis of liver; J44.9 Chronic obstructive pulmonary disease, unspecified
CPT/HCPCS: 71260; 74177

== ENCOUNTER 2022-04-04 12:52 | Outpatient (RCR) | payer OTHER ==
[2022-03-14 13:25] LABS: BASOPHILS # (AUTO) 0.1 10^3/uL (0.0-0.1); BASOPHILS % (AUTO) 1 % (0-10); EOSINOPHILS # (AUTO) 0.3 10^3/uL (0.0-0.3); EOSINOPHILS % (AUTO) 4 % (0-10); HEMATOCRIT 45 % (40-54); HEMOGLOBIN 15.5 g/dL (13.3-17.7); LYMPHOCYTES # (AUTO) 0.9 10^3/uL (1.0-4.0); LYMPHOCYTES % (AUTO) 11 % (12-44); MEAN CORPUSCULAR HEMOGLOBIN 31 pg (25-34); MEAN CORPUSCULAR HGB CONC 35 g/dL (32-36); MEAN CORPUSCULAR VOLUME 91 fL (80-99); MEAN PLATELET VOLUME 9.1 fL (9.0-12.2); MONOCYTES # (AUTO) 0.6 10^3/uL (0.0-1.0); MONOCYTES % (AUTO) 7 % (0-12); NEUTROPHILS # (AUTO) 6.2 10^3/uL (1.8-7.8); NEUTROPHILS % (AUTO) 77 % (42-75); PLATELET COUNT 192 10^3/uL (130-400); WHITE BLOOD COUNT 8.1 10^3/uL (4.3-11.0)
[2022-03-14 13:46] LABS: ALBUMIN 4.1 GM/DL (3.2-4.5); BILIRUBIN,TOTAL 1.4 MG/DL (0.1-1.0); CALCIUM 9.1 MG/DL (8.5-10.1); CREATININE SERUM 0.8 MG/DL (0.60-1.30)
[~2022-04-04 12:52] MED LIST changes: -CATHETER FLUSH 10 ML SYR IV PRN; +HEParin (CENTRAL IV FLUSH) 500 UNIT/5 ML SYR IV PRN; -IOHEXOL 350 MG/ML 100 ML (OMNIPAQUE 350) VIAL IV ONE; -NS 100 ML (IVPB) BAG IV ONE; +NS IV 500 ML 500 ML IV SCH; +PEMBROLIZUMAB 200 MG in NS (IVPB) 50 ML IV SCH
[2022-04-04 13:32] LABS: BASOPHILS # (AUTO) 0.1 10^3/uL (0.0-0.1); BASOPHILS % (AUTO) 1 % (0-10); EOSINOPHILS # (AUTO) 0.3 10^3/uL (0.0-0.3); EOSINOPHILS % (AUTO) 4 % (0-10); HEMATOCRIT 42 % (40-54); HEMOGLOBIN 14.8 g/dL (13.3-17.7); LYMPHOCYTES # (AUTO) 0.8 10^3/uL (1.0-4.0); LYMPHOCYTES % (AUTO) 12 % (12-44); MEAN CORPUSCULAR HEMOGLOBIN 32 pg (25-34); MEAN CORPUSCULAR HGB CONC 35 g/dL (32-36); MEAN CORPUSCULAR VOLUME 90 fL (80-99); MEAN PLATELET VOLUME 9.5 fL (9.0-12.2); MONOCYTES # (AUTO) 0.5 10^3/uL (0.0-1.0); MONOCYTES % (AUTO) 8 % (0-12); NEUTROPHILS # (AUTO) 5.1 10^3/uL (1.8-7.8); NEUTROPHILS % (AUTO) 76 % (42-75); PLATELET COUNT 204 10^3/uL (130-400); WHITE BLOOD COUNT 6.8 10^3/uL (4.3-11.0)
[2022-04-04 13:59] LABS: BILIRUBIN,TOTAL 0.8 MG/DL (0.1-1.0); CREATININE SERUM 0.75 MG/DL (0.60-1.30); POTASSIUM 3.6 MMOL/L (3.6-5.0); TOTAL PROTEIN 7.5 GM/DL (6.4-8.2)
== END 2022-04-06 | disposition home or self-care (01) ==
LOC: ONC 12:52
PROVIDERS: ATTEND Internal Medicine Hematology & Oncology
DX: Z51.11 Encounter for antineoplastic chemotherapy (principal); Z45.2 Encounter for adjustment and management of vascular access device; C32.1 Malignant neoplasm of supraglottis; C78.7 Secondary malignant neoplasm of liver and intrahepatic bile duct; J43.1 Panlobular emphysema; E66.9 Obesity, unspecified; K70.30 Alcoholic cirrhosis of liver without ascites; Z79.899 Other long term (current) drug therapy; Z98.890 Other specified postprocedural states; Z92.3 Personal history of irradiation
CPT/HCPCS: 36591; 80053; 85025; 96413

== ENCOUNTER 2022-04-25 13:20 | Outpatient (RCR) | payer OTHER ==
[~2022-04-25 13:20] MED LIST changes: +ALBU8.5H6 IH
[2022-04-25 13:42] LABS: BASOPHILS # (AUTO) 0.1 10^3/uL (0.0-0.1); BASOPHILS % (AUTO) 1 % (0-10); EOSINOPHILS # (AUTO) 0.3 10^3/uL (0.0-0.3); EOSINOPHILS % (AUTO) 4 % (0-10); HEMATOCRIT 46 % (40-54); LYMPHOCYTES % (AUTO) 13 % (12-44); MEAN CORPUSCULAR HEMOGLOBIN 32 pg (25-34); MEAN CORPUSCULAR HGB CONC 35 g/dL (32-36); MEAN CORPUSCULAR VOLUME 91 fL (80-99); MEAN PLATELET VOLUME 9.3 fL (9.0-12.2); MONOCYTES # (AUTO) 0.6 10^3/uL (0.0-1.0); MONOCYTES % (AUTO) 8 % (0-12); NEUTROPHILS # (AUTO) 5.5 10^3/uL (1.8-7.8); NEUTROPHILS % (AUTO) 74 % (42-75); PLATELET COUNT 221 10^3/uL (130-400); WHITE BLOOD COUNT 7.4 10^3/uL (4.3-11.0)
[2022-04-25] MEDS ORDERED: NS (IVPB) 250 ML ONE (13:49)
[2022-04-25 14:11] LABS: ALBUMIN 4.2 GM/DL (3.2-4.5); BILIRUBIN,TOTAL 0.8 MG/DL (0.1-1.0); CALCIUM 9.5 MG/DL (8.5-10.1); CREATININE SERUM 0.86 MG/DL (0.60-1.30); POTASSIUM 3.7 MMOL/L (3.6-5.0); TOTAL PROTEIN 7.7 GM/DL (6.4-8.2)
== END 2022-05-07 | disposition home or self-care (01) ==
LOC: ONC 13:20
PROVIDERS: ATTEND Internal Medicine Hematology & Oncology
DX: Z51.11 Encounter for antineoplastic chemotherapy (principal); Z45.2 Encounter for adjustment and management of vascular access device; C32.1 Malignant neoplasm of supraglottis; C78.7 Secondary malignant neoplasm of liver and intrahepatic bile duct; J43.1 Panlobular emphysema; E66.9 Obesity, unspecified; Z79.899 Other long term (current) drug therapy; Z98.890 Other specified postprocedural states; Z92.3 Personal history of irradiation
CPT/HCPCS: 36591; 80053; 85025; 96413

== ENCOUNTER → 2022-06-06 | Outpatient (RCR) | payer OTHER ==
[2022-05-16 14:04] LABS: BASOPHILS # (AUTO) 0.1 10^3/uL (0.0-0.1); BASOPHILS % (AUTO) 1 % (0-10); EOSINOPHILS # (AUTO) 0.3 10^3/uL (0.0-0.3); EOSINOPHILS % (AUTO) 4 % (0-10); HEMATOCRIT 44 % (40-54); HEMOGLOBIN 15.2 g/dL (13.3-17.7); LYMPHOCYTES # (AUTO) 0.9 10^3/uL (1.0-4.0); LYMPHOCYTES % (AUTO) 12 % (12-44); MEAN CORPUSCULAR HEMOGLOBIN 31 pg (25-34); MEAN CORPUSCULAR HGB CONC 35 g/dL (32-36); MEAN CORPUSCULAR VOLUME 91 fL (80-99); MEAN PLATELET VOLUME 9.6 fL (9.0-12.2); MONOCYTES # (AUTO) 0.5 10^3/uL (0.0-1.0); MONOCYTES % (AUTO) 7 % (0-12); NEUTROPHILS # (AUTO) 5.7 10^3/uL (1.8-7.8); NEUTROPHILS % (AUTO) 76 % (42-75); PLATELET COUNT 219 10^3/uL (130-400); WHITE BLOOD COUNT 7.5 10^3/uL (4.3-11.0)
[2022-05-16 14:18] LABS: BILIRUBIN,TOTAL 0.6 MG/DL (0.1-1.0); CALCIUM 8.5 MG/DL (8.5-10.1); CREATININE SERUM 0.8 MG/DL (0.60-1.30); POTASSIUM 3.6 MMOL/L (3.6-5.0); TOTAL PROTEIN 7.5 GM/DL (6.4-8.2)
[2022-06-06 14:53] LABS: BASOPHILS # (AUTO) 0.1 10^3/uL (0.0-0.1); BASOPHILS % (AUTO) 1 % (0-10); EOSINOPHILS # (AUTO) 0.2 10^3/uL (0.0-0.3); EOSINOPHILS % (AUTO) 2 % (0-10); HEMATOCRIT 46 % (40-54); HEMOGLOBIN 15.7 g/dL (13.3-17.7); LYMPHOCYTES # (AUTO) 0.9 X 10^3 (1.0-4.0); LYMPHOCYTES % (AUTO) 9 % (12-44); MEAN CORPUSCULAR HEMOGLOBIN 31 pg (25-34); MEAN CORPUSCULAR HGB CONC 34 g/dL (32-36); MEAN CORPUSCULAR VOLUME 91 fL (80-99); MEAN PLATELET VOLUME 9.3 fL (9.0-12.2); MONOCYTES # (AUTO) 0.6 X 10^3 (0.0-1.0); MONOCYTES % (AUTO) 6 % (0-12); NEUTROPHILS # (AUTO) 8.4 X 10^3 (1.8-7.8); NEUTROPHILS % (AUTO) 83 % (42-75); PLATELET COUNT 204 10^3/uL (130-400); WHITE BLOOD COUNT 10.2 10^3/uL (4.3-11.0)
[2022-06-06 15:11] LABS: ALBUMIN 4.1 GM/DL (3.2-4.5); BILIRUBIN,TOTAL 0.7 MG/DL (0.1-1.0); CALCIUM 9.4 MG/DL (8.5-10.1); CREATININE SERUM 0.78 MG/DL (0.60-1.30); POTASSIUM 3.8 MMOL/L (3.6-5.0); TOTAL PROTEIN 7.8 GM/DL (6.4-8.2)
== END | disposition home or self-care (01) ==
LOC: ONC 05-16 12:58
PROVIDERS: ATTEND Internal Medicine Hematology & Oncology
DX: Z51.11 Encounter for antineoplastic chemotherapy (principal); Z45.2 Encounter for adjustment and management of vascular access device; C32.1 Malignant neoplasm of supraglottis; C78.7 Secondary malignant neoplasm of liver and intrahepatic bile duct; K70.30 Alcoholic cirrhosis of liver without ascites; J43.1 Panlobular emphysema; E66.9 Obesity, unspecified; Z79.899 Other long term (current) drug therapy; Z98.890 Other specified postprocedural states; Z92.3 Personal history of irradiation
CPT/HCPCS: 36591; 80053; 85025; 96413

== ENCOUNTER → 2022-07-12 | Outpatient (CLI) | payer OTHER ==
[~2022-07-12] MED LIST changes: +CATHETER FLUSH 10 ML SYR IV PRN; -HEParin (CENTRAL IV FLUSH) 500 UNIT/5 ML SYR IV PRN; +IOHEXOL 350 MG/ML 100 ML (OMNIPAQUE 350) VIAL IV ONE; +NS 100 ML (IVPB) BAG IV ONE; -NS IV 500 ML 500 ML IV SCH; -PEMBROLIZUMAB 200 MG in NS (IVPB) 50 ML IV SCH
--- NOTE | 2022-07-12 20:41 | Diagnostic Imaging Report ---
PROCEDURE: CT chest, abdomen, and pelvis with contrast. TECHNIQUE: Multiple contiguous axial images were obtained through the chest, abdomen, and pelvis after the administration of intravenous contrast. Auto Exposure Controls were utilized during the CT exam to meet ALARA standards for radiation dose reduction. INDICATION: Head and neck cancer supraglottic. Compared with CT chest, abdomen and pelvis 04/02/2022. CHEST: Air trapping and centrilobular emphysematous changes in the lungs stable. There is a benign calcified granuloma in the right lower lobe chronic. No noncalcified or suspicious pulmonary nodule. There is no axillary, hilar or mediastinal lymphadenopathy. There is no pleural or pericardial effusion. No acute soft tissue or osseous chest wall pathology. Abdomen/pelvis: Mass in the hepatic dome anteriorly near the junction of the right and left lobes roughly 2.2 x 1.9 cm, previously 2.7 x 2.2 cm. Cirrhotic morphology of the liver stable. No new liver lesion. No bile duct dilatation. Spleen, adrenals and pancreas are unremarkable. There is atherosclerotic aortic ectasia unruptured and stable. The iliac vessels nonaneurysmal. There is noninflamed diverticular disease at the sigmoid colon. There is a normal appendix. There is no ascites. There is no omental infiltration. There is no bowel, biliary or urinary tract obstruction. A few renal cysts stable. The adrenals and pancreas unremarkable. No acute or suspect bony pathology. IMPRESSION: CHEST: COPD and benign granulomatous residua. No findings to suggest chest metastasis. ABDOMEN: 1. Hepatic lesion similar if not slightly smaller than on prior. Cirrhotic morphology to the liver with no new lesion. 2. No ascites or adenopathy. Remaining stable chronic findings as above. Dictated by: Dictated on workstation # [id number]
== END ==
LOC: RAD 16:17
PROVIDERS: ATTEND Internal Medicine Hematology & Oncology
DX: C32.1 Malignant neoplasm of supraglottis (principal); J44.9 Chronic obstructive pulmonary disease, unspecified
CPT/HCPCS: 71260; 74177

== ENCOUNTER 2022-07-16 16:19 | Outpatient (RCR) | payer OTHER ==
[2022-07-12 16:18] LABS: BASOPHILS % (AUTO) 1 % (0-10); EOSINOPHILS # (AUTO) 0.2 10^3/uL (0.0-0.3); EOSINOPHILS % (AUTO) 3 % (0-10); HEMATOCRIT 45 % (40-54); HEMOGLOBIN 15.2 g/dL (13.3-17.7); LYMPHOCYTES # (AUTO) 1.4 10^3/uL (1.0-4.0); LYMPHOCYTES % (AUTO) 18 % (12-44); MEAN CORPUSCULAR HEMOGLOBIN 31 pg (25-34); MEAN CORPUSCULAR HGB CONC 34 g/dL (32-36); MEAN CORPUSCULAR VOLUME 91 fL (80-99); MEAN PLATELET VOLUME 9.1 fL (9.0-12.2); MONOCYTES # (AUTO) 0.5 10^3/uL (0.0-1.0); MONOCYTES % (AUTO) 7 % (0-12); NEUTROPHILS # (AUTO) 5.4 10^3/uL (1.8-7.8); NEUTROPHILS % (AUTO) 72 % (42-75); PLATELET COUNT 201 10^3/uL (130-400); WHITE BLOOD COUNT 7.5 10^3/uL (4.3-11.0)
[2022-07-12 16:38] LABS: BILIRUBIN,TOTAL 0.5 MG/DL (0.1-1.0); CALCIUM 8.6 MG/DL (8.5-10.1); CREATININE SERUM 0.77 MG/DL (0.60-1.30); POTASSIUM 3.4 MMOL/L (3.6-5.0); TOTAL PROTEIN 7.2 GM/DL (6.4-8.2)
[~2022-07-16 16:19] MED LIST changes: -CATHETER FLUSH 10 ML SYR IV PRN; +HEParin (CENTRAL IV FLUSH) 500 UNIT/5 ML SYR IV PRN; -IOHEXOL 350 MG/ML 100 ML (OMNIPAQUE 350) VIAL IV ONE; +NS (IVPB) 250 ML ONE; -NS 100 ML (IVPB) BAG IV ONE; +NS IV 500 ML 500 ML IV SCH; +PEMBROLIZUMAB 200 MG in NS (IVPB) 50 ML IV SCH
== END 2022-08-07 | disposition home or self-care (01) ==
LOC: ONC 16:19
PROVIDERS: ATTEND Internal Medicine Hematology & Oncology
DX: Z08 Encounter for follow-up examination after completed treatment for malignant neoplasm (principal); Z85.048 Personal history of other malignant neoplasm of rectum, rectosigmoid junction, and anus; E66.9 Obesity, unspecified; F17.210 Nicotine dependence, cigarettes, uncomplicated
CPT/HCPCS: 36591; 80053; 85025; 96413

== ENCOUNTER 2022-08-29 13:25 | Outpatient (RCR) | payer OTHER ==
[2022-08-09 11:15] LABS: BASOPHILS # (AUTO) 0.1 10^3/uL (0.0-0.1); BASOPHILS % (AUTO) 1 % (0-10); EOSINOPHILS # (AUTO) 0.3 10^3/uL (0.0-0.3); EOSINOPHILS % (AUTO) 4 % (0-10); HEMATOCRIT 44 % (40-54); HEMOGLOBIN 15.1 g/dL (13.3-17.7); LYMPHOCYTES # (AUTO) 1.2 10^3/uL (1.0-4.0); LYMPHOCYTES % (AUTO) 18 % (12-44); MEAN CORPUSCULAR HEMOGLOBIN 31 pg (25-34); MEAN CORPUSCULAR HGB CONC 34 g/dL (32-36); MEAN CORPUSCULAR VOLUME 92 fL (80-99); MEAN PLATELET VOLUME 9.1 fL (9.0-12.2); MONOCYTES # (AUTO) 0.5 10^3/uL (0.0-1.0); MONOCYTES % (AUTO) 7 % (0-12); NEUTROPHILS # (AUTO) 4.4 10^3/uL (1.8-7.8); NEUTROPHILS % (AUTO) 69 % (42-75); PLATELET COUNT 206 10^3/uL (130-400); WHITE BLOOD COUNT 6.4 10^3/uL (4.3-11.0)
[2022-08-09 11:45] LABS: ALBUMIN 3.9 GM/DL (3.2-4.5); BILIRUBIN,TOTAL 0.9 MG/DL (0.1-1.0); CALCIUM 8.7 MG/DL (8.5-10.1); CREATININE SERUM 0.85 MG/DL (0.60-1.30); POTASSIUM 3.4 MMOL/L (3.6-5.0); TOTAL PROTEIN 7.3 GM/DL (6.4-8.2)
[~2022-08-29 13:25] MED LIST changes: +NS (IVPB) 250 ML IV SCH; -NS (IVPB) 250 ML ONE
[2022-08-29 13:54] LABS: BASOPHILS # (AUTO) 0.1 10^3/uL (0.0-0.1); BASOPHILS % (AUTO) 1 % (0-10); EOSINOPHILS # (AUTO) 0.3 10^3/uL (0.0-0.3); EOSINOPHILS % (AUTO) 4 % (0-10); HEMATOCRIT 43 % (40-54); LYMPHOCYTES # (AUTO) 0.7 10^3/uL (1.0-4.0); LYMPHOCYTES % (AUTO) 12 % (12-44); MEAN CORPUSCULAR HEMOGLOBIN 32 pg (25-34); MEAN CORPUSCULAR HGB CONC 35 g/dL (32-36); MEAN CORPUSCULAR VOLUME 92 fL (80-99); MEAN PLATELET VOLUME 9.3 fL (9.0-12.2); MONOCYTES # (AUTO) 0.5 10^3/uL (0.0-1.0); MONOCYTES % (AUTO) 8 % (0-12); NEUTROPHILS # (AUTO) 4.7 10^3/uL (1.8-7.8); NEUTROPHILS % (AUTO) 75 % (42-75); PLATELET COUNT 199 10^3/uL (130-400); WHITE BLOOD COUNT 6.3 10^3/uL (4.3-11.0)
[2022-08-29 14:07] LABS: ALBUMIN 3.8 GM/DL (3.2-4.5); BILIRUBIN,TOTAL 0.9 MG/DL (0.1-1.0); CREATININE SERUM 0.82 MG/DL (0.60-1.30); POTASSIUM 3.8 MMOL/L (3.6-5.0); TOTAL PROTEIN 7.2 GM/DL (6.4-8.2)
== END 2022-09-04 | disposition home or self-care (01) ==
LOC: ONC 13:25
PROVIDERS: ATTEND Internal Medicine Hematology & Oncology
DX: Z51.11 Encounter for antineoplastic chemotherapy (principal); Z45.2 Encounter for adjustment and management of vascular access device; C76.0 Malignant neoplasm of head, face and neck; C78.7 Secondary malignant neoplasm of liver and intrahepatic bile duct; K70.30 Alcoholic cirrhosis of liver without ascites; J43.1 Panlobular emphysema; E66.9 Obesity, unspecified; F17.210 Nicotine dependence, cigarettes, uncomplicated
CPT/HCPCS: 36591; 80053; 84443; 85025; 96413

== ENCOUNTER 2022-09-20 13:42 | Outpatient (RCR) | payer OTHER ==
[2022-09-20 14:06] LABS: BASOPHILS # (AUTO) 0.1 10^3/uL (0.0-0.1); BASOPHILS % (AUTO) 1 % (0-10); EOSINOPHILS # (AUTO) 0.3 10^3/uL (0.0-0.3); EOSINOPHILS % (AUTO) 5 % (0-10); HEMATOCRIT 43 % (40-54); HEMOGLOBIN 14.5 g/dL (13.3-17.7); LYMPHOCYTES % (AUTO) 16 % (12-44); MEAN CORPUSCULAR HEMOGLOBIN 31 pg (25-34); MEAN CORPUSCULAR HGB CONC 34 g/dL (32-36); MEAN CORPUSCULAR VOLUME 92 fL (80-99); MEAN PLATELET VOLUME 9.5 fL (9.0-12.2); MONOCYTES # (AUTO) 0.4 10^3/uL (0.0-1.0); MONOCYTES % (AUTO) 7 % (0-12); NEUTROPHILS # (AUTO) 4.3 10^3/uL (1.8-7.8); NEUTROPHILS % (AUTO) 71 % (42-75); PLATELET COUNT 203 10^3/uL (130-400)
[2022-09-20 14:23] LABS: ALBUMIN 3.9 GM/DL (3.2-4.5); BILIRUBIN,TOTAL 1.1 MG/DL (0.1-1.0); CALCIUM 9.1 MG/DL (8.5-10.1); CREATININE SERUM 0.77 MG/DL (0.60-1.30); POTASSIUM 3.7 MMOL/L (3.6-5.0); TOTAL PROTEIN 7.3 GM/DL (6.4-8.2)
== END 2022-10-05 | disposition home or self-care (01) ==
LOC: ONC 13:42
PROVIDERS: ATTEND Internal Medicine Hematology & Oncology
DX: Z51.11 Encounter for antineoplastic chemotherapy (principal); Z45.2 Encounter for adjustment and management of vascular access device; C76.0 Malignant neoplasm of head, face and neck; C78.7 Secondary malignant neoplasm of liver and intrahepatic bile duct; K70.30 Alcoholic cirrhosis of liver without ascites; J43.1 Panlobular emphysema; E66.9 Obesity, unspecified; L40.9 Psoriasis, unspecified; F17.210 Nicotine dependence, cigarettes, uncomplicated
CPT/HCPCS: 36591; 80053; 84443; 85025; 96413

== ENCOUNTER → 2022-10-26 | Outpatient (CLI) | payer MEDICARE, OTHER ==
[~2022-10-26] MED LIST changes: -HEParin (CENTRAL IV FLUSH) 500 UNIT/5 ML SYR IV PRN; +HOLD METFORMIN - RECEIVED CONTRAST 20 ML VIAL IV SCH; +IOHEXOL 350 MG/ML 100 ML (OMNIPAQUE 350) VIAL IV ONE; -NS (IVPB) 250 ML IV SCH; +NS 100 ML (IVPB) BAG IV ONE; -NS IV 500 ML 500 ML IV SCH; -PEMBROLIZUMAB 200 MG in NS (IVPB) 50 ML IV SCH
--- NOTE | 2022-10-26 14:36 | Diagnostic Imaging Report ---
PROCEDURE: CT chest, abdomen, and pelvis with contrast. TECHNIQUE: Multiple contiguous axial images were obtained through the chest, abdomen, and pelvis after the administration of intravenous contrast. Auto Exposure Controls were utilized during the CT exam to meet ALARA standards for radiation dose reduction. INDICATION: Malignant neoplasm of supraglottis, head and neck cancer. COMPARISON: 07/12/2022. FINDINGS: Extensive centrilobular emphysema is again seen with an upper lobe predominance. Tracheostomy is present. Densely calcified presumed granuloma is seen in the lateral right lower lobe. There is a subcentimeter sub-solid nodule in the superior segment of the left lower lobe. This has benign morphology. There is no significant pleural or pericardial fluid. No pathologically enlarged adenopathy is seen in the thorax. Lobular surface contour of the liver is again noted without significant change. The somewhat irregular low-density focus in the dome of the liver anteriorly measures approximately 2.2 cm in diameter and is not significantly changed. Gallbladder is distended without evidence of wall thickening or pericholecystic fluid. There is no evidence of pancreatic, adrenal gland or splenic abnormality. Simple cyst is again noted in the inferior pole of left kidney. Right kidney is unremarkable. There is no evidence of hydronephrosis or hydroureter. No pathologically enlarged adenopathy is seen within the abdomen or pelvis. Unopacified urinary bladder is unremarkable in appearance. There are occasional sigmoid diverticula. IMPRESSION: 1. Panacinar emphysema without acute abnormality or CT evidence of active metastatic disease. 2. Stable hypodense nodule in the anterior right liver with cirrhotic background morphology. Given stability, this is likely benign and clinical correlation and continued follow-up examinations would be useful. 3. Otherwise, no acute abnormality is detected. Dictated by: Dictated on workstation # [id number]
== END ==
LOC: RAD 13:45
PROVIDERS: ATTEND Internal Medicine Hematology & Oncology
DX: J43.1 Panlobular emphysema (principal); K76.89 Other specified diseases of liver; C32.1 Malignant neoplasm of supraglottis
CPT/HCPCS: 71260; 74177

== ENCOUNTER 2022-11-01 12:40 | Outpatient (RCR) | payer OTHER ==
[2022-10-11 14:20] LABS: BASOPHILS # (AUTO) 0.1 10^3/uL (0.0-0.1); BASOPHILS % (AUTO) 1 % (0-10); EOSINOPHILS # (AUTO) 0.4 10^3/uL (0.0-0.3); EOSINOPHILS % (AUTO) 6 % (0-10); HEMATOCRIT 43 % (40-54); HEMOGLOBIN 14.7 g/dL (13.3-17.7); LYMPHOCYTES # (AUTO) 0.8 10^3/uL (1.0-4.0); LYMPHOCYTES % (AUTO) 14 % (12-44); MEAN CORPUSCULAR HEMOGLOBIN 31 pg (25-34); MEAN CORPUSCULAR HGB CONC 34 g/dL (32-36); MEAN CORPUSCULAR VOLUME 92 fL (80-99); MEAN PLATELET VOLUME 9.3 fL (9.0-12.2); MONOCYTES # (AUTO) 0.4 10^3/uL (0.0-1.0); MONOCYTES % (AUTO) 7 % (0-12); NEUTROPHILS # (AUTO) 4.2 10^3/uL (1.8-7.8); NEUTROPHILS % (AUTO) 71 % (42-75); PLATELET COUNT 183 10^3/uL (130-400); WHITE BLOOD COUNT 5.9 10^3/uL (4.3-11.0)
[2022-10-11 14:40] LABS: ALBUMIN 3.9 GM/DL (3.2-4.5); BILIRUBIN,TOTAL 0.7 MG/DL (0.1-1.0); CALCIUM 8.8 MG/DL (8.5-10.1); CREATININE SERUM 0.78 MG/DL (0.60-1.30); POTASSIUM 3.6 MMOL/L (3.6-5.0); TOTAL PROTEIN 7.3 GM/DL (6.4-8.2)
[~2022-11-01 12:40] MED LIST changes: +GABA250S11 PO; -GABA250S5 PO; +HEParin (CENTRAL IV FLUSH) 500 UNIT/5 ML SYR IV PRN; -HOLD METFORMIN - RECEIVED CONTRAST 20 ML VIAL IV SCH; -IOHEXOL 350 MG/ML 100 ML (OMNIPAQUE 350) VIAL IV ONE; +NS (IVPB) 250 ML IV SCH; -NS 100 ML (IVPB) BAG IV ONE; +NS IV 500 ML 500 ML IV SCH; +PEMBROLIZUMAB 200 MG in NS (IVPB) 50 ML IV SCH
[2022-11-01 13:27] LABS: BASOPHILS # (AUTO) 0.1 10^3/uL (0.0-0.1); BASOPHILS % (AUTO) 1 % (0-10); EOSINOPHILS # (AUTO) 0.3 10^3/uL (0.0-0.3); EOSINOPHILS % (AUTO) 4 % (0-10); HEMATOCRIT 46 % (40-54); HEMOGLOBIN 15.3 g/dL (13.3-17.7); LYMPHOCYTES # (AUTO) 0.8 10^3/uL (1.0-4.0); LYMPHOCYTES % (AUTO) 11 % (12-44); MEAN CORPUSCULAR HEMOGLOBIN 31 pg (25-34); MEAN CORPUSCULAR HGB CONC 33 g/dL (32-36); MEAN CORPUSCULAR VOLUME 92 fL (80-99); MEAN PLATELET VOLUME 9.4 fL (9.0-12.2); MONOCYTES # (AUTO) 0.6 10^3/uL (0.0-1.0); MONOCYTES % (AUTO) 8 % (0-12); NEUTROPHILS # (AUTO) 5.6 10^3/uL (1.8-7.8); NEUTROPHILS % (AUTO) 76 % (42-75); PLATELET COUNT 223 10^3/uL (130-400); WHITE BLOOD COUNT 7.3 10^3/uL (4.3-11.0)
[2022-11-01 13:45] LABS: ALBUMIN 3.9 GM/DL (3.2-4.5); BILIRUBIN,TOTAL 0.8 MG/DL (0.1-1.0); CALCIUM 8.3 MG/DL (8.5-10.1); CREATININE SERUM 0.81 MG/DL (0.60-1.30); POTASSIUM 3.6 MMOL/L (3.6-5.0); TOTAL PROTEIN 7.3 GM/DL (6.4-8.2)
== END 2022-11-04 | disposition home or self-care (01) ==
LOC: ONC 12:40
PROVIDERS: ATTEND Internal Medicine Hematology & Oncology
DX: Z51.11 Encounter for antineoplastic chemotherapy (principal); Z45.2 Encounter for adjustment and management of vascular access device; C76.0 Malignant neoplasm of head, face and neck; C78.7 Secondary malignant neoplasm of liver and intrahepatic bile duct; K70.30 Alcoholic cirrhosis of liver without ascites; J43.1 Panlobular emphysema; E66.9 Obesity, unspecified; L40.9 Psoriasis, unspecified; F17.210 Nicotine dependence, cigarettes, uncomplicated
CPT/HCPCS: 36591; 80053; 84443; 85025; 96413

== ENCOUNTER 2022-12-27 10:42 | Outpatient (RCR) | payer OTHER ==
[2022-12-27 11:29] LABS: BASOPHILS # (AUTO) 0.1 10^3/uL (0.0-0.1); BASOPHILS % (AUTO) 1 % (0-10); EOSINOPHILS # (AUTO) 0.3 10^3/uL (0.0-0.3); EOSINOPHILS % (AUTO) 3 % (0-10); HEMATOCRIT 45 % (40-54); HEMOGLOBIN 15.3 g/dL (13.3-17.7); LYMPHOCYTES % (AUTO) 12 % (12-44); MEAN CORPUSCULAR HEMOGLOBIN 31 pg (25-34); MEAN CORPUSCULAR HGB CONC 34 g/dL (32-36); MEAN CORPUSCULAR VOLUME 90 fL (80-99); MEAN PLATELET VOLUME 9.2 fL (9.0-12.2); MONOCYTES # (AUTO) 0.7 10^3/uL (0.0-1.0); MONOCYTES % (AUTO) 8 % (0-12); NEUTROPHILS # (AUTO) 6.4 10^3/uL (1.8-7.8); NEUTROPHILS % (AUTO) 76 % (42-75); PLATELET COUNT 230 10^3/uL (130-400); WHITE BLOOD COUNT 8.5 10^3/uL (4.3-11.0)
[2022-12-27 11:50] LABS: ALBUMIN 4.1 GM/DL (3.2-4.5); BILIRUBIN,TOTAL 0.8 MG/DL (0.1-1.0); CALCIUM 10.4 MG/DL (8.5-10.1); CREATININE SERUM 0.86 MG/DL (0.60-1.30); POTASSIUM 4.7 MMOL/L (3.6-5.0); TOTAL PROTEIN 7.8 GM/DL (6.4-8.2)
== END 2023-01-04 | disposition home or self-care (01) ==
LOC: ONC 10:42
PROVIDERS: ATTEND Internal Medicine Hematology & Oncology
DX: C76.0 Malignant neoplasm of head, face and neck (principal); C78.7 Secondary malignant neoplasm of liver and intrahepatic bile duct; K70.30 Alcoholic cirrhosis of liver without ascites; J43.1 Panlobular emphysema; E66.9 Obesity, unspecified; L40.9 Psoriasis, unspecified; F17.210 Nicotine dependence, cigarettes, uncomplicated
CPT/HCPCS: 36415; 80053; 84443; 85025

== ENCOUNTER 2023-01-24 15:10 | Outpatient (RCR) | payer OTHER ==
[~2023-01-24 15:10] MED LIST changes: -HEParin (CENTRAL IV FLUSH) 500 UNIT/5 ML SYR IV PRN; -NS (IVPB) 250 ML IV SCH; -NS IV 500 ML 500 ML IV SCH; -PEMBROLIZUMAB 200 MG in NS (IVPB) 50 ML IV SCH
[2023-01-24 15:28] LABS: BASOPHILS % (AUTO) 1 % (0-10); EOSINOPHILS # (AUTO) 0.3 10^3/uL (0.0-0.3); EOSINOPHILS % (AUTO) 4 % (0-10); HEMATOCRIT 42 % (40-54); HEMOGLOBIN 14.2 g/dL (13.3-17.7); LYMPHOCYTES # (AUTO) 0.8 X 10^3 (1.0-4.0); LYMPHOCYTES % (AUTO) 13 % (12-44); MEAN CORPUSCULAR HEMOGLOBIN 30 pg (25-34); MEAN CORPUSCULAR HGB CONC 34 g/dL (32-36); MEAN CORPUSCULAR VOLUME 90 fL (80-99); MEAN PLATELET VOLUME 8.7 fL (9.0-12.2); MONOCYTES # (AUTO) 0.4 X 10^3 (0.0-1.0); MONOCYTES % (AUTO) 7 % (0-12); NEUTROPHILS # (AUTO) 4.8 X 10^3 (1.8-7.8); NEUTROPHILS % (AUTO) 76 % (42-75); PLATELET COUNT 222 10^3/uL (130-400); WHITE BLOOD COUNT 6.3 10^3/uL (4.3-11.0)
[2023-01-24 15:48] LABS: ALBUMIN 3.9 GM/DL (3.2-4.5); BILIRUBIN,TOTAL 0.7 MG/DL (0.1-1.0); CALCIUM 9.2 MG/DL (8.5-10.1); CREATININE SERUM 0.73 MG/DL (0.60-1.30); POTASSIUM 3.7 MMOL/L (3.6-5.0); TOTAL PROTEIN 7.9 GM/DL (6.4-8.2)
== END 2023-02-04 | disposition home or self-care (01) ==
LOC: ONC 15:10
PROVIDERS: ATTEND Internal Medicine Hematology & Oncology
DX: C76.0 Malignant neoplasm of head, face and neck (principal); C78.7 Secondary malignant neoplasm of liver and intrahepatic bile duct; C32.1 Malignant neoplasm of supraglottis; C78.00 Secondary malignant neoplasm of unspecified lung; K70.30 Alcoholic cirrhosis of liver without ascites; J43.1 Panlobular emphysema; E66.9 Obesity, unspecified; L40.9 Psoriasis, unspecified; F17.210 Nicotine dependence, cigarettes, uncomplicated
CPT/HCPCS: 36415; 80053; 84443; 85025

== ENCOUNTER → 2023-02-27 | Outpatient (CLI) | payer OTHER ==
[~2023-02-27] MED LIST changes: +HOLD METFORMIN - RECEIVED CONTRAST 20 ML VIAL IV SCH; +IOHEXOL 350 MG/ML 100 ML (OMNIPAQUE 350) VIAL IV ONE; +NS 100 ML (IVPB) BAG IV ONE
--- NOTE | 2023-02-27 15:03 | Diagnostic Imaging Report ---
PROCEDURE: CT chest, abdomen, and pelvis with contrast. TECHNIQUE: Multiple contiguous axial images were obtained through the chest, abdomen, and pelvis after the administration of intravenous contrast. Auto Exposure Controls were utilized during the CT exam to meet ALARA standards for radiation dose reduction. INDICATION: Supraglottis cancer, followup. COMPARISON: Correlation is made with the prior CT from 10/26/2022. FINDINGS: CT CHEST: A left chest wall port has the tip entering the right atrium. No axillary lymphadenopathy is detected. No mediastinal or hilar lymphadenopathy is detected. No pericardial or pleural fluid is identified. Severe emphysematous changes in both lungs are again noted. A calcific granuloma in the right lower lobe is noted. No noncalcified nodules or masses are seen. CT ABDOMEN AND PELVIS: A nodular contour to the liver is again noted, suggestive of cirrhosis. The low-attenuation lesion in the right lobe of the liver near the dome has increased in size now measuring approximately 4.0 x 3.4 cm compared with 2.2 x 2.2 cm. No other liver masses are identified. The gallbladder is unremarkable. There is no biliary ductal dilatation. The pancreas and spleen are unremarkable. No adrenal mass is identified. The kidneys are unremarkable apart from a probable cortical cyst in the lower pole of the left kidney. The aorta is heavily calcified but nonaneurysmal. No central retroperitoneal or mesenteric lymphadenopathy is seen. The bowel loops appear to be nonobstructed. There is diverticulosis of the sigmoid but no evidence of acute diverticulitis. No definite pelvic lymphadenopathy is identified. There is no ascites. The bladder and prostate are unremarkable. There are bilateral fat-containing inguinal hernias. IMPRESSION: 1. No evidence of thoracic lymphadenopathy or pulmonary metastatic disease. 2. Cirrhotic liver morphology. There is an enlarging low-attenuation lesion in the right lobe of the liver. Hepatocellular carcinoma cannot be entirely excluded and a hepatic protocol MRI may be useful for further characterization. No abdominal or pelvic lymphadenopathy is detected. 3. Uncomplicated diverticulosis. Dictated by: Dictated on workstation # [id number]
== END ==
LOC: RAD 14:45
PROVIDERS: ATTEND Internal Medicine Hematology & Oncology
DX: K76.9 Liver disease, unspecified (principal); K74.60 Unspecified cirrhosis of liver; K57.90 Diverticulosis of intestine, part unspecified, without perforation or abscess without bleeding; C32.1 Malignant neoplasm of supraglottis
CPT/HCPCS: 71260; 74177

== ENCOUNTER 2023-03-06 13:19 | Outpatient (RCR) | payer OTHER ==
[2023-02-20 14:35] LABS: BASOPHILS # (AUTO) 0.1 10^3/uL (0.0-0.1); BASOPHILS % (AUTO) 1 % (0-10); EOSINOPHILS # (AUTO) 0.3 10^3/uL (0.0-0.3); EOSINOPHILS % (AUTO) 5 % (0-10); HEMATOCRIT 43 % (40-54); HEMOGLOBIN 14.2 g/dL (13.3-17.7); LYMPHOCYTES # (AUTO) 0.8 10^3/uL (1.0-4.0); LYMPHOCYTES % (AUTO) 12 % (12-44); MEAN CORPUSCULAR HEMOGLOBIN 30 pg (25-34); MEAN CORPUSCULAR HGB CONC 33 g/dL (32-36); MEAN CORPUSCULAR VOLUME 91 fL (80-99); MEAN PLATELET VOLUME 8.4 fL (9.0-12.2); MONOCYTES # (AUTO) 0.4 10^3/uL (0.0-1.0); MONOCYTES % (AUTO) 5 % (0-12); NEUTROPHILS # (AUTO) 5.2 10^3/uL (1.8-7.8); NEUTROPHILS % (AUTO) 76 % (42-75); PLATELET COUNT 242 10^3/uL (130-400); WHITE BLOOD COUNT 6.8 10^3/uL (4.3-11.0)
[2023-02-20 14:54] LABS: ALBUMIN 3.7 GM/DL (3.2-4.5); BILIRUBIN,TOTAL 0.7 MG/DL (0.1-1.0); CALCIUM 8.8 MG/DL (8.5-10.1); CREATININE SERUM 0.79 MG/DL (0.60-1.30); POTASSIUM 3.8 MMOL/L (3.6-5.0); TOTAL PROTEIN 7.6 GM/DL (6.4-8.2)
[~2023-03-06 13:19] MED LIST changes: -HOLD METFORMIN - RECEIVED CONTRAST 20 ML VIAL IV SCH; -IOHEXOL 350 MG/ML 100 ML (OMNIPAQUE 350) VIAL IV ONE; -NS 100 ML (IVPB) BAG IV ONE
[2023-03-06 14:28] LABS: BASOPHILS # (AUTO) 0.1 10^3/uL (0.0-0.1); BASOPHILS % (AUTO) 1 % (0-10); EOSINOPHILS # (AUTO) 0.3 10^3/uL (0.0-0.3); EOSINOPHILS % (AUTO) 4 % (0-10); HEMATOCRIT 43 % (40-54); LYMPHOCYTES # (AUTO) 0.7 10^3/uL (1.0-4.0); LYMPHOCYTES % (AUTO) 10 % (12-44); MEAN CORPUSCULAR HEMOGLOBIN 30 pg (25-34); MEAN CORPUSCULAR HGB CONC 33 g/dL (32-36); MEAN CORPUSCULAR VOLUME 92 fL (80-99); MEAN PLATELET VOLUME 8.9 fL (9.0-12.2); MONOCYTES # (AUTO) 0.4 10^3/uL (0.0-1.0); MONOCYTES % (AUTO) 6 % (0-12); NEUTROPHILS % (AUTO) 80 % (42-75); PLATELET COUNT 239 10^3/uL (130-400); WHITE BLOOD COUNT 7.5 10^3/uL (4.3-11.0)
[2023-03-06 14:51] LABS: ALBUMIN 3.7 GM/DL (3.2-4.5); BILIRUBIN,TOTAL 0.8 MG/DL (0.1-1.0); CALCIUM 8.5 MG/DL (8.5-10.1); CREATININE SERUM 0.72 MG/DL (0.60-1.30); POTASSIUM 3.5 MMOL/L (3.6-5.0); TOTAL PROTEIN 7.2 GM/DL (6.4-8.2)
== END 2023-03-07 | disposition home or self-care (01) ==
LOC: ONC 13:19
PROVIDERS: ATTEND Internal Medicine Hematology & Oncology
DX: C76.0 Malignant neoplasm of head, face and neck (principal); C78.7 Secondary malignant neoplasm of liver and intrahepatic bile duct; C32.1 Malignant neoplasm of supraglottis; C78.00 Secondary malignant neoplasm of unspecified lung; K70.30 Alcoholic cirrhosis of liver without ascites; E66.9 Obesity, unspecified; L40.9 Psoriasis, unspecified; F17.210 Nicotine dependence, cigarettes, uncomplicated; J44.9 Chronic obstructive pulmonary disease, unspecified
CPT/HCPCS: 36591; 80053; 84443; 85025; 99214

== ENCOUNTER → 2023-04-23 | Outpatient (CLI) | payer OTHER ==
[~2023-04-23] MED LIST changes: +DIAZ-508 GT; -DIAZ10TA GT; +GADOTERATE 0.5 MMOL/ML (CLARISCAN) 20 ML VIAL IV ONE
--- NOTE | 2023-04-23 16:08 | Diagnostic Imaging Report ---
EXAMINATION: MRI of the abdomen with and without contrast. TECHNIQUE: Multiplanar, multisequence MR images of the abdomen were obtained with and without intravenous contrast. HISTORY: Metastatic malignant neoplasm to liver. COMPARISON: 02/27/2023, 06/13/2021. FINDINGS: Liver: There is a shrunken, nodular morphology of the liver suggestive of background cirrhosis. There is a mild the T2 hyperintense, T1 hypointense lesion within the liver involving hepatic segment VIII, which measures 7.9 x 4.7 cm. This lesion demonstrates restricted diffusion as well as heterogeneous linear and progressive central enhancement. Gallbladder and Bile Ducts: The gallbladder is unremarkable without filling defect. There is no intrahepatic or extrahepatic bile duct dilation. There are no filling defects within the biliary tree. Pancreas: The pancreas is normal in volume, signal intensity and enhancement. There is no dilation of the main pancreatic duct. Spleen: Spleen is upper limits of normal in size measuring 13.9 cm. Adrenal glands: The adrenal glands are unremarkable without focal nodule. Kidneys: The kidneys are unremarkable without hydronephrosis. Lymph Nodes: There is no suspicious lymphadenopathy. Other: There is no ascites. IMPRESSION: 1. Suspicious enhancing lesion within hepatic segment VIII measuring up to 7.9 x 4.7 cm. This lesion does not demonstrate typical characteristics of hepatocellular carcinoma on MRI. Differential consideration would still include hepatocellular carcinoma although other neoplastic process such as cholangiocarcinoma or metastatic disease would remain within the differential. This lesion has increased in size compared to 02/28/2021. 2. Morphologic changes of cirrhosis. Dictated by: Dictated on workstation # [id number]
== END ==
LOC: RAD 12:27
PROVIDERS: ATTEND Internal Medicine Hematology & Oncology
DX: C78.7 Secondary malignant neoplasm of liver and intrahepatic bile duct (principal)
CPT/HCPCS: 74183

== ENCOUNTER 2023-04-25 13:12 | Outpatient (RCR) | payer OTHER ==
[~2023-04-25 13:12] MED LIST changes: -GADOTERATE 0.5 MMOL/ML (CLARISCAN) 20 ML VIAL IV ONE
[2023-04-25 13:30] LABS: BASOPHILS # (AUTO) 0.1 10^3/uL (0.0-0.1); BASOPHILS % (AUTO) 1 % (0-10); EOSINOPHILS # (AUTO) 0.3 10^3/uL (0.0-0.3); EOSINOPHILS % (AUTO) 6 % (0-10); HEMATOCRIT 44 % (40-54); HEMOGLOBIN 14.6 g/dL (13.3-17.7); LYMPHOCYTES % (AUTO) 16 % (12-44); MEAN CORPUSCULAR HEMOGLOBIN 30 pg (25-34); MEAN CORPUSCULAR HGB CONC 33 g/dL (32-36); MEAN CORPUSCULAR VOLUME 90 fL (80-99); MEAN PLATELET VOLUME 8.8 fL (9.0-12.2); MONOCYTES # (AUTO) 0.4 10^3/uL (0.0-1.0); MONOCYTES % (AUTO) 7 % (0-12); NEUTROPHILS # (AUTO) 4.1 10^3/uL (1.8-7.8); NEUTROPHILS % (AUTO) 69 % (42-75); PLATELET COUNT 232 10^3/uL (130-400); WHITE BLOOD COUNT 5.9 10^3/uL (4.3-11.0)
[2023-04-25 14:01] LABS: BILIRUBIN,TOTAL 0.7 MG/DL (0.1-1.0); CALCIUM 9.3 MG/DL (8.5-10.1); CREATININE SERUM 0.74 MG/DL (0.60-1.30); POTASSIUM 3.8 MMOL/L (3.6-5.0)
[2023-05-06] MEDS ORDERED: MIRT-68 PO (08:18)
== END 2023-05-07 | disposition home or self-care (01) ==
LOC: ONC 13:12
PROVIDERS: ATTEND Internal Medicine Hematology & Oncology
DX: Z45.2 Encounter for adjustment and management of vascular access device (principal); C32.1 Malignant neoplasm of supraglottis; C78.7 Secondary malignant neoplasm of liver and intrahepatic bile duct; C78.00 Secondary malignant neoplasm of unspecified lung; K70.30 Alcoholic cirrhosis of liver without ascites; E66.9 Obesity, unspecified; L40.9 Psoriasis, unspecified; F17.210 Nicotine dependence, cigarettes, uncomplicated; J44.9 Chronic obstructive pulmonary disease, unspecified
CPT/HCPCS: 36415; 36591; 80053; 84443; 85025; 99214

== ENCOUNTER → 2023-05-06 | Outpatient (CLI) | payer MEDICARE, OTHER ==
[~2023-05-06] VITALS: Ht 185.4 cm; Wt 84.1 kg
[2023-05-06] VITALS (11 sets, daily range): BP systolic 103–124; BP diastolic 66–89
[~2023-05-06] MED LIST changes: +HYDROcodone/ACETAMINOPHEN 5 MG/325 MG TABLET PO PRN; +LIDOCAINE 1% INJ 10 ML VIAL INJ ONE; +MIDAZOLAM INJ 2 MG/2 ML VIAL IVP ONE; +MIRT-68 PO; +NS IV 1000 ML 1,000 ML IV STA; +fentaNYL INJECTION 100 MCG/2 ML VIAL IVP ONE
[2023-05-06 08:58] LABS: HEMATOCRIT 40 % (40-54); HEMOGLOBIN 13.4 g/dL (13.3-17.7); MEAN CORPUSCULAR HEMOGLOBIN 30 pg (25-34); MEAN CORPUSCULAR HGB CONC 34 g/dL (32-36); MEAN CORPUSCULAR VOLUME 90 fL (80-99); MEAN PLATELET VOLUME 8.9 fL (9.0-12.2); PLATELET COUNT 175 10^3/uL (130-400); WHITE BLOOD COUNT 4.6 10^3/uL (4.3-11.0)
[2023-05-06 09:39] LABS: PROTHROMBIN TIME PATIENT 13.1 SEC (12.2-14.7)
--- NOTE | 2023-05-06 10:49 | Diagnostic Imaging Report ---
INDICATION: Liver mass. Patient presents for CT-guided liver mass biopsy. FINDINGS: The patient was brought to the CT suite and placed on the table in the supine position. Axial imaging through the abdomen was performed to evaluate for an appropriate entry site. The right abdomen was then prepped and draped in the usual sterile fashion. A small amount of 1% lidocaine was utilized for local anesthesia. The procedure was performed utilizing conscious sedation with Radiology nursing and constant patient monitoring. The patient was given a total of 50 mcg of fentanyl intravenously and 0.5 mg of Versed intravenously. The total procedure time was approximately 5 minutes. An 18-gauge coaxial Temno needle was advanced from a right midaxillary line approach and placed with its tip along the margin of the solid-appearing mass in the right lobe of the liver. Four core biopsies were then obtained. The needle was removed and hemostasis was obtained. Followup imaging shows no complicating features. IMPRESSION: CT-guided right lobe liver mass biopsy utilizing conscious sedation. Pathology results are currently pending. Dictated by: Dictated on workstation # [id number]
--- NOTE | 2023-05-06 14:18 | Pre-Op Note & Conscious Sedat ---
Pre-Operative Progress Note Date of Available H&P: May 06, 2023 Date H&P Reviewed: May 06, 2023 Time H&P Reviewed: 09:00 Pre-Op Diagnosis: liver mass Moderate Sedation PreProcedure Time 09:00 ASA Score 2 Airway Lungs Heart ASA score ASA 1: a normal healthy patient ASA 2: a patient with a mild systemic disease (mid diabetes, controlled hypertension, obesity ASA 3: a patient with a severe systemic disease that limits activity (angina, COPD, prior Myocardial infarction) ASA 4: a patient with an incapacitating disease that is a constant threat to life (CHF, renal failure) ASA 5: a moribund patient not expected to survive 24 hrs. (ruptured aneurysm) ASA 6: a declared brain- patient whose organs are being harvested. For emergent operations, add the letter E after the classification Mallampati Classification Grade 2 Sedation Plan Analgesia, Amnesia, Plan communicated to team members, Discussed options with patient/fam, Discussed risks with patient/fam The patient is an appropriate candidate to undergo the planned procedure, sedation, and anesthesia. The patient immediately re-assessed prior to indication. LAWRENCE HERNANDEZ MD May 06, 2023 14:18
== END ==
LOC: SDC 08:06
PROVIDERS: ATTEND Internal Medicine Hematology & Oncology
DX: C78.7 Secondary malignant neoplasm of liver and intrahepatic bile duct (principal); C78.00 Secondary malignant neoplasm of unspecified lung; C32.1 Malignant neoplasm of supraglottis; L40.9 Psoriasis, unspecified; K70.30 Alcoholic cirrhosis of liver without ascites; Z87.891 Personal history of nicotine dependence
CPT/HCPCS: 36415; 77012; 85027; 85610; 85730; 99156

== ENCOUNTER 2023-05-27 13:05 | Outpatient (RCR) | payer OTHER ==
[~2023-05-27 13:05] MED LIST changes: -HYDROcodone/ACETAMINOPHEN 5 MG/325 MG TABLET PO PRN; -LIDOCAINE 1% INJ 10 ML VIAL INJ ONE; -MIDAZOLAM INJ 2 MG/2 ML VIAL IVP ONE; -NS IV 1000 ML 1,000 ML IV STA; -fentaNYL INJECTION 100 MCG/2 ML VIAL IVP ONE
[2023-05-27 14:07] LABS: BASOPHILS % (AUTO) 1 % (0-10); EOSINOPHILS # (AUTO) 0.2 10^3/uL (0.0-0.3); EOSINOPHILS % (AUTO) 5 % (0-10); HEMATOCRIT 43 % (40-54); HEMOGLOBIN 14.3 g/dL (13.3-17.7); LYMPHOCYTES # (AUTO) 0.6 10^3/uL (1.0-4.0); LYMPHOCYTES % (AUTO) 16 % (12-44); MEAN CORPUSCULAR HEMOGLOBIN 31 pg (25-34); MEAN CORPUSCULAR HGB CONC 33 g/dL (32-36); MEAN CORPUSCULAR VOLUME 92 fL (80-99); MONOCYTES # (AUTO) 0.2 10^3/uL (0.0-1.0); MONOCYTES % (AUTO) 5 % (0-12); NEUTROPHILS # (AUTO) 2.8 10^3/uL (1.8-7.8); NEUTROPHILS % (AUTO) 73 % (42-75); PLATELET COUNT 190 10^3/uL (130-400); WHITE BLOOD COUNT 3.8 10^3/uL (4.3-11.0)
== END 2023-06-06 | disposition home or self-care (01) ==
LOC: ONC 13:05
PROVIDERS: ATTEND Internal Medicine Hematology & Oncology
DX: C32.1 Malignant neoplasm of supraglottis (principal); C78.7 Secondary malignant neoplasm of liver and intrahepatic bile duct; C78.00 Secondary malignant neoplasm of unspecified lung; K70.30 Alcoholic cirrhosis of liver without ascites; E66.9 Obesity, unspecified; L40.9 Psoriasis, unspecified; F17.210 Nicotine dependence, cigarettes, uncomplicated; J44.9 Chronic obstructive pulmonary disease, unspecified
CPT/HCPCS: 82105; 85025; 99214